=== PATIENT | male | born 1935 | race Caucasian/White ===

== ENCOUNTER 2019-07-20 07:11 | Inpatient (IN) ==
[2019-07-20] MEDS ORDERED: ALBUT/IPRATROP 3MG/0.5MG NEB 3 ML VIAL NEB STA (07:40)
[2019-07-20] MEDS ORDERED: SODIUM CHLORIDE 0.9% 1000ML 1,000 ML IV ONE ×2 (07:40→11:13)
[2019-07-20 07:57] LABS: Hematocrit (blood only) 34.1 % (42-52); Hemoglobin 11.4 g/dL (14.0-18.0); Mean Corpuscular Hemoglobin 36.3 pg (25-34); Mean Corpuscular Hgb Conc 33.4 g/dL (32-36); Mean Corpuscular Volume 108.6 fL (80-100); Mean Platelet Volume 11.5 fL (7.4-10.4); Platelet Count 194 K/uL (130-400); RDW Coefficient of Variation 15.6 % (11.5-14.5); RDW Standard Deviation 61.2 fL (36.4-46.3); Red Blood Count 3.14 M/uL (4.7-6.1); White Blood Count 22.88 K/uL (4.8-10.8)
[2019-07-20] MEDS ORDERED: ONDANSETRON INJ 2 MG/ML 2 ML VIAL IV STA (08:02)
[2019-07-20 08:04] LABS: Albumin Level 3.5 gm/dl (3.4-5.0); BUN Creatinine Ratio 23.9 (10-20); Calcium 9.2 mg/dl (8.5-10.1); Creatinine Clr Calc Pharmacy 47.7 ml/min; Est GFR (African American) 59.7; Est GFR (Non-African American) 51.5; Magnesium 1.8 mg/dl (1.8-2.4); Potassium 3.7 mmol/L (3.5-5.1)
[2019-07-20 08:07] LABS: Albumin Globulin Ratio 1.2 (0.9-2); Bilirubin,Total 1.4 mg/dl (0.2-1); Globulin 2.8 gm/dl (2.5-4.0); Total Protein 6.3 gm/dl (6.4-8.2)
[2019-07-20 08:08] LABS: INR 1.1 (0.9-1.1); Partial Thromboplastin Ratio 0.9; Partial Thromboplastin Time 24.1 Seconds (21.0-31.0)
--- NOTE | 2019-07-20 08:17 | XRay Report ---
SINGLE VIEW CHEST CLINICAL HISTORY: Sepsis. FINDINGS: An AP, portable, upright chest radiograph is compared to study dated 03/11/2011. The examina tion is degraded by portable technique and patient rotation. The patient is status post midline tipton otomy and cardiac valve surgery. A 3-lead cardiac AICD largely obscures the left lower chest. The hea rt is enlarged noting atherosclerotic calcification of the thoracic aorta. There is mild pulmonary va scular congestion. There is chronic elevation of right hemidiaphragm. There are small pleural effusio ns with bibasilar consolidation. No pneumothorax is seen. The skeletal structures are osteopenic. The bony thorax is grossly intact. Degenerative change is noted in the shoulders and thoracic spine. IMPRESSION: 1. Cardiomegaly and AICD. There is mild pulmonary vascular congestion. 2. Small pleural effusions with bibasilar consolidation. This could represent atelectasis and/or an i nfectious/inflammatory pneumonitis. Clinical correlation will be required and radiographic follow-up to resolution is recommended. ACT 112: Negative or not required by law. Electronically signed by: Ned Croft M.D. 07/20/2019 8:16 AM
[2019-07-20 08:28] LABS: Basophils # (auto) 0.04 K/uL (0-0.2); Basophils % (auto) 0.2 %; Eosinophils # (auto) 0.03 K/uL (0-0.5); Eosinophils % (auto) 0.1 %; Immature Granulocytes % (auto) 0.4 %; Lymphocytes # (auto) 1.01 K/uL (1.2-3.4); Lymphocytes % (auto) 4.4 %; Monocytes # (auto) 1.41 K/uL (0.11-0.59); Monocytes % (auto) 6.2 %; Neutrophils # (auto) 20.29 K/uL (1.4-6.5); Neutrophils % (auto) 88.7 %
--- NOTE | 2019-07-20 08:51 | Emergency Department Note ---
ED Visit Note I assisted Dr. Salazar with the care of this patient. . Resident Activity Tracking Resident Involvement: Resident Care Provided Care Provided: Adult ED
--- NOTE | 2019-07-20 09:03 | XRay Report ---
KUB CLINICAL HISTORY: Vomiting. FINDINGS: 2 AP supine abdominal radiographs are correlated with lumbar spine radiographs dated 08/03/19 17. There is a nonobstructed abdominal bowel gas pattern. Moderate fecal retention is noted in the ri ght colon. No evidence of intraperitoneal free air is seen on these supine images. A 6 mm calcificati on projects over the left kidney or the left proximal ureter. The heart is enlarged. Midline sternoto my wires are noted with evidence of previous cardiac valve surgery. A cardiac AICD is partially visua lized. The skeletal structures are osteopenic and appear intact. Lumbosacral spondylosis and scoliosi s are observed. IMPRESSION: 1. Nonobstructed abdominal bowel gas pattern. 2. An indeterminant 6 mm calcification projects over the left kidney/proximal ureter. If there is cli nical concern for ureteral stone a renal ultrasound could be considered to assess for hydronephrosis. Electronically signed by: Ned Croft M.D. 07/20/2019 9:01 AM
[2019-07-20] MEDS ORDERED: CEFEPIME 2,000 MG/20 ML VIAL IV STA (10:03)
--- NOTE | 2019-07-20 10:44 | CT Scan Report ---
CT SCAN OF THE CHEST WITHOUT IV CONTRAST CLINICAL HISTORY: Dyspnea. COMPARISON STUDY: Chest x-ray dated 07/20/2019. TECHNIQUE: CT scan of the thorax was performed from the thoracic inlet to the upper abdomen. Images are reviewed in the axial, sagittal, and coronal planes. IV contrast was not administered for this ex amination as per the referring clinician. A dose lowering technique was utilized adhering to the hattie jose of ASHISH. The examination is modestly degraded by motion artifact. CT DOSE: 334.74 mGy.cm FINDINGS: Thyroid: Imaged portions of the thyroid gland are normal in size and attenuation. Thoracic aorta: There is atherosclerotic calcification of the thoracic aorta. There is aneurysmal dil atation of the ascending thoracic aorta which measures up to 4.8 cm. The remainder of the thoracic ao rta is normal in caliber and demonstrates standard 3-vessel arch anatomy. Heart: The patient is status post midline sternotomy and aortic valve surgery. A 3-lead cardiac AICD is present in the left chest wall. The heart is enlarged and without pericardial effusion. The pulmon misty trunk is dilated, measuring 3.6 cm in transverse diameter. This suggests pulmonary artery hyperte nsion. Lungs and pleural spaces: Evaluation of the lung parenchyma is modestly degraded by motion artifact. There are small pleural effusions. Dense airspace consolidation is seen at the lung bases, with near complete consolidation of the right lower lobe. The trachea and central airways are clear. Calcified pleural plaque is noted at the left lung base. Mediastinum: There are numerous subcentimeter mediastinal lymph nodes. Ann: Not well assessed without IV contrast. Axillae: There is no axillary lymphadenopathy. Upper abdomen: There is diverticulosis of the partially visualized colon. A small to moderate hiatal hernia is observed. Skeletal structures: The skeletal structures are osteopenic. There is a mild to moderate compression deformity of T8. Degenerative change is noted in the shoulders and thoracic spine. No lytic or blasti c bony lesions are seen. IMPRESSION: 1. There is dense bibasilar airspace consolidation as above, typical in appearance for pneumonia. Cli nical correlation will be required and radiographic follow-up to resolution is recommended. 2. Small pleural effusions. 3. Cardiomegaly and AICD. 4. There is aneurysmal dilatation of the ascending thoracic aorta which measures up to 4.8 cm in diam eter. Nonemergent surgical follow-up is recommended. 5. Additional findings as above. ACT 112: Negative or not required by law. Electronically signed by: Ned Croft M.D. 07/20/2019 10:43 AM
--- NOTE | 2019-07-20 11:29 | History & Physical Report ---
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 -Initial pulse ox of 58% but is now saturating at 93% on oxygen mask 13L/min -In setting of aspiration into airway last evening after choking episode and vomiting x 2 -Requires 2L NC HS at baseline -Continue supplemental O2 (2) Sepsis: Initial BP 81/64, improved to 101/54 after 1 L NSS given in ED. Respiration rate initially 25. Leukocytosis of 22.8, normal lactate at 1.5. No AMS -Empirically cover with Zosyn, MRSA swab -Follow blood cultures, IV fluids (3) Aspiration pneumonia: Following choking episode this evening with subsequent vomiting and coughing. Procalcitonin of 5 -Endorsing multiple episodes of hemoptysis with bright red blood mixed with mucus. Will monitor closely with repeat H&H this afternoon -Chest CT without IV contrast with dense bibasilar airspace consolidation as above, typical in appearance for pneumonia, small pleural effusions, cardiomegaly and AICD -Started on empiric cefepime in ED. Will continue abx coverage with Zosyn and doxycycline -Duonebs QIDR -Denies history of aspiration. Dysphagia screen at bedside before advancing diet (4) Bronchiectasis: Follows with Dr. Tejada of [place]. Lung disease complicated further due to right hemidiaphragm paralysis as result of aortic valve surgery -Continue Breo inhaler, albuterol inhaler PRN, flutter valve QID, IV solumedrol (5) Vomiting: In the setting of aspiration -Denies any nausea or vomiting episodes since arrival to ED -No electrolyte abnormalities -Zofran PRN (6) Hypertension: Initially hypotensive at 81/64, now 92/55 -Continue lisinopril HS and Toprol in AM with hold parameters (7) CAD (coronary artery disease): Continue statin, beta viral (8) Chronic diastolic HF (heart failure): In setting of ischemic HD, valvular disease -Continue Lasix HS, Toprol (9) Ventricular tachyarrhythmia: Continue Toprol -ICD with new unit placed in 07/14 -Monitor on telemetry (10) Ascending aortic aneurysm: History of stable aneurysmal dilatation of the ascending thoracic aorta which measures up to 4.6-4.8 cm in diameter -Undergoes annual CT scan, most recently in May 2019 without change -Followed closely by Dr. Simon (11) BPH (benign prostatic hyperplasia): Continue finasteride, terazosin DVT Ppx: SCDs for now in setting of hemoptysis Code status: FULL per discussion with patient PCP: Jeff Simon Dispo: Admitted to PCU. Discharge planning, PT and OT ordered. Patient seen in collaboration with Dr. Akhtar. Please see addendum. 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 Patient states he was in normal state of health until last evening around 10 PM when he choked on hot cocoa. Proceeded to have dry heaves and then 2 episodes of vomiting overnight as well as cough with reported episodes of hemoptysis of bright red blood mixed with mucus. Usually only wears 2 L nasal cannula oxygen HS but required at this morning as well, so family brought patient to ED for further evaluation. Initially, patient had pulse ox of 58% but is now saturating at 93% on oxygen mask 13L/min. Initial BP 81/64, improved to 97/50 after 1 L NSS given in ED. Respiration rate initially 25. Leukocytosis of 22.8, procalcitonin of 5 and normal lactate at 1.5. Chest CT without IV contrast with dense bibasilar airspace consolidation as above, typical in appearance for pneumonia, small pleural effusions, cardiomegaly and AICD. Also with stable aneurysmal dilatation of the ascending thoracic aorta which measures up to 4.8 cm in diameter. Started on empiric cefepime in ED. Allergies Allergy/AdvReac Type Severity Reaction Status Date / Time No Known Allergies Allergy Verified 07/20/19 09:32 Home Medications Home Medications Medication Instructions Recorded Confirmed Type Alphagan P 0.1 % OPHTHALMIC (EYE) DAILY 07/04/18 07/20/19 History albuterol sulfate [ProAir HFA] 2 puff INHALATION QID PRN 07/04/18 07/20/19 History amoxicillin 2,000 mg PO UD PRN 07/04/18 07/20/19 History dorzolamide-timolol 1 drp OPHTHALMIC (EYE) HS 07/04/18 07/20/19 History furosemide [Lasix] 20 mg PO HS 07/04/18 07/20/19 History latanoprost [Xalatan] 1 drp OPR HS 07/04/18 07/20/19 History Breo Ellipta 1 inh INHALATION QAM 06/27/19 07/20/19 History azithromycin [Zithromax Z-Thom] 250 mg PO UD PRN 06/27/19 07/20/19 History cetirizine [Zyrtec] 10 mg PO DAILY PRN 06/27/19 07/20/19 History cholecalciferol (vitamin D3) 1,000 unit PO QAM 06/27/19 07/20/19 History [Vitamin D3] finasteride 5 mg PO HS 06/27/19 07/20/19 History fluticasone propionate [Flonase 2 spray INTRANASAL BID 06/27/19 07/20/19 History Allergy Relief] lisinopril 2.5 mg PO HS 06/27/19 07/20/19 History metoprolol succinate 25 mg PO QAM 06/27/19 07/20/19 History multivitamin with minerals 1 tab PO QAM 06/27/19 07/20/19 History prednisone 10 mg PO UD PRN 06/27/19 07/20/19 History simvastatin 40 mg PO PM 06/27/19 07/20/19 History terazosin 5 mg PO QPM 06/27/19 07/20/19 History prednisolone acetate 1 drp OPHTHALMIC (EYE) QID 07/20/19 07/20/19 History Past Med/Surg History Medical History (Updated 07/20/19 @ 14:51 by Jemma Salazar MD) Ascending aortic aneurysm (Chronic) BPH (benign prostatic hyperplasia) (Chronic) Bronchiectasis (Chronic) CAD (coronary artery disease) (Chronic) Chronic diastolic HF (heart failure) Chronic systolic CHF (congestive heart failure), NYHA class 3 Glaucoma bilt eyes Hyperlipidemia (Chronic) Hypertension (Chronic) ICD (implantable cardioverter-defibrillator) battery depletion pt for biv icd generator change; rediscussed the procedure and potential risks consent obtained Ischemic cardiomyopathy (Chronic) On home oxygen therapy 2L N/C hs and prn Spinal stenosis Ventricular tachyarrhythmia (Chronic) Surgical History Biventricular ICD (implantable cardioverter-defibrillator) in place 2006 @ [facility]/ recently replaced @ 07/04/18 [facility] History of bilateral cataract extraction History of cardiac cath [address] [facility] [place] no stents History of colonoscopy History of left inguinal hernia repair x2 History of prostate biopsy x2--benign History of tonsillectomy Hx of CABG [address] [facility] [place] S/P AVR [address] [facility] [place] Family History Father Family hx colonic polyps Other Hypertension No family history of adverse response to anesthesia Stroke Social History Preferred Language: Irish Communication Ability: Effective Salesperson Floor Coverings Required: No Beliefs That Will Affect Care: None Current Living Situation: Spouse Other Information That Helps Us Care for You: No Feels Safe at Home: Yes Safety Concerns: Feels Safe At This Time Smoking Status: Former smoker Do You Dip or Chew Tobacco: No ; Smoking End Date: ; Second Hand Exposure: No ; Tobacco Cessation Education Requested by Patient: No Hx Alcohol Use: No Hx Substance Use: No Review of Systems Review of Systems: At least ten systems reviewed and negative except as noted in the HPI. Physical Exam Physical Exam: General Appearance: WD/WN, vitals as above, NAD, lying in bed, pleasant, chronically ill appearing, conversing easily Head: normocephalic, atraumatic Eyes: normal inspection, PERRL, conjunctivae normal, anicteric sclerae ENT: external ear and nose normal, oropharynx normal Neck: trachea midline, no thyromegaly normal visual inspection Respiratory: diffuse rhonchi and wheezing with bibasilar rales. Normal insp/exp effort with oxymask, no accessory muscle use Cardiovascular: regular rate, rhythm, no murmur appreciated, normal peripheral pulses, no BLE edema. Vessels: no JVD Chest: normal inspection of chest Abdomen/GI: normal bowel sounds, soft, nontender, no hepatosplenomegaly Extremities/Musculoskelatal: no cyanosis or clubbing, extremities motor strength 5/5 Neurologic: PERRL, EOMI, accommodation nl, no face palsy, no dysarthria, CN's II-XI intact bilaterally and moves all extremities Psychiatric: A+Ox3, euthymic affect Skin: no rashes, normal color, warm/dry Results & Data Vital Signs (Past 12 Hours) Vital Signs Temp Pulse Pulse Resp BP Pulse Ox 07/20/19 10:46 76 94 07/20/19 10:45 92/55 L 95 07/20/19 10:30 76 91/56 L 95 07/20/19 10:15 77 101/59 L 95 07/20/19 09:45 80 97/56 L 93 07/20/19 09:30 81 20 99/54 L 92 07/20/19 09:15 79 14 102/51 L 94 07/20/19 09:01 79 18 94 07/20/19 09:00 79 18 112/56 L 93 07/20/19 08:45 78 17 113/61 95 07/20/19 08:31 81 19 95 07/20/19 08:30 80 18 106/53 L 94 07/20/19 08:21 84 22 101/54 L 92 07/20/19 08:15 86 21 93 07/20/19 08:02 88 16 92 07/20/19 08:01 90 16 96 07/20/19 08:00 86 82/52 L 93 07/20/19 07:52 87 20 87/45 L 95 07/20/19 07:46 94 07/20/19 07:31 90 25 H 81/64 L 96 07/20/19 07:25 37.4 C 92 H 24 107/60 58 L 07/20/19 07:19 97 H 23 107/60 93 Laboratory Results Short CBC 07/20/19 Range/Units 06:45 WBC 22.88 H (4.8-10.8) K/uL Hgb 11.4 L (14.0-18.0) g/dL Hct 34.1 L (42-52) % Plt Count 194 (130-400) K/uL BMP 07/20/19 06:45 Sodium 141 Potassium 3.7 Chloride 108 H Carbon Dioxide 29 BUN 30 H Creatinine 1.27 Glucose 118 H Calcium 9.2 Liver Function 07/20/19 Range/Units 06:45 Total Bilirubin 1.4 H (0.2-1) mg/dl AST 21 (15-37) U/L ALT 22 (12-78) U/L Alkaline Phosphatase 62 (45-117) U/L Albumin 3.5 (3.4-5.0) gm/dl Diagnostic Findings CXR: IMPRESSION: 1. Cardiomegaly and AICD. There is mild pulmonary vascular congestion. 2. Small pleural effusions with bibasilar consolidation. This could represent atelectasis and/or an infectious/inflammatory pneumonitis. Clinical correlation will be required and radiographic follow-up to resolution is recommended. KUB: IMPRESSION: 1. Non-obstructed abdominal bowel gas pattern. 2. An indeterminant 6 mm calcification projects over the left kidney/proximal ureter. If there is clinical concern for ureteral stone a renal ultrasound could be considered to assess for hydronephrosis. CT chest w/o contrast: IMPRESSION: 1. There is dense bibasilar airspace consolidation as above, typical in appearance for pneumonia. Clinical correlation will be required and radiographic follow-up to resolution is recommended. 2. Small pleural effusions. 3. Cardiomegaly and AICD. 4. There is aneurysmal dilatation of the ascending thoracic aorta which measures up to 4.8 cm in diameter. Nonemergent surgical follow-up is recommended. 5. Additional findings as above. Code Status & VTE Plan VTE Prophylaxis Plan VTE Prophylaxis will be ordered: Yes Supervising Physician Co-Signing Physician Notes Attending addendum The patient was seen and examined in telemetry unit in presence of the family members He was admitted with increasing shortness of breath, chills and hemoptysis Symptoms are getting better but is still requiring about 10 L to maintain sa turation No more hemoptysis since admission On examination No apparent distress at rest Has been communicating normally Systolic blood pressure remains low at around upper 90s Chest-decreased breath sounds bilaterally bases with coarse crackles Heart-S1-S2, regular Abdomen-benign Extremities-trace edema bilaterally more on the left MANAGER BOOK-alert awake and oriented x3, Admission labs and imaging studies reviewed Has bibasilar infiltrate complicated by bronchiectasis and sepsis Hemoptysis Chronic diastolic CHF with ventricular tachyarrhythmia status post ICD placement in 07/14 Agree with assessment and plan as outlined above by VALENTÍN Shah DR
[2019-07-20] MEDS ORDERED: CONSULT PHARMACY STA (12:03)
[2019-07-20] MEDS ORDERED: ACETAMINOPHEN 325 MG TAB PO PRN (12:03)
[2019-07-20] MEDS ORDERED: CETIRIZINE HCL 10 MG TABLET PO PRN (12:03)
[2019-07-20] MEDS ORDERED: POLYETHYLENE (MIRALAX) 17 GM PACK PO PRN (12:03)
--- NOTE | 2019-07-20 13:06 | Emergency Department Note ---
Entered by Nancy Barbosa acting as a scribe for Jemma Salazar MD History of Present Illness General Chief complaint: Shortness of Breath/Dyspnea Stated complaint: Shortness of Breath Time Seen by Provider: 07/20/19 07:17 Source: patient Mode of arrival: ambulatory Limitations: no limitations History of Present Illness Onset (ago): hour(s) 8 Location: chest Radiation: non-radiation Pain Consistency: + constant Relieved By: + other (Oxygen) Exacerbated By: + none Associated symptoms: + cough, + fever/chills, + nausea/vomiting and + other (- hematochezia, -diarrhea, -vision changes, +hematemesis); no chest pain and no headaches Treatments prior to arrival: other (2L O2) The patient is an 83 year old male who presents to the ED with complaints of shortness of breath that started last night. He was brought to the ED via EMS and is accompanied by multiple family members. He states he ravioli and a hoagie yesterday while at his granddaughters house. Late last night, he started vomiting and experienced shortness of breath, a cough and the chills. He has vomited over 10 times and believes he saw blood in the vomit. His states his vomit looked "dark in color". The patient denies choking or having any issues swallowing while eating yesterday evening. He denies any headache, vision changes, chest pain or diarrhea. His also ate at their granddaughter's house but denies experiencing any symptoms herself. His last BM was yesterday and he denies any blood in the stool. 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 Home Medications Home Medications Medication Instructions Recorded Confirmed Type Alphagan P 0.1 % OPHTHALMIC (EYE) DAILY 07/04/18 07/20/19 History albuterol sulfate [ProAir HFA] 2 puff INHALATION QID PRN 07/04/18 07/20/19 History amoxicillin 2,000 mg PO UD PRN 07/04/18 07/20/19 History dorzolamide-timolol 1 drp OPHTHALMIC (EYE) HS 07/04/18 07/20/19 History furosemide [Lasix] 20 mg PO HS 07/04/18 07/20/19 History latanoprost [Xalatan] 1 drp OPR HS 07/04/18 07/20/19 History Breo Ellipta 1 inh INHALATION QAM 06/27/19 07/20/19 History azithromycin [Zithromax Z-Thom] 250 mg PO UD PRN 06/27/19 07/20/19 History cetirizine [Zyrtec] 10 mg PO DAILY PRN 06/27/19 07/20/19 History cholecalciferol (vitamin D3) 1,000 unit PO QAM 06/27/19 07/20/19 History [Vitamin D3] finasteride 5 mg PO HS 06/27/19 07/20/19 History fluticasone propionate [Flonase 2 spray INTRANASAL BID 06/27/19 07/20/19 History Allergy Relief] lisinopril 2.5 mg PO HS 06/27/19 07/20/19 History metoprolol succinate 25 mg PO QAM 06/27/19 07/20/19 History multivitamin with minerals 1 tab PO QAM 06/27/19 07/20/19 History prednisone 10 mg PO UD PRN 06/27/19 07/20/19 History simvastatin 40 mg PO PM 06/27/19 07/20/19 History terazosin 5 mg PO QPM 06/27/19 07/20/19 History prednisolone acetate 1 drp OPHTHALMIC (EYE) QID 07/20/19 07/20/19 History Allergies Allergy/AdvReac Type Severity Reaction Status Date / Time No Known Allergies Allergy Verified 07/20/19 09:32 Past Med/Surg History Medical History (Updated 07/20/19 @ 14:51 by Jemma Salazar MD) Ascending aortic aneurysm (Chronic) BPH (benign prostatic hyperplasia) (Chronic) Bronchiectasis (Chronic) CAD (coronary artery disease) (Chronic) Chronic diastolic HF (heart failure) Chronic systolic CHF (congestive heart failure), NYHA class 3 Glaucoma bilt eyes Hyperlipidemia (Chronic) Hypertension (Chronic) ICD (implantable cardioverter-defibrillator) battery depletion pt for biv icd generator change; rediscussed the procedure and potential risks consent obtained Ischemic cardiomyopathy (Chronic) On home oxygen therapy 2L N/C hs and prn Spinal stenosis Ventricular tachyarrhythmia (Chronic) Surgical History Biventricular ICD (implantable cardioverter-defibrillator) in place 2006 @ [facility]/ recently replaced @ 07/04/18 [facility] History of bilateral cataract extraction History of cardiac cath 2001 @ [facility] [place] no stents History of colonoscopy History of left inguinal hernia repair x2 History of prostate biopsy x2--benign History of tonsillectomy Hx of CABG 2001 @ [facility] [place] S/P AVR 2001 @ [facility] [place] Family History Father Family hx colonic polyps Other Hypertension No family history of adverse response to anesthesia Stroke Social History Preferred Language: Welsh Communication Ability: Effective Swaging Machine Adjuster Required: No Beliefs That Will Affect Care: None Current Living Situation: Spouse Other Information That Helps Us Care for You: No Feels Safe at Home: Yes Safety Concerns: Feels Safe At This Time Smoking Status: Former smoker Do You Dip or Chew Tobacco: No ; Smoking End Date: ; Second Hand Exposure: No ; Tobacco Cessation Education Requested by Patient: No Hx Alcohol Use: No Hx Substance Use: No Review of Systems See HPI for pertinent positives & negatives. and A total of 10 systems reviewed and were otherwise negative Physical Exam Vital Signs Vital Signs - 24 hr 07/20/19 07:19 07/20/19 07:25 07/20/19 07:31 Temperature 37.4 C Temperature Source Oral Pulse Rate 97 H 92 H 90 Pulse Rate [Apical] Pulse Rate from SpO2 Sensor 94 H 91 H Respiratory Rate 23 24 25 H Respiratory Effort / Characteristics Spontaneous Accessory Muscle Use Labored Blood Pressure 107/60 107/60 81/64 L Blood Pressure Mean 83 75 72 Blood Pressure Position Sitting Pulse Oximetry 93 58 L 96 Oxygen Delivery Method Non-rebreather Room Air Non-rebreather Oxygen Flow Rate 15 15 Sepsis Recent Fever Within 48 Hours No Sepsis Action Taken by Nursing No Action Required 07/20/19 07:46 07/20/19 07:52 07/20/19 08:00 Temperature Temperature Source Pulse Rate 87 86 Pulse Rate [Apical] Pulse Rate from SpO2 Sensor 87 87 Respiratory Rate 20 Respiratory Effort / Characteristics Blood Pressure 87/45 L 82/52 L Blood Pressure Mean 55 62 Blood Pressure Position Pulse Oximetry 94 95 93 Oxygen Delivery Method Non-rebreather Oxygen Flow Rate 15 15 15 Sepsis Recent Fever Within 48 Hours Sepsis Action Taken by Nursing 07/20/19 08:01 07/20/19 08:02 07/20/19 08:15 Temperature Temperature Source Pulse Rate 88 86 Pulse Rate [Apical] 90 Pulse Rate from SpO2 Sensor 88 86 Respiratory Rate 16 16 21 Respiratory Effort / Characteristics Spontaneous Blood Pressure Blood Pressure Mean Blood Pressure Position Pulse Oximetry 96 92 93 Oxygen Delivery Method Non-rebreather Oxygen Flow Rate 15 Sepsis Recent Fever Within 48 Hours Sepsis Action Taken by Nursing 07/20/19 08:21 07/20/19 08:30 07/20/19 08:31 Temperature Temperature Source Pulse Rate 84 80 81 Pulse Rate [Apical] Pulse Rate from SpO2 Sensor 84 83 81 Respiratory Rate 22 18 19 Respiratory Effort / Characteristics Blood Pressure 101/54 L 106/53 L Blood Pressure Mean 72 63 Blood Pressure Position Pulse Oximetry 92 94 95 Oxygen Delivery Method Oxymask Oxymask Oxygen Flow Rate 10 10 Sepsis Recent Fever Within 48 Hours Sepsis Action Taken by Nursing 07/20/19 08:45 07/20/19 09:00 07/20/19 09:01 Temperature Temperature Source Pulse Rate 78 79 79 Pulse Rate [Apical] Pulse Rate from SpO2 Sensor 78 79 79 Respiratory Rate 17 18 18 Respiratory Effort / Characteristics Blood Pressure 113/61 112/56 L Blood Pressure Mean 83 78 Blood Pressure Position Pulse Oximetry 95 93 94 Oxygen Delivery Method Oxymask Oxygen Flow Rate 15 15 Sepsis Recent Fever Within 48 Hours Sepsis Action Taken by Nursing 07/20/19 09:15 07/20/19 09:30 07/20/19 09:45 Temperature Temperature Source Pulse Rate 79 81 80 Pulse Rate [Apical] Pulse Rate from SpO2 Sensor 79 81 80 Respiratory Rate 14 20 Respiratory Effort / Characteristics Blood Pressure 102/51 L 99/54 L 97/56 L Blood Pressure Mean 74 73 67 Blood Pressure Position Pulse Oximetry 94 92 93 Oxygen Delivery Method Oxymask Oxymask Oxymask Oxygen Flow Rate 15 15 15 Sepsis Recent Fever Within 48 Hours Sepsis Action Taken by Nursing 07/20/19 10:15 07/20/19 10:30 Temperature Temperature Source Pulse Rate 77 76 Pulse Rate [Apical] Pulse Rate from SpO2 Sensor 77 76 Respiratory Rate Respiratory Effort / Characteristics Blood Pressure 101/59 L 91/56 L Blood Pressure Mean 80 62 Blood Pressure Position Pulse Oximetry 95 95 Oxygen Delivery Method Oxymask Oxymask Oxygen Flow Rate 13 13 Sepsis Recent Fever Within 48 Hours Sepsis Action Taken by Nursing Vital signs reviewed. General: Chronically ill appearing 83 year old male, in no significant distress. HEENT: No scleral icterus, PERRLA, neck supple. Atraumatic. Cardiovascular: Regular rate and rhythm, no extra sounds. Pulmonary: Rhonchi at the bilateral bases, course breathings throughout, normal work of breathing on NRB. Abdomen: Soft, nontender, nondistended, positive bowel sounds. Rectal: Normal rectal mucosa with guaiac negative brown stool. Musculoskeletal: Atraumatic, no peripheral edema. Neurologic: Patient awake alert and oriented x 3, full strength in all 4 extremities. Skin: Warm, dry, no rash Course Course 0725: The patient was evaluated in room B7 and a complete history and physical were performed. 0950: I reevaluated the patient. He is resting comfortably. I discussed his results and my recommendation he remain in the hospital for further evaluation and management and she is agreeable with the plan. 1000: I discussed the patients case with Viviana Storey [facility]. The patient will be further evaluated. Consultations Consultation #1: I discussed the patients case [facility] The patient will be further evaluated. Time: 10:00 Administered Medications Doxycycline Hyclate 100 mg/ (Dextrose) 110 mls @ 50 mls/hr IV Q12H CHRISTIAN Stop: 07/27/19 13:59 Last Admin: 07/20/19 14:17 Dose: 50 mls/hr Documented by: [id number] Methylprednisolone 40 mg/ (Syringe) 0.64 mls @ 1.5 mls/min IV Q8H CHRISTIAN Stop: 08/19/19 13:59 Last Admin: 07/20/19 14:17 Dose: 1.5 mls/min Documented by: [id number] Discontinued Medications Albuterol (Duoneb) 3 ml NEB NOW STA Stop: 07/20/19 07:41 Last Admin: 07/20/19 08:12 Dose: 3 ml Documented by: [id number] Sodium Chloride (Nss 1000ml) 1,000 mls @ 999 mls/hr IV .Q1H1M ONE Stop: 07/20/19 08:40 Last Infusion: 07/20/19 09:58 Dose: 0 mls/hr Documented by: [id number] Admin: 07/20/19 08:30 Dose: 999 mls/hr Documented by: [id number] Cefepime HCl (Maxipime) 2,000 mg in 20 mls @ 5 mls/min IV NOW STA; Protocol Stop: 07/20/19 10:06 Last Admin: 07/20/19 10:40 Dose: 5 mls/min Documented by: [id number] Sodium Chloride (Nss 1000ml) 1,000 mls @ 999 mls/hr IV .Q1H1M ONE Stop: 07/20/19 12:13 Last Infusion: 07/20/19 14:18 Dose: 0 mls/hr Documented by: [id number] Admin: 07/20/19 13:13 Dose: 999 mls/hr Documented by: [id number] Piperacillin Sod/Tazobactam (Sod 4.5 gm/ Dextrose) 120 mls @ 200 mls/hr IV 1315 ONE; Protocol Stop: 07/20/19 13:50 Last Infusion: 07/20/19 13:56 Dose: 0 mls/hr Documented by: [id number] Admin: 07/20/19 13:13 Dose: 200 mls/hr Documented by: [id number] Ondansetron HCl (Zofran) 4 mg IV NOW STA Stop: 07/20/19 08:03 Last Admin: 07/20/19 08:50 Dose: 4 mg Documented by: [id number] Medical Decision Making Differential Diagnosis Differential diagnoses includes but is not limited to pneumonia, bronchitis, COPD/Asthma exacerbation, pneumothorax, pulmonary embolism, congestive heart failure, acute coronary syndrome, SBO, GI bleed, viral illness. Medical Records Attestation: I reviewed the patient's medical records. Home Medications Current Medication List: was personally reviewed by me Laboratory Data Attestation: I reviewed the patient's lab results. Result diagrams: 07/20/19 06:45 07/20/19 06:45 Lab Results 07/20/19 07/20/19 07/20/19 Range/Units 06:45 06:45 06:45 WBC 22.88 H (4.8-10.8) K/uL RBC 3.14 L (4.7-6.1) M/uL Hgb 11.4 L (14.0-18.0) g/dL Hct 34.1 L (42-52) % MCV 108.6 H (80-100) fL MCH 36.3 H (25-34) pg MCHC 33.4 (32-36) g/dL RDW Std Deviation 61.2 H (36.4-46.3) fL RDW Coeff of Kole 15.6 H (11.5-14.5) % Plt Count 194 (130-400) K/uL MPV 11.5 H (7.4-10.4) fL Immature Gran % (Auto) 0.4 % Neut % (Auto) 88.7 % Lymph % (Auto) 4.4 % Carter % (Auto) 6.2 % Eos % (Auto) 0.1 % Baso % (Auto) 0.2 % Immature Gran # (Auto) 0.10 H (0.00-0.02) K/uL Neut # (Auto) 20.29 H (1.4-6.5) K/uL Lymph # (Auto) 1.01 L (1.2-3.4) K/uL Carter # (Auto) 1.41 H (0.11-0.59) K/uL Eos # (Auto) 0.03 (0-0.5) K/uL Baso # (Auto) 0.04 (0-0.2) K/uL PT 11.0 (9.0-12.0) Seconds INR 1.1 (0.9-1.1) APTT 24.1 (21.0-31.0) Seconds PTT Ratio 0.9 Sodium 141 (136-145) mmol/L Potassium 3.7 (3.5-5.1) mmol/L Chloride 108 H (98-107) mmol/L Carbon Dioxide 29 (21-32) mmol/L Anion Gap 5.0 (3-11) BUN 30 H (7-18) mg/dl Creatinine 1.27 (0.6-1.4) mg/dl Est Cr Clr Drug Dosing 47.7 ml/min Est GFR ( Amer) 59.7 Est GFR (Non-Af Amer) 51.5 BUN/Creatinine Ratio 23.9 H (10-20) Glucose 118 H (70-99) mg/dl Lactate (0.4-2.0) mmol/L Calcium 9.2 (8.5-10.1) mg/dl Magnesium 1.8 (1.8-2.4) mg/dl Total Bilirubin 1.4 H (0.2-1) mg/dl AST 21 (15-37) U/L ALT 22 (12-78) U/L Alkaline Phosphatase 62 (45-117) U/L Total Protein 6.3 L (6.4-8.2) gm/dl Albumin 3.5 (3.4-5.0) gm/dl Globulin 2.8 (2.5-4.0) gm/dl Albumin/Globulin Ratio 1.2 (0.9-2) Procalcitonin (0-0.5) ng/ml 07/20/19 07/20/19 Range/Units 08:18 08:26 WBC (4.8-10.8) K/uL RBC (4.7-6.1) M/uL Hgb (14.0-18.0) g/dL Hct (42-52) % MCV (80-100) fL MCH (25-34) pg MCHC (32-36) g/dL RDW Std Deviation (36.4-46.3) fL RDW Coeff of Kole (11.5-14.5) % Plt Count (130-400) K/uL MPV (7.4-10.4) fL Immature Gran % (Auto) % Neut % (Auto) % Lymph % (Auto) % Carter % (Auto) % Eos % (Auto) % Baso % (Auto) % Immature Gran # (Auto) (0.00-0.02) K/uL Neut # (Auto) (1.4-6.5) K/uL Lymph # (Auto) (1.2-3.4) K/uL Carter # (Auto) (0.11-0.59) K/uL Eos # (Auto) (0-0.5) K/uL Baso # (Auto) (0-0.2) K/uL PT (9.0-12.0) Seconds INR (0.9-1.1) APTT (21.0-31.0) Seconds PTT Ratio Sodium (136-145) mmol/L Potassium (3.5-5.1) mmol/L Chloride (98-107) mmol/L Carbon Dioxide (21-32) mmol/L Anion Gap (3-11) BUN (7-18) mg/dl Creatinine (0.6-1.4) mg/dl Est Cr Clr Drug Dosing ml/min Est GFR ( Amer) Est GFR (Non-Af Amer) BUN/Creatinine Ratio (10-20) Glucose (70-99) mg/dl Lactate 1.5 (0.4-2.0) mmol/L Calcium (8.5-10.1) mg/dl Magnesium (1.8-2.4) mg/dl Total Bilirubin (0.2-1) mg/dl AST (15-37) U/L ALT (12-78) U/L Alkaline Phosphatase (45-117) U/L Total Protein (6.4-8.2) gm/dl Albumin (3.4-5.0) gm/dl Globulin (2.5-4.0) gm/dl Albumin/Globulin Ratio (0.9-2) Procalcitonin 5.02 H (0-0.5) ng/ml Imaging Data Radiologist's Impression: Radiology results as stated below per my review and the radiologist's interpretation: SINGLE VIEW CHEST CLINICAL HISTORY: Sepsis. FINDINGS: An AP, portable, upright chest radiograph is compared to study dated 03/11/2011. The examination is degraded by portable technique and patient rotation. The patient is status post midline sternotomy and cardiac valve surgery. A 3-lead cardiac AICD largely obscures the left lower chest. The heart is enlarged noting atherosclerotic calcification of the thoracic aorta. There is mild pulmonary vascular congestion. There is chronic elevation of right hemidiaphragm. There are small pleural effusions with bibasilar consolidation. No pneumothorax is seen. The skeletal structures are osteopenic. The bony thorax is grossly intact. Degenerative change is noted in the shoulders and thoracic spine. IMPRESSION: 1. Cardiomegaly and AICD. There is mild pulmonary vascular congestion. 2. Small pleural effusions with bibasilar consolidation. This could represent atelectasis and/or an infectious/inflammatory pneumonitis. Clinical correlation will be required and radiographic follow-up to resolution is recommended. ACT 112: Negative or not required by law. Electronically signed by: Ned Croft M.D. 07/20/2019 8:16 AM KUB CLINICAL HISTORY: Vomiting. FINDINGS: 2 AP supine abdominal radiographs are correlated with lumbar spine radiographs dated 08/03/2016. There is a nonobstructed abdominal bowel gas pattern. Moderate fecal retention is noted in the right colon. No evidence of intraperitoneal free air is seen on these supine images. A 6 mm calcification projects over the left kidney or the left proximal ureter. The heart is enl arged. Midline sternotomy wires are noted with evidence of previous cardiac valve surgery. A cardiac AICD is partially visualized. The skeletal structures are osteopenic and appear intact. Lumbosacral spondylosis and scoliosis are observed. IMPRESSION: 1. Nonobstructed abdominal bowel gas pattern. 2. An indeterminant 6 mm calcification projects over the left kidney/proximal ureter. If there is clinical concern for ureteral stone a renal ultrasound could be considered to assess for hydronephrosis. Electronically signed by: Ned Croft M.D. 07/20/2019 9:[address] SCAN OF THE CHEST WITHOUT IV CONTRAST CLINICAL HISTORY: Dyspnea. COMPARISON STUDY: Chest x-ray dated 07/20/2019. TECHNIQUE: CT scan of the thorax was performed from the thoracic inlet to the upper abdomen. Images are reviewed in the axial, sagittal, and coronal planes. IV contrast was not administered for this examination as per the referring clinician. A dose lowering technique was utilized adhering to the principles of ALARA. The examination is modestly degraded by motion artifact. CT DOSE: 334.74 mGy.cm FINDINGS: Thyroid: Imaged portions of the thyroid gland are normal in size and attenuation. Thoracic aorta: There is atherosclerotic calcification of the thoracic aorta. There is aneurysmal dilatation of the ascending thoracic aorta which measures up to 4.8 cm. The remainder of the thoracic aorta is normal in caliber and demonstrates standard 3-vessel arch anatomy. Heart: The patient is status post midline sternotomy and aortic valve surgery. A 3-lead cardiac AICD is present in the left chest wall. The heart is enlarged and without pericardial effusion. The pulmonary trunk is dilated, measuring 3.6 cm in transverse diameter. This suggests pulmonary artery hypertension. Lungs and pleural spaces: Evaluation of the lung parenchyma is modestly degraded by motion artifact. There are small pleural effusions. Dense airspace consolidation is seen at the lung bases, with near complete consolidation of the right lower lobe. The trachea and central airways are clear. Calcified pleural plaque is noted at the left lung base. Mediastinum: There are numerous subcentimeter mediastinal lymph nodes. Ann: Not well assessed without IV contrast. Axillae: There is no axillary lymphadenopathy. Upper abdomen: There is diverticulosis of the partially visualized colon. A small to moderate hiatal hernia is observed. Skeletal structures: The skeletal structures are osteopenic. There is a mild to moderate compression deformity of T8. Degenerative change is noted in the shoulders and thoracic spine. No lytic or blastic bony lesions are seen. IMPRESSION: 1. There is dense bibasilar airspace consolidation as above, typical in appearance for pneumonia. Clinical correlation will be required and radiographic follow-up to resolution is recommended. 2. Small pleural effusions. 3. Cardiomegaly and AICD. 4. There is aneurysmal dilatation of the ascending thoracic aorta which measures up to 4.8 cm in diameter. Nonemergent surgical follow-up is recommended. 5. Additional findings as above. ACT 112: Negative or not required by law. Electronically signed by: Ned Croft M.D. 07/20/2019 10:43 AM ECG Data Attestation: I personally reviewed and interpreted this ECG as follows: Indication: + nausea Rate (beats per minute): 92 Rhythm: + other (biventricular paced rhythm) ECG [place]: + Normal ECG ST segments: + Nonspecific ST abnormalities Blood Pressure Blood Pressure Findings: Low blood pressure Blood Pressure Disposition: further management by hospitalist MDM Narrative This patient was evaluated and appeared to be in no distress. IV access was obtained and laboratory work was drawn. Chest x-ray was performed and reveals mild pulmonary vascular congestion with small bilateral effusions. Patient did receive IV hydration for relative hypotension although the patient states his systolic pressure normally runs between 90 and 110. KUB reveals a nonobstructive bowel gas pattern with a questionable left renal calculus. Follow-up CT scan of the chest was performed and is consistent with a bibasilar pneumonia. There is concern over aspiration given the patient's respiratory status and vomiting this morning. He was maintaining oxygenation on nonrebreather and was switched to an oxygen mask. Blood cultures were obtained and the patient was medicated with IV Zosyn. Patient is guaiac negative from the rectum and has a stable H&H with a white count of 22.8. He will be evaluated by the hospitalist service for further management. Patient and family are aware of the plan and agree. Resident Physician Supervision Note: I did perform an independent evaluation and examination of this patient as described. I also saw this patient in conjunction with the resident, Dr. Makenzie Rdz MD , and guided management for the patient. Impression & Plan Pneumonia, Vomiting, Hypoxia Discharge Plan Visit Data *Final* Discharge Date/Time: 07/20/19 10:59 Chief Complaint: Shortness of Breath/Dyspnea Stated Complaint: Shortness of Breath ED Provider: Jemma Salazar Discharge Problem: Pneumonia, Vomiting, Hypoxia Patient Disposition: Admitted As Inpatient Discharge Instructions Interventions: ED Discharge Assessment Last Done: 07/20/19 10:59 Discharge Problem: Pneumonia Qualifiers: Pneumonia type: due to unspecified organism Laterality: bilateral Lung location: lower lobe of lung Qualified Code(s): J18.9 - Pneumonia, unspecified organism Vomiting Qualifiers: Vomiting type: unspecified Vomiting Intractability: non-intractable Nausea presence: with nausea Qualified Code(s): R11.2 - Nausea with vomiting, unspecified The scribe's documentation has been prepared under my direction and personally reviewed by me in its entirety. I confirm that the note above accurately reflects all work, treatment, procedures, and medical decision making performed by me.
[2019-07-20] MEDS ORDERED: PIPERACILL/TAZOBAC CONSULT ACTIVE PRN (13:09)
[2019-07-20] MEDS ORDERED: PIPERACILLIN/TAZOBACTAM 4.5 GM in DEXTROSE 5% 100 ML IV ONE (13:15)
[2019-07-20] MEDS ORDERED: ALBUTEROL HFA 8 GM INHALER INH PRN (13:30)
[2019-07-20] MEDS ORDERED: HEPARIN SOD 5,000 UNIT/0.5 ML VIAL SQ SCH (14:00)
[2019-07-20] MEDS: DOXYCYCLINE HYCLATE 100 MG in DEXTROSE 5% 100 ML IV SCH (14:17)
[2019-07-20] MEDS: methylPREDNISolone 40 MG in SYRINGE 0 ML IV SCH ×2 (14:17→21:50)
[2019-07-20] MEDS: ALBUT/IPRATROP 3MG/0.5MG NEB 3 ML VIAL NEB SCH ×2 (15:36→20:34)
[2019-07-20] MEDS: prednisoLONE acetate 1% OP SUSP 5 ML BTL OP SCH ×2 (17:29→20:43)
[2019-07-20] MEDS: PIPERACILLIN/TAZOBACTAM 3.375 GM in DEXTROSE 5% 100 ML IV SCH (19:44)
--- NOTE | 2019-07-20 20:16 | Electrocardiogram Report ---
Test Reason : Blood Pressure : / mmHG Vent. Rate : 092 BPM Atrial Rate : 092 BPM P-R Int : 176 ms QRS Dur : 138 ms QT Int : 386 ms P-R-T Axes : 026 068 054 degrees QTc Int : 477 ms Atrial-sensed ventricular-paced rhythm Biventricular pacemaker detected Abnormal ECG No previous ECGs available Confirmed by Thee Lewis ([id number]) on 07/20/2019 8:16:37 PM Referred By: REFERRED SELF Confirmed By:Escobar Lewis
[2019-07-20] MEDS: FLUTICASONE PROPIONATE NA SPR 16 GM BTL NAE SCH (20:39)
[2019-07-20] MEDS: DORZOLAMIDE/TIMOLOL 22.3/6.8MG/ML 10 ML BTL OP SCH (20:39)
[2019-07-20] MEDS: FUROSEMIDE 20 MG TAB PO SCH (20:39)
[2019-07-20] MEDS: TERAZOSIN HCL 5 MG CAP PO SCH (20:40)
[2019-07-20] MEDS: FINASTERIDE 5 MG TAB PO SCH (20:41)
[2019-07-20] MEDS: SIMVASTATIN 40 MG TAB PO SCH (20:42)
[2019-07-20] MEDS: LATANOPROST 0.005% OP SOLN 2.5 ML BTL OPR SCH (20:43)
[2019-07-21] MEDS: DOXYCYCLINE HYCLATE 100 MG in DEXTROSE 5% 100 ML IV SCH ×2 (01:29→13:51)
[2019-07-21] MEDS: PIPERACILLIN/TAZOBACTAM 3.375 GM in DEXTROSE 5% 100 ML IV SCH ×3 (04:03→20:46)
[2019-07-21] MEDS: methylPREDNISolone 40 MG in SYRINGE 0 ML IV SCH ×3 (05:34→21:42)
[2019-07-21 06:16] LABS: Hematocrit (blood only) 28.7 % (42-52); Hemoglobin 9.4 g/dL (14.0-18.0); Mean Corpuscular Hgb Conc 32.8 g/dL (32-36); Mean Platelet Volume 11.1 fL (7.4-10.4); Platelet Count 148 K/uL (130-400); RDW Coefficient of Variation 16.1 % (11.5-14.5); RDW Standard Deviation 64.9 fL (36.4-46.3); Red Blood Count 2.61 M/uL (4.7-6.1); White Blood Count 18.63 K/uL (4.8-10.8)
[2019-07-21 07:07] LABS: BUN Creatinine Ratio 23.9 (10-20); Calcium 7.9 mg/dl (8.5-10.1); Creatinine Clr Calc Pharmacy 31.7 ml/min; Est GFR (African American) 42.6; Est GFR (Non-African American) 36.7; Potassium 4.8 mmol/L (3.5-5.1)
[2019-07-21] MEDS: ALBUT/IPRATROP 3MG/0.5MG NEB 3 ML VIAL NEB SCH ×4 (07:15→19:30)
[2019-07-21] MEDS: CHOLECALCIFEROL 1,000 UNITS 25 MCG TAB PO SCH (07:32)
[2019-07-21] MEDS: FLUTICASONE PROPIONATE NA SPR 16 GM BTL NAE SCH ×2 (07:32→21:44)
[2019-07-21] MEDS: CEROVITE ADV FORMULA TAB PO SCH (07:32)
[2019-07-21] MEDS: prednisoLONE acetate 1% OP SUSP 5 ML BTL OP SCH ×4 (07:34→21:48)
[2019-07-21] MEDS: FLUTICASONE/VILANTEROL 100/25MCG 14 PUFFS/INHALER INH SCH (07:34)
[2019-07-21] MEDS: METOPROLOL SUCC 25MG EXT REL TAB PO SCH (08:34)
--- NOTE | 2019-07-21 12:32 | Hospitalist Progress Note ---
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 -Initial pulse ox of 58% but is now saturating at 93% on oxygen mask 13L/min -In setting of aspiration into airway last evening after choking episode and vomiting x 2 -Requires 2L NC HS at baseline -Required BiPAP and 10 L of flow to maintain saturation on 07/20/2019 -Has been better since this morning -Saturating well on room air -Complains of cough but denies any hemoptysis (2) Sepsis: Initial BP 81/64, improved to 101/54 after 1 L NSS given in ED. Respiration rate initially 25. Leukocytosis of 22.8, normal lactate at 1.5. No AMS -Empirically cover with Zosyn, MRSA swab -Follow blood cultures, IV fluids -Blood cultures have been negative (3) Aspiration pneumonia: Following choking episode this evening with subsequent vomiting and coughing. Procalcitonin of 5 -Endorsing multiple episodes of hemoptysis with bright red blood mixed with mucu s. Will monitor closely with repeat H&H this afternoon -Chest CT without IV contrast with dense bibasilar airspace consolidation as above, typical in appearance for pneumonia, small pleural effusions, cardiomegaly and AICD -Started on empiric cefepime in ED. Will continue abx coverage with Zosyn and doxycycline -Duonebs QIDR -Denies history of aspiration. Dysphagia screen at bedside before advancing diet -Clinically a lot better -We will get repeat x-ray,PA and lateral view tomorrow (4) Bronchiectasis: Follows with Dr. Tejada of [place]. Lung disease complicated further due to right hemidiaphragm paralysis as result of aortic valve surgery -Continue Breo inhaler, albuterol inhaler PRN, flutter valve QID, IV solumedrol -We will ask for chest PT (5) Vomiting: In the setting of aspiration -Denies any nausea or vomiting episodes since arrival to ED -No electrolyte abnormalities -Zofran PRN (6) Hypertension: Initially hypotensive at 81/64, now 92/55 -Continue lisinopril HS and Toprol in AM with hold parameters -Noted to have hypotension and required holding blood pressure medicine as of 07/20/2019 (7) CAD (coronary artery disease): Continue statin, beta viral (8) Chronic diastolic HF (heart failure): In setting of ischemic HD, valvular disease -Continue Lasix HS, Toprol (9) Ventricular tachyarrhythmia: Continue Toprol -ICD with new unit placed in 07/14 -Monitor on telemetry (10) Ascending aortic aneurysm: History of stable aneurysmal dilatation of the ascending thoracic aorta which measures up to 4.6-4.8 cm in diameter -Undergoes annual CT scan, most recently in May 2019 without change -Followed closely by Dr. Simon (11) BPH (benign prostatic hyperplasia): Continue finasteride, terazosin DVT Ppx: SCDs for now in setting of hemoptysis Code status: FULL per discussion with patient PCP: Jeff Simon Dispo: Admitted to PCU. Discharge planning, PT and OT ordered. Has been improving Will need to have pulmonary evaluation in the hospital if hemoptysis continues Subjective 07/21/2019 Patient was seen and examined in telemetry unit He was admitted yesterday with bibasilar pneumonia complicated by history of bronchiectasis and hemoptysis No more hemoptysis since admission Clinically a lot better Saturating well on room air Review of Systems Review of Systems: All systems reviewed and are unremarkable except as noted below Respiratory: + cough, + chest congestion, + dyspnea on exertion and + wheezing Cardiovascular: Additional Comments: Noted to have low blood pressure this morning of systolic upper 70s Physical Exam 2 Physical Exam: Lying in bed comfortably Constitutional: well developed, well nourished and + obese; no acute distress and not ill appearing Eyes: PERRL, conjunctivae normal, anicteric sclerae ENMT: external ear and nose normal, oropharynx normal Neck: trachea midline, no thyromegaly Respiratory: normal respiratory effort; no respiratory distress Auscultation: + diminished lung sounds and + crackles (Bibasilar coarse crackles) Cardiovascular: Rate/Rhythm: regular rate and regular rhythm Heart Sounds: no murmur Gastrointestinal (Abdomen): Inspection/Auscultation: abdomen normal to inspection and normal bowel sounds Percussion/Palpation: abdomen soft; abdomen nontender Musculoskeletal: No acute arthritis in any joints Lymphatic: no cervical or axillary lymphadenopathy Results & Data Vital Signs (Past 12 Hours) Vital Signs Temp Pulse Resp BP Pulse Ox 07/21/19 11:32 36.3 C L 91 H 19 85/47 L 90 07/21/19 11:20 74 16 92 07/21/19 07:31 74/44 L 07/21/19 07:22 36.6 C 75 19 77/43 L 92 07/21/19 07:15 73 18 91 07/21/19 03:46 36.8 C 76 24 125/51 L 90 Laboratory Results Short CBC 07/20/19 07/21/19 Range/Units 16:59 05:48 WBC 18.63 H (4.8-10.8) K/uL Hgb 10.0 L 9.4 L (14.0-18.0) g/dL Hct 30.0 L 28.7 L (42-52) % Plt Count 148 (130-400) K/uL BMP 07/21/19 05:48 Sodium 139 Potassium 4.8 D Chloride 108 H Carbon Dioxide 29 BUN 40 H Creatinine 1.68 H D Glucose 160 H Calcium 7.9 L Medications Administered Current Inpatient Medications Acetaminophen (Tylenol) 650 mg PO Q4H PRN PRN Reason: Pain or Fever Stop: 08/19/19 12:02 Albuterol (Duoneb) 3 ml NEB QIDR [facility]IAN Stop: 08/19/19 14:59 Last Admin: 07/21/19 11:20 Dose: 3 ml Documented by: Albuterol (Ventolin Hfa) 2 puffs INH QID PRN PRN Reason: SHORTNESS OF BREATH Stop: 08/19/19 13:29 Cetirizine HCl (Zyrtec) 10 mg PO DAILY PRN PRN Reason: Allergy Symptoms Stop: 08/19/19 12:02 Dorzolamide/Timolol (Cosopt) 1 drops OP HS [facility]RISTIAN Stop: 08/19/19 20:59 Last Admin: 07/20/19 20:39 Dose: 1 drops Documented by: Finasteride (Proscar) 5 mg PO HS [facility]IAN Stop: 08/19/19 20:59 Last Admin: 01/25/20 20:41 Dose: 5 mg Documented by: Fluticasone Propionate (Flonase) 2 sprays RODRÍGUEZ BID [facility] Stop: 08/19/19 20:59 Last Admin: 07/21/19 07:32 Dose: 2 sprays Documented by: Fluticasone/Vilanterol (Breo Ellipta 100/25 Mcg Inh) [facility] Stop: 08/20/19 08:59 Last Admin: 07/21/19 07:34 Dose: 1 puffs Documented by: Furosemide (Lasix) 20 mg PO [facility] Stop: 08/19/19 20:59 Last Admin: 07/20/19 20:39 Dose: 20 mg Documented by: Doxycycline Hyclate 100 mg/ (Dextrose) 110 mls @ 50 mls/hr IV Q12H [facility] Stop: 07/27/19 13:59 Last Infusion: 07/21/19 03:41 Dose: Infused Documented by: Methylprednisolone 40 mg/ (Syringe) 0.64 mls @ 1.5 mls/min IV Q8H [facility] Stop: 08/19/19 13:59 Last Admin: 07/21/19 05:34 Dose: 1.5 mls/min Documented by: Piperacillin Sod/Tazobactam (Sod 3.375 gm/ Dextrose) 115 mls @ 28.75 mls/hr IV Q8H [facility]; Protocol Stop: 07/27/19 18:59 Last Admin: 07/21/19 12:00 Dose: 30 mls/hr Documented by: Latanoprost (Xalatan Oph) 1 drops OPR [facility] Stop: 08/19/19 20:59 Last Admin: 07/20/19 20:43 Dose: 1 drops Documented by: Lisinopril (Zestril) 2.5 mg PO [facility] Stop: 08/19/19 20:59 Last Admin: 07/20/19 20:43 Dose: 2.5 mg Documented by: Metoprolol Succinate (Toprol Xl) 25 [facility] Stop: 08/20/19 08:59 Last Admin: 07/21/19 08:34 Dose: Not Given Documented by: Miscellaneous (Order Awaiting Action) 1 ea N/A QS [facility] Stop: 08/19/19 15:59 Last Admin: 07/21/19 07:31 Dose: Not Given Documented by: Miscellaneous Information (Consult) 1 ea N/A UD PRN PRN Reason: Consult Stop: 08/19/19 13:08 Multivitamins/Minerals (Multivitamin W/ Minerals Tab) 1 tab PO QAM [facility] Stop: 08/20/19 08:59 Last Admin: 07/21/19 07:32 Dose: 1 tab Documented by: Ondansetron HCl (Zofran) 4 mg IV Q6H PRN PRN Reason: Nausea Stop: 08/19/19 12:02 Polyethylene Glycol (Miralax Powder Packet) 17 gm PO DAILY PRN PRN Reason: Constipation Stop: 08/19/19 12:02 Prednisolone Acetate (Pred Forte 1%) 1 drops OP QID [facility] Stop: 08/19/19 16:59 Last Admin: 07/21/19 07:34 Dose: 1 drops Documented by: Simvastatin (Zocor) 40 mg PO PM [facility] Stop: 08/19/19 20:59 Last Admin: 07/20/19 20:42 Dose: 40 mg Documented by: Terazosin HCl (Hytrin) 5 mg PO QPM [facility] Stop: 08/19/19 20:59 Last Admin: 07/20/19 20:40 Dose: 5 mg Documented by: Vitamin D (Vitamin D3) 1,000 units PO QAM [facility] Stop: 08/20/19 08:59 Last Admin: 07/21/19 07:32 Dose: 1,000 units Documented by: (1) Vomiting Nausea presence: with nausea Vomiting Intractability: non-intractable Vomiting type: unspecified Qualified Code(s): R11.2 - Nausea with vomiting, unspecified
[2019-07-21 14:28] LABS: Appearance Urine Clear (Clear); Bilirubin Urine Negative (Negative); Blood Urine Negative (Negative); Color Urine Dark Yellow; Glucose Urine UA Negative (Negative); Ketones Urine Trace (Negative); Leukocyte Esterase Urine Negative (Negative); Nitrite Urine Negative (Negative); Protein Urine Negative (Negative); Specific Gravity Urine 1.026 (1.000-1.030); Urobilinogen Urine Negative (Negative)
[2019-07-21] MEDS ORDERED: SODIUM CHLORIDE 0.9% 500 ML IV ONE (16:30)
[2019-07-21] MEDS: LATANOPROST 0.005% OP SOLN 2.5 ML BTL OPR SCH ×2 (20:46→21:48)
[2019-07-21] MEDS: SIMVASTATIN 40 MG TAB PO SCH (21:43)
[2019-07-21] MEDS: FUROSEMIDE 20 MG TAB PO SCH (21:45)
[2019-07-21] MEDS: TERAZOSIN HCL 5 MG CAP PO SCH (21:45)
[2019-07-21] MEDS: FINASTERIDE 5 MG TAB PO SCH (21:46)
[2019-07-21] MEDS: DORZOLAMIDE/TIMOLOL 22.3/6.8MG/ML 10 ML BTL OP SCH (21:47)
[2019-07-21] MEDS: BRIMONIDINE TARTRATE (ALPHAGAN P) 5 ML DROPS OPB SCH (21:49)
[2019-07-22] MEDS: SODIUM CHLORIDE 0.9% 1000ML 1,000 ML IV SCH ×4 (02:22→14:29)
[2019-07-22] MEDS: DOXYCYCLINE HYCLATE 100 MG in DEXTROSE 5% 100 ML IV SCH ×2 (02:22→14:04)
[2019-07-22] MEDS: PIPERACILLIN/TAZOBACTAM 3.375 GM in DEXTROSE 5% 100 ML IV SCH ×3 (05:00→20:16)
[2019-07-22] MEDS: methylPREDNISolone 40 MG in SYRINGE 0 ML IV SCH ×2 (05:47→14:04)
[2019-07-22 06:27] LABS: Hematocrit (blood only) 28.1 % (42-52); Hemoglobin 9.3 g/dL (14.0-18.0); Mean Corpuscular Hemoglobin 36.3 pg (25-34); Mean Corpuscular Hgb Conc 33.1 g/dL (32-36); Mean Corpuscular Volume 109.8 fL (80-100); Mean Platelet Volume 10.5 fL (7.4-10.4); Platelet Count 152 K/uL (130-400); RDW Coefficient of Variation 15.9 % (11.5-14.5); RDW Standard Deviation 63.9 fL (36.4-46.3); Red Blood Count 2.56 M/uL (4.7-6.1); White Blood Count 14.58 K/uL (4.8-10.8)
[2019-07-22 07:04] LABS: BUN Creatinine Ratio 22.7 (10-20); Calcium 7.9 mg/dl (8.5-10.1); Est GFR (African American) 33.5; Est GFR (Non-African American) 28.9; Potassium 4.7 mmol/L (3.5-5.1)
[2019-07-22] MEDS: ALBUT/IPRATROP 3MG/0.5MG NEB 3 ML VIAL NEB SCH ×4 (07:13→20:41)
[2019-07-22] MEDS: CHOLECALCIFEROL 1,000 UNITS 25 MCG TAB PO SCH (08:19)
[2019-07-22] MEDS: METOPROLOL SUCC 25MG EXT REL TAB PO SCH (08:19)
[2019-07-22] MEDS: FLUTICASONE/VILANTEROL 100/25MCG 14 PUFFS/INHALER INH SCH (08:20)
[2019-07-22] MEDS: CEROVITE ADV FORMULA TAB PO SCH (08:20)
[2019-07-22] MEDS: FLUTICASONE PROPIONATE NA SPR 16 GM BTL NAE SCH ×2 (08:20→20:34)
[2019-07-22] MEDS: BRIMONIDINE TARTRATE (ALPHAGAN P) 5 ML DROPS OPB SCH ×2 (08:21→20:34)
[2019-07-22] MEDS: prednisoLONE acetate 1% OP SUSP 5 ML BTL OP SCH ×4 (08:22→20:39)
--- NOTE | 2019-07-22 09:48 | XRay Report ---
XR chest 2V PA/lateral HISTORY: Follow-up PNEUMONIA COMPARISON: Chest 07/20/2019. FINDINGS: Bibasilar densities are again noted. These have slightly improved. The heart remains mildly enlarged. There is a cardiac valve prosthesis and a left-sided pacemaker/defibrillator. No pneumotho rax. Stable blunting of the costophrenic sulci. Elevation of the right hemidiaphragm, unchanged. No e vidence for pulmonary edema. IMPRESSION: Redemonstration of the bibasilar densities. This has slightly improved in the interval. ACT 112: Negative or not required by law. Electronically signed by: Vitaly Osorio M.D. 07/22/2019 9:47 AM
--- NOTE | 2019-07-22 12:10 | Pulmonary Consultation ---
Date of Consultation July 22, 2019 Assessment & Plan (1) Hemoptysis: This is been the patient's first episode of hemoptysis with this current illness Patient states that at this time the frequency is much much less and blood is dark with no bright red bleeding. Patient currently being treated for pneumonia -continue Zosyn and doxy Patient is also on methylprednisolone 40 mg every 8 hours We will continue to monitor. No indication for bronchoscopy or other intervention at this time Looking at the CAT scan of the chest which was done in the hospital I doubt patient has bronchiectasis he most likely has bronchitis (2) Pneumonia: Multilobar with dense right lower lobe consolidation Started on Zosyn and doxycycline -day #2 Blood cultures are negative after 48 hours White count is improving and is currently down to 14.58 from 22.88 Afebrile Continue titrate oxygen as tolerated Ambulate as tolerated Out of bed to chair as tolerated Laterality: bilateral Lung location: lower lobe of lung Pneu monia type: due to unspecified organism Qualified Code(s): J18.9 - Pneumonia, unspecified organism (3) Aortic valve replaced: Bovine valve in 2000 No anticoagulation as an outpatient Continue treatment per cardiology outpatient Thank you for including us in the care of this patient. Please refer to Dr. Payne's addendum for corrections and further treatment recommendations. Supervising Physician Co-Signing Physician Notes I saw and evaluated the patient with eNd liu, and agree with findings and plan as documented in the note. Patient seen and examined at bedside. No acute distress, no adverse events overnight. Patient states that hemoptysis is decreasing amount. Denies any chest pain, no headache, no nausea, no vomiting. Patient did cough while I was at examining him. This time patient stated that he was having a cocoa drink and to which he likely aspirated and started coughing. CT chest personally reviewed patient has dense bilateral lower lobe consolidation especially of the right lower lobe. I do not see any signs of bronchiectasis in the upper lobes lower lobes again cannot comment given that there is consolidation. Patient most likely has bronchitis and not bronchiectasis. Chest x-ray from today personally reviewed there is improvement in left lower lobe consolidation. By right lower lobe consolidation still persists. I personally think the hemoptysis is because of the pneumonia that she he has along with bilateral atrial enlargement. On asking patient if the cough is worse when he is eating or if he has difficulty swallowing he denies such complaints. was at bedside who said he does cough when he eats but unsure if he has difficulty swallowing. Recommend video swallow eval for the patient. Recommend continue with antibiotics, add Mucomyst Mucomyst, monitor H&H(patient's hemoglobin is stable so far). DC steroids. Patient is a non-smoker with history of asthma and is on Breo for it. Currently there is no indication for bronchoscopy. If the right lower consolidation does not improve then might consider bronchoscopy to see if there is any obstructive lesion. I have spent more than 50% of this 45 minute encounter in counseling and/or coordination of care with patient. Please note the above document was generated using voice recognition software. It may contain grammatical, syntax or spelling errors. History of Present Illness Attending Physician: Hortencia Akhtar MD History of Present Illness Attending: Dr. Payne Patient seen and examined at bedside. He has a hx of bronchiectasis and follows with [facility] at [facility] and at [place]. We are asked to see him regarding hemoptysis. Patient states that he has significant bronchiectasis and uses nebulizer treatments at home to help with pulmonary toilet. He has chronic SOB secondary to this as well as an elevated right hemidiaphragm which was injured during an AVR in 2000. Patient states he is compliant with all treatments as prescribed by the outpatient pulmonary clinic. Patient states that a couple of months ago he had significant cough secondary to large mucous plugs. At that time he had some difficulty clearing the plugs but had no blood streaking in the mucus at that time. On admission this time, the patient states that he has been having some dime size bright red clots at home they were mixed with mucus. Since his admission to the hospital, the blood is dark and it seems streaky with his mucus now. He denies any other clots or anything larger than the time. He does not have blood with every episode of expectorated sputum. The patient denies chest pain or tightness. He has no pleuritic pain. He has no lower extremity edema or pain. He has no prior history of hemoptysis or of thromboembolic disease. The patient is well aware of his medical history and states that he is on home oxygen at night but has not required it during the day. He also reports that he does not have any dyspnea with exertion. Patient does have aortic valve replacement in 2000 with a bovine valve. He is not on any anticoagulants or antiplatelet agents. The patient briefly smoked in his early adulthood. He quit smoking when he had children. He worked as a teacher and guidance counselor at [employer] and has no other vocational exposure. Allergies Allergy/AdvReac Type Severity Reaction Status Date / Time No Known Allergies Allergy Verified 07/20/19 09:32 Home Medications Home Medications Medication Instructions Recorded Confirmed Type Alphagan P 0.1 % OPHTHALMIC (EYE) DAILY 07/04/18 07/20/19 History albuterol sulfate [ProAir HFA] 2 puff INHALATION QID PRN 07/04/18 07/20/19 History amoxicillin 2,000 mg PO UD PRN 07/04/18 07/20/19 History dorzolamide-timolol 1 drp OPHTHALMIC (EYE) HS 07/04/18 07/20/19 History furosemide [Lasix] 20 mg PO HS 07/04/18 07/20/19 History latanoprost [Xalatan] 1 drp OPR HS 07/04/18 07/20/19 History Breo Ellipta 1 inh INHALATION QAM 06/27/19 07/20/19 History azithromycin [Zithromax Z-Thom] 250 mg PO UD PRN 06/27/19 07/20/19 History cetirizine [Zyrtec] 10 mg PO DAILY PRN 06/27/19 07/20/19 History cholecalciferol (vitamin D3) 1,000 unit PO QAM 06/27/19 07/20/19 History [Vitamin D3] finasteride 5 mg PO HS 06/27/19 07/20/19 History fluticasone propionate [Flonase 2 spray INTRANASAL BID 06/27/19 07/20/19 History Allergy Relief] lisinopril 2.5 mg PO HS 06/27/19 07/20/19 History metoprolol succinate 25 mg PO QAM 06/27/19 07/20/19 History multivitamin with minerals 1 tab PO QAM 06/27/19 07/20/19 History prednisone 10 mg PO UD PRN 06/27/19 07/20/19 History simvastatin 40 mg PO PM 06/27/19 07/20/19 History terazosin 5 mg PO QPM 06/27/19 07/20/19 History prednisolone acetate 1 drp OPHTHALMIC (EYE) QID 07/20/19 07/20/19 History Patient History Medical History Ascending aortic aneurysm (Chronic) BPH (benign prostatic hyperplasia) (Chronic) Bronchiectasis (Chronic) CAD (coronary artery disease) (Chronic) Chronic diastolic HF (heart failure) Chronic systolic CHF (congestive heart failure), NYHA class 3 Glaucoma bilt eyes Hyperlipidemia (Chronic) Hypertension (Chronic) ICD (implantable cardioverter-defibrillator) battery depletion pt for biv icd generator change; rediscussed the procedure and potential risks consent obtained Ischemic cardiomyopathy (Chronic) On home oxygen therapy 2L N/C hs and prn Spinal stenosis Ventricular tachyarrhythmia (Chronic) Surgical History Biventricular ICD (implantable cardioverter-defibrillator) in place 2006 @ [facility]/ kee replaced @ 07/04/18 [facility] History of bilateral cataract extraction History of cardiac cath 2001 @ [facility] [place] no stents History of colonoscopy History of left inguinal hernia repair x2 History of prostate biopsy x2--benign History of tonsillectomy Hx of CABG 2001 @ [facility] [place] S/P AVR 2001 @ [facility] [place] Family History Father Family hx colonic polyps Other Hypertension No family history of adverse response to anesthesia Stroke Social History Preferred Language: Mongolian Communication Ability: Effective Radar Technician Required: No Beliefs That Will Affect Care: None marital status: Current Living Situation: Spouse Other Information That Helps Us Care for You: No Feels Safe at Home: Yes Safety Concerns: Feels Safe At This Time Smoking Status: Former smoker Do You Dip or Chew Tobacco: No ; Smoking End Date: ; Second Hand Exposure: No ; Tobacco Cessation Education Requested by Patient: No Hx Alcohol Use: No Hx Substance Use: No Review of Systems Review of Systems: All systems reviewed & are unremarkable except as noted in HPI & below Physical Exam Physical Exam: GENERAL : No acute distress. Sitting in bedside chair. Pleasant. Talkative. No shortness of breath with full sentences. EYES: No icterus, gaze conjugate. NOSE: No evidence of epistaxis. Nasal cannula is in place and secure MOUTH: No lesions or candidiasis. Mucosa is moist NECK: Supple. No appreciation of transmitted wheezes or stridor. LUNGS: No wheeze, patient has coarse crackles in the lower two thirds of each lung. There is no cough or sputum production during my examination visit. HEART: Regular, rate controlled ABDOMEN: Soft, NT, ND, BS Present EXTREMITIES: No LE edema, pedal pulses intact NEURO: A&OX3 Skin: no rashes, warm and dry Lymphatic: no cervical or axillary lymphadenopathy Results & Data Vital Signs (Past 12 Hours) Vital Signs Temp Pulse Resp BP Pulse Ox 07/22/19 11:42 37.0 C 89 18 120/69 97 07/22/19 11:27 75 18 83 L 07/22/19 07:37 36.8 C 90 16 115/63 96 07/22/19 07:17 96 H 20 76 L 07/22/19 04:01 36.8 C 77 22 91/51 L 94 07/22/19 00:17 36.5 C 77 20 90/51 L 95 Laboratory Results 07/22/19 06:06 07/22/19 06:[address] SCAN OF THE CHEST WITHOUT IV CONTRAST CLINICAL HISTORY: Dyspnea. COMPARISON STUDY: Chest x-ray dated 07/20/2019. TECHNIQUE: CT scan of the thorax was performed from the thoracic inlet to the upper abdomen. Images are reviewed in the axial, sagittal, and coronal planes. IV contrast was not administered for this examination as per the referring clinician. A dose lowering technique was utilized adhering to the principles of ALARA. The examination is modestly degraded by motion artifact. CT DOSE: 334.74 mGy.cm FINDINGS: Thyroid: Imaged portions of the thyroid gland are normal in size and attenuation. Thoracic aorta: There is atherosclerotic calcification of the thoracic aorta. There is aneurysmal dilatation of the ascending thoracic aorta which measures up to 4.8 cm. The remainder of the thoracic aorta is normal in caliber and demonstrates standard 3-vessel arch anatomy. Heart: The patient is status post midline sternotomy and aortic valve surgery. A 3-lead cardiac AICD is present in the left chest wall. The heart is enlarged and without pericardial effusion. The pulmonary trunk is dilated, measuring 3.6 cm in transverse diameter. This suggests pulmonary artery hypertension. Lungs and pleural spaces: Evaluation of the lung parenchyma is modestly degraded by motion artifact. There are small pleural effusions. Dense airspace consolidation is seen at the lung bases, with near complete consolidation of the right lower lobe. The trachea and central airways are clear. Calcified pleural plaque is noted at the left lung base. Mediastinum: There are numerous subcentimeter mediastinal lymph nodes. Ann: Not well assessed without IV contrast. Axillae: There is no axillary lymphadenopathy. Upper abdomen: There is diverticulosis of the partially visualized colon. A small to moderate hiatal hernia is observed. Skeletal structures: The skeletal structures are osteopenic. There is a mild to moderate compression deformity of T8. Degenerative change is noted in the shoulders and thoracic spine. No lytic or blastic bony lesions are seen. IMPRESSION: 1. There is dense bibasilar airspace consolidation as above, typical in appearance for pneumonia. Clinical correlation will be required and radiographic follow-up to resolution is recommended. 2. Small pleural effusions. 3. Cardiomegaly and AICD. 4. There is aneurysmal dilatation of the ascending thoracic aorta which measures up to 4.8 cm in diameter. Nonemergent surgical follow-up is recommended. 5. Additional findings as above. ACT 112: Negative or not required by law. Electronically signed by: Ned Croft M.D. 07/20/2019 10:43 AM PG Care Time/CCT Total # of Minutes Spent Total Time Spent with Patient: Total time spent is greater than 50% in coordination of care (as documented) at patient's floor/unit and/or counseling patient: 45 minutes in discussion with the patient and his as well as communication with the primary team. [place] [address] Initial Inpt Care Lvl 3 Patient Type New Medical Decision Making Low Complexity Diagnoses Hemoptysis R04.2 Pneumonia J18.9 Laterality: bilateral Lung location: lower lobe of lung Pneumonia type: due to unspecified organism Aortic valve replaced Z95.2 Time Spent (min) 45 Comment >50% time was spent [id number] with the patient discussing diagnosis and plan of care.
[2019-07-22 14:56] LABS: Hemoglobin 9.6 g/dL (14.0-18.0)
--- NOTE | 2019-07-22 16:15 | Hospitalist Progress Note ---
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 -Initial pulse ox of 58% but is now saturating at 93% on oxygen mask 13L/min -In setting of aspiration into airway last evening after choking episode and vomiting x 2 -Requires 2L NC HS at baseline -Required BiPAP and 10 L of flow to maintain saturation on 07/20/2019 -Has been better since this morning -Saturating well on room air -Complains of cough but denies any hemoptysis -Clinically a lot better -Appreciate pulmonary input and recommendation -We will continue current treatment (2) Sepsis: Initial BP 81/64, improved to 101/54 after 1 L NSS given in ED. Respiration rate initially 25. Leukocytosis of 22.8, normal lactate at 1.5. No AMS -Empirically cover with Zosyn, MRSA swab -Follow blood cultures, IV fluids -Blood cultures have been negative (3) Aspiration pneumonia: Following choking episode this evening with subsequent vomiting and co ughing. Procalcitonin of 5 -Endorsing multiple episodes of hemoptysis with bright red blood mixed with mucus. Will monitor closely with repeat H&H this afternoon -Chest CT without IV contrast with dense bibasilar airspace consolidation as above, typical in appearance for pneumonia, small pleural effusions, cardiomegaly and AICD -Started on empiric cefepime in ED. Will continue abx coverage with Zosyn and doxycycline -Duonebs QIDR -Denies history of aspiration. Dysphagia screen at bedside before advancing diet -Clinically a lot better -We will get repeat x-ray,PA and lateral view tomorrow -Chest x-ray showing improvement of infiltration -We will continue Zosyn and doxycycline for now MANISH Likely secondary to dehydration We will give cautious amount of intravenous fluid Advised to drink more fluid Monitor PRP (4) Bronchiectasis: Follows with Dr. Tejada of [place]. Lung disease complicated further due to right hemidiaphragm paralysis as result of aortic valve surgery -Continue Breo inhaler, albuterol inhaler PRN, flutter valve QID, IV solumedrol -We will ask for chest PT -Has been getting chest PT with minimal improvement (5) Vomiting: In the setting of aspiration -Denies any nausea or vomiting episodes since arrival to ED -No electrolyte abnormalities -Zofran PRN (6) Hypertension: Initially hypotensive at 81/64, now 92/55 -Continue lisinopril HS and Toprol in AM with hold parameters -Noted to have hypotension and required holding blood pressure medicine as of 07/20/2019 (7) CAD (coronary artery disease): Continue statin, beta viral (8) Chronic diastolic HF (heart failure): In setting of ischemic HD, valvular disease -Continue Lasix HS, Toprol -No signs of fluid overload -We will give cautious amount of intravenous fluid to improve kidney function (9) Ventricular tachyarrhythmia: Continue Toprol -ICD with new unit placed in 07/14 -Monitor on telemetry (10) Ascending aortic aneurysm: History of stable aneurysmal dilatation of the ascending thoracic aorta which measures up to 4.6-4.8 cm in diameter -Undergoes annual CT scan, most recently in May 2019 without change -Followed closely by Dr. Simon (11) BPH (benign prostatic hyperplasia): Continue finasteride, terazosin DVT Ppx: SCDs for now in setting of hemoptysis Code status: FULL per discussion with patient PCP: Jeff Simon Dispo: Admitted to PCU. Discharge planning, PT and OT ordered. Has been improving Will need to have pulmonary evaluation in the hospital if hemoptysis continues Subjective 07/21/2019 Patient was seen and examined in telemetry unit He was admitted yesterday with bibasilar pneumonia complicated by history of bronchiectasis and hemoptysis No more hemoptysis since admission Clinically a lot better Saturating well on room air 07/22/2019 Patient was seen and examined in telemetry unit He has been feeling a lot better Has had only one episode of hemoptysis since admission Denies any fever and/or chills Review of Systems Review of Systems: All systems reviewed and are unremarkable except as noted below Constitutional: + weakness Respiratory: + cough and + dyspnea on exertion Physical Exam Physical Exam: Sitting on a chair without any acute distress Constitutional: well developed, well nourished and + obese; no acute distress and not ill appearing Eyes: PERRL, conjunctivae normal, anicteric sclerae ENMT: external ear and nose normal, oropharynx normal Neck: trachea midline, no thyromegaly Respiratory: normal respiratory effort; no respiratory distress Auscultation: + diminished lung sounds and + crackles (Bibasilar coarse crackles) Cardiovascular: Rate/Rhythm: regular rate and regular rhythm Heart Sounds: no murmur Gastrointestinal (Abdomen): Inspection/Auscultation: abdomen normal to inspection and normal bowel sounds Percussion/Palpation: abdomen soft; abdomen nontender Musculoskeletal: Denies any acute joint pain Lymphatic: no cervical or axillary lymphadenopathy Results & Data Vital Signs (Past 12 Hours) Vital Signs Temp Pulse Resp BP Pulse Ox 07/22/19 11:42 37.0 C 89 18 120/69 97 07/22/19 11:27 75 18 83 L 07/22/19 07:37 36.8 C 90 16 115/63 96 07/22/19 07:17 96 H 20 76 L 07/22/19 04:01 36.8 C 77 22 91/51 L 94 Laboratory Results Short CBC 07/22/19 07/22/19 Range/Units 06:06 14:47 WBC 14.58 H (4.8-10.8) K/uL Hgb 9.3 L 9.6 L (14.0-18.0) g/dL Hct 28.1 L 29.0 L (42-52) % Plt Count 152 (130-400) K/uL BMP 07/22/19 06:06 Sodium 137 Potassium 4.7 Chloride 106 Carbon Dioxide 27 BUN 46 H Creatinine 2.05 H D Glucose 147 H Calcium 7.9 L Medications Administered Current Inpatient Medications Acetaminophen (Tylenol) 650 mg PO Q4H PRN PRN Reason: Pain or Fever Stop: 08/19/19 12:02 Albuterol (Duoneb) 3 ml NEB QIDR [facility] Stop: 08/19/19 14:59 Last Admin: 07/22/19 15:55 Dose: 3 ml Documented by: Albuterol (Ventolin Hfa) 2 puffs INH QID PRN PRN Reason: SHORTNESS OF BREATH Stop: 08/19/19 13:29 Brimonidine Tartrate (Alphagan P Oph) 1 drops OPB BID [facility] Stop: 08/20/19 20:59 Last Admin: 07/22/19 08:21 Dose: 1 drops Documented by: Cetirizine HCl (Zyrtec) 10 mg PO DAILY PRN PRN Reason: Allergy Symptoms Stop: 08/19/19 12:02 Dorzolamide/Timolol (Cosopt) 1 drops OP HS [facility] Stop: 08/19/19 20:59 Last Admin: 07/21/19 21:47 Dose: 1 drops Documented by: Finasteride (Proscar) 5 mg PO [facility] Stop: 08/19/19 20:59 Last Admin: 07/21/19 21:46 Dose: 5 mg Documented by: Fluticasone Propionate (Flonase) 2 sprays RODRÍGUEZ BID [facility] Stop: 08/19/19 20:59 Last Admin: 07/22/19 08:20 Dose: 2 sprays Documented by: Fluticasone/Vilanterol (Breo Ellipta 100/25 Mcg Inh) 1 puffs INH QAM [facility] Stop: 08/20/19 08:59 Last Admin: 07/22/19 08:20 Dose: 1 puffs Documented by: Furosemide (Lasix) 20 mg PO [facility] Stop: 08/19/19 20:59 Last Admin: 07/21/19 21:45 Dose: 20 mg Documented by: Doxycycline Hyclate 100 mg/ (Dextrose) 110 mls @ 50 mls/hr IV Q12H [facility] Stop: 07/27/19 13:59 Last Admin: 07/22/19 14:04 Dose: 50 mls/hr Documented by: Methylprednisolone 40 mg/ (Syringe) 0.64 mls @ 1.5 mls/min IV Q8H [facility] Stop: 08/19/19 13:59 Last Admin: 07/22/19 14:04 Dose: 1.5 mls/min Documented by: Piperacillin Sod/Tazobactam (Sod 3.375 gm/ Dextrose) 115 mls @ 28.75 mls/hr IV Q8H [facility]; Protocol Stop: 07/27/19 18:59 Last Infusion: 07/22/19 14:05 Dose: Infused Documented by: Sodium Chloride (Nss 1000ml) 1,000 mls @ 100 mls/hr IV .Q10H [facility] Stop: 08/21/19 14:14 Last Infusion: 07/22/19 14:29 Dose: 0 mls/hr Documented by: Latanoprost (Xalatan Oph) 1 drops OPR HS [facility] Stop: 08/19/19 20:59 Last Admin: 07/21/19 21:48 Dose: 1 drops Documented by: Lisinopril (Zestril) 2.5 mg PO HS [facility] Stop: 08/19/19 20:59 Last Admin: 07/21/19 21:43 Dose: 2.5 mg Documented by: Metoprolol Succinate (Toprol Xl) 25 mg PO [facility] Stop: 08/20/19 08:59 Last Admin: 07/22/19 08:19 Dose: 25 mg Documented by: Miscellaneous Information (Consult) 1 ea N/A UD PRN PRN Reason: Consult Stop: 08/19/19 13:08 Multivitamins/Minerals (Multivitamin W/ Minerals Tab) 1 tab PO [facility] Stop: 08/20/19 08:59 Last Admin: 07/22/19 08:20 Dose: 1 tab Documented by: Ondansetron HCl (Zofran) 4 mg IV Q6H PRN PRN Reason: Nausea Stop: 08/19/19 12:02 Polyethylene Glycol (Miralax Powder Packet) 17 gm PO DAILY PRN PRN Reason: Constipation Stop: 08/19/19 12:02 Prednisolone Acetate (Pred Forte 1%) 1 drops OP QID [facility] Stop: 08/19/19 16:59 Last Admin: 07/22/19 14:04 Dose: 1 drops Documented by: Simvastatin (Zocor) 40 mg PO PM [facility] Stop: 08/19/19 20:59 Last Admin: 07/21/19 21:43 Dose: 40 mg Documented by: Terazosin HCl (Hytrin) 5 mg PO QPM [facility] Stop: 08/19/19 20:59 Last Admin: 07/21/19 21:45 Dose: 5 mg Documented by: Vitamin D (Vitamin D3) 1,000 units PO [facility] Stop: 08/20/19 08:59 Last Admin: 07/22/19 08:19 Dose: 1,000 units Documented by: (1) Vomiting Nausea presence: with nausea Vomiting Intractability: non-intractable Vomiting type: unspecified Qualified Code(s): R11.2 - Nausea with vomiting, unspecified
[2019-07-22] MEDS: DORZOLAMIDE/TIMOLOL 22.3/6.8MG/ML 10 ML BTL OP SCH (20:34)
[2019-07-22] MEDS: TERAZOSIN HCL 5 MG CAP PO SCH (20:36)
[2019-07-22] MEDS: FUROSEMIDE 20 MG TAB PO SCH (20:36)
[2019-07-22] MEDS: SIMVASTATIN 40 MG TAB PO SCH (20:37)
[2019-07-22] MEDS: FINASTERIDE 5 MG TAB PO SCH (20:38)
[2019-07-22] MEDS: ACETYLCYSTEINE 20% INHAL SOLN 4ML ***DISPENSED BY RESP. INH SCH (20:41)
[2019-07-23] MEDS: SODIUM CHLORIDE 0.9% 1000ML 1,000 ML IV SCH ×3 (02:51→21:07)
[2019-07-23] MEDS: DOXYCYCLINE HYCLATE 100 MG in DEXTROSE 5% 100 ML IV SCH ×2 (02:53→15:56)
[2019-07-23] MEDS: PIPERACILLIN/TAZOBACTAM 3.375 GM in DEXTROSE 5% 100 ML IV SCH ×3 (02:53→20:50)
[2019-07-23 06:51] LABS: Basophils # (auto) 0.01 K/uL (0-0.2); Basophils % (auto) 0.1 %; Hematocrit (blood only) 28.8 % (42-52); Hemoglobin 9.5 g/dL (14.0-18.0); Immature Granulocytes # (auto) 0.05 K/uL (0.00-0.02); Immature Granulocytes % (auto) 0.5 %; Lymphocytes # (auto) 0.94 K/uL (1.2-3.4); Lymphocytes % (auto) 9.7 %; Mean Corpuscular Hemoglobin 36.3 pg (25-34); Mean Corpuscular Volume 109.9 fL (80-100); Monocytes % (auto) 10.3 %; Neutrophils # (auto) 7.72 K/uL (1.4-6.5); Neutrophils % (auto) 79.4 %; Platelet Count 172 K/uL (130-400); RDW Coefficient of Variation 15.9 % (11.5-14.5); Red Blood Count 2.62 M/uL (4.7-6.1); White Blood Count 9.72 K/uL (4.8-10.8)
[2019-07-23 07:17] LABS: BUN Creatinine Ratio 27.7 (10-20); Calcium 8.3 mg/dl (8.5-10.1); Creatinine Clr Calc Pharmacy 34.3 ml/min; Est GFR (African American) 41.4; Est GFR (Non-African American) 35.7; Potassium 4.6 mmol/L (3.5-5.1)
[2019-07-23 07:18] LABS: Phosphorus 3.9 mg/dl (2.5-4.9)
[2019-07-23] MEDS: ALBUT/IPRATROP 3MG/0.5MG NEB 3 ML VIAL NEB SCH ×4 (07:26→20:06)
[2019-07-23] MEDS: ACETYLCYSTEINE 20% INHAL SOLN 4ML ***DISPENSED BY RESP. INH SCH ×2 (07:29→20:06)
[2019-07-23] MEDS: BRIMONIDINE TARTRATE (ALPHAGAN P) 5 ML DROPS OPB SCH ×2 (09:10→20:53)
[2019-07-23] MEDS: FLUTICASONE/VILANTEROL 100/25MCG 14 PUFFS/INHALER INH SCH (09:11)
[2019-07-23] MEDS: FLUTICASONE PROPIONATE NA SPR 16 GM BTL NAE SCH ×2 (09:12→20:54)
[2019-07-23] MEDS: CEROVITE ADV FORMULA TAB PO SCH (09:12)
[2019-07-23] MEDS: METOPROLOL SUCC 25MG EXT REL TAB PO SCH (09:13)
[2019-07-23] MEDS: prednisoLONE acetate 1% OP SUSP 5 ML BTL OP SCH ×5 (09:13→20:52)
[2019-07-23] MEDS: CHOLECALCIFEROL 1,000 UNITS 25 MCG TAB PO SCH (09:14)
--- NOTE | 2019-07-23 11:41 | Hospitalist Progress Note ---
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 -Initial pulse ox of 58% but is now saturating at 93% on oxygen mask 13L/min -In setting of aspiration into airway last evening after choking episode and vomiting x 2 -Requires 2L NC HS at baseline -Required BiPAP and 10 L of flow to maintain saturation on 07/20/2019 -Has been better since this morning -Saturating well on room air -Complains of cough but denies any hemoptysis -Clinically a lot better -Appreciate pulmonary input and recommendation -Remains stable -We will get PT and OT evaluation -Possible discharge tomorrow and will need to have a 2-step O2 saturation before discharge Hemoptysis Likely secondary to bronchitis Appreciate pulmonary input and recommendation No indication of bronchoscopy Hemoptysis seems to be improved (2) Sepsis: Initial BP 81/64, improved to 101/54 after 1 L NSS given in ED. Respiration rate initially 25. Leukocytosis of 22.8, normal lactate at 1.5. No A MS -Empirically cover with Zosyn, MRSA swab -Follow blood cultures, IV fluids -Blood cultures have been negative -We will discharge on Ceftin and doxycycline to finish a total of 10 days course (3) Aspiration pneumonia: Following choking episode this evening with subsequent vomiting and coughing. Procalcitonin of 5 -Endorsing multiple episodes of hemoptysis with bright red blood mixed with mucus. Will monitor closely with repeat H&H this afternoon -Chest CT without IV contrast with dense bibasilar airspace consolidation as above, typical in appearance for pneumonia, small pleural effusions, cardiomegaly and AICD -Started on empiric cefepime in ED. Will continue abx coverage with Zosyn and doxycycline -Duonebs QIDR -Denies history of aspiration. Dysphagia screen at bedside before advancing diet -Clinically a lot better -We will get repeat x-ray,PA and lateral view tomorrow -Chest x-ray showing improvement of infiltration -We will continue Zosyn and doxycycline for now -Oral Ceftin and doxy on discharge MANISH Likely secondary to dehydration We will give cautious amount of intravenous fluid Advised to drink more fluid Monitor PRP-creatinine is better today (4) Bronchiectasis: Follows with Dr. Tejada of [place]. Lung disease complicated further due to right hemidiaphragm paralysis as result of aortic valve surgery -Continue Breo inhaler, albuterol inhaler PRN, flutter valve QID, IV solumedrol -We will ask for chest PT -Has been getting chest PT with minimal improvement (5) Vomiting: In the setting of aspiration -Denies any nausea or vomiting episodes since arrival to ED -No electrolyte abnormalities -Zofran PRN (6) Hypertension: Initially hypotensive at 81/64, now 92/55 -Continue lisinopril HS and Toprol in AM with hold parameters -Noted to have hypotension and required holding blood pressure medicine as of 07/20/2019 (7) CAD (coronary artery disease): Continue statin, beta viral (8) Chronic diastolic HF (heart failure): In setting of ischemic HD, valvular disease -Continue Lasix HS, Toprol -No signs of fluid overload -We will give cautious amount of intravenous fluid to improve kidney function (9) Ventricular tachyarrhythmia: Continue Toprol -ICD with new unit placed in 07/14 -Monitor on telemetry (10) Ascending aortic aneurysm: History of stable aneurysmal dilatation of the ascending thoracic aorta which measures up to 4.6-4.8 cm in diameter -Undergoes annual CT scan, most recently in May 2019 without change -Followed closely by Dr. Simon (11) BPH (benign prostatic hyperplasia): Continue finasteride, terazosin DVT Ppx: SCDs for now in setting of hemoptysis Code status: FULL per discussion with patient PCP: Jeff Simon Dispo: Admitted to PCU. Discharge planning, PT and OT ordered. Has been improving Will need to have pulmonary evaluation in the hospital if hemoptysis continues Subjective 07/21/2019 Patient was seen and examined in telemetry unit He was admitted yesterday with bibasilar pneumonia complicated by history of bronchiectasis and hemoptysis No more hemoptysis since admission Clinically a lot better Saturating well on room air 07/22/2019 Patient was seen and examined in telemetry unit He has been feeling a lot better Has had only one episode of hemoptysis since admission Denies any fever and/or chills 07/23/2019 The patient was seen and examined in telemetry unit He has been feeling a lot better but remains short of breath at rest Requiring more oxygen than before PT and OT has been ordered He will needed a 2 steps O2 saturation test before discharge Review of Systems Review of Systems: All systems reviewed and are unremarkable except as noted below Constitutional: + weakness Respiratory: + cough and + dyspnea on exertion Cardiovascular: Additional Comments: Noted to have low blood pressure this morning of systolic upper 70s Physical Exam Physical Exam: Sitting on a chair with minimal shortness of breath Constitutional: well developed, well nourished and + obese; no acute distress and not ill appearing Eyes: PERRL, conjunctivae normal, anicteric sclerae ENMT: external ear and nose normal, oropharynx normal Neck: trachea midline, no thyromegaly Respiratory: normal respiratory effort and + respiratory distress (Minimal shortness of breath at rest) Auscultation: + diminished lung sounds and + crackles (Bibasilar coarse crackles) Cardiovascular: Rate/Rhythm: regular rate and regular rhythm Heart Sounds: no murmur Gastrointestinal (Abdomen): Inspection/Auscultation: abdomen normal to inspection and normal bowel sounds Percussion/Palpation: abdomen soft; abdomen nontender Musculoskeletal: Denies any acute arthritis in any joints Lymphatic: no cervical or axillary lymphadenopathy Results & Data Vital Signs (Past 12 Hours) Vital Signs Temp Pulse Pulse Resp BP BP Pulse Ox 07/23/19 11:30 104 H 18 92 07/23/19 11:14 36.4 C L 75 18 112/67 95 07/23/19 10:39 95 07/23/19 08:00 75 07/23/19 07:32 36.4 C L 78 20 109/57 L 95 07/23/19 04:00 36.5 C 71 20 102/59 L 94 07/23/19 02:54 36.7 C 83 20 101/62 90 07/23/19 00:00 75 Laboratory Results Short CBC 07/22/19 07/23/19 Range/Units 14:47 05:55 WBC 9.72 (4.8-10.8) K/uL Hgb 9.6 L 9.5 L (14.0-18.0) g/dL Hct 29.0 L 28.8 L (42-52) % Plt Count 172 (130-400) K/uL BMP 07/23/19 05:55 Sodium 140 Potassium 4.6 Chloride 110 H Carbon Dioxide 27 BUN 48 H Creatinine 1.72 H D Glucose 116 H Calcium 8.3 L Medications Administered Current Inpatient Medications Acetaminophen (Tylenol) 650 mg PO Q4H PRN PRN Reason: Pain or Fever Stop: 08/19/19 12:02 Acetylcysteine (Mucomyst 20%) 5 ml INH Q12R [facility] Stop: 08/21/19 19:29 Last Admin: 07/23/19 07:29 Dose: 5 ml Documented by: Albuterol (Duoneb) 3 ml NEB QIDR [facility] Stop: 08/19/19 14:59 Last Admin: 07/23/19 11:26 Dose: 3 ml Documented by: Albuterol (Ventolin Hfa) 2 puffs INH QID PRN PRN Reason: SHORTNESS OF BREATH Stop: 08/19/19 13:29 Brimonidine Tartrate (Alphagan P Oph) 1 drops OPB BID [facility] Stop: 08/20/19 20:59 Last Admin: 07/23/19 09:10 Dose: 1 drops Documented by: Cetirizine HCl (Zyrtec) 10 mg PO DAILY PRN PRN Reason: Allergy Symptoms Stop: 08/19/19 12:02 Dorzolamide/Timolol (Cosopt) 1 drops OP HS [facility] Stop: 08/19/19 20:59 Last Admin: 07/22/19 20:34 Dose: 1 drops Documented by: Finasteride (Proscar) 5 mg PO HS [facility] Stop: 08/19/19 20:59 Last Admin: 07/22/19 20:38 Dose: 5 mg Documented by: Fluticasone Propionate (Flonase) 2 sprays RODRÍGUEZ BID [facility] Stop: 08/19/19 20:59 Last Admin: 07/23/19 09:12 Dose: 2 sprays Documented by: Fluticasone/Vilanterol (Breo Ellipta 100/25 Mcg Inh) 1 puffs INH QAM [facility] Stop: 08/20/19 08:59 Last Admin: 07/23/19 09:11 Dose: 1 puffs Documented by: Furosemide (Lasix) 20 mg PO HS [facility] Stop: 08/19/19 20:59 Last Admin: 07/22/19 20:36 Dose: 20 mg Documented by: Doxycycline Hyclate 100 mg/ (Dextrose) 110 mls @ 50 mls/hr IV Q12H [facility] Stop: 07/27/19 13:59 Last Infusion: 07/23/19 05:05 Dose: Infused Documented by: Piperacillin Sod/Tazobactam (Sod 3.375 gm/ Dextrose) 115 mls @ 28.75 mls/hr IV Q8H [facility]; Protocol Stop: 07/27/19 18:59 Last Admin: 07/23/19 11:03 Dose: 28.8 mls/hr Documented by: Sodium Chloride (Nss 1000ml) 1,000 mls @ 100 mls/hr IV .Q10H [facility] Stop: 08/21/19 14:14 Last Admin: 07/23/19 02:51 Dose: 100 mls/hr Documented by: Latanoprost (Xalatan Oph) 1 drops OPR [facility] Stop: 08/19/19 20:59 Last Admin: 07/21/19 21:48 Dose: 1 drops Documented by: Lisinopril (Zestril) 2.5 mg PO [facility] Stop: 08/19/19 20:59 Last Admin: 07/22/19 20:37 Dose: 2.5 mg Documented by: Metoprolol Succinate (Toprol Xl) 25 mg PO [facility] Stop: 08/20/19 08:59 Last Admin: 07/23/19 09:13 Dose: 25 mg Documented by: Miscellaneous Information (Consult) 1 ea N/A UD PRN PRN Reason: Consult Stop: 08/19/19 13:08 Multivitamins/Minerals (Multivitamin W/ Minerals Tab) 1 tab PO [facility] Stop: 08/20/19 08:59 Last Admin: 07/23/19 09:12 Dose: 1 tab Documented by: Ondansetron HCl (Zofran) 4 mg IV Q6H PRN PRN Reason: Nausea Stop: 08/19/19 12:02 Polyethylene Glycol (Miralax Powder Packet) 17 gm PO DAILY PRN PRN Reason: Constipation Stop: 08/19/19 12:02 Prednisolone Acetate (Pred Forte 1%) 1 drops OP QID [facility] Stop: 08/19/19 16:59 Last Admin: 07/23/19 09:13 Dose: 1 drops Documented by: Simvastatin (Zocor) 40 mg PO PM [facility] Stop: 08/19/19 20:59 Last Admin: 07/22/19 20:37 Dose: 40 mg Documented by: Terazosin HCl (Hytrin) 5 mg PO QPM [facility] Stop: 08/19/19 20:59 Last Admin: 07/22/19 20:36 Dose: 5 mg Documented by: Vitamin D (Vitamin D3) 1,000 units PO QAM [facility] Stop: 08/20/19 08:59 Last Admin: 07/23/19 09:14 Dose: 1,000 units Documented by: (1) Vomiting Nausea presence: with nausea Vomiting Intractability: non-intractable Vomiting type: unspecified Qualified Code(s): R11.2 - Nausea with vomiting, unspecified
--- NOTE | 2019-07-23 13:37 | Pulmonology Progress Note ---
Date of Service July 23, 2019 Assessment & Plan (1) Hemoptysis: Most likely due to pneumonia/bronchitis H&H is stable Patient reports more dark colored hemoptysis this morning Have asked him to save all mucous with blood so that we can better quantify Patient currently being treated for pneumonia - Day # 4 Zosyn and doxy Patient is also on methylprednisolone 40 mg every 8 hours. Can reduce as patient has no bronchospasm We will continue to monitor. No indication for bronchoscopy or other intervention at this time (2) Bronchiectasis: CT chest reviewed from 03/21/2016 * Bilateral middle lobe traction bronchiechtasis appreciated Continue with nebulizer treatments and pneumatic vest for pulmonary toilet Continue mucomyst as tolerated Continue Brio Ellipta Continue to titrate O2 off as tolerated No indication for bronchoscopy at this time (3) Pneumonia: Video swallow study is ordered and pending Right lower lobe consolidation Started on Zosyn and doxycycline -day #4 Blood cultures are negative after 48 hours White count is now normalized at 9.72 Afebrile Continue to titrate oxygen off as tolerated Ambulate as tolerated Out of bed to chair as tolerated Laterality: bilateral Lung location: lower lobe of lung Pneumonia type: due to unspecified organism Qualified Code(s): J18.9 - Pneumonia, unspecified organism (4) Aortic valve replaced: Bovine valve in 2000 No anticoagulation as an outpatient Continue treatment per cardiology outpatient Thank you for including us in the care of this patient. We will continue to follow this patient with you. Please refer to Dr. Payne's addendum for corrections and further treatment recommendations. Supervising Physician Co-Signing Physician Notes I saw and evaluated the patient with Ned lee, and agree with findings and plan as documented in the note. Patient seen and examined at bedside. No acute distress, no adverse events overnight. Patient has been breathing well. Bringing up clear phlegm. No fresh blood. Hemoglobin has been stable since admission. Denies any chest pain, no shortness of breath, has been using chest vest therapy and tolerating Mucomyst pretty well. CT chest from February 2016 was personally reviewed where he he did have bilateral middle lobe bronchiectasis appreciated along with right lower lobe atelectasis. I personally think the hemoptysis was because of the pneumonia that she he has along with bilateral atrial enlargement. Swallow eval was done today which did not show any signs of aspiration. Recommend continue with antibiotics, add Mucomyst Mucomyst, monitor H&H(ace ent's hemoglobin is stable so far). Currently there is no indication for bronchoscopy. If the right lower consolidation does not improve then might consider bronchoscopy to see if there is any obstructive lesion. Please note the above document was generated using voice recognition software. It may contain grammatical, syntax or spelling errors. Subjective Patient states that he is doing much better. He reports some further hemoptysis this morning but states that he discarded it. Supplemental O2 has been weaned to 4 L/min via NC. No chest pain or tightness. No new acute complaints. Review of Systems Review of Systems: All systems reviewed & are unremarkable except as noted in HPI & below Physical Exam Physical Exam: GENERAL : No acute distress. Seen with patient in bed. No shortness of breath with full sentences. EYES: No icterus, gaze conjugate. NOSE: No evidence of epistaxis. Nasal cannula is in place and secure MOUTH: No lesions or candidiasis. Mucosa is moist NECK: Supple. LUNGS: No wheeze, patient has rales bilaterally in the bases. There is no cough or sputum production during my examination visit. HEART: Regular, rate controlled ABDOMEN: Soft, NT, ND, BS Present EXTREMITIES: No LE edema, pedal pulses intact NEURO: A&OX3 Skin: no rashes, warm and dry Lymphatic: no cervical or axillary lymphadenopathy Results & Data Vital Signs (Past 12 Hours) Vital Signs Temp Pulse Pulse Resp BP BP Pulse Ox 07/23/19 11:30 104 H 18 92 07/23/19 11:14 36.4 C L 75 18 112/67 95 07/23/19 10:39 95 07/23/19 08:00 75 07/23/19 07:32 36.4 C L 78 20 109/57 L 95 07/23/19 04:00 36.5 C 71 20 102/59 L 94 07/23/19 02:54 36.7 C 83 20 101/62 90 Laboratory Results 07/23/19 05:55 07/23/19 05:55 Diagnostic Findings Video swallow study is pending PG Care Time/CCT Total # of Minutes Spent Total Time Spent with Patient: Total time spent is greater than 50% in coordinat ion of care (as documented) at patient's floor/unit and/or counseling patient: 40 minutes including review of outside films and coordination with other providers Coding Level of Care Code 12748 Subseq Hosp Care Lvl 2 Diagnoses Hemoptysis R04.2 Bronchiectasis J47.9 Pneumonia J18.9 Laterality: bilateral Lung location: lower lobe of lung Pneumonia type: due to unspecified organism Aortic valve replaced Z95.2
--- NOTE | 2019-07-23 14:26 | Fluoroscopy Report ---
FL video swallow HISTORY: Dysphagia rule out aspiration TECHNIQUE: Video fluoroscopic evaluation of swallowing was performed in the AP and lateral projection s by the speech pathology staff. The patient is fed nectar-thick and thin liquid barium, a barium coa ramiro wafer, and barium pudding. FLUOROSCOPY TIME: 1.4 minutes NUMBER OF FLUOROSCOPIC IMAGES: 587 COMPARISON STUDY: None. FINDINGS: There is normal hyoid excursion and epiglottic deflection. No significant penetration or as piration identified. Swallowing function is within normal limits. IMPRESSION: 1. No aspiration identified. 2. Please see the speech pathologist report for detailed findings and recommendations. ACT 112: Negative or not required by law. The above report was generated using voice recognition software. It may contain grammatical, syntax or spelling errors. Electronically signed by: Amish Gomez M.D. 07/23/2019 2:25 PM
[2019-07-23] MEDS: TERAZOSIN HCL 5 MG CAP PO SCH (20:51)
[2019-07-23] MEDS: DORZOLAMIDE/TIMOLOL 22.3/6.8MG/ML 10 ML BTL OP SCH (20:52)
[2019-07-23] MEDS: SIMVASTATIN 40 MG TAB PO SCH (20:54)
[2019-07-23] MEDS: LATANOPROST 0.005% OP SOLN 2.5 ML BTL OPR SCH (20:54)
[2019-07-23] MEDS: FUROSEMIDE 20 MG TAB PO SCH (20:55)
[2019-07-23] MEDS: FINASTERIDE 5 MG TAB PO SCH (20:55)
[2019-07-24] MEDS: DOXYCYCLINE HYCLATE 100 MG in DEXTROSE 5% 100 ML IV SCH (02:49)
[2019-07-24] MEDS: ONDANSETRON INJ 2 MG/ML 2 ML VIAL IV PRN (02:51)
[2019-07-24] MEDS: PIPERACILLIN/TAZOBACTAM 3.375 GM in DEXTROSE 5% 100 ML IV SCH ×3 (04:53→19:19)
[2019-07-24] MEDS: ALBUT/IPRATROP 3MG/0.5MG NEB 3 ML VIAL NEB SCH ×4 (07:22→19:28)
[2019-07-24] MEDS: ACETYLCYSTEINE 20% INHAL SOLN 4ML ***DISPENSED BY RESP. INH SCH ×2 (07:22→19:28)
[2019-07-24] MEDS: SODIUM CHLORIDE 0.9% 1000ML 1,000 ML IV SCH ×2 (07:58→17:27)
[2019-07-24] MEDS: FLUTICASONE/VILANTEROL 100/25MCG 14 PUFFS/INHALER INH SCH (07:58)
[2019-07-24] MEDS: FLUTICASONE PROPIONATE NA SPR 16 GM BTL NAE SCH ×2 (07:59→21:37)
[2019-07-24] MEDS: BRIMONIDINE TARTRATE (ALPHAGAN P) 5 ML DROPS OPB SCH ×2 (07:59→21:42)
[2019-07-24] MEDS: prednisoLONE acetate 1% OP SUSP 5 ML BTL OP SCH ×4 (07:59→21:37)
[2019-07-24] MEDS: METOPROLOL SUCC 25MG EXT REL TAB PO SCH (08:00)
[2019-07-24] MEDS: CHOLECALCIFEROL 1,000 UNITS 25 MCG TAB PO SCH (08:00)
[2019-07-24] MEDS: CEROVITE ADV FORMULA TAB PO SCH (08:00)
--- NOTE | 2019-07-24 11:04 | XRay Report ---
XR chest 1V portable CLINICAL HISTORY: f/u dyspnea COMPARISON STUDY: 07/22/2019 FINDINGS: Moderate stable cardiomegaly. Prior median sternotomy. Permanent cardiac pacemaker/defibril lator. Slight improvement in aeration left lung base. Unchanged right base. IMPRESSION: Improving infiltrative process left base. Study is otherwise unchanged. ACT 112: Negative or not required by law. The above report was generated using voice recognition software. It may contain grammatical, syntax or spelling errors. Electronically signed by: Amish Gomez M.D. 07/24/2019 11:03 AM
[2019-07-24 11:18] LABS: BUN Creatinine Ratio 24.7 (10-20); Calcium 8.4 mg/dl (8.5-10.1); Creatinine Clr Calc Pharmacy 41.6 ml/min; Est GFR (African American) 51.8; Est GFR (Non-African American) 44.7
--- NOTE | 2019-07-24 13:35 | Pulmonology Progress Note ---
Date of Service July 24, 2019 Assessment & Plan (1) Hemoptysis: --Hemoptysis Most likely due to pneumonia/bronchitis H&H is stable, patient is bringing up sputum which is dark this is likely from his pneumonia. Continue with antibiotics. I think you 1 can transition it to p.o. with a total course of 10 days given the severity of pneumonia. Recommend Augmentin versus doxycycline given the QTC is 477 Start titrating of oxygen with goal saturation of 90 to 92%. Patient will benefit from incentive spirometry as well Chest x-ray from today personally reviewed. Impression of the left lower lobe are improving. Elevation of the right hemidiaphragm is still apparent. With may be minimal consolidation on the right lower lobe as well. Patient will need repeat chest x-ray to be done in 2 to 4 weeks. --Bronchiectasis CT chest reviewed from 03/21/2016 * Bilateral middle lobe traction bronchiechtasis appreciated Continue with nebulizer treatments and pneumatic vest for pulmonary toilet Continue mucomyst as tolerated Continue Brio Ellipta Continue to titrate O2 off as tolerated No indication for bronchoscopy at this time (2) Bronchiectasis: (3) Pneumonia: Laterality: bilateral Lung location: lower lobe of lung Pneumonia type: due to unspecified organism Qualified Code(s): J18.9 - Pneumonia, unspecified organism (4) Aortic valve replaced: Bovine valve in 2000 No anticoagulation as an outpatient Continue treatment per cardiology outpatient Subjective Patient seen and examined at bedside. No acute distress, no adverse events overnight. Had one episode of diarrhea. No nausea or vomiting. Good appetite. Shortness of breath is improved. He is bringing up a lot of phlegm especially after nebulized therapy and chest PT. Denies any blood in the sputum. Review of Systems Review of Systems: All systems reviewed & are unremarkable except as noted in HPI & below Physical Exam Physical Exam: Constitutional: No acute distress HEENT: EOMI, PERRLA, arcus tinnitus bilaterally Respiratory system: Decreased air entry bilaterally, positive crackles bilateral lower lobes, no wheeze, no rhonchi CVS: S1-S2 positive, no murmurs or gallops, left-sided AICD Abdomen: Soft, nontender, nondistended, positive bowel sounds x4 Extremities: +2 pulses bilaterally radialis/ dorsalis pedis, no cyanosis, +1 edema Neuro: Awake alert oriented x3 Psych: Normal mood and affect G/U: No Arreola Skin: no rashes, warm and dry Lymphatic: no cervical or axillary lymphadenopathy Results & Data Vital Signs (Past 12 Hours) Vital Signs Temp Pulse Resp BP BP Pulse Ox 07/24/19 11:25 36.8 C 75 20 104/63 96 07/24/19 11:20 76 18 91 07/24/19 07:54 36.6 C 76 18 99/62 L 90 07/24/19 07:27 77 20 85 L 07/24/19 03:02 36.5 C 76 16 109/62 90 07/23/19 05:55 07/24/19 10:30 PG Care Time/CCT Total # of Minutes Spent Total Time Spent with Patient: Total time spent is greater than 50% in coordination of care (as documented) at patient's floor/unit and/or counseling patient: Coding Level of Care Code 10343 Subseq Hosp Care Lvl 3 Diagnoses Hemoptysis R04.2 Bronchiectasis J47.9 Pneumonia J18.9 Laterality: bilateral Lung location: lower lobe of lung Pneumonia type: due to unspecified organism Aortic valve replaced Z95.2
[2019-07-24] MEDS: DOXYCYCLINE HYCLATE 100 MG CAP PO SCH (17:34)
--- NOTE | 2019-07-24 17:59 | Hospitalist Progress Note ---
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 -Initial pulse ox of 58% but is now saturating at 93% on oxygen mask 13L/min -In setting of aspiration into airway last evening after choking episode and vomiting x 2 -Requires 2L NC HS at baseline -Required BiPAP and 10 L of flow to maintain saturation on 07/20/2019 -Has been better since this morning -Saturating well on room air -Complains of cough but denies any hemoptysis -Clinically a lot better -Appreciate pulmonary input and recommendation -Remains stable -Sputum cx grew normal ronna -Will transition to oral abx tomorrow -Will get a 2 step exercise on discharge Hemoptysis Pulmonary on board Sputum cx negative No indication of bronchoscopy Hemoglobin stable (2) Sepsis: Initial BP 81/64, improved to 101/54 after 1 L NSS given in ED. Respiration rate initially 25. Leukocytosis of 22.8, normal lactate at 1.5. No AMS -Empirically cover with Zosyn, MRSA swab -Follow blood cultures, IV fluids -Blood cultures have been negative -We will transition to oral abx to complete a total of 10 days course (3) Aspiration pneumonia: Following choking episode this evening with subsequent vomiting and coughing. Procalcitonin of 5 -Chest CT without IV contrast with dense bibasilar airspace consolidation as above, typical in appearance for pneumonia, small pleural effusions, cardiomegaly and AICD -Started on empiric cefepime in ED. Will continue abx coverage with Zosyn and doxycycline -Danielonebs QIDR - Video Swallow showed no aspiration identified. -repeat Chest x-ray showed improving infiltrative process left base - On Zosyn and doxycycline for now, will transition to oral Augmentin on discharge MANISH Likely secondary to dehydration Creatinine peaked to 2.05 Received IVF Creatinine improved to 1.4 Will monitor BMP (4) Bronchiectasis: Follows with Dr. Tejada of [place]. Lung disease complicated further due to right hemidiaphragm paralysis as result of aortic valve surgery -Continue Breo inhaler, albuterol inhaler PRN, flutter valve QID -Clinically improved (5) Vomiting: In the setting of aspiration -Denies any nausea or vomiting episodes since arrival to ED -No electrolyte abnormalities -Zofran PRN (6) Hypertension: -BP stable -Continue lisinopril HS and Toprol in AM with hold parameters (7) CAD (coronary artery disease): Continue statin, beta viral Stable (8) Chronic diastolic HF (heart failure): In setting of ischemic HD, valvular disease -Continue Lasix HS, Toprol -No signs of fluid overload (9) Ventricular tachyarrhythmia: Continue Toprol -ICD with new unit placed in 07/14 -Stable (10) Ascending aortic aneurysm: History of stable aneurysmal dilatation of the ascending thoracic aorta which measures up to 4.6-4.8 cm in diameter -Undergoes annual CT scan, most recently in May 2019 without change -Followed closely by Dr. Simon (11) BPH (benign prostatic hyperplasia): Continue finasteride, terazosin DVT Ppx: SCDs for now in setting of hemoptysis Code status: FULL CODE Dispo: Possible discharge tomorrow Subjective Pt was seen and examined Lying in bed with no distress Pt said that last night he coughed alot He said that he is breathing his much better He is on his regular 2L NC and doing good Denies any chest pain, palpitation, fever and SOB Physical Exam Physical Exam: General- No acute distress Head- atraumatic Eyes- PERRL, EOMI, ENT- oropharynx clear Neck- supple, no JVD Lungs- clear to auscultation Heart- regular rhythm; no murmur Abdomen- normal bowel sounds, soft, nontender Extremities- no calf tenderness Neuro- alert, oriented x 3; PERRL, EOMI; no facial palsy; no dysarthria Skin- warm & dry Results & Data Vital Signs (Past 12 Hours) Vital Signs Temp Pulse Resp BP Pulse Ox 07/24/19 15:24 18 90 07/24/19 15:17 36.7 C 76 16 106/63 90 07/24/19 11:25 36.8 C 75 20 104/63 96 07/24/19 11:20 76 18 91 07/24/19 07:54 36.6 C 76 18 99/62 L 90 07/24/19 07:27 77 20 85 L (1) Vomiting Nausea presence: with nausea Vomiting Intractability: non-intractable Vomiting type: unspecified Qualified Code(s): R11.2 - Nausea with vomiting, unspecified
[2019-07-24] MEDS: DORZOLAMIDE/TIMOLOL 22.3/6.8MG/ML 10 ML BTL OP SCH (21:37)
[2019-07-24] MEDS: FUROSEMIDE 20 MG TAB PO SCH (21:38)
[2019-07-24] MEDS: SIMVASTATIN 40 MG TAB PO SCH (21:38)
[2019-07-24] MEDS: FINASTERIDE 5 MG TAB PO SCH (21:39)
[2019-07-24] MEDS: TERAZOSIN HCL 5 MG CAP PO SCH (21:40)
[2019-07-24] MEDS: LATANOPROST 0.005% OP SOLN 2.5 ML BTL OPR SCH (21:41)
[2019-07-25] MEDS ORDERED: CALCIUM CARBONATE 500 MG CHEWABLE TAB PO STA (01:20)
[2019-07-25] MEDS: PIPERACILLIN/TAZOBACTAM 3.375 GM in DEXTROSE 5% 100 ML IV SCH ×3 (03:04→19:37)
[2019-07-25] MEDS: SODIUM CHLORIDE 0.9% 1000ML 1,000 ML IV SCH ×2 (04:09→14:09)
[2019-07-25] MEDS: DOXYCYCLINE HYCLATE 100 MG CAP PO SCH ×2 (06:05→19:38)
[2019-07-25] MEDS: ACETYLCYSTEINE 20% INHAL SOLN 4ML ***DISPENSED BY RESP. INH SCH ×2 (06:57→20:01)
[2019-07-25] MEDS: ALBUT/IPRATROP 3MG/0.5MG NEB 3 ML VIAL NEB SCH ×4 (06:57→19:56)
[2019-07-25] MEDS: METOPROLOL SUCC 25MG EXT REL TAB PO SCH (08:22)
[2019-07-25] MEDS: CEROVITE ADV FORMULA TAB PO SCH (08:22)
[2019-07-25] MEDS: FLUTICASONE/VILANTEROL 100/25MCG 14 PUFFS/INHALER INH SCH (08:23)
[2019-07-25] MEDS: prednisoLONE acetate 1% OP SUSP 5 ML BTL OP SCH ×5 (08:23→20:42)
[2019-07-25] MEDS: FLUTICASONE PROPIONATE NA SPR 16 GM BTL NAE SCH ×2 (08:23→20:42)
[2019-07-25] MEDS: BRIMONIDINE TARTRATE (ALPHAGAN P) 5 ML DROPS OPB SCH ×2 (08:27→20:42)
[2019-07-25] MEDS: CHOLECALCIFEROL 1,000 UNITS 25 MCG TAB PO SCH (08:27)
--- NOTE | 2019-07-25 17:15 | Pulmonology Progress Note ---
Date of Service July 25, 2019 Assessment & Plan (1) Hemoptysis: --Hemoptysis Most likely due to pneumonia/bronchitis. Resolved. H&H is stable, patient is bringing up sputum which is dark this is likely from his pneumonia. Continue with antibiotics. I think you 1 can transition it to p.o. with a total course of 10 days given the severity of pneumonia. Recommend Augmentin versus doxycycline given the QTC is 477 Start titrating of oxygen with goal saturation of 90 to 92%. Patient will benefit from incentive spirometry as well Patient will need repeat chest x-ray to be done in 2 to 4 weeks. --Bronchiectasis CT chest reviewed from 03/21/2016 * Bilateral middle lobe traction bronchiechtasis appreciated Continue with nebulizer treatments and pneumatic vest for pulmonary toilet Continue mucomyst as tolerated Continue Brio Ellipta Continue to titrate O2 off as tolerated No indication for bronchoscopy at this time No more further intervention with pulmonary perspective. Will sign off. Recall if needed. Please note the above document was generated using voice recognition software. It may contain grammatical, syntax or spelling errors. (2) Bronchiectasis: (3) Pneumonia: Laterality: bilateral Lung location: lower lobe of lung Pneumonia type: due to unspecified organism Qualified Code(s): J18.9 - Pneumonia, unspecified organism (4) Aortic valve replaced: Bovine valve in 2000 No anticoagulation as an outpatient Continue treatment per cardiology outpatient Subjective Patient seen and examined at bedside. No acute distress, no adverse events overnight. Patient denies any chest pain, shortness of breath is improved. No headache, no nausea, no vomiting. Cough is decreased in intensity. No more hemoptysis. Patient denies any more bouts of diarrhea. Review of Systems Review of Systems: All systems reviewed & are unremarkable except as noted in HPI & below Physical Exam Physical Exam: Constitutional: No acute distress HEENT: EOMI, PERRLA, arcus tinnitus bilaterally Respiratory system: Decreased air entry bilaterally, positive crackles bilateral lower lobes, no wheeze, no rhonchi CVS: S1-S2 positive, no murmurs or gallops, left-sided AICD Abdomen: Soft, nontender, nondistended, positive bowel sounds x4 Extremities: +2 pulses bilaterally radialis/ dorsalis pedis, no cyanosis, +1 edema Neuro: Awake alert oriented x3 Psych: Normal mood and affect G/U: No Arreola Skin: no rashes, warm and dry Lymphatic: no cervical or axillary lymphadenopathy Results & Data ([facility]) Vital Signs (Past 12 Hours) Vital Signs Temp Pulse Pulse Resp BP Pulse Ox 07/25/19 15:52 36.7 C 73 18 107/62 95 07/25/19 15:51 75 20 94 07/25/19 15:42 84 07/25/19 10:50 36.5 C 75 20 98/58 L 94 07/25/19 10:43 78 17 96 07/25/19 07:23 36.8 C 68 20 108/62 91 07/25/19 06:57 74 18 95 07/23/19 05:55 07/24/19 10:30 PG Care Time/CCT Total # of Minutes Spent Total Time Spent with Patient: Total time spent is greater than 50% in coordination of care (as documented) at patient's floor/unit and/or counseling patient: Coding Level of Care Code 65794 Subseq Hosp Care Lvl 3 Diagnoses Hemoptysis R04.2 Bronchiectasis J47.9 Pneumonia J18.9 Laterality: bilateral Lung location: lower lobe of lung Pneumonia type: due to unspecified organism Aortic valve replaced Z95.2
--- NOTE | 2019-07-25 18:58 | Hospitalist Progress Note ---
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 -Initial pulse ox of 58% but is now saturating at 93% on oxygen mask 13L/min -In setting of aspiration into airway last evening after choking episode and vomiting x 2 -Requires 2L NC HS at baseline -Required BiPAP and 10 L of flow to maintain saturation on 07/20/2019 -Has been better since this morning -Saturating well on room air -Complains of cough but denies any hemoptysis -Clinically a lot better -Appreciate pulmonary input and recommendation -Remains stable -Sputum cx grew normal ronna -Will transition to oral abx on discharge today -Will get a 2 step exercise on discharge Hemoptysis Pulmonary on board Sputum cx negative No indication of bronchoscopy Hemoglobin stable (2) Sepsis: Initial BP 81/64, improved to 101/54 after 1 L NSS given in ED. Respiration rate initially 25. Leukocytosis of 22.8, normal lactate at 1.5. No AMS -Empirically cover with Zosyn, MRSA swab -Follow blood cultures, IV fluids -Blood cultures have been negative -We will transition to oral abx to complete a total of 10 days course (3) Aspiration pneumonia: Following choking episode this evening with subsequent vomiting and coughing. Procalcitonin of 5 -Chest CT without IV contrast with dense bibasilar airspace consolidation as above, typical in appearance for pneumonia, small pleural effusions, cardiomegaly and AICD -Started on empiric cefepime in ED. Will continue abx coverage with Zosyn and doxycycline -Danielonebs QIDR - Video Swallow showed no aspiration identified. -repeat Chest x-ray showed improving infiltrative process left base - On Zosyn and doxycycline for now, will transition to oral Augmentin on discharge MANISH Likely secondary to dehydration Creatinine peaked to 2.05 Received IVF Creatinine improved to 1.4 Will monitor BMP (4) Bronchiectasis: Follows with Dr. Tejada of [place]. 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 - Follow up with Pulmonology outpatient (5) Vomiting: In the setting of aspiration -Denies any nausea or vomiting episodes since arrival to ED -No electrolyte abnormalities -Zofran PRN (6) Hypertension: -BP stable -Continue lisinopril HS and Toprol in AM with hold parameters (7) CAD (coronary artery disease): Continue statin, beta viral Stable (8) Chronic diastolic HF (heart failure): In setting of ischemic HD, valvular disease -Continue Lasix HS, Toprol -No signs of fluid overload (9) Ventricular tachyarrhythmia: Continue Toprol -ICD with new unit placed in 07/14 -Stable (10) Ascending aortic aneurysm: History of stable aneurysmal dilatation of the ascending thoracic aorta which measures up to 4.6-4.8 cm in diameter -Undergoes annual CT scan, most recently in May 2019 without change -Followed closely by Dr. Simon (11) BPH (benign prostatic hyperplasia): Continue finasteride, terazosin DVT Ppx: SCDs for now in setting of hemoptysis Code status: FULL CODE Dispo: Possible discharge tomorrow Subjective Pt was seen and examined Lying in bed with no distress Pt said that he feels much better He said that he was able to walk with therapy in the hallway today Denies any chest pain, palpitation, dizziness and SOB Physical Exam Physical Exam: General- No acute distress Head- atraumatic Eyes- PERRL, EOMI, ENT- oropharynx clear Neck- supple, no JVD Lungs- diminished BS Heart- regular rhythm; no murmur Abdomen- normal bowel sounds, soft, nontender Extremities- no calf tenderness Neuro- alert, oriented x 3; PERRL, EOMI; no facial palsy; no dysarthria Skin- warm & dry Results & Data ([facility]) Vital Signs (Past 12 Hours) Vital Signs Temp Pulse Pulse Resp BP Pulse Ox 07/25/19 15:52 36.7 C 73 18 107/62 95 07/25/19 15:51 75 20 94 07/25/19 15:42 84 07/25/19 10:50 36.5 C 75 20 98/58 L 94 07/25/19 10:43 78 17 96 07/25/19 07:23 36.8 C 68 20 108/62 91 (1) Vomiting Nausea presence: with nausea Vomiting Intractability: non-intractable Vomiting type: unspecified Qualified Code(s): R11.2 - Nausea with vomiting, unspecified
[2019-07-25] MEDS: TERAZOSIN HCL 5 MG CAP PO SCH (20:38)
[2019-07-25] MEDS: FUROSEMIDE 20 MG TAB PO SCH (20:39)
[2019-07-25] MEDS: FINASTERIDE 5 MG TAB PO SCH (20:39)
[2019-07-25] MEDS: SIMVASTATIN 40 MG TAB PO SCH (20:40)
[2019-07-25] MEDS: LATANOPROST 0.005% OP SOLN 2.5 ML BTL OPR SCH (20:41)
[2019-07-25] MEDS: DORZOLAMIDE/TIMOLOL 22.3/6.8MG/ML 10 ML BTL OP SCH (20:43)
[2019-07-25] MEDS: ONDANSETRON INJ 2 MG/ML 2 ML VIAL IV PRN (20:53)
[2019-07-26] MEDS: PIPERACILLIN/TAZOBACTAM 3.375 GM in DEXTROSE 5% 100 ML IV SCH ×2 (03:02→11:58)
[2019-07-26] MEDS: DOXYCYCLINE HYCLATE 100 MG CAP PO SCH (05:56)
[2019-07-26] MEDS: ALBUT/IPRATROP 3MG/0.5MG NEB 3 ML VIAL NEB SCH ×4 (06:55→16:05)
[2019-07-26] MEDS: ACETYLCYSTEINE 20% INHAL SOLN 4ML ***DISPENSED BY RESP. INH SCH (06:55)
[2019-07-26] MEDS: BRIMONIDINE TARTRATE (ALPHAGAN P) 5 ML DROPS OPB SCH (08:18)
[2019-07-26] MEDS: FLUTICASONE/VILANTEROL 100/25MCG 14 PUFFS/INHALER INH SCH (08:18)
[2019-07-26] MEDS: prednisoLONE acetate 1% OP SUSP 5 ML BTL OP SCH ×2 (08:19→12:01)
[2019-07-26] MEDS: CHOLECALCIFEROL 1,000 UNITS 25 MCG TAB PO SCH (08:19)
[2019-07-26] MEDS: METOPROLOL SUCC 25MG EXT REL TAB PO SCH (08:19)
[2019-07-26] MEDS: CEROVITE ADV FORMULA TAB PO SCH (08:19)
[2019-07-26] MEDS: FLUTICASONE PROPIONATE NA SPR 16 GM BTL NAE SCH (08:19)
[2019-07-26] MEDS ORDERED: CALCIUM CARBONATE 500 MG CHEWABLE TAB PO PRN (08:55)
--- NOTE | 2019-07-26 14:44 | Hospitalist Progress Note ---
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 -Initial pulse ox of 58% but is now saturating at 93% on oxygen mask 13L/min -In setting of aspiration into airway last evening after choking episode and vomiting x 2 -Requires 2L NC HS at baseline -Required BiPAP and 10 L of flow to maintain saturation on 07/20/2019 -Has been better since this morning -Saturating well on room air -Complains of cough but denies any hemoptysis -Clinically a lot better -Appreciate pulmonary input and recommendation -Remains stable -Sputum cx grew normal ronna -2 step exercise done today and pt requires 2 LNC at rest and 4LNC with activity -Will transition to oral abx on with Cefdinir and doxy to complete a total of 10 days course -Follow up with Viviana Chavez with Alfreda Estrada @ 9:45 AM Hemoptysis Pulmonary on board Sputum cx negative No indication of bronchoscopy Hemoglobin stable (2) Sepsis: Initial BP 81/64, improved to 101/54 after 1 L NSS given in ED. Respiration rate initially 25. Leukocytosis of 22.8, normal lactate at 1.5. No AMS -Empirically cover with Zosyn, MRSA swab -Follow blood cultures, IV fluids -Blood cultures have been negative -We will transition to oral abx to complete a total of 10 days course (3) Aspiration pneumonia: Following choking episode this evening with subsequent vomiting and coughing. Procalcitonin of 5 -Chest CT without IV contrast with dense bibasilar airspace consolidation as above, typical in appearance for pneumonia, small pleural effusions, cardiomegaly and AICD -Started on empiric cefepime in ED. Will continue abx coverage with Zosyn and doxycycline -Duonebs QIDR - Video Swallow showed no aspiration identified. -repeat Chest x-ray showed improving infiltrative process left base - On Zosyn and doxycycline for now, will transition to oral abx on discharge MANISH Likely secondary to dehydration Creatinine peaked to 2.05 Received IVF Creatinine improved to 1.4 Will monitor BMP (4) Bronchiectasis: Follows with Dr. Teajda of [place]. 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 -Follow up with Viviana Chavez with Alfreda Rhed @ 9:45 AM (5) Vomiting: In the setting of aspiration -Denies any nausea or vomiting episodes since arrival to ED -No electrolyte abnormalities -Zofran PRN -Resolved (6) Hypertension: -BP stable -Continue lisinopril HS and Toprol in AM with hold parameters (7) CAD (coronary artery disease): Continue statin, beta viral Stable (8) Chronic diastolic HF (heart failure): In setting of ischemic HD, valvular disease -Continue Lasix HS, Toprol -No signs of fluid overload (9) Ventricular tachyarrhythmia: Continue Toprol -ICD with new unit placed in 07/14 -Stable (10) Ascending aortic aneurysm: History of stable aneurysmal dilatation of the ascending thoracic aorta which measures up to 4.6-4.8 cm in diameter -Undergoes annual CT scan, most recently in May 2019 without change -Followed closely by Dr. Simon (11) BPH (benign prostatic hyperplasia): Continue finasteride, terazosin DVT Ppx: SCDs for now in setting of hemoptysis Code status: FULL CODE Dispo: Possible discharge today Follow up with Viviana Chavez with Alfreda Rhed @ 9:45 AM Subjective Pt was seen and examined Sitting in chair with no distress Pt said that he feels much better today He said that the cough improves He said that his breathing stable on the 2L NC Denies any chest pain, palpitation, dizziness and SOB Physical Exam Physical Exam: General- No acute distress Head- atraumatic Eyes- PERRL, EOMI, ENT- oropharynx clear Neck- supple, no JVD Lungs- diminished BS Heart- regular rhythm; no murmur Abdomen- normal bowel sounds, soft, nontender Extremities- no calf tenderness Neuro- alert, oriented x 3; PERRL, EOMI; no facial palsy; no dysarthria Skin- warm & dry Results & Data ([facility]) Vital Signs (Past 12 Hours) Vital Signs Temp Pulse Pulse Pulse Pulse Pulse Pulse 07/26/19 14:39 90 96 H 91 H 96 H 88 92 H 07/26/19 11:15 36.7 C 07/26/19 08:00 36.5 C 07/26/19 04:10 36.5 C Pulse Resp Resp Resp Resp Resp Resp 07/26/19 14:39 18 20 20 20 18 07/26/19 11:15 73 18 07/26/19 08:00 75 18 07/26/19 04:10 75 19 Resp BP BP Pulse Ox Pulse Ox Pulse Ox Pulse Ox 07/26/19 14:39 18 91 86 L 91 07/26/19 11:15 107/62 95 07/26/19 08:00 98/58 L 94 07/26/19 04:10 98/58 L 94 Pulse Ox Pulse Ox Pulse Ox 07/26/19 14:39 82 L 93 84 L 07/26/19 11:15 07/26/19 08:00 07/26/19 04:10 (1) Vomiting Nausea presence: with nausea Vomiting Intractability: non-intractable Vomiting type: unspecified Qualified Code(s): R11.2 - Nausea with vomiting, unspecified
[2019-07-26] MEDS ORDERED: CEFDINIR 300 MG CAP PO SCH (18:00)
--- NOTE | 2019-07-28 08:29 | Discharge Summary ---
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 Patient states he was in normal state of health until last evening around 10 PM when he choked on hot cocoa. Proceeded to have dry heaves and then 2 episodes of vomiting overnight as well as cough with reported episodes of hemoptysis of bright red blood mixed with mucus. Usually only wears 2 L nasal cannula oxygen HS but required at this morning as well, so family brought patient to ED for further evaluation. Initially, patient had pulse ox of 58% but is now saturating at 93% on oxygen ma sk 13L/min. Initial BP 81/64, improved to 97/50 after 1 L NSS given in ED. Respiration rate initially 25. Leukocytosis of 22.8, procalcitonin of 5 and normal lactate at 1.5. Chest CT without IV contrast with dense bibasilar airspace consolidation as above, typical in appearance for pneumonia, small pleural effusions, cardiomegaly and AICD. Also with stable aneurysmal dilatation of the ascending thoracic aorta which measures up to 4.8 cm in diameter. Started on empiric cefepime in ED. Admission Exam Per Admitting Provider General Appearance: WD/WN, vitals as above, NAD, lying in bed, pleasant, chronically ill appearing, conversing easily Head: normocephalic, atraumatic Eyes: normal inspection, PERRL, conjunctivae normal, anicteric sclerae ENT: external ear and nose normal, oropharynx normal Neck: trachea midline, no thyromegaly normal visual inspection Respiratory: diffuse rhonchi and wheezing with bibasilar rales. Normal insp/exp effort with oxymask, no accessory muscle use Cardiovascular: regular rate, rhythm, no murmur appreciated, normal peripheral pulses, no BLE edema. Vessels: no JVD Chest: normal inspection of chest Abdomen/GI: normal bowel sounds, soft, nontender, no hepatosplenomegaly Extremities/Musculoskelatal: no cyanosis or clubbing, extremities motor strength 5/5 Neurologic: PERRL, EOMI, accommodation nl, no face palsy, no dysarthria, CN's II-XI intact bilaterally and moves all extremities Psychiatric: A+Ox3, euthymic affect Skin: no rashes, normal color, warm/dry Principal Diagnosis Acute and chronic respiratory failure with hypoxia: Hemoptysis Sepsis Aspiration pneumonia Acute Kidney Injury Bronchiectasis Vomiting Hypertension CAD (coronary artery disease) Chronic diastolic HF (heart failure) Ventricular tachyarrhythmia Ascending aortic aneurysm BPH (benign prostatic hyperplasia) Discharge Exam General- No acute distress Head- atraumatic Eyes- PERRL, EOMI, ENT- oropharynx clear Neck- supple, no JVD Lungs- diminished BS Heart- regular rhythm; no murmur Abdomen- normal bowel sounds, soft, nontender Extremities- no calf tenderness Neuro- alert, oriented x 3; PERRL, EOMI; no facial palsy; no dysarthria Skin- warm & dry Discharge Data Allergies Allergy/AdvReac Type Severity Reaction Status Date / Time No Known Allergies Allergy Verified 07/20/19 09:32 Consultations 07/20/19 10:04 ED Decision to Admit Stat 07/20/19 12:03 Consult Case Management - Discharge Planning Routine 07/22/19 09:30 Consult Pulmonology Routine Ordered Studies 07/20/19 09:39 CT chest wo con Stat 07/23/19 13:30 FL video swallow Routine SINGLE VIEW CHEST CLINICAL HISTORY: Sepsis. FINDINGS: An AP, portable, upright chest radiograph is compared to study dated 03/11/2011. The examination is degraded by portable technique and patient rotation. The patient is status post midline sternotomy and cardiac valve surgery. A 3-lead cardiac AICD largely obscures the left lower chest. The heart is enlarged noting atherosclerotic calcification of the thoracic aorta. There is mild pulmonary vascular congestion. There is chronic elevation of right hemidiaphragm. There are small pleural effusions with bibasilar consolidation. No pneumothorax is seen. The skeletal structures are osteopenic. The bony thorax is grossly intact. Degenerative change is noted in the shoulders and thoracic spine. IMPRESSION: 1. Cardiomegaly and AICD. There is mild pulmonary vascular congestion. 2. Small pleural effusions with bibasilar consolidation. This could represent atelectasis and/or an infectious/inflammatory pneumonitis. Clinical correlation will be required and radiographic follow-up to resolution is recommended. ACT 112: Negative or not required by law. Electronically signed by: Ned Croft M.D. 07/20/2019 8:16 AM Dictated: 07/20/1914 Transcribed: 07/20/19813 KUB CLINICAL HISTORY: Vomiting. FINDINGS: 2 AP supine abdominal radiographs are correlated with lumbar spine radiographs dated 08/03/2016. There is a nonobstructed abdominal bowel gas pattern. Moderate fecal retention is noted in the right colon. No evidence of intraperitoneal free air is seen on these supine images. A 6 mm calcification projects over the left kidney or the left proximal ureter. The heart is enlarged. Midline sternotomy wires are noted with evidence of previous cardiac valve surgery. A cardiac AICD is partially visualized. The skeletal structures are osteopenic and appear intact. Lumbosacral spondylosis and scoliosis are observed. IMPRESSION: 1. Nonobstructed abdominal bowel gas pattern. 2. An indeterminant 6 mm calcification projects over the left kidney/proximal ureter. If there is clinical concern for ureteral stone a renal ultrasound could be considered to assess for hydronephrosis. Electronically signed by: Ned Croft M.D. 07/20/2019 9:01 AM Dictated: 07/20/1958 Transcribed: 07/20/19857 CT SCAN OF THE CHEST WITHOUT IV CONTRAST CLINICAL HISTORY: Dyspnea. COMPARISON STUDY: Chest x-ray dated 07/20/2019. TECHNIQUE: CT scan of the thorax was performed from the thoracic inlet to the upper abdomen. Images are reviewed in the axial, sagittal, and coronal planes. IV contrast was not administered for this examination as per the referring clinician. A dose lowering technique was utilized adhering to the principles of ALARA. The examination is modestly degraded by motion artifact. CT DOSE: 334.74 mGy.cm FINDINGS: Thyroid: Imaged portions of the thyroid gland are normal in size and attenuation. Thoracic aorta: There is atherosclerotic calcification of the thoracic aorta. There is aneurysmal dilatation of the ascending thoracic aorta which measures up to 4.8 cm. The remainder of the thoracic aorta is normal in caliber and demonstrates standard 3-vessel arch anatomy. Heart: The patient is status post midline sternotomy and aortic valve surgery. A 3-lead cardiac AICD is present in the left chest wall. The heart is enlarged and without pericardial effusion. The pulmonary trunk is dilated, measuring 3.6 cm in transverse diameter. This suggests pulmonary artery hypertension. Lungs and pleural spaces: Evaluation of the lung parenchyma is modestly degraded by motion artifact. There are small pleural effusions. Dense airspace consolidation is seen at the lung bases, with near complete consolidation of the right lower lobe. The trachea and central airways are clear. Calcified pleural plaque is noted at the left lung base. Mediastinum: There are numerous subcentimeter mediastinal lymph nodes. Ann: Not well assessed without IV contrast. Axillae: There is no axillary lymphadenopathy. Upper abdomen: There is diverticulosis of the partially visualized colon. A small to moderate hiatal hernia is observed. Skeletal structures: The skeletal structures are osteopenic. There is a mild to moderate compression deformity of T8. Degenerative change is noted in the shoulders and thoracic spine. No lytic or blastic bony lesions are seen. IMPRESSION: 1. There is dense bibasilar airspace consolidation as above, typical in appearance for pneumonia. Clinical correlation will be required and radiographic follow-up to resolution is recommended. 2. Small pleural effusions. 3. Cardiomegaly and AICD. 4. There is aneurysmal dilatation of the ascending thoracic aorta which measures up to 4.8 cm in diameter. Nonemergent surgical follow-up is recommended. 5. Additional findings as above. ACT 112: Negative or not required by law. Electronically signed by: Ned Croft M.D. 07/20/2019 10:43 AM Dictated: 07/20/19 1036 Transcribed: 07/20/19 1036 XR chest 2V PA/lateral HISTORY: Follow-up PNEUMONIA COMPARISON: Chest 07/20/2019. FINDINGS: Bibasilar densities are again noted. These have slightly improved. The heart remains mildly enlarged. There is a cardiac valve prosthesis and a left- sided pacemaker/defibrillator. No pneumothorax. Stable blunting of the costophrenic sulci. Elevation of the right hemidiaphragm, unchanged. No evidence for pulmonary edema. IMPRESSION: Redemonstration of the bibasilar densities. This has slightly improved in the interval. ACT 112: Negative or not required by law. Electronically signed by: Vitaly Osorio M.D. 07/22/2019 9:47 AM Dictated: 07/22/19 0942 Transcribed: 07/22/19 0942 FL video swallow HISTORY: Dysphagia rule out aspiration TECHNIQUE: Video fluoroscopic evaluation of swallowing was performed in the AP and lateral projections by the speech pathology staff. The patient is fed nectar-thick and thin liquid barium, a barium coated wafer, and barium pudding. FLUOROSCOPY TIME: 1.4 minutes NUMBER OF FLUOROSCOPIC IMAGES: 587 COMPARISON STUDY: None. FINDINGS: There is normal hyoid excursion and epiglottic deflection. No significant penetration or aspiration identified. Swallowing function is within normal limits. IMPRESSION: 1. No aspiration identified. 2. Please see the speech pathologist report for detailed findings and recommendations. ACT 112: Negative or not required by law. The above report was generated using voice recognition software. It may contain grammatical, syntax or spelling errors. Electronically signed by: Amish Gomez M.D. 07/23/2019 2:25 PM Dictated: 07/23/19 1425 Transcribed: 07/23/19 142 XR chest 1V portable CLINICAL HISTORY: f/u dyspnea COMPARISON STUDY: 07/22/2019 FINDINGS: Moderate stable cardiomegaly. Prior median sternotomy. Permanent cardiac pacemaker/defibrillator. Slight improvement in aeration left lung base. Unchanged right base. IMPRESSION: Improving infiltrative process left base. Study is otherwise unchanged. ACT 112: Negative or not required by law. The above report was generated using voice recognition software. It may contain grammatical, syntax or spelling errors. Electronically signed by: Amish Gomez M.D. 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 -Initial pulse ox of 58% but is now saturating at 93% on oxygen mask 13L/min -In setting of aspiration into airway last evening after choking episode and vomiting x 2 -Requires 2L NC HS at baseline -Required BiPAP and 10 L of flow to maintain saturation on 07/20/2019 -Has been better since this morning -Saturating well on room air -Complains of cough but denies any hemoptysis -Clinically a lot better -Appreciate pulmonary input and recommendation -Remains stable -Sputum cx grew normal ronna -2 step exercise done today and pt requires 2 LNC at rest and 4LNC with activity -Will transition to oral abx on with Cefdinir and doxy to complete a total of 10 days course -Follow up with Viviana Chavez with Alfreda Rhed @ 9:45 AM Hemoptysis Pulmonary on board Sputum cx negative No indication of bronchoscopy Hemoglobin stable (2) Sepsis: Initial BP 81/64, improved to 101/54 after 1 L NSS given in ED. Respiration rate initially 25. Leukocytosis of 22.8, normal lactate at 1.5. No AMS -Empirically cover with Zosyn, MRSA swab -Follow blood cultures, IV fluids -Blood cultures have been negative -We will transition to oral abx to complete a total of 10 days course (3) Aspiration pneumonia: Following choking episode this evening with subsequent vomiting and coughing. Procalcitonin of 5 -Chest CT without IV contrast with dense bibasilar airspace consolidation as above, typical in appearance for pneumonia, small pleural effusions, cardiomegaly and AICD -Started on empiric cefepime in ED. Will continue abx coverage with Zosyn and doxycycline -Duonebs QIDR - Video Swallow showed no aspiration identified. -repeat Chest x-ray showed improving infiltrative process left base - On Zosyn and doxycycline for now, will transition to oral abx on discharge MANISH Likely secondary to dehydration Creatinine peaked to 2.05 Received IVF Creatinine improved to 1.4 Will monitor BMP (4) Bronchiectasis: Follows with Dr. Tejada of [place]. 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 -Follow up with Viviana Chavez with Alfreda Rhed @ 9:45 AM (5) Vomiting: In the setting of aspiration -Denies any nausea or vomiting episodes since arrival to ED -No electrolyte abnormalities -Zofran PRN -Resolved (6) Hypertension: -BP stable -Continue lisinopril HS and Toprol in AM with hold parameters (7) CAD (coronary artery disease): Continue statin, beta viral Stable (8) Chronic diastolic HF (heart failure): In setting of ischemic HD, valvular disease -Continue Lasix HS, Toprol -No signs of fluid overload (9) Ventricular tachyarrhythmia: Continue Toprol -ICD with new unit placed in 07/14 -Stable (10) Ascending aortic aneurysm: History of stable aneurysmal dilatation of the ascending thoracic aorta which measures up to 4.6-4.8 cm in diameter -Undergoes annual CT scan, most recently in May 2019 without change -Followed closely by Dr. Simon (11) BPH (benign prostatic hyperplasia): Continue finasteride, terazosin DVT Ppx: SCDs for now in setting of hemoptysis Code status: FULL CODE Dispo: Possible discharge today Follow up with Viviana Chavez with Alfreda Estrada @ 9:45 AM Total Time Total Time Spent Total Time Spent (In Minutes): 35 minutes Total Time Includes: Examination of the Patient, Discharge Planning, Medication Reconciliation, Communication With Other Providers and Other Discharge Plan Discharge Items Patient Disposition: Home - Home Health Services Reason For Visit: ACUTE HYPOXIC RESP FAILURE,ASPIRATION ,SEPSIS Discharge Diagnosis: Acute and chronic respiratory failure with hypoxia: Hemoptysis Sepsis Aspiration pneumonia Acute Kidney Injury Bronchiectasis Vomiting Hypertension CAD (coronary artery disease) Chronic diastolic HF (heart failure) Ventricular tachyarrhythmia Ascending aortic aneurysm BPH (benign prostatic hyperplasia) Activity: Resume your previous activity Non-emergency contact: Primary Care Provider and Horse Doctor Call non-emergency contact if: you have any medication questions and your temperature is above 101 Follow-up/Referrals: An Simon DO [Primary Care Provider] - 07/31/19 10:55 am Alfreda Estrada CRNP [Outside Practitioners] - 08/08/19 9:45 am Diet: Heart Healthy Addtl Attending Provider Instructions: Follow up with your primary care provider Dr. Simon on 07/31/19 @ 10:55 AM Follow up with Viviana Pulmonology Sean OLIVA on 08/08/19 @ 9:45 AM Continue physical and occupational therapy Complete the course of the antibiotic with Doxycycline and Cefdinir Continue oxygen supplement with 2 LNC at rest and 4LNC with activity Repeat Chest Xray in 2 to 4 weeks (Your provider will order it) Seek medical attention if your breathing worsening Fall precaution Pending Studies at Discharge: No Stand-Alone Forms: My [facility], Smoking Cessation Medications and DC Order Prescriptions: New doxycycline hyclate 100 mg Capsule 100 mg PO Q12H 3 Days Qty: 6 RF: 0 ipratropium-albuterol 0.5 mg-3 mg(2.5 mg base)/3 mL Solution For Nebulization 3 ml NEB QIDR PRN (Reason: Wheezing/SOB) Qty: 90 RF: 0 cefdinir 300 mg Capsule 300 mg PO Q12H 3 Days Qty: 6 RF: 0 Continued terazosin 5 mg Capsule 5 mg PO QPM RF: 0 cetirizine [Zyrtec] 10 mg Tablet 10 mg PO DAILY PRN (Reason: Allergy Symptoms) RF: 0 azithromycin [Zithromax Z-Thom] 250 mg Tablet 250 mg PO UD PRN (Reason: copd rescue kit) RF: 0 simvastatin 40 mg Tablet 40 mg PO PM RF: 0 prednisone 10 mg Tablets,Dose Pack 10 mg PO UD PRN (Reason: copd rescue kit) RF: 0 metoprolol succinate 25 mg Tablet Extended Release 24 Hr 25 mg PO QAM RF: 0 multivitamin with minerals Tablet 1 tab PO QAM RF: 0 fluticasone propionate [Flonase Allergy Relief] 50 mcg/actuation Bedias,Suspension 2 spray INTRANASAL BID RF: 0 lisinopril 2.5 mg Tablet 2.5 mg PO HS RF: 0 finasteride 5 mg Tablet 5 mg PO HS RF: 0 cholecalciferol (vitamin D3) [Vitamin D3] 25 mcg (1,000 unit) Tablet 1,000 unit PO QAM RF: 0 Breo Ellipta 100-25 mcg/dose Blister With Device 1 inh INHALATION QAM RF: 0 amoxicillin 500 mg Capsule 2,000 mg PO UD PRN (Reason: prior to dental procedures) RF: 0 latanoprost [Xalatan] 0.005 % Drops 1 drp OPR HS RF: 0 dorzolamide-timolol 22.3-6.8 mg/mL Drops 1 drp ophthalmic (eye) HS RF: 0 furosemide [Lasix] 20 mg Tablet 20 mg PO HS RF: 0 albuterol sulfate [ProAir HFA] 90 mcg/actuation Hfa Aerosol Inhaler 2 puff Inhalation QID PRN (Reason: Shortness Of Breath) RF: 0 Alphagan P 0.1 % Drops 0.1 % ophthalmic (eye) DAILY RF: 0 prednisolone acetate 1 % Drops,Suspension 1 drp OPHTHALMIC (EYE) QID RF: 0 Discharge Orders: Discharge Order (Routine); Ordered 07/26/19 Ordered By: Adalberto Perez Admission Data Admit Date/Time: 07/20/19 10:44 Attending Provider: Adalberto Perez Admit Provider: Hortencia Akhtar Primary Care Provider: An Simon Other Providers: Hortencia Akhtar ; Renato Neves ; Emil Dhillon ; Ro Godfrey ; Ned Liu ; Anusha Hopson ; Cayden Forman ; Carlos Gomez ; Digna Carrion ; Andrea Barboza ; Paco Payne ; [place] Other Interventions: Discharge Summary Assessment (RN) Last Done: 07/26/19 15:42 DC Date/Time DO NOT enter until pt leaves facility: 07/26/19 18:25
== END 2019-07-26 18:25 | disposition home health service (06) | DRG 871 ==
LOC: ED 07:11 → 2S 10:44 → SUATTDRO 10:44 → 2S 10:59

== ENCOUNTER 2019-08-23 04:58 | Inpatient (IN) ==
[2019-08-23] MEDS ORDERED: SODIUM CHLORIDE 0.9% 1000ML 1,000 ML IV ONE (05:18)
[2019-08-23 05:35] LABS: Hematocrit (blood only) 30.3 % (42-52); Hemoglobin 10.2 g/dL (14.0-18.0); Mean Corpuscular Hemoglobin 35.7 pg (25-34); Mean Corpuscular Hgb Conc 33.7 g/dL (32-36); Mean Corpuscular Volume 105.9 fL (80-100); Mean Platelet Volume 10.9 fL (7.4-10.4); Nucleated RBC # (auto) 0.03 K/uL (0-0); Nucleated RBC % (auto) 0.2 %; Platelet Count 171 K/uL (130-400); RDW Coefficient of Variation 14.8 % (11.5-14.5); RDW Standard Deviation 57.2 fL (36.4-46.3); Red Blood Count 2.86 M/uL (4.7-6.1)
[2019-08-23] MEDS ORDERED: LEVOFLOXACIN/D5W 750 MG/150 ML BAG IV STA (05:49)
[2019-08-23] MEDS ORDERED: PIPERACILLIN/TAZOBACTAM 4.5 GM/120 ML BAG IV ONE (05:49)
[2019-08-23 05:52] LABS: Albumin Level 3.3 gm/dl (3.4-5.0); BUN Creatinine Ratio 20.6 (10-20); Calcium 8.7 mg/dl (8.5-10.1); Creatinine Clr Calc Pharmacy 45.1 ml/min; Est GFR (African American) 56.5; Est GFR (Non-African American) 48.7; Magnesium 1.7 mg/dl (1.8-2.4); Potassium 3.4 mmol/L (3.5-5.1)
[2019-08-23 05:54] LABS: INR 1.1 (0.9-1.1); Partial Thromboplastin Ratio 0.9; Prothrombin Time 11.3 Seconds (9.0-12.0)
[2019-08-23 05:56] LABS: Appearance Urine Clear (Clear); Bacteria Urine Automated Negative (Negative); Basophils # (auto) 0.02 K/uL (0-0.2); Basophils % (auto) 0.1 %; Bilirubin Urine Negative (Negative); Blood Urine Negative (Negative); Color Urine Yellow; Eosinophils # (auto) 0.01 K/uL (0-0.5); Eosinophils % (auto) 0.1 %; Glucose Urine UA Negative (Negative); Immature Granulocytes # (auto) 0.09 K/uL (0.00-0.02); Immature Granulocytes % (auto) 0.6 %; Ketones Urine Negative (Negative); Leukocyte Esterase Urine Negative (Negative); Lymphocytes # (auto) 0.59 K/uL (1.2-3.4); Lymphocytes % (auto) 3.6 %; Monocytes # (auto) 0.33 K/uL (0.11-0.59); Neutrophils # (auto) 15.26 K/uL (1.4-6.5); Neutrophils % (auto) 93.6 %; Nitrite Urine Negative (Negative); RBC Urine Automated 0-4 /hpf (0-4); Specific Gravity Urine 1.018 (1.000-1.030); Stomatocytes 1+; Urobilinogen Urine Negative (Negative); WBC Urine Automated 0 /hpf (0-5); pH Urine 7.5 (4.5-7.5)
[2019-08-23 06:00] LABS: Bilirubin,Total 1.2 mg/dl (0.2-1); Globulin 3.3 gm/dl (2.5-4.0); Total Protein 6.6 gm/dl (6.4-8.2); Troponin I 0.056 ng/ml (0-0.045)
[2019-08-23] MEDS: PIPERACILL/TAZOBAC CONSULT ACTIVE PRN ×2 (06:03→06:57)
[2019-08-23 06:04] LABS: Protein Urine Trace (Negative)
[2019-08-23 06:05] LABS: Sulfosalicylic Acid Urine Positive (Negative)
[2019-08-23] MEDS ORDERED: STAT IV Infusion **Titration per Protocol STA (06:14)
--- NOTE | 2019-08-23 06:15 | XRay Report ---
XR chest 1V portable CLINICAL HISTORY: SEPSIS dyspnea COMPARISON STUDY: 07/24/2019 FINDINGS: Diffuse parenchymal infiltrate left base. Slight chronic blunting right lateral calcificati on. Prominent pulmonary vasculature. Prior median sternotomy. Bipolar cardiac pacemaker/defibrillator. IMPRESSION: Congestive failure with a superimposed left basilar infiltrate. ACT 112: Negative or not required by law. The above report was generated using voice recognition software. It may contain grammatical, syntax or spelling errors. Electronically signed by: Amish Gomez M.D. 08/23/2019 6:14 AM
[2019-08-23] MEDS ORDERED: ACETAMINOPHEN 1,000 MG/100 ML VIAL IV STA (06:18)
[2019-08-23] MEDS ORDERED: POTASSIUM CHLORIDE 20 MEQ TABCR PO STA (06:20)
[2019-08-23] MEDS ORDERED: MAGNESIUM SULFATE 1GM / D5W BAG IV ONE (06:32)
[2019-08-23] MEDS: MAGNESIUM SULFATE / D5W 1 GM/100 ML BAG IV SCH ×2 (06:37→08:55)
[2019-08-23] MEDS: NOREPINEPHRINE BIT INJ 8 MG in DEXTROSE 5% 500 ML IV SCH ×3 (06:51→23:34)
[2019-08-23] MEDS ORDERED: VANCOMYCIN CONSULT ACTIVE PRN (07:00)
--- NOTE | 2019-08-23 07:01 | History & Physical Report ---
Date of Service August 23, 2019 Assessment & Plan (1) Hypotension: Possible septic shock HCAP Possible recurrent aspiration ? Adrenal insufficiency Hypoxemic respiratory failure secondary to COPD exacerbation secondary to HCAP hx chronic bronchiectasis, right hemidiaphragm paralysis as per records chronic diastolic heart failure (EF 60%, TTE 2019), patient euvolemic to dry CAD sp CABG TAA, 4.8 cm in diameter as of last months CT chest study aortic regurgitation status post bioprosthetic AV hx syncope status post ICD chronic anemia, hemoglobin at baseline despite significant postop bleeding from skin cancer surgery yesterday as per Hypokalemia, hypomagnesemia past tobacco abuse ICU given ongoing pressor support Appropriate to hold home antihypertensives for now given hypotension Cultures Zosyn, Vancomycin supplemental O2 Baseline ABG Steroid, nebs for COPD exacerbation Pulmonary consult if without improvement Repeat swallow evaluation Replace electrolytes DVT prophylaxis. SCDs (RE. Skin cancer surgery bleeding); initiate Lovenox 30 mg subcutaneous daily once hemoglobin stable Full code Patient's requesting updates providers. Ms. Janet De, [place], contact numbers [phone] 12/[birth year] [phone]. Text document was generated using [email or web address] voice recognition software. It may contain grammatical or spelling errors. Kindly contact undersigned for clarification of any documentation item in question. History of Present Illness Chief Complaint: Fever, shortness of breath Primary Care Provider: An Simon DO History obtained from patient, family, and records. Limited history from patient secondary to disorientation. Medical history significant for chronic diastolic heart failure (EF 60%, TTE 2019), CAD sp CABG, TAA, aortic regurgitation status post bioprosthetic AVR, syncope status post ICD, hypertension, hyperlipidemia, COPD as per records, chronic bronchiectasis, chronic right hemidiaphragm paralysis, chronic anemia (baseline hemoglobin 9-10), past tobacco abuse. Recent confinement last month for respiratory failure secondary to aspiration pneumonitis secondary to choking episode. Patient had a busy day yesterday as per . Outpatient follow-up with [facility] [place]. Barium swallow recommended to rule out possible silent aspiration as per records. Patient also underwent moves surgery for left mid cheek basal cell carcinoma outpatient yesterday. A lot of bleeding encountered during surgery as per . Earlier this morning, patient noted by to have labored breathing and confusion. Junky cough symptoms. No witnessed aspiration episode. Fever chills at home. On route to the ER, patient received Solu-Medrol, DuoNeb and a gram of Tylenol. At the ER, patient received IVF, Zosyn, Levaquin for sepsis. Levophed initiated for SBP of 60 to 70s despite above intervention. Patient denies chest pain, shortness of breath symptoms. Medical History as above Surgical History : ICD, CABG, tonsillectomy/adenoidectomy, hernia repair, bioprosthetic AVR Family History : Skin cancer, heart disease, stroke, hypertension Personal/Social history: Past tobacco abuse, no EtOH intake, retired high school guidance counselor Allergies Allergy/AdvReac Type Severity Reaction Status Date / Time No Known Allergies Allergy Verified 08/23/19 05:56 Home Medications Home Medications Medication Instructions Recorded Confirmed Type Alphagan P 0.1 % OPHTHALMIC (EYE) DAILY 07/04/18 08/23/19 History albuterol sulfate [ProAir HFA] 2 puff INHALATION QID PRN 07/04/18 08/23/19 History amoxicillin 2,000 mg PO UD PRN 07/04/18 08/23/19 History furosemide [Lasix] 20 mg PO HS 07/04/18 08/23/19 History latanoprost [Xalatan] 1 drp OPR HS 07/04/18 08/23/19 History Breo Ellipta 1 inh INHALATION QAM 06/27/19 08/23/19 History azithromycin [Zithromax Z-Thom] 250 mg PO UD PRN 06/27/19 08/23/19 History cetirizine [Zyrtec] 10 mg PO DAILY PRN 06/27/19 08/23/19 History cholecalciferol (vitamin D3) 1,000 unit PO QAM 06/27/19 08/23/19 History [Vitamin D3] finasteride 5 mg PO HS 06/27/19 08/23/19 History fluticasone propionate [Flonase 2 spray INTRANASAL BID 06/27/19 08/23/19 History Allergy Relief] metoprolol succinate 25 mg PO QAM 06/27/19 08/23/19 History multivitamin with minerals 1 tab PO QAM 06/27/19 08/23/19 History prednisone 10 mg PO UD PRN 06/27/19 08/23/19 History simvastatin 40 mg PO PM 06/27/19 08/23/19 History terazosin 5 mg PO QPM 06/27/19 08/23/19 History ipratropium-albuterol 3 ml NEB QIDR PRN #90 ml 07/26/19 08/23/19 Rx aspirin [Aspirin Childrens] 81 mg PO DAILY 08/23/19 08/23/19 History dorzolamide-timolol 1 drp OPB HS 08/23/19 08/23/19 History guaifenesin [Mucinex] 1,200 mg PO BID 08/23/19 08/23/19 History umeclidinium [Incruse Ellipta] 1 inh INHALATION DAILY 08/23/19 08/23/19 History Past Med/Surg History Medical History Ascending aortic aneurysm (Chronic) BPH (benign prostatic hyperplasia) (Chronic) Bronchiectasis (Chronic) CAD (coronary artery disease) (Chronic) Chronic diastolic HF (heart failure) Chronic systolic CHF (congestive heart failure), NYHA class 3 Glaucoma bilt eyes Hyperlipidemia (Chronic) Hypertension (Chronic) ICD (implantable cardioverter-defibrillator) battery depletion pt for biv icd generator change; rediscussed the procedure and potential risks consent obtained Ischemic cardiomyopathy (Chronic) On home oxygen therapy 2L N/C hs and prn Spinal stenosis Ventricular tachyarrhythmia (Chronic) Surgical History Biventricular ICD (implantable cardioverter-defibrillator) in place 2006 @ [place]/ recently replaced @ 07/04/18 [facility] History of bilateral cataract extraction History of cardiac cath 2001 @ [facility] no stents History of colonoscopy History of left inguinal hernia repair x2 History of prostate biopsy x2--benign History of tonsillectomy Hx of CABG 2001 @ [facility] S[place]P AVR 2001 @ [facility] Family History Father Family hx colonic polyps Other Hypertension No family history of adverse response to anesthesia Stroke Social History Preferred Language: [place]i Communication Ability: Effective [place] Required: No Beliefs That Will Affect Care: None marital status: Current Living Situation: Spouse Other Information That Helps Us Care for You: No Feels Safe at Home: Yes Safety Concerns: Feels Safe At This Time Smoking Status: Former smoker Second Hand Exposure: No ; Hx Alcohol Use: No Hx Substance Use: No Review of Systems Review of Systems: Could not be reliably obtained Physical Exam Physical Exam: GENERAL: Comfortable, disoriented, minimal respiratory distress SKIN: Pallor , warm HEENT: Pale palpebral conjunctivae, no ptosis, dressing over left cheek, O2 mask in place NECK : Supple, no tenderness CHEST : Bilateral rhonchi, no tenderness HEART : RRR, no obvious murmurs ABDOMEN: Some distention, nontender EXTREMITIES : Minimal LE swelling, no LE tenderness, no other conspicuous deformities noted NEUROLOGIC : Disoriented , slightly hard of hearing, no facial asymmetry, no other gross focality Results & Data Vital Signs (Past 12 Hours) Vital Signs Temp Pulse Resp BP Pulse Ox 08/23/19 06:45 93 H 23 69/41 L 93 08/23/19 06:30 95 H 23 74/46 L 94 08/23/19 06:15 91 H 27 H 84/46 L 93 08/23/19 06:11 0 L 23 76/43 L 93 08/23/19 06:00 93 H 22 80/44 L 93 08/23/19 05:45 97 H 24 78/40 L 93 08/23/19 05:36 98 H 24 80/42 L 94 08/23/19 05:26 97 H 23 87/48 L 95 08/23/19 05:18 101 H 26 H 80/46 L 93 08/23/19 05:10 94 08/23/19 05:05 40.3 C H 110 H 31 H 95/52 L 87 L Laboratory Results Laboratory Results WBC 16.30 K/uL (4.8-10.8) H 08/23/19 05:20 RBC 2.86 M/uL (4.7-6.1) L 08/23/19 05:20 Hgb 10.2 g/dL (14.0-18.0) L 08/23/19 05:20 Hct 30.3 % (42-52) L 08/23/19 05:20 MCV 105.9 fL (80-100) H 08/23/19 05:20 MCH 35.7 pg (25-34) H 08/23/19 05:20 MCHC 33.7 g/dL (32-36) 08/23/19 05:20 RDW Std Deviation 57.2 fL (36.4-46.3) H 08/23/19 05:20 RDW Coeff of Kole 14.8 % (11.5-14.5) H 08/23/19 05:20 Plt Count 171 K/uL (130-400) 08/23/19 05:20 MPV 10.9 fL (7.4-10.4) H 08/23/19 05:20 Immature Gran % (Auto) 0.6 % 08/23/19 05:20 Neut % (Auto) 93.6 % 08/23/19 05:20 Lymph % (Auto) 3.6 % 08/23/19 05:20 [place] % (Auto) 2.0 % 08/23/19 05:20 Eos % (Auto) 0.1 % 08/23/19 05:20 Baso % (Auto) 0.1 % 08/23/19 05:20 Immature Gran # (Auto) 0.09 K/uL (0.00-0.02) H 08/23/19 05:20 Neut # (Auto) 15.26 K/uL (1.4-6.5) H 08/23/19 05:20 Lymph # (Auto) 0.59 K/uL (1.2-3.4) L 08/23/19 05:20 [place] # (Auto) 0.33 K/uL (0.11-0.59) 08/23/19 05:20 Eos # (Auto) 0.01 K/uL (0-0.5) 08/23/19 05:20 Baso # (Auto) 0.02 K/uL (0-0.2) 08/23/19 05:20 Absolute Nucleated RBC 0.03 K/uL (0-0) H 08/23/19 05:20 Nucleated RBC % (auto) 0.2 % 08/23/19 05:20 Stomatocytes 1+ 08/23/19 05:20 PT 11.3 Seconds (9.0-12.0) 08/23/19 05:20 INR 1.1 (0.9-1.1) 08/23/19 05:20 APTT 24.0 Seconds (21.0-31.0) 08/23/19 05:20 PTT Ratio 0.9 08/23/19 05:20 Sodium 138 mmol/L (136-145) 08/23/19 05:20 Potassium 3.4 mmol/L (3.5-5.1) L 08/23/19 05:20 Chloride 105 mmol/L (98-107) 08/23/19 05:20 Carbon Dioxide 27 mmol/L (21-32) 08/23/19 05:20 Anion Gap 6.0 (3-11) 08/23/19 05:20 BUN 27 mg/dl (7-18) H 08/23/19 05:20 Creatinine 1.33 mg/dl (0.6-1.4) 08/23/19 05:20 Est Cr Clr Drug Dosing 45.1 ml/min 08/23/19 05:20 Est GFR ( Amer) 56.5 08/23/19 05:20 Est GFR (Non-Af Amer) 48.7 08/23/19 05:20 BUN/Creatinine Ratio 20.6 (10-20) H 08/23/19 05:20 Glucose 114 mg/dl (70-99) H 08/23/19 05:20 Lactate 1.5 mmol/L (0.4-2.0) 08/23/19 05:20 Calcium 8.7 mg/dl (8.5-10.1) 08/23/19 05:20 Magnesium 1.7 mg/dl (1.8-2.4) L 08/23/19 05:20 Total Bilirubin 1.2 mg/dl (0.2-1) H 08/23/19 05:20 AST 24 U/L (15-37) 08/23/19 05:20 ALT 21 U/L (12-78) 08/23/19 05:20 Alkaline Phosphatase 82 U/L (45-117) 08/23/19 05:20 Troponin I 0.056 ng/ml (0-0.045) H* 08/23/19 05:20 Total Protein 6.6 gm/dl (6.4-8.2) 08/23/19 05:20 Albumin 3.3 gm/dl (3.4-5.0) L 08/23/19 05:20 Globulin 3.3 gm/dl (2.5-4.0) 08/23/19 05:20 Albumin/Globulin Ratio 1.0 (0.9-2) 08/23/19 05:20 Urine Color Yellow 08/23/19 05:20 Urine Appearance Clear (Clear) 08/23/19 05:20 Urine pH 7.5 (4.5-7.5) 08/23/19 05:20 Ur Specific [place] 1.018 (1.000-1.030) 08/23/19 05:20 Urine Protein Trace (Negative) H 08/23/19 05:20 Urine Glucose (UA) Negative (Negative) 08/23/19 05:20 Urine Ketones Negative (Negative) 08/23/19 05:20 Urine Blood Negative (Negative) 08/23/19 05:20 Urine Nitrite Negative (Negative) 08/23/19 05:20 Urine Bilirubin Negative (Negative) 08/23/19 05:20 Urine Urobilinogen Negative (Negative) 08/23/19 05:20 Ur Leukocyte Esterase Negative (Negative) 08/23/19 05:20 Urine WBC (Auto) 0 /hpf (0-5) 08/23/19 05:20 Urine RBC (Auto) 0-4 /hpf (0-4) 08/23/19 05:20 U Hyaline Cast (Auto) 1-5 /lpf (0-5) 08/23/19 05:20 U Epithel Cells (Auto) 5-10 /lpf (0-5) H 08/23/19 05:20 Urine Bacteria (Auto) Negative (Negative) 08/23/19 05:20 Influenza Type A Ag Neg for Influ A (Neg) 08/23/19 05:05 Influenza Type B Ag Neg for Influ B (Neg) 08/23/19 05:05 Diagnostic Findings Chest x-ray : Congestive failure with a superimposed left basilar infiltrate. EKG as per my interpretation : Rate 110, paced rhythm
[2019-08-23 07:12] LABS: Influenza A virus by PCR Neg for Influ A (Neg); Influenza B virus by PCR Neg for Influ B (Neg)
[2019-08-23 07:36] LABS: Thyroid Stimulating Hormone 2.18 uIu/ml (0.300-4.500)
[2019-08-23] MEDS ORDERED: PROMETHAZINE HCL 12.5 MG in SODIUM CHLORIDE 0.9% 50 ML IV PRN (07:36)
--- NOTE | 2019-08-23 08:25 | Emergency Department Note ---
Entered by Darby Woody acting as a scribe for Stephanie Escoto DO History of Present Illness General Chief complaint: Respiratory Problems Stated complaint: RESPIRATORY PROBLEMS/LETHARGIC/FEVER Time Seen by Provider: 08/23/19 05:02 Source: patient, family () and EMS Mode of arrival: EMS Limitations: altered mental status History of Present Illness Onset (ago): hour(s) (3:00AM today) Location: head Pain Consistency: + constant Associated symptoms: + denies other symptoms (any pain (including abdominal pain)), + confusion, + fever/chills (104.5 degrees in ED today), + shortness of breath (tachypnic per EMS), + weakness and + other (lethargy, non-conversive and "staring straight forward" upon EMS arrival) Treatments prior to arrival: other (700 mL IV fluids, 125mg Solu-Medrol, 1g Tylenol IV, duo-neb, albuterol) The patient is an 83 year old male with a history of pneumonia who presents to the Emergency Room with complaints of respiratory problems. EMS reports that the patient had skin cancer removed from his left cheek 1 day ago and lost a lot of blood. states that he was last known well last night, however she found him awake and altered today around 3:00AM. EMS reports that the patient was tachypneic, weak, and lethargic upon arrival with sats in the low 80s. He normally wears 3L of O2 at all times and was given a duo-neb treatment and albuterol. Additionally they report that he was not able to communicate and "staring straight forward". The patient received 700 mL of IV fluids enroute for hypotension as well as 125 mg Solu-Medrol and 1 g of IV Tylenol for fever. Since arrival in the ED, the patient's sats have risen to 96% , systolic BP in the 10s, and a heart rate around 100 bpm with paced rhythm. Of note his blood glucose was 87 and he currently has a fever of 104.5 degrees rectally. Additionally, he is now able to say his name but he is still unsure where he is. He denies any pain including abdominal pain and admits that he feels like he is breathing alright. states that she thinks that the patient got a flu shot this year but she is not sure. The patient and his offer no further concerns at this time. Home Medications Home Medications Medication Instructions Recorded Confirmed Type Alphagan P 0.1 % OPHTHALMIC (EYE) DAILY 07/04/18 08/23/19 History albuterol sulfate [ProAir HFA] 2 puff INHALATION QID PRN 07/04/18 08/23/19 History amoxicillin 2,000 mg PO UD PRN 07/04/18 08/23/19 History furosemide [Lasix] 20 mg PO HS 07/04/18 08/23/19 History latanoprost [Xalatan] 1 drp OPR HS 07/04/18 08/23/19 History Breo Ellipta 1 inh INHALATION QAM 06/27/19 08/23/19 History azithromycin [Zithromax Z-Thom] 250 mg PO UD PRN 06/27/19 08/23/19 History cetirizine [Zyrtec] 10 mg PO DAILY PRN 06/27/19 08/23/19 History cholecalciferol (vitamin D3) 1,000 unit PO QAM 06/27/19 08/23/19 History [Vitamin D3] finasteride 5 mg PO HS 06/27/19 08/23/19 History fluticasone propionate [Flonase 2 spray INTRANASAL BID 06/27/19 08/23/19 History Allergy Relief] metoprolol succinate 25 mg PO QAM 06/27/19 08/23/19 History multivitamin with minerals 1 tab PO QAM 06/27/19 08/23/19 History prednisone 10 mg PO UD PRN 06/27/19 08/23/19 History simvastatin 40 mg PO PM 06/27/19 08/23/19 History terazosin 5 mg PO QPM 06/27/19 08/23/19 History ipratropium-albuterol 3 ml NEB QIDR PRN #90 ml 07/26/19 08/23/19 Rx aspirin [Aspirin Childrens] 81 mg PO DAILY 08/23/19 08/23/19 History dorzolamide-timolol 1 drp OPB HS 08/23/19 08/23/19 History guaifenesin [Mucinex] 1,200 mg PO BID 08/23/19 08/23/19 History umeclidinium [Incruse Ellipta] 1 inh INHALATION DAILY 08/23/19 08/23/19 History Allergies Allergy/AdvReac Type Severity Reaction Status Date / Time No Known Allergies Allergy Verified 08/23/19 05:56 Past Med/Surg History Medical History Ascending aortic aneurysm (Chronic) BPH (benign prostatic hyperplasia) (Chronic) Bronchiectasis (Chronic) CAD (coronary artery disease) (Chronic) Chronic diastolic HF (heart failure) Chronic systolic CHF (congestive heart failure), NYHA class 3 Glaucoma bilt eyes Hyperlipidemia (Chronic) Hypertension (Chronic) ICD (implantable cardioverter-defibrillator) battery depletion pt for biv icd generator change; rediscussed the procedure and potential risks consent obtained Ischemic cardiomyopathy (Chronic) On home oxygen therapy 2L N/C hs and prn Spinal stenosis Ventricular tachyarrhythmia (Chronic) Surgical History Biventricular ICD (implantable cardioverter-defibrillator) in place 2006 @ [facility]/ recently replaced @ 07/04/18 [facility] History of bilateral cataract extraction History of cardiac cath 2001 @ [facility] no stents History of colonoscopy History of left inguinal hernia repair x2 History of prostate biopsy x2--benign History of tonsillectomy Hx of CABG 2001 @ [facility] S/P AVR 2001 @ [facility] Family History Father Family hx colonic polyps Other Hypertension No family history of adverse response to anesthesia Stroke Social History Preferred Language: Nigerian Communication Ability: Effective Mental Health Social Worker Required: No Beliefs That Will Affect Care: None marital status: Current Living Situation: Spouse Other Information That Helps Us Care for You: No Feels Safe at Home: Yes Safety Concerns: Feels Safe At This Time Smoking Status: Former smoker Second Hand Exposure: No ; Hx Alcohol Use: No Hx Substance Use: No Review of Systems See HPI for pertinent positives & negatives. and A total of 10 systems reviewed and were otherwise negative Physical Exam Vital Signs Vital Signs - 24 hr 08/23/19 05:05 08/23/19 05:10 08/23/19 05:18 Temperature 40.3 C H Temperature Source Rectal Pulse Rate 110 H 101 H Pulse Rate from SpO2 Sensor 109 H 101 H Respiratory Rate 31 H 26 H Respiratory Effort / Characteristics Spontaneous Respiratory Depth Normal Blood Pressure 95/52 L 80/46 L Blood Pressure Mean 63 65 Blood Pressure Position Lying Pulse Oximetry 87 L 94 93 Oxygen Delivery Method Nasal Cannula Oxymask Oxymask Oxygen Flow Rate 3 5 5 Sepsis Recent Fever Within 48 Hours Yes Sepsis Action Taken by Nursing Physician Notified 08/23/19 05:26 08/23/19 05:36 08/23/19 05:45 Temperature Temperature Source Pulse Rate 97 H 98 H 97 H Pulse Rate from SpO2 Sensor 98 H 98 H 98 H Respiratory Rate 23 24 24 Respiratory Effort / Characteristics Respiratory Depth Blood Pressure 87/48 L 80/42 L 78/40 L Blood Pressure Mean 59 58 52 Blood Pressure Position Pulse Oximetry 95 94 93 Oxygen Delivery Method Oxymask Oxymask Oxymask Oxygen Flow Rate 5 5 5 Sepsis Recent Fever Within 48 Hours Sepsis Action Taken by Nursing 08/23/19 06:00 08/23/19 06:11 08/23/19 06:15 Temperature Temperature Source Pulse Rate 93 H 0 L 91 H Pulse Rate from SpO2 Sensor 94 H 82 91 H Respiratory Rate 22 23 27 H Respiratory Effort / Characteristics Respiratory Depth Blood Pressure 80/44 L 76/43 L 84/46 L Blood Pressure Mean 55 52 62 Blood Pressure Position Pulse Oximetry 93 93 93 Oxygen Delivery Method Oxymask Oxymask Oxymask Oxygen Flow Rate 5 5 5 Sepsis Recent Fever Within 48 Hours Sepsis Action Taken by Nursing 08/23/19 06:30 08/23/19 06:45 08/23/19 06:49 Temperature Temperature Source Pulse Rate 95 H 93 H 89 Pulse Rate from SpO2 Sensor 95 H 93 H 95 H Respiratory Rate 23 23 25 H Respiratory Effort / Characteristics Respiratory Depth Blood Pressure 74/46 L 69/41 L 70/42 L Blood Pressure Mean 61 54 57 Blood Pressure Position Pulse Oximetry 94 93 95 Oxygen Delivery Method Oxymask Oxymask Oxygen Flow Rate 5 5 Sepsis Recent Fever Within 48 Hours Sepsis Action Taken by Nursing 08/23/19 06:51 08/23/19 06:56 08/23/19 07:00 Temperature Temperature Source Pulse Rate 94 H 68 92 H Pulse Rate from SpO2 Sensor 96 H 92 H 92 H Respiratory Rate 25 H 22 24 Respiratory Effort / Characteristics Respiratory Depth Blood Pressure 72/42 L 77/45 L Blood Pressure Mean 53 60 Blood Pressure Position Pulse Oximetry 94 93 96 Oxygen Delivery Method Oxygen Flow Rate Sepsis Recent Fever Within 48 Hours Sepsis Action Taken by Nursing General: Lethargic, slow to answer questions. Dressing to left side of face. HEENT: Head - normocephalic and atraumatic Pupils are equal, round, and reactive to light. Extraocular eye muscles are intact, and sclera are anicteric. Nose - moist nasal mucosa without discharge. Mouth - moist buccal mucosa. Oropharynx is nonerythematous and there is no tonsillar exudate or edema noted. Neck: Supple; no JVD, nuchal rigidity, cervical lymphadenopathy. Heart: Regular rate and rhythm. There is a normal S1 and S2 with no murmurs, clicks, or gallops appreciated. Lungs: Diminished breath sounds in all lung oneill. Rhonchi in both lung bases. Abdomen: Soft, completely nontender, nondistended, with good bowel sounds. There are no palpable pulsatile masses or hepatosplenomegaly. There is no guarding, rigidity, or rebound noted. Extremities: No evidence of cyanosis, clubbing, or edema. There are easily pal pable peripheral pulses. Skin: warm and dry with good turgor and no rashes. Skin is pale. Course Course 0507: Past medical records reviewed. The patient was evaluated in room A12B. A complete history and physical exam was performed. A twelve-lead EKG was obtained. A septic protocol was performed. A portable chest x-ray was performed. 0509: The patient was placed on a laboratory monitor. Continuous Cardiac Monitoring: An order was placed for continuous cardiac monitoring. The monitor shows a rate of 110 with atrial paced rhythm. 0525: The patient's is now at the bedside. She explains that they were at the pulmonary medicine office earlier today where the patient was doing great. He underwent a chest x-ray at that time and was told that he would not have to wear his supplemental oxygen if he were seated. They left that office and went to dermatology to have the procedure done to the left side of his face. She admitted that the patient's mental status seems to be significantly improved compared to what it was when EMS arrived at the house. His vital signs are improved from what they were at the house but he remains hypotensive at this time. He is receiving IV crystalloid therapy but I did discuss with her the need for pressors. 0550: I checked on the patient and updated him. He will be started on antibiotics. 0603: Levaquin 750 mg in 150 mls @ 100 mls/hr IV was administered. 0609: I spoke with Dr. Bhat, [facility] Hospitalist who will further evaluate the patient. 0614: I re-checked the patient and his systolic BP is in the 70s. I updated the patient and family members who were at the bedside. 0620: The patient is being started on Levophed at this time. 0622: Sodium Chloride 1,000 mls @ 999 mls/hr IV was administered. 0631: Zosyn 4.5 gm in 120 mls @ 240 mls/hr IV was administered. Once again, the patient denies any complaints of pain and appears in no respiratory distress at this time. 0700: I checked in on the patient and Dr. Bhat is at bedside. The patient verbally expressed understanding and agreement of the treatment plan. The patient will be evaluated for further treatment. Administered Medications Aspirin (Aspirin Chew) 81 mg PO DAILY [facility] Stop: 09/22/19 08:59 Last Admin: 08/23/19 11:59 Dose: 81 mg Documented by: [id number] Fluticasone Propionate (Flonase) 2 sprays NA BID [facility] Stop: 09/22/19 08:59 Last Admin: 08/23/19 11:59 Dose: 2 sprays Documented by: [id number] Fluticasone/Vilanterol (Breo Ellipta 100/25 Mcg Inh) 1 puffs INH QAM [facility] Stop: 09/22/19 08:59 Last Admin: 08/23/19 11:59 Dose: 1 puffs Documented by: [id number] Heparin Sodium (Porcine) (Heparin Sodium (Porcine)) 5,000 units SQ Q8H [facility] Stop: 09/22/19 16:59 Last Admin: 08/23/19 17:10 Dose: 5,000 units Documented by: [id number] Cosigned by: [id number] Norepinephrine Bitartrate 8 mg (/ Dextrose) 508 mls @ 66.218 mls/hr IV .[id number] [facility]; Protocol Stop: 09/22/19 06:14 Last Admin: 08/23/19 15:17 Dose: 0.2 mcg/kg/min, 66.2 mls/hr Documented by: [id number] Cosigned by: [id number] Titration: 08/23/19 15:17 Dose: 0.2 mcg/kg/min, 66.2 mls/hr Documented by: [id number] Cosigned by: [id number] Titration: 08/23/19 09:41 Dose: 0.2 mcg/kg/min, 66.2 mls/hr Documented by: [id number] Titration: 08/23/19 09:27 Dose: 0.17 mcg/kg/min, 56.3 mls/hr Documented by: [id number] Titration: 08/23/19 09:18 Dose: 0.15 mcg/kg/min, 49.7 mls/hr Documented by: [id number] Titration: 08/23/19 08:47 Dose: 0.125 mcg/kg/min, 41.4 mls/hr Documented by: [id number] Titration: 08/23/19 07:55 Dose: 0.09 mcg/kg/min, 29.8 mls/hr Documented by: [id number] Titration: 08/23/19 07:31 Dose: 0.07 mcg/kg/min, 23.2 mls/hr Documented by: [id number] Admin: 08/23/19 06:51 Dose: 0.05 mcg/kg/min, 16.6 mls/hr Documented by: [id number] Cosigned by: [id number] Parenteral Electrolytes (Normosol-R) 1,000 mls @ 80 mls/hr IV .[id number] [facility] Stop: 09/22/19 07:44 Last Infusion: 08/23/19 16:16 Dose: 80 mls/hr Documented by: [id number] Infusion: 08/23/19 12:26 Dose: 0 mls/hr Documented by: [id number] Admin: 08/23/19 08:54 Dose: 80 mls/hr Documented by: [id number] Piperacillin Sod/Tazobactam (Sod 4.5 gm/ Dextrose) 120 mls @ 30 mls/hr IV Q8H [facility]; Protocol Stop: 08/30/19 11:59 Last Infusion: 08/23/19 16:16 Dose: 0 mls/hr Documented by: [id number] Admin: 08/23/19 12:02 Dose: 30 mls/hr Documented by: [id number] Linezolid (Zyvox) 600 mg in 300 mls @ 300 mls/hr IV Q12H [facility] Stop: 09/06/19 05:14 Last Admin: 08/23/19 17:10 Dose: 300 mls/hr Documented by: [id number] Ipratropium [place] (Atrovent 0.02% 0.5mg/2.5ml) 0.5 mg INH Q6R [facility] Stop: 09/22/19 08:45 Last Admin: 08/23/19 13:24 Dose: 0.5 mg Documented by: [id number] Admin: 08/23/19 10:24 Dose: Not Given Documented by: [id number] Levalbuterol HCl (Xopenex 1.25mg/0.5ml Neb) 1.25 mg INH Q6R [facility] Stop: 09/22/19 08:45 Last Admin: 08/23/19 13:24 Dose: 1.25 mg Documented by: [id number] Admin: 08/23/19 10:24 Dose: Not Given Documented by: [id number] Miscellaneous (Order Awaiting Action) 1 ea N/A QS [facility] Stop: 09/22/19 15:59 Last Admin: 08/23/19 17:04 Dose: Not Given Documented by: [id number] Miscellaneous Information (Consult) 1 ea N/A UD PRN PRN Reason: Consult Stop: 09/22/19 05:48 Last Admin: 08/23/19 06:57 Dose: 1 ea Documented by: [id number] Admin: 08/23/19 06:03 Dose: 1 ea Documented by: [id number] Multivitamins/Minerals (Multivitamin W/ Minerals Tab) 1 tab PO QAM [facility] Stop: 09/22/19 08:59 Last Admin: 08/23/19 11:59 Dose: 1 tab Documented by: [id number] Discontinued Medications Sodium Chloride (Nss 1000ml) 1,000 mls @ 999 mls/hr IV .Q1H1M [facility] Stop: 08/23/19 06:18 Last Infusion: 08/23/19 06:22 Dose: 0 mls/hr Documented by: [id number] Admin: 08/23/19 05:29 Dose: 999 mls/hr Documented by: [id number] Piperacillin Sod/Tazobactam Sod (Zosyn) 4.5 gm in 120 mls @ 240 mls/hr IV NOW ONE Stop: 08/23/19 06:18 Last Infusion: 08/23/19 06:31 Dose: 0 mls/hr Documented by: [id number] Admin: 08/23/19 06:03 Dose: 240 mls/hr Documented by: [id number] Levofloxacin/Dextrose (Levaquin/D5w) 750 mg in 150 mls @ 100 mls/hr IV NOW STA Stop: 08/23/19 07:18 Last Infusion: 08/23/19 08:47 Dose: 0 mls/hr Documented by: [id number] Admin: 08/23/19 06:03 Dose: 100 mls/hr Documented by: [id number] Acetaminophen (Ofirmev) 1,000 mg in 100 mls @ 400 mls/hr IV NOW STA Stop: 08/23/19 06:32 Last Admin: 08/23/19 06:27 Dose: Not Given Documented by: [id number] Magnesium Sulfate/Dextrose (Magnesium Sulfate / D5w) 1 gm in 100 mls @ 100 mls/hr IV Q1H [facility] Stop: 08/23/19 08:19 Last Infusion: 08/23/19 12:26 Dose: 0 mls/hr Documented by: [id number] Admin: 08/23/19 08:55 Dose: 100 mls/hr Documented by: [id number] Infusion: 08/23/19 08:47 Dose: 0 mls/hr Documented by: [id number] Admin: 08/23/19 06:37 Dose: 100 mls/hr Documented by: [id number] Vancomycin HCl 2,000 mg/ (Sodium Chloride) 540 mls @ 200 mls/hr IV NOW ONE Stop: 08/23/19 11:26 Last Infusion: 08/23/19 12:26 Dose: 0 mls/hr Documented by: [id number] Admin: 08/23/19 08:55 Dose: 200 mls/hr Documented by: [id number] Dexamethasone Sodium Phosphate (4 mg/ Syringe) 1 mls @ 1 mls/min IV NOW STA Stop: 08/23/19 08:47 Last Admin: 08/23/19 09:45 Dose: 1 mls/min Documented by: [id number] Potassium Chloride (K Delio / Wtr) 10 meq in 100 mls @ 100 mls/hr IV Q1H [facility] Stop: 08/23/19 13:29 Last Infusion: 08/23/19 16:16 Dose: 0 mls/hr Documented by: [id number] Admin: 08/23/19 15:16 Dose: 100 mls/hr Documented by: [id number] Infusion: 08/23/19 15:11 Dose: 100 mls/hr Documented by: [id number] Admin: 08/23/19 14:11 Dose: 100 mls/hr Documented by: [id number] Infusion: 08/23/19 14:11 Dose: 100 mls/hr Documented by: [id number] Admin: 08/23/19 13:13 Dose: 100 mls/hr Documented by: [id number] Infusion: 08/23/19 13:02 Dose: 100 mls/hr Documented by: [id number] Admin: 08/23/19 12:02 Dose: 100 mls/hr Documented by: [id number] Magnesium Sulfate/Dextrose (Magnesium Sulfate / D5w) Confirm Administered Dose 1 gm IV .STK-MED ONE Stop: 08/23/19 06:33 Last Admin: 08/23/19 06:37 Dose: Not Given Documented by: [id number] Miscellaneous () 1 ea N/A NOW STA Stop: 08/23/19 06:15 Last Admin: 08/23/19 06:51 Dose: 1 ea Documented by: [id number] Potassium Chloride (Klor-Con M20) 40 meq PO NOW STA Stop: 08/23/19 06:21 Last Admin: 08/23/19 06:57 Dose: Not Given Documented by: [id number] Critical Care Time Critical Care Time: Yes Total Critical Care Time: 100 I have personally spent 100 minutes of critical care time in the direct management of this patient. This includes bedside care, interpretation of diagnostic studies, and testing, discussion with consultants, patient, and family members, and other required patient management activities. This 100 minutes is in excess of all separately billable procedures. Medical Decision Making Differential Diagnosis Differential diagnosis includes but is not limited to sepsis, pneumonia, septic shock, UTI, and anemia. Medical Records Attestation: I reviewed the patient's medical records. Home Medications Current Medication List: was personally reviewed by me Laboratory Data Attestation: I reviewed the patient's lab results. Result diagrams: 08/23/19 05:20 08/23/19 05:20 Lab Results 08/23/19 08/23/19 08/23/19 Range/Units 05:05 05:05 05:20 WBC 16.30 H (4.8-10.8) K/uL RBC 2.86 L (4.7-6.1) M/uL Hgb 10.2 L (14.0-18.0) g/dL Hct 30.3 L (42-52) % MCV 105.9 H (80-100) fL MCH 35.7 H (25-34) pg MCHC 33.7 (32-36) g/dL RDW Std Deviation 57.2 H (36.4-46.3) fL RDW Coeff of Kole 14.8 H (11.5-14.5) % Plt Count 171 (130-400) K/uL MPV 10.9 H (7.4-10.4) fL Immature Gran % (Auto) 0.6 % Neut % (Auto) 93.6 % Lymph % (Auto) 3.6 % Boyle % (Auto) 2.0 % Eos % (Auto) 0.1 % Baso % (Auto) 0.1 % Immature Gran # (Auto) 0.09 H (0.00-0.02) K/uL Neut # (Auto) 15.26 H (1.4-6.5) K/uL Lymph # (Auto) 0.59 L (1.2-3.4) K/uL Boyle # (Auto) 0.33 (0.11-0.59) K/uL Eos # (Auto) 0.01 (0-0.5) K/uL Baso # (Auto) 0.02 (0-0.2) K/uL Absolute Nucleated RBC 0.03 H (0-0) K/uL Nucleated RBC % (auto) 0.2 % Stomatocytes 1+ PT (9.0-12.0) Seconds INR (0.9-1.1) APTT (21.0-31.0) Seconds PTT Ratio Sodium (136-145) mmol/L Potassium (3.5-5.1) mmol/L Chloride (98-107) mmol/L Carbon Dioxide (21-32) mmol/L Anion Gap (3-11) BUN (7-18) mg/dl Creatinine (0.6-1.4) mg/dl Est Cr Clr Drug Dosing ml/min Est GFR ( Amer) Est GFR (Non-Af Amer) BUN/Creatinine Ratio (10-20) Glucose (70-99) mg/dl Lactate (0.4-2.0) mmol/L Calcium (8.5-10.1) mg/dl Magnesium (1.8-2.4) mg/dl Total Bilirubin (0.2-1) mg/dl AST (15-37) U/L ALT (12-78) U/L Alkaline Phosphatase (45-117) U/L Troponin I (0-0.045) ng/ml NT-Pro-B Natriuret Pep (0-1800) pg/ml Total Protein (6.4-8.2) gm/dl Albumin (3.4-5.0) gm/dl Globulin (2.5-4.0) gm/dl Albumin/Globulin Ratio (0.9-2) TSH (0.300-4.500) uIu/ml Urine Color Urine Appearance (Clear) Urine pH (4.5-7.5) Ur Specific [place] (1.000-1.030) Urine Protein (Negative) Urine Glucose (UA) (Negative) Urine Ketones (Negative) Urine Blood (Negative) Urine Nitrite (Negative) Urine Bilirubin (Negative) Urine Urobilinogen (Negative) Ur Leukocyte Esterase (Negative) Urine WBC (Auto) (0-5) /hpf Urine RBC (Auto) (0-4) /hpf U Hyaline Cast (Auto) (0-5) /lpf U Epithel Cells (Auto) (0-5) /lpf Urine Bacteria (Auto) (Negative) Influenza Type A Ag Neg for Influ A (Neg) Influenza Type A (PCR) Neg for Influ A (Neg) Influenza Type B Ag Neg for Influ B (Neg) Influenza Type B (PCR) Neg for Influ B (Neg) Bld Cult Staph aureus PCR (Negative) Blood Culture MRSA PCR (Negative) 08/23/19 08/23/19 08/23/19 Range/Units 05:20 05:20 05:20 WBC (4.8-10.8) K/uL RBC (4.7-6.1) M/uL Hgb (14.0-18.0) g/dL Hct (42-52) % MCV (80-100) fL MCH (25-34) pg MCHC (32-36) g/dL RDW Std Deviation (36.4-46.3) fL RDW Coeff of Kole (11.5-14.5) % Plt Count (130-400) K/uL MPV (7.4-10.4) fL Immature Gran % (Auto) % Neut % (Auto) % Lymph % (Auto) % Boyle % (Auto) % Eos % (Auto) % Baso % (Auto) % Immature Gran # (Auto) (0.00-0.02) K/uL Neut # (Auto) (1.4-6.5) K/uL Lymph # (Auto) (1.2-3.4) K/uL Boyle # (Auto) (0.11-0.59) K/uL Eos # (Auto) (0-0.5) K/uL Baso # (Auto) (0-0.2) K/uL Absolute Nucleated RBC (0-0) K/uL Nucleated RBC % (auto) % Stomatocytes PT 11.3 (9.0-12.0) Seconds INR 1.1 (0.9-1.1) APTT 24.0 (21.0-31.0) Seconds PTT Ratio 0.9 Sodium 138 (136-145) mmol/L Potassium 3.4 L (3.5-5.1) mmol/L Chloride 105 (98-107) mmol/L Carbon Dioxide 27 (21-32) mmol/L Anion Gap 6.0 (3-11) BUN 27 H (7-18) mg/dl Creatinine 1.33 (0.6-1.4) mg/dl Est Cr Clr Drug Dosing 45.1 ml/min Est GFR ( Amer) 56.5 Est GFR (Non-Af Amer) 48.7 BUN/Creatinine Ratio 20.6 H (10-20) Glucose 114 H (70-99) mg/dl Lactate 1.5 (0.4-2.0) mmol/L Calcium 8.7 (8.5-10.1) mg/dl Magnesium 1.7 L (1.8-2.4) mg/dl Total Bilirubin 1.2 H (0.2-1) mg/dl AST 24 (15-37) U/L ALT 21 (12-78) U/L Alkaline Phosphatase 82 (45-117) U/L Troponin I 0.056 H* (0-0.045) ng/ml NT-Pro-B Natriuret Pep 1297 (0-1800) pg/ml Total Protein 6.6 (6.4-8.2) gm/dl Albumin 3.3 L (3.4-5.0) gm/dl Globulin 3.3 (2.5-4.0) gm/dl Albumin/Globulin Ratio 1.0 (0.9-2) TSH 2.180 (0.300-4.500) uIu/ml Urine Color Urine Appearance (Clear) Urine pH (4.5-7.5) Ur Specific [place] (1.000-1.030) Urine Protein (Negative) Urine Glucose (UA) (Negative) Urine Ketones (Negative) Urine Blood (Negative) Urine Nitrite (Negative) Urine Bilirubin (Negative) Urine Urobilinogen (Negative) Ur Leukocyte Esterase (Negative) Urine WBC (Auto) (0-5) /hpf Urine RBC (Auto) (0-4) /hpf U Hyaline Cast (Auto) (0-5) /lpf U Epithel Cells (Auto) (0-5) /lpf Urine Bacteria (Auto) (Negative) Influenza Type A Ag (Neg) Influenza Type A (PCR) (Neg) Influenza Type B Ag (Neg) Influenza Type B (PCR) (Neg) Bld Cult Staph aureus PCR (Negative) Blood Culture MRSA PCR (Negative) 08/23/19 08/23/19 Range/Units 05:20 05:48 WBC (4.8-10.8) K/uL RBC (4.7-6.1) M/uL Hgb (14.0-18.0) g/dL Hct (42-52) % MCV (80-100) fL MCH (25-34) pg MCHC (32-36) g/dL RDW Std Deviation (36.4-46.3) fL RDW Coeff of Kole (11.5-14.5) % Plt Count (130-400) K/uL MPV (7.4-10.4) fL Immature Gran % (Auto) % Neut % (Auto) % Lymph % (Auto) % Boyle % (Auto) % Eos % (Auto) % Baso % (Auto) % Immature Gran # (Auto) (0.00-0.02) K/uL Neut # (Auto) (1.4-6.5) K/uL Lymph # (Auto) (1.2-3.4) K/uL Boyle # (Auto) (0.11-0.59) K/uL Eos # (Auto) (0-0.5) K/uL Baso # (Auto) (0-0.2) K/uL Absolute Nucleated RBC (0-0) K/uL Nucleated RBC % (auto) % Stomatocytes PT (9.0-12.0) Seconds INR (0.9-1.1) APTT (21.0-31.0) Seconds PTT Ratio Sodium (136-145) mmol/L Potassium (3.5-5.1) mmol/L Chloride (98-107) mmol/L Carbon Dioxide (21-32) mmol/L Anion Gap (3-11) BUN (7-18) mg/dl Creatinine (0.6-1.4) mg/dl Est Cr Clr Drug Dosing ml/min Est GFR ( Amer) Est GFR (Non-Af Amer) BUN/Creatinine Ratio (10-20) Glucose (70-99) mg/dl Lactate (0.4-2.0) mmol/L Calcium (8.5-10.1) mg/dl Magnesium (1.8-2.4) mg/dl Total Bilirubin (0.2-1) mg/dl AST (15-37) U/L ALT (12-78) U/L Alkaline Phosphatase (45-117) U/L Troponin I (0-0.045) ng/ml NT-Pro-B Natriuret Pep (0-1800) pg/ml Total Protein (6.4-8.2) gm/dl Albumin (3.4-5.0) gm/dl Globulin (2.5-4.0) gm/dl Albumin/Globulin Ratio (0.9-2) TSH (0.300-4.500) uIu/ml Urine Color Yellow Urine Appearance Clear (Clear) Urine pH 7.5 (4.5-7.5) Ur Specific [place] 1.018 (1.000-1.030) Urine Protein Trace H (Negative) Urine Glucose (UA) Negative (Negative) Urine Ketones Negative (Negative) Urine Blood Negative (Negative) Urine Nitrite Negative (Negative) Urine Bilirubin Negative (Negative) Urine Urobilinogen Negative (Negative) Ur Leukocyte Esterase Negative (Negative) Urine WBC (Auto) 0 (0-5) /hpf Urine RBC (Auto) 0-4 (0-4) /hpf U Hyaline Cast (Auto) 1-5 (0-5) /lpf U Epithel Cells (Auto) 5-10 H (0-5) /lpf Urine Bacteria (Auto) Negative (Negative) Influenza Type A Ag (Neg) Influenza Type A (PCR) (Neg) Influenza Type B Ag (Neg) Influenza Type B (PCR) (Neg) Bld Cult Staph aureus PCR Positive A (Negative) Blood Culture MRSA PCR Positive A (Negative) Imaging Data Attestation: I personally reviewed and interpreted this imaging study as follows: My Impression: XR Chest 1V portable Urgent: * Left sided opacity concerning for pneumonia ECG Data Attestation: I personally reviewed and interpreted this ECG as follows: Indication: + other (sepsis) Rate (beats per minute): 110 Rhythm: + other (atrial paced rhythm) ECG Findings: + Other (no ischemia); no PACs and no PVCs Comparison ECG Date: from (07/20/19) Change: the following changes noted (today's EKG shows a faster pace) Blood Pressure Blood Pressure Findings: Low blood pressure Blood Pressure Disposition: further management by hospitalist SUNITHA Galarza The patient is an 83 year old male with a history of pneumonia who presents to the Emergency Room with complaints of respiratory problems. The patient has a complicated health history and most recently was hospitalized with pneumonia. However, as recently as today this seemed to have resolved and he had chest x- rays performed at [facility] pulmonary medicine which showed resolution of this left-sided opacity. However, around 3 AM this morning, the patient's found him to be in respiratory distress. EMS found the patient with O2 saturations in the low 80s. He was febrile and hypotensive. The patient appears to be in septic shock. He was treated with IV crystalloid therapy, IV Levophed and IV antibiotics. A full septic protocol was performed. Urinalysis and flu testing was negative. The patient had no complaints of pain. His mental status seemed to improve with appropriate oxygenation and improvement in his blood pressure. I discussed the case with the [facility] hospitalist and they will evaluate for further management. Impression & Plan Septic shock, Pneumonia Discharge Plan Visit Data *Final* Discharge Date/Time: 08/23/19 08:00 Chief Complaint: Respiratory Problems Stated Complaint: RESPIRATORY PROBLEMS/LETHARGIC/FEVER ED Provider: Stephanie Escoto Discharge Problem: Septic shock, Pneumonia Patient Disposition: Admitted As Inpatient Discharge Instructions Interventions: ED Discharge Assessment Last Done: 08/23/19 08:00 Discharge Problem: Pneumonia Qualifiers: Pneumonia type: due to unspecified organism The scribe's documentation has been prepared under my direction and personally reviewed by me in its entirety. I confirm that the note above accurately reflects all work, treatment, procedures, and medical decision making performed by me.
[2019-08-23] MEDS ORDERED: VANCOMYCIN HCL 2,000 MG in SODIUM CHLORIDE 0.9% 500 ML IV ONE (08:45)
[2019-08-23] MEDS ORDERED: ACETAMINOPHEN 325 MG TAB PO PRN (08:46)
[2019-08-23] MEDS ORDERED: CETIRIZINE HCL 10 MG TABLET PO PRN (08:46)
[2019-08-23] MEDS ORDERED: DEXAMETHASONE SOD PHOSPHATE 4 MG in SYRINGE 0 ML IV STA (08:46)
[2019-08-23] MEDS ORDERED: ICU PROTOCOL FOR HYPERGLYCEMIA PRN (08:46)
[2019-08-23] MEDS: NORMOSOL-R 1,000 ML IV SCH ×2 (08:54→21:24)
--- NOTE | 2019-08-23 09:46 | Billing Data ---
Date of Service August 23, 2019 Coding Level of Care Code Critical Care 1st - mins
[2019-08-23] MEDS: LEVALBUTEROL 1.25MG/0.5ML NEB INH SCH ×3 (10:24→21:04)
[2019-08-23] MEDS: IPRATROPIUM BROMIDE NEB SOLN 0.02% 2.5 ML VIAL INH SCH ×3 (10:24→21:04)
--- NOTE | 2019-08-23 11:15 | Critical Care Consultation ---
Date of Consultation August 23, 2019 Assessment & Plan (1) Hypotension: Reason Critically Ill: Medically complicated 83 yo gentleman who presented with altered mental status, found to be hypotensive, possibly secondary to septic shock. Patient was transferred to the ICU for hypoxemic respiratory failure and hypotension requiring vasoactive medication management. Upon arrival to the ICU a central line and arterial line were placed. Neuro: [facility] ICU: * Altered Mental Status - resolved. Patient became alert and oriented x3 upon arrival to the ICU. Possibly secondary to metabolic encephalopathy given septic state vs. poor cerebral perfusion given hypotension. Cardiac: * Hypotension - currently on Levophed drip at 0.2. BP 85/48, MAP of 60. Holding all home anti-hypertensives. - A-line placed for continuous BP monitoring * Hx CHF - CXR on admission showing evidence of pulmonary congestion, but no pleural effusions. will order complete ECHO. - patient with ICD * Hx CAD sp CABG - troponin elevated on admission to 0.143. will trend. likely secondary to septic state, demand ischemia. - continue daily baby aspirin and simvastatin * Aortic regurgitation status post bioprosthetic AVR - stable * Hx BPH - continue proscar Respiratory: * Left lobar consolidation - visualized on admission CXR. CAP vs. aspiration PNA. Patient given 1 dose of IV Levaquin in the ED. Currently on vanco/zosyn. Oxygen support as needed. 1 dose of Solu-medrol given in ED - transition to PO prednisone, 40mg daily. * Diaphragmatic hemiparesis - chronic, secondary to CABG complication. * Hx COPD - patient has baseline requirement of 2L via NC when resting, 4L when ambulating. Currently satting at 94 on 4L via NC. continue home inhalers. GI: * Speech eval placed for swallowing study. * Heart healthy diet RENAL/LYTES: * Cr 1.33 on admission. baseline ~1.2-1.3. - continue normosol 80mls/hr - repeat BMP * hypokalemia - K at 3.4; IV replacement ordered * hypomagnesemia - mag at 1.7; IV replacement ordered : * UA normal on admission. Urine culture pending ENDO: * ICU protocol for hyperglycemia * no history of underlying diabetes HEME: * amenia - this is a chronic issue, hgb typically runs 9-10. Hgb at 10.2 on admission. transfuse if <7. ID: * Sepsis - patient met SIRS criteria on admission; suspect pulmonary source. CXR showing left lower lobar consolidation on admission. WBC count elevated to 16. Lactate at 1.5. Patient febrile on arrival to 40 degrees celsius, tachycardic and tachypneic. - 1/2 blood cultures growing gram + cocci, continue to follow; sputum culture pending - flu A and B negative on admission - continue IV vanc/zosyn for presumed pulmonary source - acetaminophen for fevers; oxygen support as needed, volume replacement as above * Nasal MRSA positive LINES/IV ACCESS: * R arterial line * R IJ CVC CODE STATUS: Full DVT PROPHYLAXIS: bilateral SCDs Thank you for allowing us to participate in the care of this patient. Please refer to my attending physician's documentation for any further recommendations. Supervising Physician Co-Signing Physician Notes Dr. Eric was resident physician during care of patient. I separately evaluated patient for aragon portions of the history and the exam. I was present during the critical portion of medical decision making, and I discussed the case with the resident. I generally agree with the findings and plan. Patient with MRSA bacteremia secondary to presumptive MRSA pneumonia. Requiring vasoactive medication, alert and oriented with appropriate respiratory rate. Diet ordered per primary team, no abdominal pain, nausea, vomiting doubts at high risk for nonocclusive mesenteric ischemia, vasoactive's are slowly being decreased. Patient critically ill. I have personally spent 50 minutes of critical care time in the direct management of this patient. This is a life/limb threatening event. This includes time spent evaluating patient, direct bedside care, chart review, placing orders, interpretation of diagnostic studies, discussion with consultants, patient, and/or family members regarding treatment decisions, as well as other required patient management activities. This time is exclusive of all separately billable procedures, and teaching time and separate from and in addition to any other critical care service time. History of Present Illness Reason for Consultation: Patient is an 83 yo gentleman who was brought into the ED this morning for altered mental status. Associated symptoms include cough and shortness of breath. He has a PMHx of chronic diastolic heart failure (EF 60%, TTE 2019), CAD sp CABG, TAA, aortic regurgitation status post bioprosthetic AVR, syncope status post ICD placement, hypertension, hyperlipidemia, COPD with baseline home O2 requirement of 2L via NC, chronic right hemidiaphragm paralysis, and chronic anemia (baseline hemoglobin 9-10). In the emergency department he was found to febrile, tachycardic, tachypneic and hypotensive. His WBC was elevated to to 16. Lactate 1.5. Troponin elevated to 0.143. CXR showed evidence of pulmonary vascular congestion and a left lower lobar infiltrate, suspicious of PNA. There is concern for possible aspiration given a recent choking episode. In the ED he was started on IVF, given one dose of IV Levaquin in the ED and started on IV vancomycin and IV zosyn. Solu-Medrol, DuoNeb and a gram of Tylenol were also given. History was obtained via the EMR, the patient, and his family members. He was transferred to the ICU for hypoxemic respiratory failure and hypotension requiring vasoactive medication management. Attending Physician: Adalberto Perez MD Allergies Allergy/AdvReac Type Severity Reaction Status Date / Time No Known Allergies Allergy Verified 08/23/19 05:56 Home Medications Home Medications Medication Instructions Recorded Confirmed Type Alphagan P 0.1 % OPHTHALMIC (EYE) DAILY 07/04/18 08/23/19 History albuterol sulfate [ProAir HFA] 2 puff INHALATION QID PRN 07/04/18 08/23/19 History amoxicillin 2,000 mg PO UD PRN 07/04/18 08/23/19 History furosemide [Lasix] 20 mg PO HS 07/04/18 08/23/19 History latanoprost [Xalatan] 1 drp OPR HS 07/04/18 08/23/19 History Breo Ellipta 1 inh INHALATION QAM 06/27/19 08/23/19 History azithromycin [Zithromax Z-Thom] 250 mg PO UD PRN 06/27/19 08/23/19 History cetirizine [Zyrtec] 10 mg PO DAILY PRN 06/27/19 08/23/19 History cholecalciferol (vitamin D3) 1,000 unit PO QAM 06/27/19 08/23/19 History [Vitamin D3] finasteride 5 mg PO HS 06/27/19 08/23/19 History fluticasone propionate [Flonase 2 spray INTRANASAL BID 06/27/19 08/23/19 History Allergy Relief] metoprolol succinate 25 mg PO QAM 06/27/19 08/23/19 History multivitamin with minerals 1 tab PO QAM 06/27/19 08/23/19 History prednisone 10 mg PO UD PRN 06/27/19 08/23/19 History simvastatin 40 mg PO PM 06/27/19 08/23/19 History terazosin 5 mg PO QPM 06/27/19 08/23/19 History ipratropium-albuterol 3 ml NEB QIDR PRN #90 ml 07/26/19 08/23/19 Rx aspirin [Aspirin Childrens] 81 mg PO DAILY 08/23/19 08/23/19 History dorzolamide-timolol 1 drp OPB HS 08/23/19 08/23/19 History guaifenesin [Mucinex] 1,200 mg PO BID 08/23/19 08/23/19 History umeclidinium [Incruse Ellipta] 1 inh INHALATION DAILY 08/23/19 08/23/19 History Patient History Medical History Ascending aortic aneurysm (Chronic) BPH (benign prostatic hyperplasia) (Chronic) Bronchiectasis (Chronic) CAD (coronary artery disease) (Chronic) Chronic diastolic HF (heart failure) Chronic systolic CHF (congestive heart failure), NYHA class 3 Glaucoma bilt eyes Hyperlipidemia (Chronic) Hypertension (Chronic) ICD (implantable cardioverter-defibrillator) battery depletion pt for biv icd generator change; rediscussed the procedure and potential risks consent obtained Ischemic cardiomyopathy (Chronic) On home oxygen therapy 2L N/C hs and prn Spinal stenosis Ventricular tachyarrhythmia (Chronic) Surgical History Biventricular ICD (implantable cardioverter-defibrillator) in place 2006 @ [facility]/ recently replaced @ 07/04/18 [facility] History of bilateral cataract extraction History of cardiac [place] [facility] [place] History of colonoscopy History of left inguinal hernia repair x2 History of prostate biopsy x2--benign History of tonsillectomy Hx of CABG 2001 @ [facility] [place]R 2001 @ [facility] [place] Family History Father Family hx colonic polyps Other Hypertension No family history of adverse response to anesthesia Stroke Social History Preferred Language: Vietnamese Communication Ability: Effective Business Information Manager Required: No Beliefs That Will Affect Care: None marital status: Current Living Situation: Spouse Other Information That Helps Us Care for You: No Feels Safe at Home: Yes Safety Concerns: Feels Safe At This Time Smoking Status: Former smoker Second Hand Exposure: No ; Hx Alcohol Use: No Hx Substance Use: No Review of Systems Constitutional: + fever and + malaise +confusion Respiratory: + cough Physical Exam Constitutional: WD/WN, vitals as above On arrival to the ICU patient was awake, alert and oriented x 3. Eyes: + anicteric sclerae ENMT: external ear and nose normal, oropharynx normal Neck: normal visual inspection and trachea midline Respiratory: normal respiratory effort, lungs clear to auscultation + cough Auscultation: + diminished lung sounds (left lower lung base) and + rhonchi (bilateral lung bases); no crackles and no pleural rub Cardiovascular: Rate/Rhythm: regular rate and regular rhythm Heart Sounds: normal S1, normal S2 and + murmur (systolic ejection murmur) Gastrointestinal (Abdomen): normal bowel sounds, soft, nontender, no hepatosplenomegaly Skin: no rashes, warm and dry Results & Data Vital Signs (Past 12 Hours) Vital Signs Temp Pulse Resp BP Pulse Ox 08/23/19 09:15 78 20 94 08/23/19 09:11 75 19 85/48 L 95 08/23/19 09:06 75 21 79/45 L 95 08/23/19 09:00 78 24 93 08/23/19 08:51 80 29 H 74/41 L 94 08/23/19 08:46 75 21 87/44 L 95 08/23/19 08:45 78 26 H 93 08/23/19 08:36 80 17 75/45 L 94 08/23/19 08:30 79 21 95 08/23/19 08:00 36.9 C 58 L 19 74/44 L 94 08/23/19 07:52 58 L 19 94 08/23/19 07:50 62 15 74/44 L 94 08/23/19 07:49 55 L 22 73/45 L 94 08/23/19 07:40 50 L 20 69/44 L 94 08/23/19 07:30 58 L 20 69/35 L 93 08/23/19 07:20 83 22 71/42 L 93 08/23/19 07:13 36.9 C 08/23/19 07:12 90 23 94 08/23/19 07:10 88 22 72/42 L 94 08/23/19 07:09 90 20 70/41 L 94 08/23/19 07:00 92 H 24 77/45 L 96 08/23/19 06:56 68 22 72/42 L 93 08/23/19 06:51 94 H 25 H 94 08/23/19 06:49 89 25 H 70/42 L 95 08/23/19 06:45 93 H 23 69/41 L 93 08/23/19 06:30 95 H 23 74/46 L 94 08/23/19 06:15 91 H 27 H 84/46 L 93 08/23/19 06:11 0 L 23 76/43 L 93 08/23/19 06:00 93 H 22 80/44 L 93 08/23/19 05:45 97 H 24 78/40 L 93 08/23/19 05:36 98 H 24 80/42 L 94 08/23/19 05:26 97 H 23 87/48 L 95 08/23/19 05:18 101 H 26 H 80/46 L 93 08/23/19 05:10 94 08/23/19 05:05 40.3 C H 110 H 31 H 95/52 L 87 L Resident Activity Tracking Resident Involvement: Resident Care Provided Care Provided: Adult Hospital Medicine
--- NOTE | 2019-08-23 11:17 | Procedure Note ---
Procedure Note Date of Service August 23, 2019 Note ARTERIAL LINE PROCEDURE NOTE: Procedure: Arterial Line Placement Attending: Dr. Babcock Provider: Thais Eric MD PGY-1 Indication: Monitoring on Pressors Anesthesia: Lidocaine 1% Line placed upon arrival to ICU. Patient provided verbal consent, but due to his weakness, his (HANG) also provided verbal and written consent. A time-out was performed. Patient's name, procedure, indication, site, and equipment were verified. Patient's left wrist was prepped and draped in the usual sterile fashion. Providers were sterile throughout procedure. Ultrasound guidance was used to aid needle placement. A 20g Arrow arterial line was introduced into the right radial artery. After a flash was observed, the catheter was threaded and the needle was removed with appropriate blood return. Good waveform was observed on monitor. The patient tolerated the procedure well. Blood Loss: Minimal Complications: None Procedural Ultrasound Guidance Procedure Date: 08/23/2019 Indication: Arterial line insertion Attending: Dr. Babcock Provider: Thais Eric MD PGY-1 Artery Identified: Yes Line confirmed in Artery with ultrasound: Yes Complications: none Patient tolerated procedure: well Supervising Physician Co-Signing Physician Notes I was then present and assisted with the entire procedure Coding Resident Activity Tracking Resident Involvement: Resident Care Provided Care Provided: [facility]
--- NOTE | 2019-08-23 11:29 | XRay Report ---
XR chest 1V portable CLINICAL HISTORY: central line placed tube position COMPARISON STUDY: 08/23/2019 FINDINGS: Central catheter placed in superior vena cava. No evidence of pneumothorax. All remaining components of the study are unchanged from the study performed at 5:08 AM of the same d ate. IMPRESSION: Central catheter placed in the superior vena cava. No evidence for pneumothorax. ACT 112: Negative or not required by law. The above report was generated using voice recognition software. It may contain grammatical, syntax or spelling errors. Electronically signed by: Amish Gomez M.D. 08/23/2019 11:28 AM
[2019-08-23] MEDS: FLUTICASONE PROPIONATE NA SPR 16 GM BTL SCH ×2 (11:59→20:12)
[2019-08-23] MEDS: CEROVITE ADV FORMULA TAB PO SCH (11:59)
[2019-08-23] MEDS: ASPIRIN 81 MG CHEW PO SCH (11:59)
[2019-08-23] MEDS: FLUTICASONE/VILANTEROL 100/25MCG 14 PUFFS/INHALER INH SCH (11:59)
[2019-08-23] MEDS: POTASSIUM CHLORIDE / WTR 10 MEQ/100 ML PLCT IV SCH ×4 (12:02→15:16)
[2019-08-23] MEDS: PIPERACILLIN/TAZOBACTAM 4.5 GM in DEXTROSE 5% 100 ML IV SCH ×2 (12:02→20:12)
[2019-08-23] MEDS ORDERED: XOPENEX/ATROVENT 1.25mg/0.5MG NEB COMBO NEB SCH (13:00)
--- NOTE | 2019-08-23 16:23 | Pharmacy Report ---
Pharmacy Abx Initial Consult - Date of Service August 23, 2019 - Pharmacy Dosing Scope Date of Consult: 08/23/2019 Consultation requested by: Dr. mas Pharmacy is consulted to initiate vancomycin/zosyn IV/PO dosing therapy, order appropriate labs and adjust drug dose/frequency. - Subjective The patient is a 83 year old M admitted on 08/23/19 07:05. - Objective Height: 5 ft 9 in Weight: 86.9 kg Vital Signs (Past 12hrs): Vital Signs Temp Pulse Pulse Resp BP Pulse Ox 08/23/19 14:07 36.5 C 75 21 100/54 L 94 08/23/19 14:00 75 21 93 08/23/19 13:52 75 22 89/46 L 95 08/23/19 13:37 75 19 90/51 L 100 08/23/19 13:31 75 16 94 08/23/19 13:30 75 19 98 08/23/19 13:22 78 22 92/50 L 92 08/23/19 13:06 75 17 100/51 L 95 08/23/19 13:00 28 H 94 08/23/19 12:52 75 18 90/53 L 95 08/23/19 12:37 69 21 87/55 L 92 08/23/19 12:30 80 19 94 08/23/19 12:22 75 23 93/49 L 94 08/23/19 12:06 75 24 89/48 L 91 08/23/19 12:00 79 19 93 08/23/19 11:52 75 22 90/49 L 92 08/23/19 11:37 76 26 H 86/49 L 91 08/23/19 11:30 75 19 91 08/23/19 11:22 77 24 81/43 L 93 08/23/19 11:06 75 20 82/50 L 100 08/23/19 11:00 75 19 100 08/23/19 10:51 75 19 79/48 L 100 08/23/19 10:36 75 20 81/47 L 100 08/23/19 10:30 77 26 H 99 08/23/19 10:21 75 20 78/46 L 08/23/19 10:06 74 21 82/47 L 96 08/23/19 10:01 75 18 94 08/23/19 09:59 75 20 75/48 L 94 08/23/19 09:51 76 22 80/50 L 95 08/23/19 09:36 75 19 82/48 L 95 08/23/19 09:30 75 20 94 08/23/19 09:21 75 18 77/48 L 94 08/23/19 09:15 78 20 94 08/23/19 09:11 75 19 85/48 L 95 08/23/19 09:06 75 21 79/45 L 95 08/23/19 09:00 78 24 93 08/23/19 08:51 80 29 H 74/41 L 94 08/23/19 08:46 75 21 87/44 L 95 08/23/19 08:45 78 26 H 93 08/23/19 08:36 80 17 75/45 L 94 08/23/19 08:30 79 21 95 08/23/19 08:00 36.9 C 58 L 19 74/44 L 94 08/23/19 07:52 58 L 19 94 08/23/19 07:50 62 15 74/44 L 94 08/23/19 07:49 55 L 22 73/45 L 94 08/23/19 07:40 50 L 20 69/44 L 94 08/23/19 07:30 58 L 20 69/35 L 93 08/23/19 07:20 83 22 71/42 L 93 08/23/19 07:13 36.9 C 08/23/19 07:12 90 23 94 08/23/19 07:10 88 22 72/42 L 94 08/23/19 07:09 90 20 70/41 L 94 08/23/19 07:00 92 H 24 77/45 L 96 08/23/19 06:56 68 22 72/42 L 93 08/23/19 06:51 94 H 25 H 94 08/23/19 06:49 89 25 H 70/42 L 95 08/23/19 06:45 93 H 23 69/41 L 93 08/23/19 06:30 95 H 23 74/46 L 94 08/23/19 06:15 91 H 27 H 84/46 L 93 08/23/19 06:11 0 L 23 76/43 L 93 08/23/19 06:00 93 H 22 80/44 L 93 08/23/19 05:45 97 H 24 78/40 L 93 08/23/19 05:36 98 H 24 80/42 L 94 08/23/19 05:26 97 H 23 87/48 L 95 08/23/19 05:18 101 H 26 H 80/46 L 93 08/23/19 05:10 94 08/23/19 05:05 40.3 C H 110 H 31 H 95/52 L 87 L Lab Results (24hrs): Laboratory Tests (24 Hours) 08/23/19 08/23/19 05:20 05:20 WBC 16.30 H Neut # (Auto) 15.26 H Creatinine 1.33 Est Cr Clr Drug Dosing 45.1 - Assessment & Plan Assessment 83 year old M [] Plan [] for treatment of [Indication] Vancomycin IV * Estimated PK Parameters: Vd [] L/kg, Bulmaro [] hr-1, t1/2 [] hr * Loading dose: [] mg ([] mg/kg) * Maintenance dose: [] mg IV ([] mg/kg) every [] hours * Goal trough level for [indication] : [] to [] mcg/mL * Trough/Random level ordered for []/[]/[] * A less than traditional dose and/or extended dosing interval has/have been selected due to likelihood of drug accumulation in obese patient/patient with h/o CKD. Piperacillin/tazobactam * [] g bolus administered over 30 minutes, then [] g IV extended infusion every 8 hours for CrCl greater than 20 mL/min OR every 12 hours for CrCl 20 mL/min or less and dialysis. * Aggressive dosing selected due to critically ill status/BMI 35 or more/history of cystic fibrosis. Tobramycin/Gentamicin/Amikacin * Patient meets criteria for extended-interval aminoglycoside dosing per the [facility] nomogram * Dose: [] mg (7 mg/kg) or (15 mg/kg) IV every [] hours * Dosage based on adjusted body weight for patients weighing > 120% of ideal body weight. * Random level ordered for 6-14 hours after the start of the infusion to ensure dosing interval is appropriate. Tobramycin/Gentamicin/Amikacin * Patient is not a candidate for extended-interval dosing due to age/CrCl less than 20 mL/min/end stage renal disease/dialysis/fluctuating kidney function/treatment of Enterococcal endocarditis OR altered pharmacokinetics in the setting of /ascites/significant harrison/cystic fibrosis. * Dose: [] mg ([] mg/kg) IV every [] hours * Dosage based on adjusted body weight for patients weighing > 120% of ideal body weight. * Goal trough level for [indication] : [] to [] mcg/mL * Goal peak level for [indication] : [] to [] mcg/mL * Peak and trough level ordered for []/[]/[] around the [] dose. Pharmacy will continue to follow and will adjust dose/frequency as necessary. Thank you.
[2019-08-23] MEDS: LINEZOLID 600 MG/300 ML BAG IV SCH (17:10)
[2019-08-23] MEDS: HEPARIN SOD 5,000 UNIT/0.5 ML VIAL SQ SCH (17:10)
--- NOTE | 2019-08-23 18:26 | Communication Note ---
Date of Service: August 23, 2019 Pt was seen and examined Lying in bed with no distress Pt said that he feels a little better today He said that he feels a little stronger Denies any chest pain, dizziness and SOB Exam General- No acute distress Head- atraumatic Eyes- PERRL, EOMI, ENT- oropharynx clear Neck- supple, no JVD Lungs- clear to auscultation Heart- regular rhythm; no murmur Abdomen- normal bowel sounds, soft, nontender Extremities- no calf tenderness Neuro- alert, oriented x 3; PERRL, EOMI; no facial palsy; no dysarthria Skin- warm & dry Septic shock Hypotension Meet sepsis criteria on admission with fever, tachycardia and required pressor Blood cx positive for gram positive cocci in clusters Received Levaquin, Zosyn and Vanco in the ER Starting on Linezolid BID Continue pressor with norepinephrine Will repeat blood cx Will get an ECHO Consult ID Elevated Troponin Mostly related to demand ischemia from septic shock Trop on admission 0.056 then increased to 0.143 ECHO showed no wall motion abnormality with EF 55-60 % Denies any chest pain Continue aspirin 81mg Will trend trop CODE STATUS Full code
--- NOTE | 2019-08-23 18:29 | Electrocardiogram Report ---
Test Reason : Blood Pressure : / mmHG Vent. Rate : 110 BPM Atrial Rate : 110 BPM P-R Int : 184 ms QRS Dur : 124 ms QT Int : 354 ms P-R-T Axes : 019 000 091 degrees QTc Int : 479 ms Atrial-sensed ventricular-paced rhythm Biventricular pacemaker detected Abnormal ECG When compared with ECG of 20-JUL-2019 07:21, Vent. rate has increased BY 18 BPM Confirmed by Thee Lewis ([id number]) on 08/23/2019 6:29:40 PM Referred By: REFERRED SELF Confirmed By:Escobar Lewis
[2019-08-23] MEDS: FINASTERIDE 5 MG TAB PO SCH (20:13)
[2019-08-23] MEDS: SIMVASTATIN 40 MG TAB PO SCH (20:13)
[2019-08-23] MEDS: LATANOPROST 0.005% OP SOLN 2.5 ML BTL OPR SCH (20:13)
[2019-08-24] MEDS: NOREPINEPHRINE BIT INJ 8 MG in DEXTROSE 5% 500 ML IV SCH (00:09)
[2019-08-24] MEDS: HEPARIN SOD 5,000 UNIT/0.5 ML VIAL SQ SCH ×3 (00:10→16:26)
[2019-08-24] MEDS: NORMOSOL-R 1,000 ML IV SCH (00:10)
[2019-08-24] MEDS: LEVALBUTEROL 1.25MG/0.5ML NEB INH SCH ×4 (01:58→19:04)
[2019-08-24] MEDS: IPRATROPIUM BROMIDE NEB SOLN 0.02% 2.5 ML VIAL INH SCH ×4 (01:58→19:03)
[2019-08-24] MEDS ORDERED: VANCOMYCIN HCL 1,250 MG in SODIUM CHLORIDE 0.9% 250 ML IV SCH (02:00)
[2019-08-24] MEDS: PIPERACILLIN/TAZOBACTAM 4.5 GM in DEXTROSE 5% 100 ML IV SCH (03:55)
[2019-08-24] MEDS: LINEZOLID 600 MG/300 ML BAG IV SCH ×2 (03:55→16:26)
[2019-08-24 05:58] LABS: BUN Creatinine Ratio 18.7 (10-20); Creatinine Clr Calc Pharmacy 43.5 ml/min; Est GFR (Non-African American) 46.6; Magnesium 2.3 mg/dl (1.8-2.4); Phosphorus 2.4 mg/dl (2.5-4.9); Potassium 4.1 mmol/L (3.5-5.1)
[2019-08-24 06:00] LABS: Hematocrit (blood only) 25.8 % (42-52); Hemoglobin 8.8 g/dL (14.0-18.0); Mean Corpuscular Hemoglobin 35.9 pg (25-34); Mean Corpuscular Hgb Conc 34.1 g/dL (32-36); Mean Corpuscular Volume 105.3 fL (80-100); Mean Platelet Volume 11.6 fL (7.4-10.4); Platelet Count 126 K/uL (130-400); RDW Coefficient of Variation 15.2 % (11.5-14.5); Red Blood Count 2.45 M/uL (4.7-6.1); White Blood Count 41.42 K/uL (4.8-10.8)
[2019-08-24 07:02] LABS: Basophils # (auto) 0.01 K/uL (0-0.2); Dohle Bodies 1+; Eosinophils # (auto) 0.01 K/uL (0-0.5); Immature Granulocytes % (auto) 1.2 %; Lymphocytes # (auto) 0.91 K/uL (1.2-3.4); Lymphocytes % (auto) 2.2 %; Macrocytosis Present; Monocytes # (auto) 1.37 K/uL (0.11-0.59); Monocytes % (auto) 3.3 %; Neutrophils # (auto) 38.62 K/uL (1.4-6.5); Neutrophils % (auto) 93.3 %; Toxic Vacuolation 1+
[2019-08-24] MEDS: FLUTICASONE/VILANTEROL 100/25MCG 14 PUFFS/INHALER INH SCH (08:44)
[2019-08-24] MEDS: FLUTICASONE PROPIONATE NA SPR 16 GM BTL SCH ×2 (08:45→21:51)
[2019-08-24] MEDS: CEROVITE ADV FORMULA TAB PO SCH (08:45)
[2019-08-24] MEDS: ASPIRIN 81 MG CHEW PO SCH (08:45)
[2019-08-24] MEDS: predniSONE 20 MG TAB PO SCH (08:45)
[2019-08-24] MEDS: BRIMONIDINE TARTRATE (ALPHAGAN P) 5 ML DROPS OP SCH (08:46)
--- NOTE | 2019-08-24 14:42 | Hospitalist Progress Note ---
Date of Service August 24, 2019 Assessment & Plan (1) Septic shock: Hypotension Meet sepsis criteria on admission with fever, tachycardia and required pressor Blood cx positive for gram positive cocci in clusters- Staph Aureus Received Levaquin, Zosyn and Vanco in the ER Continue on Linezolid BID Continue pressor with norepinephrine Repeat blood cx collected today pending Procalcitonin worsening today and WBC increased to 41k ECHO Echo showed left ventricular wall motion is normal. No vegetation noted on echo report. ejection fraction 55 to 60%. Will follow sensitivity ID consulted Elevated Troponin Mostly related to demand ischemia from septic shock Trop on admission 0.056 then increased to 0.173, now trending down to 0.16 ECHO showed no wall motion abnormality with EF 55-60 % Denies any chest pain Continue aspirin 81mg Pneumonia CXR showed Left basilar infiltrate IV Zosyn was discontinue Currently on Linezolid Clinically stable Chronic Diastolic CHF CXR showed Congestive failure with a superimposed left basilar infiltrate. Lasix was on hold due to hypotension and was on pressor Will resume Lasix tomorrow if BP stable Electrolytes Imbalance Phosphorus replaced Monitor electrolytes Elevated WBC Mostly due to acute infection in the setting of steroid WBC increased to 41K Blood cx on 08/23 positive for staph Follow up repeat blood cx collected on Continue IV Linezolid BID Monitor CBC CAD Continue aspirin and statin Denies any chest pain CODE STATUS Full code Disposition Continue monitor in the ICU Admission and Anticipated Discharge Date Admission Date: August 23, 2019 Subjective Pt was seen and examined Lying in bed with no distress Pt said that he feels a little better today He said that strength a little improves Continue to require pressor Denies any chest pain, palpitation, dizziness and SOB Physical Exam Physical Exam: General- No acute distress Head- atraumatic, +dressing on left side of the face Eyes- PERRL, EOMI, ENT- oropharynx clear Neck- supple, no JVD Lungs- clear to auscultation Heart- regular rhythm; no murmur Abdomen- normal bowel sounds, soft, nontender Extremities- no calf tenderness Neuro- alert, oriented x 3; PERRL, EOMI; no facial palsy; no dysarthria Skin- warm & dry Results & Data ([facility]) Vital Signs (Past 12 Hours) Vital Signs Temp Pulse Pulse Resp BP Pulse Ox 08/24/19 13:30 36.5 C 76 24 94 08/24/19 13:15 75 18 95 08/24/19 13:00 75 21 96 08/24/19 12:53 75 14 100/52 L 96 08/24/19 12:30 75 25 H 94 08/24/19 12:00 75 26 H 95 08/24/19 11:53 84 22 114/61 95 08/24/19 11:47 75 105/59 L 08/24/19 11:30 75 25 H 95 08/24/19 11:11 75 25 H 101/57 L 96 08/24/19 11:00 75 29 H 95 08/24/19 10:53 75 23 101/57 L 95 08/24/19 10:30 75 18 96 08/24/19 10:00 75 17 97 08/24/19 09:53 36.5 C 27 H 95/61 L 96 08/24/19 09:30 75 24 95 08/24/19 09:00 75 20 97 08/24/19 08:54 75 22 105/54 L 93 08/24/19 08:30 75 18 94 08/24/19 08:00 75 22 99/45 L 95 08/24/19 07:53 75 20 98/54 L 93 08/24/19 07:30 75 9 L 93 08/24/19 07:00 78 20 94 08/24/19 06:58 75 18 97 08/24/19 06:53 75 29 H 98/59 L 96 08/24/19 06:45 75 8 L 98 08/24/19 06:00 75 19 118/60 97 08/24/19 05:40 75 15 98 08/24/19 05:00 75 20 121/64 94 08/24/19 04:40 75 22 98 08/24/19 04:20 75 12 97 08/24/19 04:00 75 22 120/78 96 08/24/19 03:40 75 24 96 08/24/19 03:20 75 13 96 08/24/19 03:00 75 18 103/57 L 94 08/24/19 02:40 75 15 96
--- NOTE | 2019-08-24 19:00 | Billing Data ---
Date of Service August 23, 2019 Coding Level of Care Code 83965 [place] Initial H&P Comment Arterial line placement, right sided procedure, GC modifier
--- NOTE | 2019-08-24 20:06 | Critical Care Progress Note ---
Date of Service August 24, 2019 Assessment & Plan (1) Septic shock: Reason Critically Ill: 83-year-old male with septic shock and hypotension requiring vasopressors, hypoxic respiratory failure. Neuro: [facility] ICU: Altered Mental Status - resolved. Patient became alert and oriented x3 upon arrival to the ICU. Possibly secondary to metabolic encephalopathy given septic state vs. poor cerebral perfusion given hypotension. Cardiac: Hypotension -currently weaned off of Levophed drip, remaining hemodynamically stable. - A-line placed for continuous BP monitoring -Holding antihypertensives Hx CHF -cardiac echo: LVEF 55 to 60%, grade 1 diastolic dysfunction, moderate valvular aortic stenosis - patient with ICD/pacer -Pleural effusions on chest x-ray today, evaluated with ultrasound and questionable loculated pneumonia on the right, obtaining CT image for further eval -Considering diuresis management versus drainage of effusion pending CT read Hx CAD sp CABG -troponin was elevated but now down trended and this likely contributed to septic shock with demand ischemia -Continue home aspirin and simvastatin regimen Aortic regurgitation status post bioprosthetic AVR - stable Respiratory: Pneumoniaappears to be loculated to left lower lobe on CT chest, will follow up read -Patient currently asymptomatic on home regimen of oxygen -MRSA swab positive, blood cultures positive for staph aureus on preliminary; continuing Zyvox -Continue pulmonary toileting and nebs -Continuous monitoring on pulse ox Right diaphragmatic hemiparesis - chronic, secondary to CABG complication. Hx COPD - patient has baseline requirement of 2L via NC when resting, 4L when ambulating. Currently satting at 94 on 4L via NC. continue home inhalers. GI: Speech eval placed for swallowing study. Heart healthy diet RENAL/LYTES: Creatinine stable, trend with routine BMPs Monitor electrolytes and replete as necessary : Strict I's and O's Continue Proscar for BPH ENDO: No history diabetes or thyroid disease, ICU hyperglycemic protocol HEME: Chronic anemiaHgb typically runs 9-10 -We will monitor with routine CBCs and transfuse for hemoglobin less than 7 ID: Sepsis - patient met SIRS criteria on admission; suspect pulmonary source. CXR showing left lower lobar consolidation on admission. Now appears to have right- sided loculated pneumonia. WBC count elevated to 40 this a.m. Lactate negative. Patient febrile on arrival to 40 degrees celsius, tachycardic and tachypneic. -Blood cultures positive for staph aureus x2 on preliminary, will follow-up final read and repeat blood cultures pending -Sputum culture negative - flu A and B negative on admission -Nasal MRSA swab positive - continue continue Zyvox for gram-positive bacteremia from likely pulmonary source -Trend procalcitonin and WBC LINES/IV ACCESS: R arterial line R IJ CVC CODE STATUS: Full DVT PROPHYLAXIS: SCDs, heparin I have personally spent 40 minutes of critical care time in the direct management of this patient. This is a life/limb threatening event. This includes time spent evaluating patient, direct bedside care, chart review, placing orders, interpretation of diagnostic studies, discussion with consultants, patient, and family members, as well as other required patient management activities. This time is exclusive of all separately billable procedures, and teaching time and separate from and in addition to any other critical care service time. Thank you for allowing us to participate in the care of this patient. Please refer to my attending physician's documentation for any further recommendations. (2) Pneumonia: (3) Pneumonia: (4) Hypoxia: (5) CAD (coronary artery disease): Supervising Physician Co-Signing Physician Notes I have personally evaluated and examined this patient. I agree with assessment and plan of Aurelia OLIVA. I personally performed bedside ultrasound of the right chest, unclear if there is a dense pleural effusion versus liver from elevated hemidiaphragm. Will obtain CT scan, the concern is could this be an empyema with source for the MRSA bacteremia versus pneumonia with hematogenous spread. Patient is improving he is off vasoactive medications. Given his improvement if there is not significant fluid for thoracentesis I would defer sampling that site at this time. Subjective 83-year-old male with PMH of diastolic heart failure, CAD status post CABG with AVR, ICD/pacer, COPD with home O2 2 L nasal cannula, chronic right hemidiaphragm paralysis following CABG, and chronic anemia. He was initially admitted to the ICU for septic shock and hypotension requiring vasopressors and a likely pulmonary source. He is being treated for gram-positive bacteremia. Vasopressors symptoms been weaned off and he is stable on 3 L nasal cannula. He was evaluated this afternoon for suspicious effusion of right lung, appears to be loculated pneumonia. Will obtain CT image and follow-up read. Patient to remain in ICU overnight, may likely transfer tomorrow from ICU if remains off of vasopressors. Review of Systems Review of Systems: All systems reviewed & are unremarkable except as noted in Subjective Physical Exam Constitutional: cooperative and comfortable Eyes: PERRL, conjunctivae normal, anicteric sclerae Neck: trachea midline, no thyromegaly Respiratory: Lungs clear and diminished bilaterally in all oneill, symmetrical chest wall movement, nonlabored breathing Cardiovascular: RRR, no murmur, no edema Heart Sounds: normal S1 and normal S2 Vessels: no JVD Gastrointestinal (Abdomen): normal bowel sounds, soft, nontender, no hepatosplenomegaly Skin: no rashes, warm and dry Neurologic: PERRL, EOMI, accommodation nl, no face palsy, no dysarthria Psychiatric: A+Ox3, euthymic affect Results & Data ([facility]) Vital Signs (Past 12 Hours) Vital Signs Temp Pulse Pulse Resp BP Pulse Ox 08/24/19 18:30 75 20 96 08/24/19 18:27 75 21 96/54 L 95 08/24/19 18:15 75 20 95 08/24/19 18:12 76 19 94/54 L 95 08/24/19 18:00 75 20 94 08/24/19 17:57 75 16 91/57 L 95 08/24/19 17:50 75 19 94 08/24/19 17:42 75 20 93/57 L 96 08/24/19 17:40 75 25 H 94 08/24/19 17:30 75 20 95 08/24/19 17:27 75 26 H 84/57 L 95 08/24/19 17:20 75 22 95 08/24/19 17:12 83 26 H 99/53 L 95 08/24/19 17:10 110 H 20 94 08/24/19 17:00 75 20 94 08/24/19 16:57 75 22 89/54 L 94 08/24/19 16:50 75 20 96 08/24/19 16:42 75 18 115/56 L 95 08/24/19 16:41 75 25 H 105/59 L 08/24/19 16:40 75 21 91 08/24/19 16:30 75 20 95 08/24/19 16:20 75 23 95 08/24/19 16:10 75 27 H 96 08/24/19 16:00 36.8 C 75 20 114/78 95 08/24/19 15:53 77 20 101/56 L 94 02/29/20 15:30 75 22 93 08/24/19 15:28 75 25 H 105/58 L 94 08/24/19 15:00 75 23 95 08/24/19 14:54 75 22 106/53 L 95 08/24/19 14:30 74 21 95 08/24/19 14:00 75 22 96 08/24/19 13:53 75 22 107/57 L 94 08/24/19 13:30 36.5 C 76 24 94 08/24/19 13:15 75 18 95 08/24/19 13:00 75 21 96 08/24/19 12:53 75 14 100/52 L 96 08/24/19 12:30 75 25 H 94 08/24/19 12:00 75 26 H 95 08/24/19 11:53 84 22 114/61 95 08/24/19 11:47 75 105/59 L 08/24/19 11:30 75 25 H 95 08/24/19 11:11 75 25 H 101/57 L 96 08/24/19 11:00 75 29 H 95 08/24/19 10:53 75 23 101/57 L 95 08/24/19 10:30 75 18 96 08/24/19 10:00 75 17 97 08/24/19 09:53 36.5 C 27 H 95/61 L 96 08/24/19 09:30 75 24 95 08/24/19 09:00 75 20 97 08/24/19 08:54 75 22 105/54 L 93 08/24/19 08:30 75 18 94 Coding Level of Care Code 45340 Subs Hosp Care Lvl 3 Diagnoses Septic shock A41.9; R65.21 Pneumonia J18.9 Pneumonia type: due to unspecified organism Pneumonia J18.9 Laterality: bilateral Lung location: lower lobe of lung Pneumonia type: due to unspecified organism Hypoxia R09.02 CAD (coronary artery disease) I25.10 (1) Pneumonia Laterality: bilateral Lung location: lower lobe of lung Pneumonia type: due to unspecified organism Qualified Code(s): J18.9 - Pneumonia, unspecified organism (2) Pneumonia Pneumonia type: due to unspecified organism
--- NOTE | 2019-08-24 20:54 | CT Scan Report ---
CT chest wo con CT DOSE: 380.21 mGy.cm CLINICAL HISTORY: 83 years-old Male with resp failure/ pleural effusion. Acute respiratory failure w ith pleural effusion TECHNIQUE: Multiaxial CT images of the chest were performed without contrast. A dose lowering techni que was utilized adhering to the principles of ALARA. COMPARISON: Chest CT 07/20/2019 FINDINGS: Unremarkable thyroid. Mildly enlarged subcarinal lymph nodes measure up to 11 mm, likely reactive. Mo derate to marked cardiomegaly. No pericardial effusion. Prior median sternotomy with prosthetic aorti c valve and prior CABG. Left subclavian pacer. Fusiform dilation of the ascending thoracic aorta rede monstrated measuring up to 4.8 cm, unchanged. Mild dilation of the pulmonary artery may reflect pulmo nary arterial hypertension. Trace left pleural effusion with unchanged pleural thickening with pleural calcifications. Trace righ t pleural effusion has decreased in size from comparison. No pneumothorax. Groundglass and linear con solidative opacities in the left midlung and left lung base are suggestive of atelectasis/scarring. G roundglass and consolidative opacities of the right lung base with air bronchograms appears similar h owever less extensive than comparison study with ill-defined patchy groundglass opacities of the righ t upper lobe. There is no overt pulmonary edema. The central airways appear patent. Small hiatal hernia. Moderate distention of the gallbladder. Colonic diverticulosis. Soft tissues are unremarkable. Degenerative changes of the shoulders and spine. 20% superior and anterior compression deformity of the T8 vertebral body without retropulsion is unchanged from comparison. IMPRESSION: 1. Cardiomegaly with unchanged fusiform dilation of the ascending thoracic aorta measuring up to 4.8 cm. 2. Trace pleural effusions with right lung opacities, most pronounced within the right lung base sugg estive of pneumonia. 3. Left midlung and left lung base opacities suggest atelectasis/scarring. 4. Chronic left-sided pleural thickening with pleural calcifications. 5. Prior median sternotomy with CABG and prosthetic aortic valve. 6. Additional findings as above. ACT 112: Negative or not required by law. Electronically signed by: Philip Guzman M.D. 08/24/2019 8:53 PM
[2019-08-24] MEDS: SIMVASTATIN 40 MG TAB PO SCH (21:51)
[2019-08-24] MEDS: FINASTERIDE 5 MG TAB PO SCH (21:51)
[2019-08-24] MEDS: LATANOPROST 0.005% OP SOLN 2.5 ML BTL OPR SCH (22:20)
[2019-08-25] MEDS: IPRATROPIUM BROMIDE NEB SOLN 0.02% 2.5 ML VIAL INH SCH ×4 (00:17→20:03)
[2019-08-25] MEDS: LEVALBUTEROL 1.25MG/0.5ML NEB INH SCH ×4 (00:17→20:03)
[2019-08-25] MEDS: HEPARIN SOD 5,000 UNIT/0.5 ML VIAL SQ SCH ×3 (01:36→16:14)
[2019-08-25 05:19] LABS: Hematocrit (blood only) 23.3 % (42-52); Mean Corpuscular Hemoglobin 35.7 pg (25-34); Mean Corpuscular Hgb Conc 34.3 g/dL (32-36); Platelet Count 102 K/uL (130-400); RDW Coefficient of Variation 15.4 % (11.5-14.5); RDW Standard Deviation 58.5 fL (36.4-46.3); Red Blood Count 2.24 M/uL (4.7-6.1); White Blood Count 27.51 K/uL (4.8-10.8)
[2019-08-25] MEDS: LINEZOLID 600 MG/300 ML BAG IV SCH ×2 (05:20→16:13)
[2019-08-25 05:35] LABS: BUN Creatinine Ratio 23.5 (10-20); Calcium 7.7 mg/dl (8.5-10.1); Est GFR (Non-African American) 55.2; Magnesium 2.4 mg/dl (1.8-2.4); Phosphorus 2.7 mg/dl (2.5-4.9); Potassium 4.1 mmol/L (3.5-5.1)
--- NOTE | 2019-08-25 07:38 | Infectious Disease Consult ---
Date of Consultation August 25, 2019 Assessment & Plan (1) Gram positive sepsis: ? related to recent surgery, repeat blood cultures +, will repeat today. would suggest changing to Dapto 6mg/kg. wbc improving but remains elevated, will follow. will need echo with AVR and likely 6 weeks IV abx due to repeat + blood culture. History of Present Illness Attending Physician: Adalberto Perez MD pt admitted with fevers, sudden onset, recent facial surgery, was feeling well [employer]. in ER temp 40.3. now afebrile. also hotn, remains in ICU. initial blood cultures growing S. aureus, pcr + mrsa. repeat cultures gpc, . has AVR 2001, no complications, echo pending, ct done last night, negative for pna. no cp, sob, cough, eating breakfast, poor appetitie, no f/c. no abd pain, no n/v/d. no pain in face. family present. Allergies Allergy/AdvReac Type Severity Reaction Status Date / Time No Known Allergies Allergy Verified 08/23/19 05:56 Home Medications Home Medications Medication Instructions Recorded Confirmed Type Alphagan P 0.1 % OPHTHALMIC (EYE) DAILY 07/04/18 08/23/19 History albuterol sulfate [ProAir HFA] 2 puff INHALATION QID PRN 07/04/18 08/23/19 History amoxicillin 2,000 mg PO UD PRN 07/04/18 08/23/19 History furosemide [Lasix] 20 mg PO HS 07/04/18 08/23/19 History latanoprost [Xalatan] 1 drp OPR HS 07/04/18 08/23/19 History Breo Ellipta 1 inh INHALATION QAM 06/27/19 08/23/19 History azithromycin [Zithromax Z-Thom] 250 mg PO UD PRN 06/27/19 08/23/19 History cetirizine [Zyrtec] 10 mg PO DAILY PRN 06/27/19 08/23/19 History cholecalciferol (vitamin D3) 1,000 unit PO QAM 06/27/19 08/23/19 History [Vitamin D3] finasteride 5 mg PO HS 06/27/19 08/23/19 History fluticasone propionate [Flonase 2 spray INTRANASAL BID 06/27/19 08/23/19 History Allergy Relief] metoprolol succinate 25 mg PO QAM 06/27/19 08/23/19 History multivitamin with minerals 1 tab PO QAM 06/27/19 08/23/19 History prednisone 10 mg PO UD PRN 06/27/19 08/23/19 History simvastatin 40 mg PO PM 06/27/19 08/23/19 History terazosin 5 mg PO QPM 06/27/19 08/23/19 History ipratropium-albuterol 3 ml NEB QIDR PRN #90 ml 07/26/19 08/23/19 Rx aspirin [Aspirin Childrens] 81 mg PO DAILY 08/23/19 08/23/19 History dorzolamide-timolol 1 drp OPB HS 08/23/19 08/23/19 History guaifenesin [Mucinex] 1,200 mg PO BID 08/23/19 08/23/19 History umeclidinium [Incruse Ellipta] 1 inh INHALATION DAILY 08/23/19 08/23/19 History Patient History Medical History Ascending aortic aneurysm (Chronic) BPH (benign prostatic hyperplasia) (Chronic) Bronchiectasis (Chronic) CAD (coronary artery disease) (Chronic) Chronic diastolic HF (heart failure) Chronic systolic CHF (congestive heart failure), NYHA class 3 Glaucoma bilt eyes Hyperlipidemia (Chronic) Hypertension (Chronic) ICD (implantable cardioverter-defibrillator) battery depletion pt for biv icd generator change; rediscussed the procedure and potential risks consent obtained Ischemic cardiomyopathy (Chronic) On home oxygen therapy 2L N/C hs and prn Spinal stenosis Ventricular tachyarrhythmia (Chronic) Surgical History Biventricular ICD (implantable cardioverter-defibrillator) in place 2006 @ [place]/ recently replaced @ 07/04/18 [facility] History of bilateral cataract extraction History of cardiac [place] [facility] [place] History of colonoscopy History of left inguinal hernia repair x2 History of prostate biopsy x2--benign History of tonsillectomy Hx of [place] [facility] [place] [facility] [place] Family History Father Family hx colonic polyps Other Hypertension No family history of adverse response to anesthesia Stroke Social History Preferred Language: [place] Communication Ability: Effective Hospitalist Medical Director Required: No Beliefs That Will Affect Care: None marital status: Current Living Situation: Spouse Other Information That Helps Us Care for You: No Feels Safe at Home: Yes Safety Concerns: Feels Safe At This Time Smoking Status: Former smoker Second Hand Exposure: No ; Hx Alcohol Use: No Hx Substance Use: No Review of Systems Review of Systems: All systems reviewed & are unremarkable except as noted in HPI & below Physical Exam Constitutional: WD/WN, vitals as above Eyes: PERRL, conjunctivae normal, anicteric sclerae ENMT: external ear and nose normal, oropharynx normal Neck: normal visual inspection Respiratory: normal respiratory effort, lungs clear to auscultation Cardiovascular: RRR, no murmur, no edema Gastrointestinal (Abdomen): normal bowel sounds, soft, nontender, no hepatosplenomegaly Musculoskeletal: no cyanosis or clubbing, extremities motor strength 5/5 Skin: no rashes, warm and dry + wound Psychiatric: A+Ox3, euthymic affect Results & Data ([facility]) Vital Signs (Past 12 Hours) Vital Signs Pulse Resp Pulse Ox 08/25/19 00:17 75 22 95 Laboratory Results Microbiology 08/23/19 05:22 Blood Aerobic Blood Culture - Preliminary Staph aureus MRSA 08/23/19 05:22 Blood Anaerobic Blood Culture - Preliminary Staphylococcus aureus 08/24/19 05:21 Blood Aerobic Blood Culture - Preliminary Gram positive cocci clusters 08/24/19 05:21 Blood Anaerobic Blood Culture - Preliminary No growth in Anaerobic bottle after 24 hours. 08/24/19 05:10 Blood Aerobic Blood Culture - Preliminary No growth in Aerobic bottle after 24 hours. 08/24/19 05:10 Blood Anaerobic Blood Culture - Preliminary No growth in Anaerobic bottle after 24 hours. 08/23/19 05:35 Blood Aerobic Blood Culture - Preliminary Staphylococcus aureus 08/23/19 05:35 Blood Anaerobic Blood Culture - Preliminary Staphylococcus aureus PG Care Time/CCT Total # of Minutes Spent Total Time Spent with Patient: Total time spent is greater than 50% in coordination of care (as documented) at patient's floor/unit and/or counseling patient: Coding Level of Care Code 63496 Inpt Consult Level 4 Diagnoses Gram positive sepsis A41.89
[2019-08-25] MEDS: FLUTICASONE PROPIONATE NA SPR 16 GM BTL SCH ×2 (07:47→20:02)
[2019-08-25] MEDS: predniSONE 20 MG TAB PO SCH (07:47)
[2019-08-25] MEDS: ASPIRIN 81 MG CHEW PO SCH (07:47)
[2019-08-25] MEDS: BRIMONIDINE TARTRATE (ALPHAGAN P) 5 ML DROPS OP SCH (07:47)
[2019-08-25] MEDS: CEROVITE ADV FORMULA TAB PO SCH (07:47)
[2019-08-25] MEDS: FLUTICASONE/VILANTEROL 100/25MCG 14 PUFFS/INHALER INH SCH (07:47)
--- NOTE | 2019-08-25 09:59 | Critical Care Progress Note ---
Date of Service August 25, 2019 Assessment & Plan (1) Septic shock: Reason Critically Ill: 83-year-old male with septic shock and hypotension requiring vasopressors, hypoxic respiratory failure. Neuro: [facility] ICU: Altered Mental Status - resolved. Cardiac: Hypotension -resolved -Discontinuing A-line -We will continue to hold antihypertensives for now as BP is remained soft but within normal limits, will resume with caution Hx CHF -cardiac echo: LVEF 55 to 60%, grade 1 diastolic dysfunction, moderate valvular aortic stenosis - patient with ICD/pacer -CT imaging with trace pleural effusions with right lung opacities, most pronounced within the right lung base suggestive of pneumonia Hx CAD sp CABG -troponin was elevated but now down trended and this likely contributed to septic shock with demand ischemia -Continue home aspirin and simvastatin regimen Aortic regurgitation status post bioprosthetic AVR - stable Respiratory: Pneumoniaappears to be most pronounced in the right lower lobe on CT chest -Patient currently asymptomatic on room air, wears 2 L nasal cannula at home at baseline -MRSA swab positive, first set blood cultures positive for MRSA, repeats positive for GPC's; switch to daptomycin per ID recommendations today for 6-week course -Continue pulmonary toileting and nebs -Continuous monitoring on pulse ox Right diaphragmatic hemiparesis - chronic, secondary to CABG complication. Hx COPD - patient has baseline requirement of 2L via NC when resting, 4L when ambulating. Currently maintaining sats on room air, will continue home inhalers GI: Speech eval placed for swallowing study. Heart healthy diet RENAL/LYTES: Creatinine stable, trend with routine BMPs Monitor electrolytes and replete as necessary : Strict I's and O's Continue Proscar for BPH ENDO: No history diabetes or thyroid disease, ICU hyperglycemic protocol HEME: Chronic anemiaHgb typically runs 9-10 -We will monitor with routine CBCs and transfuse for hemoglobin less than 7 ID: Sepsis - patient met SIRS criteria on admission; suspect pulmonary source. CXR showing left lower lobar consolidation on admission. Now appears to have right- sided loculated pneumonia. WBC count elevated trending down. Lactate negative. Patient febrile on arrival to 40 degrees celsius, tachycardic and tachypneic. -Blood cultures positive for MRSA x2 on initial cultures, second set positive for GPC's at this time -Sputum culture negative - flu A and B negative on admission -Nasal MRSA swab positive -ID following and switched to daptomycin for 6-week course per recommendations -Trend procalcitonin and WBC LINES/IV ACCESS: R arterial line R IJ CVC CODE STATUS: Full DVT PROPHYLAXIS: SCDs, heparin Thank you for allowing us to participate in the care of this patient. Please refer to my attending physician's documentation for any further recommendations. (2) Pneumonia: (3) Hypoxia: (4) CAD (coronary artery disease): Supervising Physician Co-Signing Physician Notes I have personally evaluated and examined this patient. I agree with assessment and plan of Aurelia OLIVA. Patient stable for downgrade out of the ICU Subjective Patient was seen sitting up in bed, comfortable and mentating clearly. He spent most of the day in the chair, and is currently asymptomatic at this point. He has remained hemodynamically stable off pressors for over 24 hours. He is on room air at this time. Second set of blood cultures were again positive for gram-positive cocci, and ID recommended switching antibiotics to Dapto for 6 weeks. I think from a hemodynamical standpoint he is stable for downgrade at this time. Review of Systems Review of Systems: All systems reviewed & are unremarkable except as noted in Subjective Physical Exam Constitutional: cooperative and comfortable Eyes: PERRL, conjunctivae normal, anicteric sclerae Neck: trachea midline, no thyromegaly Respiratory: normal respiratory effort, lungs clear to auscultation Cardiovascular: RRR, no murmur, no edema Heart Sounds: normal S1 and normal S2 Vessels: no JVD Gastrointestinal (Abdomen): normal bowel sounds, soft, nontender, no hepatosplenomegaly Skin: no rashes, warm and dry Neurologic: PERRL, EOMI, accommodation nl, no face palsy, no dysarthria Psychiatric: A+Ox3, euthymic affect Results & Data ([facility]) Vital Signs (Past 12 Hours) Vital Signs Pulse Pulse Resp BP Pulse Ox 08/25/19 08:00 75 105/42 L 08/25/19 00:17 75 22 95 Coding Level of Care Code 95765 Subseq Hosp Care Lvl 3 Diagnoses Septic shock A41.9; R65.21 Pneumonia J18.9 Pneumonia type: due to unspecified organism Hypoxia R09.02 CAD (coronary artery disease) I25.10 (1) Pneumonia Pneumonia type: due to unspecified organism
--- NOTE | 2019-08-25 18:29 | Hospitalist Progress Note ---
Date of Service August 25, 2019 Assessment & Plan (1) Septic shock: Hypotension Meet sepsis criteria on admission with fever, tachycardia and required pressor Blood cx positive for gram positive cocci in clusters- MRSA Received Levaquin, Zosyn and Vanco in the ER Continue on Linezolid BID Continue pressor with norepinephrine Repeat blood cx positive for gram positive cocci in clusters Procalcitonin and WBC trending down today ECHO Echo showed left ventricular wall motion is normal. No vegetation noted on echo report. ejection fraction 55 to 60%. Will talk to cardio to review ECHO for any vegetation ID on board recommended to change abx to Dapto to complete 6 weeks course Will repeat blood cx in AM Elevated Troponin Mostly related to demand ischemia from septic shock Trop on admission 0.056 then increased to 0.173, now trending down to 0.16 ECHO showed no wall motion abnormality with EF 55-60 % Denies any chest pain Continue aspirin 81mg Pneumonia CXR showed Left basilar infiltrate IV Zosyn was discontinued Currently on Linezolid Will change abx to levaquin since Dapto has no pulmonary coverage Clinically stable Chronic Diastolic CHF CXR showed Congestive failure with a superimposed left basilar infiltrate. Lasix was on hold due to hypotension and was on pressor Will resume Lasix tomorrow if BP stable Electrolytes Imbalance stable Monitor electrolytes Elevated WBC Mostly due to acute infection in the setting of steroid WBC improved to 27 today Blood cx on 08/23 positive for MRSA Repeat blood cx collected on positive for gram positive cocci Will change abx to dapto Will repeat blood cx Monitor CBC CAD Continue aspirin and statin Denies any chest pain CODE STATUS Full code Disposition Continue monitor in the ICU Admission and Anticipated Discharge Date Admission Date: August 23, 2019 Subjective Pt was seen and examined Sitting in chair with no distress Pt said that he is starting to feel better He said that his strength improves Denies any chest pain, palpitation, dizziness and SOB Physical Exam Physical Exam: General- No acute distress Head- atraumatic, +dressing on left side of the face Eyes- PERRL, EOMI, ENT- oropharynx clear Neck- supple, no JVD Lungs- clear to auscultation Heart- regular rhythm; no murmur Abdomen- normal bowel sounds, soft, nontender Extremities- no calf tenderness Neuro- alert, oriented x 3; PERRL, EOMI; no facial palsy; no dysarthria Skin- warm & dry Results & Data ([facility]) Vital Signs (Past 12 Hours) Vital Signs Temp Pulse Pulse Resp BP Pulse Ox 08/25/19 17:09 96 H 30 H 111/58 L 96 08/25/19 17:00 75 21 96 08/25/19 16:30 130 H 23 97 08/25/19 16:09 75 15 105/59 L 97 08/25/19 16:00 75 15 98 08/25/19 15:30 36.8 C 75 21 95 08/25/19 15:18 75 25 H 99/55 L 96 08/25/19 15:00 75 19 96 08/25/19 14:30 75 15 96 08/25/19 14:00 75 13 98 08/25/19 13:30 90 08/25/19 13:10 77 16 97 08/25/19 08:06 78 16 91 08/25/19 08:00 75 105/42 L
[2019-08-25] MEDS ORDERED: DAPTOmycin 500 MG VIAL IV SCH (18:45)
[2019-08-25] MEDS ORDERED: DAPTOmycin 425 MG in SYRINGE 0 ML IV SCH (20:00)
[2019-08-25] MEDS: levoFLOXacin 750 MG TAB PO SCH (20:01)
[2019-08-25] MEDS: FINASTERIDE 5 MG TAB PO SCH (20:02)
[2019-08-25] MEDS: LATANOPROST 0.005% OP SOLN 2.5 ML BTL OPR SCH (20:03)
[2019-08-25] MEDS: NOREPINEPHRINE BIT INJ 8 MG in DEXTROSE 5% 500 ML IV SCH ×2 (21:37→21:38)
[2019-08-26] MEDS: IPRATROPIUM BROMIDE NEB SOLN 0.02% 2.5 ML VIAL INH SCH ×4 (01:05→19:34)
[2019-08-26] MEDS: LEVALBUTEROL 1.25MG/0.5ML NEB INH SCH ×4 (01:06→19:34)
[2019-08-26] MEDS: HEPARIN SOD 5,000 UNIT/0.5 ML VIAL SQ SCH ×4 (01:23→23:36)
[2019-08-26 05:14] LABS: Hematocrit (blood only) 23.8 % (42-52); Hemoglobin 8.1 g/dL (14.0-18.0); Immature Granulocytes # (auto) 0.06 K/uL (0.00-0.02); Immature Granulocytes % (auto) 0.4 %; Lymphocytes # (auto) 0.95 K/uL (1.2-3.4); Mean Corpuscular Hemoglobin 35.8 pg (25-34); Mean Corpuscular Volume 105.3 fL (80-100); Mean Platelet Volume 11.7 fL (7.4-10.4); Monocytes # (auto) 0.91 K/uL (0.11-0.59); Monocytes % (auto) 5.8 %; Neutrophils # (auto) 13.88 K/uL (1.4-6.5); Neutrophils % (auto) 87.8 %; Platelet Count 122 K/uL (130-400); RDW Coefficient of Variation 15.2 % (11.5-14.5); RDW Standard Deviation 58.6 fL (36.4-46.3); Red Blood Count 2.26 M/uL (4.7-6.1)
[2019-08-26 05:39] LABS: Albumin Level 2.4 gm/dl (3.4-5.0); BUN Creatinine Ratio 22.9 (10-20); Calcium 7.8 mg/dl (8.5-10.1); Creatinine Clr Calc Pharmacy 46.2 ml/min; Est GFR (African American) 64.6; Est GFR (Non-African American) 55.8; Magnesium 2.3 mg/dl (1.8-2.4); Potassium 4.3 mmol/L (3.5-5.1)
[2019-08-26 05:42] LABS: Albumin Globulin Ratio 0.8 (0.9-2); Bilirubin,Total 0.3 mg/dl (0.2-1); Phosphorus 2.6 mg/dl (2.5-4.9); Total Protein 5.4 gm/dl (6.4-8.2)
--- NOTE | 2019-08-26 09:28 | Infectious Disease Progress Nt ---
Date of Service August 26, 2019 Assessment & Plan (1) Gram positive sepsis: ? related to recent surgery, repeat blood cultures +, follow repeat cultures, currently pending. echo negative but with AVR and likely 6 weeks IV abx due to repeat + blood culture. Admission and Anticipated Discharge Date Admission Date: August 23, 2019 Subjective echo without veg. repeat blood cultures 08/24 pending, previous cultures 08/23 and + MRSA, on dapto. tolerating well now on norepi. remains in ICU, afebrile overnight. wbc improved to 15 from 27 Results & Data ([facility]) Vital Signs (Past 12 Hours) Vital Signs Temp Pulse Pulse Resp Pulse Ox 08/26/19 08:00 75 08/26/19 07:03 79 18 97 08/26/19 01:09 76 16 96 08/26/19 01:00 75 19 94 08/26/19 00:00 36.5 C 76 22 93 08/25/19 23:00 77 20 95 08/25/19 22:00 82 17 92 Laboratory Results Microbiology 08/24/19 05:21 Blood Aerobic Blood Culture - Preliminary Staph aureus MRSA 08/24/19 05:21 Blood Anaerobic Blood Culture - Preliminary No growth in Anaerobic bottle after 48 hours. 08/24/19 05:10 Blood Aerobic Blood Culture - Preliminary Staph aureus MRSA 08/24/19 05:10 Blood Anaerobic Blood Culture - Preliminary No growth in Anaerobic bottle after 48 hours. 08/23/19 05:35 Blood Aerobic Blood Culture - Final Staph aureus MRSA 08/23/19 05:35 Blood Anaerobic Blood Culture - Final Staph aureus MRSA 08/23/19 05:22 Blood Aerobic Blood Culture - Final Staph aureus MRSA 08/23/19 05:22 Blood Anaerobic Blood Culture - Final Staph aureus MRSA PG Care Time/CCT Total # of Minutes Spent Total Time Spent with Patient: Total time spent is greater than 50% in coordination of care (as documented) at patient's floor/unit and/or counseling patient: Coding Level of Care Code 93069 Subseq Hosp Care Lvl 1 Diagnoses Gram positive sepsis A41.89
[2019-08-26] MEDS ORDERED: CEFTAROLINE FOSAMIL ACETATE 600 MG in SODIUM CHLORIDE 0.9% 250 ML IV SCH ×2 (09:30→10:30)
--- NOTE | 2019-08-26 09:45 | Critical Care Progress Note ---
Date of Service August 26, 2019 Assessment & Plan (1) Septic shock: Reason Critically Ill: 83-year-old male with septic shock and hypotension requiring vasopressors, hypoxic respiratory failure. Also found to be bacteremic with MRSA. Neuro: [facility] ICU: Negative Altered Mental Status - resolved. Cardiac: Hypotension -resolved -A-line discontinued -We will continue to hold antihypertensives for now as BP is remained soft but within normal limits, will resume with caution Hx CHF -cardiac echo: LVEF 55 to 60%, grade 1 diastolic dysfunction, moderate valvular aortic stenosis - Patient with ICD/pacer -CT imaging with trace pleural effusions with right lung opacities, most pronounced within the right lung base suggestive of pneumonia Hx CAD sp CABG -troponin was elevated but now down trended and this likely contributed to septic shock with demand ischemia -Continue home aspirin and simvastatin regimen Aortic regurgitation status post bioprosthetic AVR - stable Respiratory: Pneumoniaappears to be most pronounced in the right lower lobe on CT chest -Patient currently on 2L NC, uses 2L NC at home. -MRSA swab positive, first set blood cultures positive for MRSA, repeats positive MRSA as well; Continue daptomycin per ID recommendations for 6-week course -Will add on Ceftaroline 600mg IV BID x7-10 days as well for lung penetration. Can discontinue atypical coverage with levofloxacin -Continue pulmonary toileting and nebs -Continuous monitoring on pulse ox Elevated right hemidiaphragm secondary to right diaphragmatic hemiparesis - chronic, secondary to CABG complication. Hx COPD - patient has baseline requirement of 2L via NC when resting, 4L when ambulating. Currently maintaining sats on 2L NC, will continue home inhalers GI: Speech eval placed for swallowing study. Heart healthy diet RENAL/LYTES: Creatinine stable, trend with routine BMPs Monitor electrolytes and replete as necessary : Strict I's and O's Continue Proscar for BPH ENDO: No history diabetes or thyroid disease, ICU hyperglycemic protocol HEME: Chronic anemiaHgb typically runs 9-10 -We will monitor with routine CBCs and transfuse for hemoglobin less than 7 ID: Sepsis - patient met SIRS criteria on admission; suspect pulmonary source. CXR showing left lower lobar consolidation on admission. Now appears to have right- sided loculated pneumonia. WBC count elevated, downtrended to 15.80 this AM. Lactate negative. Patient febrile on arrival to 40 degrees celsius, tachycardic and tachypneic. -Blood cultures positive for MRSA x2 on initial cultures, second set positive MRSA as well. -Sputum culture negative - flu A and B negative on admission -Nasal MRSA swab positive -ID following, continue daptomycin for 6-week course per recommendations -Will also add Ceftaroline 600mg IV BID x7-10 days -Procalcitonin downtrending from 19.98 to 8.69 this AM -WBC down from 27 to 15 this AM LINES/IV ACCESS: R IJ CVC CODE STATUS: Full DVT PROPHYLAXIS: SCDs, heparin DISPO: Patient safe for downgrade from ICU Thank you for allowing us to participate in the care of this patient. Please refer to my attending physician's documentation for any further recommendations. (2) Hypotension: (3) Gram positive sepsis: (4) Pneumonia: Admission and Anticipated Discharge Date Admission Date: August 23, 2019 Supervising Physician Co-Signing Physician Notes Dr. Ortega was the resident-physician during care of patient. I separately evaluated patient for aragon portions of the history and the exam. I was present during the critical portion of medical decision making, and I discussed the case with the resident. I generally agree with the findings and plan except for any additions/exceptions noted. Patient seen and examined at bedside. No acute distress, no adverse events overnight. Patient said he is feeling much better after coming to the hospital. No more fever or chills. Shortness of breath is improved. Patient bringing up clear phlegm. Denies any chest pain. Patient has MRSA bacteremia the source is most likely right lower lobe pneumonia. Patient had right lower lobe pneumonia even in end of June 2019 which seems to be resolving on latest CAT scan but there is still consolidative process appreciated on top of the bronchiectasis which he had from the elevated right hemidiaphragm. Patient was started on daptomycin for bacteremia by ID. I will add ceftaroline for his pneumonia likely MRSA. Can DC levofloxacin. Patient had 2D echo transthoracic which was negative for any vegetations. There is a repeat blood culture ordered for today if there blood culture from today is again positive recommend TONIA to rule out vegetations. Patient is hemodynamically stable to be downgraded to medical floor. Patient recently had Mohs procedure done on the left cheek which came out to be basal cell carcinoma. Patient does have hematoma at the site but it is nontender and he has no cervical lymphadenopathy. This does not seem to be the source of infection. I have personally spent 30 minutes of critical care time in the direct management of this patient. This is a life/limb threatening event. This includes time spent evaluating patient, direct bedside care, chart review, placing orders, interpretation of diagnostic studies, discussion with consultants, patient, and/or family members regarding treatment decisions, as well as other required patient management activities. This time is exclusive of all separately billable procedures, and teaching time and separate from and in addition to any other critical care service time. Subjective States Patient seen at the bedside this morning. Noting that his breathing is easier and that he is feeling better. Review of Systems Constitutional: no fever and no chills Ear, Nose, Mouth, Throat: no hearing loss Respiratory: + cough; no dyspnea and no pain on inspiration Cardiovascular: no chest pain Gastrointestinal: no abdominal pain, no nausea and no vomiting Physical Exam Constitutional: cooperative and comfortable; no acute distress and not ill appearing Eyes: PERRL, conjunctivae normal, anicteric sclerae ENMT: Nose: no facial crepitus and no facial tenderness Dressing on L cheek clean and dry. Neck: trachea midline, no thyromegaly Respiratory: normal respiratory effort, lungs clear to auscultation Cardiovascular: RRR, no murmur, no edema Heart Sounds: normal S1 and normal S2 Vessels: no JVD Extremities: no edema Gastrointestinal (Abdomen): normal bowel sounds, soft, nontender, no hepatosplenomegaly Skin: no rashes, warm and dry Neurologic: PERRL, EOMI, accommodation nl, no face palsy, no dysarthria Psychiatric: A+Ox3, euthymic affect Results & Data ([facility]) Vital Signs (Past 12 Hours) Vital Signs Temp Pulse Pulse Resp Pulse Ox 08/26/19 08:00 75 08/26/19 07:03 79 18 97 08/26/19 01:09 76 16 96 08/26/19 01:00 75 19 94 08/26/19 00:00 36.5 C 76 22 93 08/25/19 23:00 77 20 95 08/25/19 22:00 82 17 92 08/26/19 04:58 08/26/19 04:58 Critical Care Time Critical Care Time: Yes Total Critical Care Time: 35 Resident Activity Tracking Resident Involvement: Resident Care Provided Care Provided: Adult Hospital Medicine (1) Pneumonia Laterality: bilateral Lung location: lower lobe of lung Pneumonia type: due to unspecified organism Qualified Code(s): J18.9 - Pneumonia, unspecified organism
[2019-08-26] MEDS: CEROVITE ADV FORMULA TAB PO SCH (11:02)
[2019-08-26] MEDS: predniSONE 20 MG TAB PO SCH (11:02)
[2019-08-26] MEDS: ASPIRIN 81 MG CHEW PO SCH (11:02)
[2019-08-26] MEDS: FLUTICASONE/VILANTEROL 100/25MCG 14 PUFFS/INHALER INH SCH (11:02)
[2019-08-26] MEDS: BRIMONIDINE TARTRATE (ALPHAGAN P) 5 ML DROPS OP SCH (11:03)
[2019-08-26] MEDS: FLUTICASONE PROPIONATE NA SPR 16 GM BTL SCH ×2 (11:03→21:43)
--- NOTE | 2019-08-26 12:48 | Billing Data ---
Date of Service August 26, 2019 Coding Level of Care Code Critical Care 1st 30-74 mins Time Spent (min) 35
--- NOTE | 2019-08-26 13:05 | Hospitalist Progress Note ---
Date of Service August 26, 2019 Assessment & Plan (1) Septic shock: Hypotension Meet sepsis criteria on admission with fever, tachycardia and required pressor Blood cx positive for gram positive cocci in clusters- MRSA Received Levaquin, Zosyn and Vanco in the ER Continue on Linezolid BID Continue pressor with norepinephrine Repeat blood cx on positive for gram positive cocci in clusters- MRSA Procalcitonin and WBC trending down today ECHO Echo showed left ventricular wall motion is normal. No vegetation noted on echo report. ejection fraction 55 to 60%. Will talk to cardio to review ECHO for any vegetation ID on board recommended to change abx to Dapto to complete 6 weeks course Repeat blood cx today Will need PICC line once blood cx negative Elevated Troponin Mostly related to demand ischemia from septic shock Trop on admission 0.056 then increased to 0.173, now trending down to 0.16 ECHO showed no wall motion abnormality with EF 55-60 % Denies any chest pain Continue aspirin 81mg Pneumonia Possible MRSA pneumonia CXR showed Left basilar infiltrate Nasal swab positive MRSA Blood cx positive for MRSA Levaquin discontinued Starting on Ceftaroline for Lung penetration since Dapto has no lung coverage Clinically stable Chronic Diastolic CHF CXR showed Congestive failure with a superimposed left basilar infiltrate. Lasix was on hold due to hypotension and was on pressor Will resume Lasix tomorrow if BP stable Electrolytes Imbalance stable Monitor electrolytes Elevated WBC Mostly due to acute infection in the setting of steroid WBC continue to improve to 15K today Blood cx on 08/23 positive for MRSA Repeat blood cx collected on positive for gram positive cocci -MRSA Continue Dapto and Ceftaroline Repeat blood cx today Monitor CBC Anemia Hgb dropped to 8.1 Monitor H/H and if drops below 8, will transfuse CAD Continue aspirin and statin Denies any chest pain CODE STATUS Full code Disposition Will downgrade to [facility] tele Admission and Anticipated Discharge Date Admission Date: August 23, 2019 Subjective Pt was seen and examined Lying in bed with no distress Pt said that he is feeling much better He said that his strength is much better He said that he is able to walk to the bathroom now Denies any chest pain, palpitation, dizziness and fever Physical Exam Physical Exam: General- No acute distress Head- atraumatic, +dressing on left side of the face Eyes- PERRL, EOMI, ENT- oropharynx clear Neck- supple, no JVD Lungs- clear to auscultation Heart- regular rhythm; no murmur Abdomen- normal bowel sounds, soft, nontender Extremities- no calf tenderness Neuro- alert, oriented x 3; PERRL, EOMI; no facial palsy; no dysarthria Skin- warm & dry Results & Data ([facility]) Vital Signs (Past 12 Hours) Vital Signs Pulse Pulse Resp Pulse Ox 08/26/19 08:00 75 08/26/19 07:03 79 18 97 08/26/19 01:09 76 16 96 08/26/19 01:00 75 19 94
[2019-08-26] MEDS: DAPTOmycin 575 MG in SYRINGE 0 ML IV SCH (17:06)
[2019-08-26] MEDS: LATANOPROST 0.005% OP SOLN 2.5 ML BTL OPR SCH (21:42)
[2019-08-26] MEDS: FINASTERIDE 5 MG TAB PO SCH (21:42)
[2019-08-26] MEDS: CEFTAROLINE FOSAMIL ACETATE 600 MG in SODIUM CHLORIDE 0.9% 250 ML IV SCH (21:50)
[2019-08-27] MEDS: LEVALBUTEROL 1.25MG/0.5ML NEB INH SCH ×4 (01:14→20:29)
[2019-08-27] MEDS: IPRATROPIUM BROMIDE NEB SOLN 0.02% 2.5 ML VIAL INH SCH ×4 (01:15→20:29)
[2019-08-27] MEDS: ASPIRIN 81 MG CHEW PO SCH (08:07)
[2019-08-27] MEDS: predniSONE 20 MG TAB PO SCH (08:07)
[2019-08-27] MEDS: CEROVITE ADV FORMULA TAB PO SCH (08:08)
[2019-08-27] MEDS: FLUTICASONE/VILANTEROL 100/25MCG 14 PUFFS/INHALER INH SCH (08:08)
[2019-08-27] MEDS: FLUTICASONE PROPIONATE NA SPR 16 GM BTL SCH ×2 (08:08→21:13)
[2019-08-27] MEDS: HEPARIN SOD 5,000 UNIT/0.5 ML VIAL SQ SCH ×2 (08:09→17:28)
[2019-08-27] MEDS: BRIMONIDINE TARTRATE (ALPHAGAN P) 5 ML DROPS OP SCH (08:09)
[2019-08-27 08:29] LABS: Hematocrit (blood only) 24.3 % (42-52); Hemoglobin 8.3 g/dL (14.0-18.0); Mean Corpuscular Hemoglobin 35.6 pg (25-34); Mean Corpuscular Hgb Conc 34.2 g/dL (32-36); Mean Corpuscular Volume 104.3 fL (80-100); Mean Platelet Volume 11.4 fL (7.4-10.4); Platelet Count 128 K/uL (130-400); RDW Coefficient of Variation 15.4 % (11.5-14.5); RDW Standard Deviation 58.6 fL (36.4-46.3); Red Blood Count 2.33 M/uL (4.7-6.1); White Blood Count 10.67 K/uL (4.8-10.8)
[2019-08-27 09:04] LABS: BUN Creatinine Ratio 26.3 (10-20); Calcium 8.5 mg/dl (8.5-10.1); Est GFR (Non-African American) 56.9
[2019-08-27] MEDS: CEFTAROLINE FOSAMIL ACETATE 600 MG in SODIUM CHLORIDE 0.9% 250 ML IV SCH (10:01)
[2019-08-27] MEDS: levoFLOXacin 750 MG TAB PO SCH (11:44)
--- NOTE | 2019-08-27 12:00 | Infectious Disease Progress Nt ---
Date of Service August 27, 2019 Assessment & Plan (1) Gram positive sepsis: ? related to recent surgery, repeat blood cultures +, follow repeat cultures, currently pending. echo negative but with AVR and likely 6 weeks IV abx due to repeat + blood culture. can stop dapto and continue with ceftaroline Admission and Anticipated Discharge Date Admission Date: August 23, 2019 Subjective transferred from ICU, remains on dapto, ceftaroline added due to concern for pna 08/23, cultures growing MRSA, 08/24 negative to date, echo negative. wbc improved to 10. Results & Data ([facility]) Vital Signs (Past 12 Hours) Vital Signs Temp Pulse Resp BP Pulse Ox 08/27/19 11:17 36.7 C 86 18 110/61 91 08/27/19 07:38 80 18 93 08/27/19 07:14 36.8 C 89 18 121/64 93 08/27/19 04:55 36.9 C 87 15 117/66 94 08/27/19 01:15 86 18 95 Laboratory Results Microbiology 08/26/19 04:58 Blood Aerobic Blood Culture - Preliminary No growth in Aerobic bottle after 24 hours. 08/26/19 04:58 Blood Anaerobic Blood Culture - Preliminary No growth in Anaerobic bottle after 24 hours. 08/26/19 05:02 Blood Aerobic Blood Culture - Preliminary No growth in Aerobic bottle after 24 hours. 08/26/19 05:02 Blood Anaerobic Blood Culture - Preliminary No growth in Anaerobic bottle after 24 hours. 08/24/19 05:21 Blood Aerobic Blood Culture - Preliminary Staph aureus MRSA 08/24/19 05:21 Blood Anaerobic Blood Culture - Preliminary No growth in Anaerobic bottle after 48 hours. 08/24/19 05:10 Blood Aerobic Blood Culture - Preliminary Staph aureus MRSA 08/24/19 05:10 Blood Anaerobic Blood Culture - Preliminary No growth in Anaerobic bottle after 48 hours. 08/23/19 05:35 Blood Aerobic Blood Culture - Final Staph aureus MRSA 08/23/19 05:35 Blood Anaerobic Blood Culture - Final Staph aureus MRSA 08/23/19 05:22 Blood Aerobic Blood Culture - Final Staph aureus MRSA 08/23/19 05:22 Blood Anaerobic Blood Culture - Final Staph aureus MRSA PG Care Time/CCT Total # of Minutes Spent Total Time Spent with Patient: Total time spent is greater than 50% in coordination of care (as documented) at patient's floor/unit and/or counseling patient: Coding Level of Care Code 08851 Subseq Hosp Care Lvl 1 Diagnoses Gram positive sepsis A41.89
[2019-08-27] MEDS: DAPTOmycin 575 MG in SYRINGE 0 ML IV SCH (17:28)
--- NOTE | 2019-08-27 20:21 | Hospitalist Progress Note ---
Date of Service August 27, 2019 Assessment & Plan (1) Septic shock: Hypotension Meet sepsis criteria on admission with fever, tachycardia and required pressor Blood cx positive for gram positive cocci in clusters- MRSA Received Levaquin, Zosyn and Vanco in the ER Continue on Linezolid BID Continue pressor with norepinephrine Repeat blood cx on positive for gram positive cocci in clusters- MRSA Procalcitonin and WBC trending down today ECHO Echo showed left ventricular wall motion is normal. No vegetation noted on echo report. ejection fraction 55 to 60%. Will talk to cardio to review ECHO for any vegetation ID on board recommended to change Dapto to Ceftaroline to complete 6 weeks course Repeat blood cx on 08/25 no growth so far WBC trending down to normal Will need PICC line once blood cx negative (Consent signed for PICC line) If Blood cx remains negative tomorrow, will place order for PICC Elevated Troponin Mostly related to demand ischemia from septic shock Trop on admission 0.056 then increased to 0.173, now trending down to 0.16 ECHO showed no wall motion abnormality with EF 55-60 % Denies any chest pain Continue aspirin 81mg Pneumonia Possible MRSA pneumonia CXR showed Left basilar infiltrate Nasal swab positive MRSA Blood cx positive for MRSA Levaquin discontinued Continue Ceftaroline for Lung penetration since Dapto has no lung coverage Clinically stable Chronic Diastolic CHF CXR showed Congestive failure with a superimposed left basilar infiltrate. Lasix was on hold due to hypotension and was on pressor Will resume Lasix tomorrow if BP stable Electrolytes Imbalance stable Monitor electrolytes Elevated WBC Mostly due to acute infection in the setting of steroid WBC continue to improve to 15K today Blood cx on 08/23 positive for MRSA Repeat blood cx collected on positive for gram positive cocci -MRSA Continue Dapto and Ceftaroline Repeat blood cx on 08/25 no growth so far Monitor CBC Anemia Hgb dropped to 8.3 today Monitor H/H and if drops below 8, will transfuse CAD Continue aspirin and statin Denies any chest pain CODE STATUS Full code Disposition Will need IV abx for 6 weeks Will need PICC line Admission and Anticipated Discharge Date Admission Date: August 23, 2019 Subjective Pt was seen and examined Lying in bed with no distress Pt said that he is feeling much better He said that he walked with therapy today Denies any chest pain, palpitation, dizziness and SOB Physical Exam Physical Exam: General- No acute distress Head- atraumatic, +dressing on left side of the face Eyes- PERRL, EOMI, ENT- oropharynx clear Neck- supple, no JVD Lungs- clear to auscultation Heart- regular rhythm; no murmur Abdomen- normal bowel sounds, soft, nontender Extremities- no calf tenderness Neuro- alert, oriented x 3; PERRL, EOMI; no facial palsy; no dysarthria Skin- warm & dry, Ecchymoses Results & Data ([facility]) Vital Signs (Past 12 Hours) Vital Signs Temp Pulse Pulse Resp BP Pulse Ox 08/27/19 20:12 139 H 08/27/19 20:11 87 08/27/19 15:57 36.9 C 80 20 121/68 97 08/27/19 13:57 88 16 93 08/27/19 11:17 36.7 C 86 18 110/61 91
[2019-08-27] MEDS: FINASTERIDE 5 MG TAB PO SCH (21:13)
[2019-08-27] MEDS: CEFTAROLINE FOSAMIL ACETATE 400 MG in SODIUM CHLORIDE 0.9% 250 ML IV SCH (21:14)
[2019-08-27] MEDS: LATANOPROST 0.005% OP SOLN 2.5 ML BTL OPR SCH (21:14)
[2019-08-28] MEDS: LEVALBUTEROL 1.25MG/0.5ML NEB INH SCH ×4 (01:37→19:09)
[2019-08-28] MEDS: IPRATROPIUM BROMIDE NEB SOLN 0.02% 2.5 ML VIAL INH SCH ×4 (01:37→19:08)
[2019-08-28] MEDS: HEPARIN SOD 5,000 UNIT/0.5 ML VIAL SQ SCH ×3 (02:03→18:54)
[2019-08-28 08:59] LABS: Hematocrit (blood only) 24.8 % (42-52); Hemoglobin 8.3 g/dL (14.0-18.0); Mean Corpuscular Hemoglobin 35.2 pg (25-34); Mean Corpuscular Hgb Conc 33.5 g/dL (32-36); Mean Corpuscular Volume 105.1 fL (80-100); Mean Platelet Volume 10.9 fL (7.4-10.4); Platelet Count 128 K/uL (130-400); RDW Coefficient of Variation 15.6 % (11.5-14.5); RDW Standard Deviation 59.1 fL (36.4-46.3); Red Blood Count 2.36 M/uL (4.7-6.1); White Blood Count 8.11 K/uL (4.8-10.8)
[2019-08-28] MEDS: CEFTAROLINE FOSAMIL ACETATE 400 MG in SODIUM CHLORIDE 0.9% 250 ML IV SCH ×2 (09:03→20:18)
[2019-08-28] MEDS: CEROVITE ADV FORMULA TAB PO SCH (09:04)
[2019-08-28] MEDS: FLUTICASONE/VILANTEROL 100/25MCG 14 PUFFS/INHALER INH SCH (09:05)
[2019-08-28] MEDS: BRIMONIDINE TARTRATE (ALPHAGAN P) 5 ML DROPS OP SCH (09:06)
[2019-08-28] MEDS: FLUTICASONE PROPIONATE NA SPR 16 GM BTL SCH ×2 (09:07→20:18)
[2019-08-28 09:28] LABS: Calcium 8.8 mg/dl (8.5-10.1); Creatinine Clr Calc Pharmacy 45.4 ml/min; Est GFR (African American) 63.3; Est GFR (Non-African American) 54.6; Potassium 3.6 mmol/L (3.5-5.1)
[2019-08-28] MEDS: ASPIRIN 81 MG CHEW PO SCH (10:17)
[2019-08-28] MEDS ORDERED: POLYETHYLENE (MIRALAX) 17 GM PACK PO PRN (19:21)
[2019-08-28] MEDS ORDERED: POLYETHYLENE (MIRALAX) 17 GM PACK PO STA (19:51)
[2019-08-28] MEDS: FINASTERIDE 5 MG TAB PO SCH (20:18)
[2019-08-28] MEDS: LATANOPROST 0.005% OP SOLN 2.5 ML BTL OPR SCH (20:18)
--- NOTE | 2019-08-28 20:27 | Hospitalist Progress Note ---
Date of Service August 28, 2019 Assessment & Plan (1) Septic shock: Presented to ED with cough, shortness of breath, confusion. Met criteria for sepsis per current CMS guidelines-fever, tachycardia, tachypnea, leukocytosis. Lactate was 1.5. Procalcitonin was 26.04. Persistent hypotension despite fluid resuscitation. Required pressor support with norepinephrine. Blood cultures obtained and started on broad-spectrum antibiotic coverage with piperacillin/tazobactam and levofloxacin. Chest x-ray demonstrated left basilar infiltrate. Nasopharyngeal swab negative for influenza A/B. Nasal MRSA screen was positive. Vancomycin added for MRSA coverage. Received intravenous steroids for possible adrenal insufficiency. Admitted to ICU and Critical Care Medicine was consulted. ID was consulted as well. Blood cultures subsequently grew MRSA. Transitioned to ceftaroline. Transthoracic echocardiogram performed and did not show any apparent valvular vegetations. Nevertheless, must consider possibility of endocarditis in light of bioprosthetic aortic valve replacement. 6-week course of IV antibiotics recommended. Repeat blood cultures on showed persistent MRSA bacteremia. Repeat blood cultures drawn on 08/26/2019- thus far. Check repeat blood cultures with morning labs. Request PICC placement once clearance of bacteremia confirmed. (2) Bacteremia due to methicillin resistant Staphylococcus aureus: As noted above. (3) Pneumonia: As noted above. (4) Altered mental status: Encephalopathy secondary to sepsis. Resolved. (5) Acute and chronic respiratory failure with hypoxia: History of chronic nocturnal hypoxia on home nocturnal O2. O2 saturations as low as 87% associated with tachypnea at time of admission with associated tachypnea. Acute on chronic hypoxic respiratory failure. Received supplemental oxygen as necessary; now weaned to nasal cannula. (6) Anemia: Recent baseline hemoglobin 9.5-11. Hemoglobin at time of admission was 10.2. Hemoglobin today = 8.3. Anemia probably secondary to acute illness / sepsis. Check Fe studies and stools for OB. Follow. (7) CAD (coronary artery disease): Slightly elevated troponin probably secondary to sepsis rather than acute coronary syndrome. Echocardiogram showed normal left ventricular wall motion and systolic function. Metoprolol was held because of septic shock. Hemodynamics improved, so metoprolol will be resumed. Continue aspirin, statin. (8) Aortic valve replaced: Echocardiogram demonstrated bioprosthetic aortic valve with moderate calcification and moderate aortic stenosis. (9) Chronic diastolic HF (heart failure): Admission chest x-ray showed some degree of pulmonary vascular congestion. Echocardiogram showed moderate LVH, normal left ventricular wall motion, LVEF of 55-60%, grade 1 diastolic dysfunction. Acute on chronic left ventricular diastolic heart failure. Check follow-up chest x-ray. (10) Hypertension: Metoprolol and terazosin were held at time of admission because of septic shock. Resume metoprolol. Follow and titrate therapy. (11) Ventricular tachyarrhythmia: History of ventricular tachycardia. Status post ICD. Resume metoprolol. (12) COPD (chronic obstructive pulmonary disease): Exacerbation of COPD at time of admission secondary to pneumonia with associated acute on chronic hypoxic respiratory failure. Respiratory status improved. Continue usual pulmonary medications. (13) DVT prophylaxis: Subcutaneous heparin. Ambulate. (14) Discharge planning issues: Anticipated discharge to home with PICC / IV antibiotics. Family Medicine follow-up with Dr. An Simon. Cardiology follow-up with Dr. Ludin Simon. Admission and Anticipated Discharge Date Admission Date: August 23, 2019 Subjective Recheck for multiple problems. Patient seen in their room around 1520. Feels much better. No fever. Malaise improved. Review of Systems: Constitutional- as noted above Cardiac- no chest pain. Pulmonary- no cough or SOB. GI- no nausea, vomiting, diarrhea, melena, hematochezia. - no urinary symptoms. Otherwise, as noted above. Physical Exam Constitutional: no acute distress Respiratory: no respiratory distress Auscultation: lungs clear to auscultation bilaterally Cardiovascular: Rate/Rhythm: regular rate and regular rhythm Heart Sounds: + murmur (II/ sys murmur at base); no gallop and no cardiac rub Extremities: + edema (trace pretibial); no calf tenderness Gastrointestinal (Abdomen): normal bowel sounds, soft, nontender, no hepa tosplenomegaly Musculoskeletal: Extremities: no cyanosis Skin: no rashes, warm and dry Psychiatric: Orientation: alert and oriented x 3 Results & Data ([facility]) Vital Signs (Past 12 Hours) Vital Signs Temp Pulse Pulse Resp BP Pulse Ox Pulse Ox 08/28/19 19:10 83 16 93 08/28/19 19:09 36.6 C 90 22 112/64 95 08/28/19 17:06 82 08/28/19 16:32 36.4 C L 84 20 110/61 94 08/28/19 14:32 85 18 95 08/28/19 14:23 91 08/28/19 11:04 97 H 18 119/61 90 Pulse Ox 08/28/19 19:10 08/28/19 19:09 08/28/19 17:06 08/28/19 16:32 08/28/19 14:32 08/28/19 14:23 91 08/28/19 11:04 Laboratory Results 08/28/19 08:39 08/28/19 08:39 Microbiology 08/26/19 04:58 Blood Aerobic Blood Culture - Preliminary No growth in Aerobic bottle after 48 hours. 08/26/19 04:58 Blood Anaerobic Blood Culture - Preliminary No growth in Anaerobic bottle after 48 hours. 08/26/19 05:02 Blood Aerobic Blood Culture - Preliminary No growth in Aerobic bottle after 48 hours. 08/26/19 05:02 Blood Anaerobic Blood Culture - Preliminary No growth in Anaerobic bottle after 48 hours. 08/24/19 05:21 Blood Aerobic Blood Culture - Preliminary Staph aureus MRSA 08/24/19 05:21 Blood Anaerobic Blood Culture - Preliminary No growth in Anaerobic bottle after 48 hours. 08/24/19 05:10 Blood Aerobic Blood Culture - Preliminary Staph aureus MRSA 08/24/19 05:10 Blood Anaerobic Blood Culture - Preliminary No growth in Anaerobic bottle after 48 hours. 08/23/19 05:35 Blood Aerobic Blood Culture - Final Staph aureus MRSA 08/23/19 05:35 Blood Anaerobic Blood Culture - Final Staph aureus MRSA 08/23/19 05:22 Blood Aerobic Blood Culture - Final Staph aureus MRSA 08/23/19 05:22 Blood Anaerobic Blood Culture - Final Staph aureus MRSA (1) Pneumonia Pneumonia type: due to unspecified organism
[2019-08-29] MEDS ORDERED: XOPENEX/ATROVENT 0.63mg/0.5MG NEB COMBO NEB PRN (00:10)
[2019-08-29] MEDS ORDERED: IPRATROPIUM BROMIDE NEB SOLN 0.02% 2.5 ML VIAL INH PRN (00:15)
[2019-08-29] MEDS ORDERED: LEVALBUTEROL HCL 0.63 MG/3 ML NEB NEB PRN (00:15)
[2019-08-29] MEDS: HEPARIN SOD 5,000 UNIT/0.5 ML VIAL SQ SCH ×3 (00:17→16:45)
--- NOTE | 2019-08-29 08:14 | XRay Report ---
SINGLE VIEW CHEST CLINICAL HISTORY: CHF. FINDINGS: An AP, portable, upright chest radiograph is compared to study dated 08/23/2019 and correlat ed with chest CT dated 08/24/2019. The examination is degraded by portable technique and patient rotat ion. A right internal jugular central venous catheter has been removed. The patient is status post mi dline sternotomy and cardiac valve surgery. A 3-lead cardiac AICD is unchanged in position and partia lly obscures the left mid chest. Heart is enlarged noting atherosclerotic calcification of the thorac ic aorta. The pulmonary vasculature is noncongested. There is dense right basilar consolidation. Mild consolidative changes at the left lung base. Bilateral pleural effusions are noted. No pneumothorax is seen. The skeletal structures are osteopenic. The bony thorax is grossly intact. IMPRESSION: 1. Cardiomegaly and AICD. There is no radiographic evidence of congestive failure. 2. There is dense right basilar consolidation typical in appearance for pneumonia. Mild consolidative change is seen at the left lung base. 3. Bilateral pleural effusions. ACT 112: Negative or not required by law. Electronically signed by: Ned Croft M.D. 08/29/2019 8:13 AM
[2019-08-29] MEDS: CEFTAROLINE FOSAMIL ACETATE 400 MG in SODIUM CHLORIDE 0.9% 250 ML IV SCH ×2 (09:08→20:29)
[2019-08-29 09:09] LABS: Folate (Folic Acid) 9.42 ng/ml (>5.38)
[2019-08-29] MEDS: FLUTICASONE/VILANTEROL 100/25MCG 14 PUFFS/INHALER INH SCH (09:12)
[2019-08-29] MEDS: METOPROLOL SUCC 25MG EXT REL TAB PO SCH (09:12)
[2019-08-29] MEDS: FLUTICASONE PROPIONATE NA SPR 16 GM BTL SCH ×2 (09:12→20:28)
[2019-08-29 09:13] LABS: BUN Creatinine Ratio 20.1 (10-20); Calcium 8.8 mg/dl (8.5-10.1); Creatinine Clr Calc Pharmacy 45.4 ml/min; Est GFR (African American) 64.2; Est GFR (Non-African American) 55.4; Potassium 4.1 mmol/L (3.5-5.1)
[2019-08-29] MEDS: CEROVITE ADV FORMULA TAB PO SCH (09:13)
[2019-08-29] MEDS: BRIMONIDINE TARTRATE (ALPHAGAN P) 5 ML DROPS OP SCH (09:13)
[2019-08-29 09:16] LABS: Ferritin 493.1 ng/ml (8-388); Magnesium 1.9 mg/dl (1.8-2.4)
[2019-08-29] MEDS: ASPIRIN 81 MG CHEW PO SCH (09:20)
--- NOTE | 2019-08-29 09:29 | Infectious Disease Progress Nt ---
Date of Service August 29, 2019 Assessment & Plan (1) Gram positive sepsis: ? related to recent surgery, repeat blood cultures +, follow repeat cultures, negative, for picc. echo negative but with AVR and likely 6 weeks IV abx due to repeat + blood culture. can stop dapto and continue with ceftaroline will need weekly cbc, cmp, esr. ok for d/c when otherwise stable. Admission and Anticipated Discharge Date Admission Date: August 23, 2019 Subjective repeat cultures remain negative, afebrile. on ceftaroline, tolerating well. Results & Data ([facility]) Vital Signs (Past 12 Hours) Vital Signs Temp Pulse Pulse Resp BP Pulse Ox 08/29/19 07:59 36.8 C 79 18 109/63 93 08/29/19 03:34 36.8 C 81 18 110/62 94 08/29/19 02:24 79 08/29/19 00:15 36.8 C 80 20 112/63 94 Laboratory Results Microbiology 08/24/19 05:21 Blood Aerobic Blood Culture - Preliminary Staph aureus MRSA 08/24/19 05:21 Blood Anaerobic Blood Culture - Final No growth in Anaerobic bottle after 5 days. 08/24/19 05:10 Blood Aerobic Blood Culture - Preliminary Staph aureus MRSA 08/24/19 05:10 Blood Anaerobic Blood Culture - Final No growth in Anaerobic bottle after 5 days. 08/26/19 04:58 Blood Aerobic Blood Culture - Preliminary No growth in Aerobic bottle after 48 hours. 08/26/19 04:58 Blood Anaerobic Blood Culture - Preliminary No growth in Anaerobic bottle after 48 hours. 08/26/19 05:02 Blood Aerobic Blood Culture - Preliminary No growth in Aerobic bottle after 48 hours. 08/26/19 05:02 Blood Anaerobic Blood Culture - Preliminary No growth in Anaerobic bottle after 48 hours. 08/23/19 05:35 Blood Aerobic Blood Culture - Final Staph aureus MRSA 08/23/19 05:35 Blood Anaerobic Blood Culture - Final Staph aureus MRSA 08/23/19 05:22 Blood Aerobic Blood Culture - Final Staph aureus MRSA 08/23/19 05:22 Blood Anaerobic Blood Culture - Final Staph aureus MRSA PG Care Time/CCT Total # of Minutes Spent Total Time Spent with Patient: Total time spent is greater than 50% in coordination of care (as documented) at patient's floor/unit and/or counseling patient: Coding Level of Care Code 60489 Subseq Hosp Care Lvl 1 Diagnoses Gram positive sepsis A41.89
--- NOTE | 2019-08-29 19:58 | Hospitalist Progress Note ---
Date of Service August 29, 2019 Assessment & Plan (1) Septic shock: Presented to ED with cough, shortness of breath, confusion. Met criteria for sepsis per current CMS guidelines-fever, tachycardia, tachypnea, leukocytosis. Lactate was 1.5. Procalcitonin was 26.04. Persistent hypotension despite fluid resuscitation. Required pressor support with norepinephrine. Blood cultures obtained and started on broad-spectrum antibiotic coverage with piperacillin/tazobactam and levofloxacin. Chest x-ray demonstrated left basilar infiltrate. Nasopharyngeal swab negative for influenza A/B. Nasal MRSA screen was positive. Vancomycin added for MRSA coverage. Received intravenous steroids for possible adrenal insufficiency. Admitted to ICU and Critical Care Medicine was consulted. ID was consulted as well. Blood cultures subsequently grew MRSA. Transitioned to ceftaroline. Transthoracic echocardiogram performed and did not show any apparent valvular vegetations. Nevertheless, must consider possibility of endocarditis in light of bioprosthetic aortic valve replacement. 6-week course of IV antibiotics recommended. Repeat blood cultures on showed persistent MRSA bacteremia. Repeat blood cultures drawn on 08/26/2019 negative thus far. Repeat blood culture drawn today. Request PICC placement once clearance of bacteremia confirmed. (2) Bacteremia due to methicillin resistant Staphylococcus aureus: As noted above. (3) Pneumonia: As noted above. (4) Altered mental status: Encephalopathy secondary to sepsis. Resolved. (5) Acute and chronic respiratory failure with hypoxia: History of chronic nocturnal hypoxia on home nocturnal O2. O2 saturations as low as 87% associated with tachypnea at time of admission with associated tachypnea. Acute on chronic hypoxic respiratory failure. Received supplemental oxygen as necessary; now weaned to nasal cannula. (6) Anemia: Recent baseline hemoglobin 9.5-11. Hemoglobin at time of admission was 10.2. Hemoglobin yesterday = 8.3. Anemia probably secondary to acute illness / sepsis. Stools negative for occult blood. Serum iron 59, transferrin 143, ferritin 493, transferrin saturation 29%. Follow. (7) CAD (coronary artery disease): Slightly elevated troponin probably secondary to sepsis rather than acute coronary syndrome. Echocardiogram showed normal left ventricular wall motion and systolic function. Metoprolol was held because of septic shock. Hemodynamics improved, so metoprolol will be resumed. Continue aspirin, statin. (8) Aortic valve replaced: Echocardiogram demonstrated bioprosthetic aortic valve with moderate calcification and moderate aortic stenosis. (9) Chronic diastolic HF (heart failure): Admission chest x-ray showed some degree of pulmonary vascular congestion. Echocardiogram showed moderate LVH, normal left ventricular wall motion, LVEF of 55-60%, grade 1 diastolic dysfunction. Acute on chronic left ventricular diastolic heart failure. Follow-up chest x-ray today shows cardiomegaly, no CHF. (10) Hypertension: Metoprolol and terazosin were held at time of admission because of septic shock. Resume metoprolol. Follow and titrate therapy. (11) Ventricular tachyarrhythmia: History of ventricular tachycardia. Status post ICD. Resumed metoprolol. (12) COPD (chronic obstructive pulmonary disease): Exacerbation of COPD at time of admission secondary to pneumonia with associated acute on chronic hypoxic respiratory failure. Respiratory status improved. Continue usual pulmonary medications. (13) DVT prophylaxis: Subcutaneous heparin. Ambulate. (14) Discharge planning issues: Anticipated discharge to home with PICC / IV antibiotics. Family Medicine follow-up with Dr. An Simon. Cardiology follow-up with Dr. Ludin Simon. Admission and Anticipated Discharge Date Admission Date: August 23, 2019 Subjective Recheck for multiple problems. Patient seen in their room around 1320. Celebrating 84th birthday today. Has sutures left face from Moh's surgery that need to be removed. Feels much better. No fever. Review of Systems: Constitutional- as noted above Cardiac- no chest pain. Pulmonary- no cough or SOB. GI- no nausea, vomiting, diarrhea, melena, hematochezia. - no urinary symptoms. Otherwise, as noted above. Physical Exam Constitutional: no acute distress Respiratory: no respiratory distress Auscultation: lungs clear to auscultation bilaterally Cardiovascular: Rate/Rhythm: regular rate and regular rhythm Heart Sounds: + murmur (II/ sys murmur at base); no gallop and no cardiac rub Extremities: + edema (trace pretibial); no calf tenderness Gastrointestinal (Abdomen): normal bowel sounds, soft, nontender, no hepatosplenomegaly Musculoskeletal: Extremities: no cyanosis Skin: no rashes, warm and dry incision left cheek with surrounding ecchymoses, no drainage Psychiatric: Orientation: alert and oriented x 3 Results & Data ([facility]) Vital Signs (Past 12 Hours) Vital Signs Temp Pulse Pulse Resp BP Pulse Ox 08/29/19 19:22 37 C 75 18 155/66 H 95 08/29/19 19:09 77 08/29/19 15:19 36.9 C 73 18 113/65 95 08/29/19 12:07 37.0 C 74 18 104/63 90 08/29/19 07:59 36.8 C 79 18 109/63 93 Laboratory Results 08/28/19 08:39 08/29/19 08:16 Microbiology 08/24/19 05:21 Blood Aerobic Blood Culture - Preliminary Staph aureus MRSA 08/24/19 05:21 Blood Anaerobic Blood Culture - Final No growth in Anaerobic bottle after 5 days. 08/24/19 05:10 Blood Aerobic Blood Culture - Preliminary Staph aureus MRSA 08/24/19 05:10 Blood Anaerobic Blood Culture - Final No growth in Anaerobic bottle after 5 days. 08/26/19 04:58 Blood Aerobic Blood Culture - Preliminary No growth in Aerobic bottle after 48 hours. 08/26/19 04:58 Blood Anaerobic Blood Culture - Preliminary No growth in Anaerobic bottle after 48 hours. 08/26/19 05:02 Blood Aerobic Blood Culture - Preliminary No growth in Aerobic bottle after 48 hours. 08/26/19 05:02 Blood Anaerobic Blood Culture - Preliminary No growth in Anaerobic bottle after 48 hours. 08/23/19 05:35 Blood Aerobic Blood Culture - Final Staph aureus MRSA 08/23/19 05:35 Blood Anaerobic Blood Culture - Final Staph aureus MRSA 08/23/19 05:22 Blood Aerobic Blood Culture - Final Staph aureus MRSA 08/23/19 05:22 Blood Anaerobic Blood Culture - Final Staph aureus MRSA (1) Pneumonia Pneumonia type: due to unspecified organism
[2019-08-29] MEDS: LATANOPROST 0.005% OP SOLN 2.5 ML BTL OPR SCH (20:28)
[2019-08-29] MEDS: FINASTERIDE 5 MG TAB PO SCH (20:28)
[2019-08-30] MEDS: HEPARIN SOD 5,000 UNIT/0.5 ML VIAL SQ SCH ×3 (00:51→16:24)
[2019-08-30 07:50] LABS: Basophils # (auto) 0.02 K/uL (0-0.2); Basophils % (auto) 0.2 %; Eosinophils # (auto) 0.32 K/uL (0-0.5); Eosinophils % (auto) 3.9 %; Hematocrit (blood only) 24.6 % (42-52); Hemoglobin 8.7 g/dL (14.0-18.0); Immature Granulocytes # (auto) 0.29 K/uL (0.00-0.02); Immature Granulocytes % (auto) 3.5 %; Lymphocytes # (auto) 1.31 K/uL (1.2-3.4); Mean Corpuscular Hemoglobin 36.9 pg (25-34); Mean Corpuscular Hgb Conc 35.4 g/dL (32-36); Mean Corpuscular Volume 104.2 fL (80-100); Mean Platelet Volume 10.9 fL (7.4-10.4); Monocytes # (auto) 1.49 K/uL (0.11-0.59); Monocytes % (auto) 18.2 %; Neutrophils # (auto) 4.77 K/uL (1.4-6.5); Neutrophils % (auto) 58.2 %; Nucleated RBC # (auto) 0.02 K/uL (0-0); Nucleated RBC % (auto) 0.3 %; Platelet Count 160 K/uL (130-400); RDW Coefficient of Variation 15.4 % (11.5-14.5); RDW Standard Deviation 57.8 fL (36.4-46.3); Red Blood Count 2.36 M/uL (4.7-6.1)
[2019-08-30 08:26] LABS: Alanine Aminotransferase 102 U/L (12-78); Albumin Level 2.6 gm/dl (3.4-5.0); Aspartate Aminotransferase 42 U/L (15-37); BUN Creatinine Ratio 17.3 (10-20); Bilirubin Direct < 0.1 mg/dl (0-0.2); Blood Urea Nitrogen 18 mg/dl (7-18); Calcium 8.4 mg/dl (8.5-10.1); Carbon Dioxide 29 mmol/L (21-32); Chloride 104 mmol/L (98-107); Creatinine Clr Calc Pharmacy 50.9 ml/min; Est GFR (African American) 73.8; Est GFR (Non-African American) 63.7; Glucose 83 mg/dl (70-99); Potassium 4.1 mmol/L (3.5-5.1); Sodium 138 mmol/L (136-145)
[2019-08-30 08:29] LABS: Albumin Globulin Ratio 0.9 (0.9-2); Alkaline Phosphatase 66 U/L (45-117); Bilirubin,Total 0.6 mg/dl (0.2-1); Globulin 2.8 gm/dl (2.5-4.0); Total Protein 5.4 gm/dl (6.4-8.2)
[2019-08-30] MEDS: CEROVITE ADV FORMULA TAB PO SCH (09:29)
[2019-08-30] MEDS: METOPROLOL SUCC 25MG EXT REL TAB PO SCH (09:29)
[2019-08-30] MEDS: FLUTICASONE PROPIONATE NA SPR 16 GM BTL SCH ×2 (09:30→20:37)
[2019-08-30] MEDS: FLUTICASONE/VILANTEROL 100/25MCG 14 PUFFS/INHALER INH SCH (09:30)
[2019-08-30] MEDS: CEFTAROLINE FOSAMIL ACETATE 400 MG in SODIUM CHLORIDE 0.9% 250 ML IV SCH ×2 (09:31→20:36)
[2019-08-30] MEDS: BRIMONIDINE TARTRATE (ALPHAGAN P) 5 ML DROPS OP SCH (09:33)
[2019-08-30] MEDS: ASPIRIN 81 MG CHEW PO SCH (09:59)
[2019-08-30] MEDS: FINASTERIDE 5 MG TAB PO SCH (20:37)
[2019-08-30] MEDS: LATANOPROST 0.005% OP SOLN 2.5 ML BTL OPR SCH (20:37)
--- NOTE | 2019-08-30 23:27 | Hospitalist Progress Note ---
Date of Service August 30, 2019 Assessment & Plan (1) Septic shock: Presented to ED with cough, shortness of breath, confusion. Met criteria for sepsis per current CMS guidelines-fever, tachycardia, tachypnea, leukocytosis. Lactate was 1.5. Procalcitonin was 26.04. Persistent hypotension despite fluid resuscitation. Required pressor support with norepinephrine. Blood cultures obtained and started on broad-spectrum antibiotic coverage with piperacillin/tazobactam and levofloxacin. Chest x-ray demonstrated left basilar infiltrate. Nasopharyngeal swab negative for influenza A/B. Nasal MRSA screen was positive. Vancomycin added for MRSA coverage. Received intravenous steroids for possible adrenal insufficiency. Admitted to ICU and Critical Care Medicine was consulted. ID was consulted as well. Blood cultures subsequently grew MRSA. Transitioned to ceftaroline. Transthoracic echocardiogram performed and did not show any apparent valvular vegetations. Nevertheless, must consider possibility of endocarditis in light of bioprosthetic aortic valve replacement. 6-week course of IV antibiotics recommended. Repeat blood cultures on showed persistent MRSA bacteremia. Repeat blood cultures drawn on 08/26/2019 negative thus far. Repeat blood culture drawn 08/28 negative at 24 hours. Request PICC placement once clearance of bacteremia confirmed. (2) Bacteremia due to methicillin resistant Staphylococcus aureus: As noted above. (3) Pneumonia: As noted above. (4) Altered mental status: Encephalopathy secondary to sepsis. Resolved. (5) Acute and chronic respiratory failure with hypoxia: History of chronic nocturnal hypoxia on home nocturnal O2. O2 saturations as low as 87% associated with tachypnea at time of admission with associated tachypnea. Acute on chronic hypoxic respiratory failure. Received supplemental oxygen as necessary; now weaned to nasal cannula. Check 2-step pulse oximetry prior to DC. (6) Anemia: Recent baseline hemoglobin 9.5-11. Hemoglobin at time of admission was 10.2. Hemoglobin today = 8.7. Anemia probably secondary to acute illness / sepsis. Stools negative for occult blood. Serum iron 59, transferrin 143, ferritin 493, transferrin saturation 29%. Follow. (7) CAD (coronary artery disease): Slightly elevated troponin probably secondary to sepsis rather than acute coronary syndrome. Echocardiogram showed normal left ventricular wall motion and systolic function. Metoprolol was held because of septic shock. Hemodynamics improved, so metoprolol will be resumed. Continue aspirin, statin. (8) Aortic valve replaced: Echocardiogram demonstrated bioprosthetic aortic valve with moderate calcification and moderate aortic stenosis. (9) Chronic diastolic HF (heart failure): Admission chest x-ray showed some degree of pulmonary vascular congestion. Echocardiogram showed moderate LVH, normal left ventricular wall motion, LVEF of 55-60%, grade 1 diastolic dysfunction. Acute on chronic left ventricular diastolic heart failure. Follow-up chest x-ray 08/28 showed cardiomegaly, no CHF. (10) Hypertension: Metoprolol and terazosin were held at time of admission because of septic shock. Resume metoprolol. Follow and titrate therapy. (11) Ventricular tachyarrhythmia: History of ventricular tachycardia. Status post ICD. Resumed metoprolol. (12) COPD (chronic obstructive pulmonary disease): Exacerbation of COPD at time of admission secondary to pneumonia with associated acute on chronic hypoxic respiratory failure. Respiratory status improved. Continue usual pulmonary medications. (13) DVT prophylaxis: Subcutaneous heparin. Ambulate. (14) Discharge planning issues: Anticipated discharge to home with PICC / IV antibiotics. Family Medicine follow-up with Dr. An Simon. Cardiology follow-up with Dr. Ludin Simon. Admission and Anticipated Discharge Date Admission Date: August 23, 2019 Subjective Recheck for multiple problems. Patient seen in their room around 1500. Feels much better. No fever. Rare cough. No SOB. Review of Systems: Constitutional- as noted above Cardiac- no chest pain. Pulmonary- as noted above. GI- no nausea, vomiting, diarrhea, melena, hematochezia. - no urinary symptoms. Otherwise, as noted above. Physical Exam Constitutional: no acute distress Respiratory: no respiratory distress Auscultation: lungs clear to auscultation bilaterally Cardiovascular: Rate/Rhythm: regular rate and regular rhythm Heart Sounds: + murmur (II/ sys murmur at base); no gallop and no cardiac rub Extremities: + edema (trace pretibial); no calf tenderness Gastrointestinal (Abdomen): normal bowel sounds, soft, nontender, no hepatosplenomegaly Musculoskeletal: Extremities: no cyanosis Skin: no rashes, warm and dry Psychiatric: Orientation: alert and oriented x 3 Results & Data ([facility]) Vital Signs (Past 12 Hours) Vital Signs Temp Pulse Pulse Resp BP Pulse Ox 08/30/19 19:32 36.8 C 76 20 98/52 L 96 08/30/19 15:55 75 08/30/19 15:30 36.6 C 76 19 99/63 L 96 08/30/19 11:27 36.9 C 76 20 98/54 L 96 Laboratory Results Laboratory Results - last 24 hr 08/30/19 08/30/19 08/30/19 07:19 07:19 07:19 WBC 8.20 RBC 2.36 L Hgb 8.7 L Hct 24.6 L MCV 104.2 H MCH 36.9 H MCHC 35.4 RDW Std Deviation 57.8 H RDW Coeff of [place] 15.4 H Plt Count 160 MPV 10.9 H Immature Gran % (Auto) 3.5 Neut % (Auto) 58.2 Lymph % (Auto) 16.0 [place] % (Auto) 18.2 Eos % (Auto) 3.9 Baso % (Auto) 0.2 Immature Gran # (Auto) 0.29 H Neut # (Auto) 4.77 Lymph # (Auto) 1.31 [place] # (Auto) 1.49 H Eos # (Auto) 0.32 Baso # (Auto) 0.02 Absolute Nucleated RBC 0.02 H Nucleated RBC % (auto) 0.3 ESR 7 Sodium 138 Potassium 4.1 Chloride 104 Carbon Dioxide 29 Anion Gap 5.0 BUN 18 Creatinine 1.06 Est Cr Clr Drug Dosing 50.9 Est GFR ( Amer) 73.8 Est GFR (Non-Af Amer) 63.7 BUN/Creatinine Ratio 17.3 Glucose 83 Calcium 8.4 L Total Bilirubin 0.6 Direct Bilirubin < 0.1 AST 42 H ALT 102 H Alkaline Phosphatase 66 Total Protein 5.4 L Albumin 2.6 L Globulin 2.8 Albumin/Globulin Ratio 0.9 Microbiology 08/24/19 05:21 Blood Aerobic Blood Culture - Final Staph aureus MRSA 08/24/19 05:21 Blood Anaerobic Blood Culture - Final No growth in Anaerobic bottle after 5 days. 08/24/19 05:10 Blood Aerobic Blood Culture - Final Staph aureus MRSA 08/24/19 05:10 Blood Anaerobic Blood Culture - Final No growth in Anaerobic bottle after 5 days. 08/29/19 16:56 Sputum, Expectorated Gram Stain - Final 08/29/19 16:56 Sputum, Expectorated Sputum Culture - Preliminary Light normal ronna present, final report to follow. 08/29/19 08:16 Blood Aerobic Blood Culture - Preliminary No growth in Aerobic bottle after 24 hours. 08/29/19 08:16 Blood Anaerobic Blood Culture - Preliminary No growth in Anaerobic bottle after 24 hours. 08/26/19 04:58 Blood Aerobic Blood Culture - Preliminary No growth in Aerobic bottle after 48 hours. 08/26/19 04:58 Blood Anaerobic Blood Culture - Preliminary No growth in Anaerobic bottle after 48 hours. 08/26/19 05:02 Blood Aerobic Blood Culture - Preliminary No growth in Aerobic bottle after 48 hours. 08/26/19 05:02 Blood Anaerobic Blood Culture - Preliminary No growth in Anaerobic bottle after 48 hours. 08/23/19 05:35 Blood Aerobic Blood Culture - Final Staph aureus MRSA 08/23/19 05:35 Blood Anaerobic Blood Culture - Final Staph aureus MRSA 08/23/19 05:22 Blood Aerobic Blood Culture - Final Staph aureus MRSA 08/23/19 05:22 Blood Anaerobic Blood Culture - Final Staph aureus MRSA (1) Pneumonia Pneumonia type: due to unspecified organism
[2019-08-31] MEDS: HEPARIN SOD 5,000 UNIT/0.5 ML VIAL SQ SCH ×4 (00:20→21:35)
[2019-08-31 06:23] LABS: BUN Creatinine Ratio 16.3 (10-20); Calcium 8.3 mg/dl (8.5-10.1); Creatinine Clr Calc Pharmacy 47.4 ml/min; Est GFR (African American) 67.6; Est GFR (Non-African American) 58.3; Magnesium 1.9 mg/dl (1.8-2.4); Potassium 4.2 mmol/L (3.5-5.1)
[2019-08-31] MEDS: CEROVITE ADV FORMULA TAB PO SCH (08:23)
[2019-08-31] MEDS: METOPROLOL SUCC 25MG EXT REL TAB PO SCH (08:23)
[2019-08-31] MEDS: FLUTICASONE/VILANTEROL 100/25MCG 14 PUFFS/INHALER INH SCH (08:24)
[2019-08-31] MEDS: FLUTICASONE PROPIONATE NA SPR 16 GM BTL SCH ×2 (08:24→21:34)
[2019-08-31] MEDS: BRIMONIDINE TARTRATE (ALPHAGAN P) 5 ML DROPS OP SCH (08:25)
[2019-08-31] MEDS: CEFTAROLINE FOSAMIL ACETATE 400 MG in SODIUM CHLORIDE 0.9% 250 ML IV SCH ×2 (08:33→21:35)
[2019-08-31] MEDS: ASPIRIN 81 MG CHEW PO SCH (09:26)
--- NOTE | 2019-08-31 19:48 | Hospitalist Progress Note ---
Date of Service August 31, 2019 Assessment & Plan (1) Septic shock: Presented to ED with cough, shortness of breath, confusion. Met criteria for sepsis per current CMS guidelines-fever, tachycardia, tachypnea, leukocytosis. Lactate was 1.5. Procalcitonin was 26.04. Persistent hypotension despite fluid resuscitation. Required pressor support with norepinephrine. Blood cultures obtained and started on broad-spectrum antibiotic coverage with piperacillin/tazobactam and levofloxacin. Chest x-ray demonstrated left basilar infiltrate. Nasopharyngeal swab negative for influenza A/B. Nasal MRSA screen was positive. Vancomycin added for MRSA coverage. Received intravenous steroids for possible adrenal insufficiency. Admitted to ICU and Critical Care Medicine was consulted. ID was consulted as well. Blood cultures subsequently grew MRSA. Transitioned to ceftaroline. Transthoracic echocardiogram performed and did not show any apparent valvular vegetations. Nevertheless, must consider possibility of endocarditis in light of bioprosthetic aortic valve replacement. 6-week course of IV antibiotics recommended. Repeat blood cultures on showed persistent MRSA bacteremia. Repeat blood cultures drawn on 08/26/2019 negative thus far. Repeat blood culture drawn 08/28 negative at 48 hours. Request PICC placement once clearance of bacteremia confirmed. (2) Bacteremia due to methicillin resistant Staphylococcus aureus: As noted above. (3) Pneumonia: Suspected MRSA pneumonia as noted above. Sputum growing some yeast- probable colonization. (4) Altered mental status: Encephalopathy secondary to sepsis. Resolved. (5) Acute and chronic respiratory failure with hypoxia: History of chronic nocturnal hypoxia on home nocturnal O2. O2 saturations as low as 87% associated with tachypnea at time of admission with associated tachypnea. Acute on chronic hypoxic respiratory failure. Received supplemental oxygen as necessary; now weaned to nasal cannula. Check 2-step pulse oximetry prior to DC. (6) Anemia: Recent baseline hemoglobin 9.5-11. Hemoglobin at time of admission was 10.2. Hemoglobin yesterday = 8.7. Anemia probably secondary to acute illness / sepsis. Stools negative for occult blood. Serum iron 59, transferrin 143, ferritin 493, transferrin saturation 29%. Follow. (7) CAD (coronary artery disease): Slightly elevated troponin probably secondary to sepsis rather than acute coronary syndrome. Echocardiogram showed normal left ventricular wall motion and systolic function. Metoprolol was held because of septic shock. Hemodynamics improved, so metoprolol will be resumed. Continue aspirin, statin. (8) Aortic valve replaced: Echocardiogram demonstrated bioprosthetic aortic valve with moderate calcification and moderate aortic stenosis. (9) Chronic diastolic HF (heart failure): Admission chest x-ray showed some degree of pulmonary vascular congestion. Echocardiogram showed moderate LVH, normal left ventricular wall motion, LVEF of 55-60%, grade 1 diastolic dysfunction. Acute on chronic left ventricular diastolic heart failure. Follow-up chest x-ray 08/28 showed cardiomegaly, no CHF. (10) Hypertension: Metoprolol and terazosin were held at time of admission because of septic shock. Resume metoprolol. Follow and titrate therapy. (11) Ventricular tachyarrhythmia: History of ventricular tachycardia. Status post ICD. Resumed metoprolol. (12) COPD (chronic obstructive pulmonary disease): Exacerbation of COPD at time of admission secondary to pneumonia with associated acute on chronic hypoxic respiratory failure. Respiratory status improved. Continue usual pulmonary medications. 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 (14) DVT prophylaxis: Subcutaneous heparin. Ambulate. (15) Discharge planning issues: Anticipated discharge to home with PICC / IV antibiotics. Family Medicine follow-up with Dr. An Simon. Cardiology follow-up with Dr. Ludin Simon. Admission and Anticipated Discharge Date Admission Date: August 23, 2019 Subjective Recheck for multiple problems. Patient seen in their room around 1550. Doing well. No fever. Rare cough. No SOB. Review of Systems: Constitutional- as noted above Cardiac- no chest pain. Pulmonary- as noted above. GI- no nausea, vomiting, diarrhea, melena, hematochezia. - no urinary symptoms. Otherwise, as noted above. Physical Exam Constitutional: no acute distress ENMT: Mouth: + lip abnormality (labial vesicles + ulcers) Respiratory: no respiratory distress Auscultation: lungs clear to ausculta tion bilaterally Cardiovascular: Rate/Rhythm: regular rate and regular rhythm Heart Sounds: + murmur (II/ sys murmur at base); no gallop and no cardiac rub Extremities: + edema (trace pretibial); no calf tenderness Gastrointestinal (Abdomen): normal bowel sounds, soft, nontender, no hepatosplenomegaly Musculoskeletal: Extremities: no cyanosis Skin: no rashes, warm and dry Psychiatric: Orientation: alert and oriented x 3 Results & Data ([facility]) Vital Signs (Past 12 Hours) Vital Signs Temp Pulse Pulse Resp BP Pulse Ox 08/31/19 19:21 37.1 C 79 20 122/64 91 08/31/19 16:17 36.7 C 75 20 111/68 94 08/31/19 14:53 75 08/31/19 11:50 36.6 C 72 18 111/62 93 08/31/19 11:19 70 08/31/19 08:01 36.8 C 77 18 105/56 L 92 Laboratory Results 08/30/19 07:19 08/31/19 05:15 Microbiology 08/29/19 16:56 Sputum, Expectorated Gram Stain - Final 08/29/19 16:56 Sputum, Expectorated Sputum Culture - Final Esther albicans 08/29/19 08:16 Blood Aerobic Blood Culture - Preliminary No growth in Aerobic bottle after 48 hours. 08/29/19 08:16 Blood Anaerobic Blood Culture - Preliminary No growth in Anaerobic bottle after 48 hours. 08/26/19 05:02 Blood Aerobic Blood Culture - Final No growth in Aerobic bottle after 5 days. 08/26/19 05:02 Blood Anaerobic Blood Culture - Final No growth in Anaerobic bottle after 5 days. 08/26/19 04:58 Blood Aerobic Blood Culture - Final No growth in Aerobic bottle after 5 days. 08/26/19 04:58 Blood Anaerobic Blood Culture - Final No growth in Anaerobic bottle after 5 days. 08/24/19 05:21 Blood Aerobic Blood Culture - Final Staph aureus MRSA 08/24/19 05:21 Blood Anaerobic Blood Culture - Final No growth in Anaerobic bottle after 5 days. 08/24/19 05:10 Blood Aerobic Blood Culture - Final Staph aureus MRSA 08/24/19 05:10 Blood Anaerobic Blood Culture - Final No growth in Anaerobic bottle after 5 days. 08/23/19 05:35 Blood Aerobic Blood Culture - Final Staph aureus MRSA 08/23/19 05:35 Blood Anaerobic Blood Culture - Final Staph aureus MRSA 08/23/19 05:22 Blood Aerobic Blood Culture - Final Staph aureus MRSA 08/23/19 05:22 Blood Anaerobic Blood Culture - Final Staph aureus MRSA (1) Pneumonia Pneumonia type: due to unspecified organism
[2019-08-31] MEDS: FINASTERIDE 5 MG TAB PO SCH (21:35)
[2019-08-31] MEDS: LATANOPROST 0.005% OP SOLN 2.5 ML BTL OPR SCH (21:35)
[2019-09-01] MEDS: METOPROLOL SUCC 25MG EXT REL TAB PO SCH (09:00)
[2019-09-01] MEDS: FLUTICASONE PROPIONATE NA SPR 16 GM BTL SCH ×2 (09:00→20:33)
[2019-09-01] MEDS: CEROVITE ADV FORMULA TAB PO SCH (09:00)
[2019-09-01] MEDS: BRIMONIDINE TARTRATE (ALPHAGAN P) 5 ML DROPS OP SCH (09:01)
[2019-09-01] MEDS: FLUTICASONE/VILANTEROL 100/25MCG 14 PUFFS/INHALER INH SCH (09:01)
[2019-09-01] MEDS: ASPIRIN 81 MG CHEW PO SCH (09:02)
[2019-09-01] MEDS: HEPARIN SOD 5,000 UNIT/0.5 ML VIAL SQ SCH ×3 (09:04→20:33)
[2019-09-01] MEDS: CEFTAROLINE FOSAMIL ACETATE 400 MG in SODIUM CHLORIDE 0.9% 250 ML IV SCH ×2 (09:04→20:33)
--- NOTE | 2019-09-01 15:17 | Ultrasound Report ---
ULTRASOUND LEFT UPPER EXTREMITY VENOUS CLINICAL HISTORY: Left arm swelling. COMPARISON STUDY: No priors.. TECHNIQUE: Real-time, grayscale, and color Doppler sonography of the deep veins of the left upper ext remity is performed. Compression and augmentation were utilized. FINDINGS: There is no sonographic evidence of deep venous thrombosis identified in the left upper ext remity. The left internal jugular, axillary, and brachial veins are patent and normally compressible. Normal venous waveforms and augmentation are seen within the left subclavian vein. The cephalic and basilic veins are clear. The visualized radial and ulnar veins are patent. Soft tissue edema is noted in the left upper extremity. IMPRESSION: There is no sonographic evidence of deep venous thrombosis identified in the left upper e xtremity. ACT 112: Negative or not required by law. Electronically signed by: Ned Croft M.D. 09/01/2019 3:16 PM
--- NOTE | 2019-09-01 17:46 | XRay Report ---
SINGLE VIEW CHEST CLINICAL HISTORY: PICC placement. FINDINGS: An AP, portable, upright chest radiograph is compared to study dated 08/29/2019 and correlate d with chest CT dated 08/24/2019. The examination is degraded by portable technique and patient rotati on. A right PICC line is been placed. The tip of the catheter projects over the right atrium at the l evel of the right hemidiaphragm. The patient is status post midline sternotomy and cardiac valve surg [place]. A 3-lead cardiac AICD is unchanged in position and partially obscures the left mid chest. The he art is enlarged noting atherosclerotic calcification of the thoracic aorta. There is mild pulmonary v ascular congestion. There are small pleural effusions and bibasilar consolidation. No pneumothorax is seen. The skeletal structures are osteopenic. The bony thorax is grossly intact. IMPRESSION: 1. A right PICC line is been placed as above. The tip projects over the right atrium. 2. Cardiomegaly and AICD with mild pulmonary vascular congestion. 3. Small pleural effusions and bibasilar consolidation. ACT 112: Negative or not required by law. Electronically signed by: Ned Croft M.D. 09/01/2019 5:45 PM
--- NOTE | 2019-09-01 18:48 | XRay Report ---
SINGLE VIEW CHEST CLINICAL HISTORY: PICC repositioning. FINDINGS: An AP, portable, upright chest radiograph is compared to study performed earlier the same d ay 09/01/[address] correlated with chest CT dated 08/24/2019. The examination is degraded by portable pernell hnique and patient rotation. A right PICC line is has been repositioned. The tip projects over the ri ght atrium. The patient is status post midline sternotomy and cardiac valve surgery. A 3-lead cardiac AICD is unchanged in position and partially obscures the left mid chest. The heart is enlarged notin g atherosclerotic calcification of the thoracic aorta. There is mild pulmonary vascular congestion. T here are small pleural effusions and bibasilar consolidation. No pneumothorax is seen. The skeletal s tructures are osteopenic. The bony thorax is grossly intact. IMPRESSION: 1. A right PICC line has been repositioned. The tip projects over the right atrium. 2. Cardiomegaly and AICD with mild pulmonary vascular congestion. 3. Small pleural effusions and bibasilar consolidation. ACT 112: Negative or not required by law. Electronically signed by: Ned Croft M.D. 09/01/2019 6:47 PM
--- NOTE | 2019-09-01 19:56 | Hospitalist Progress Note ---
Date of Service September 01, 2019 Assessment & Plan (1) Septic shock: Presented to ED with cough, shortness of breath, confusion. Met criteria for sepsis per current CMS guidelines-fever, tachycardia, tachypnea, leukocytosis. Lactate was 1.5. Procalcitonin was 26.04. Persistent hypotension despite fluid resuscitation. Required pressor support with norepinephrine. Blood cultures obtained and started on broad-spectrum antibiotic coverage with piperacillin/tazobactam and levofloxacin. Chest x-ray demonstrated left basilar infiltrate. Nasopharyngeal swab negative for influenza A/B. Nasal MRSA screen was positive. Vancomycin added for MRSA coverage. Received intravenous steroids for possible adrenal insufficiency. Admitted to ICU and Critical Care Medicine was consulted. ID was consulted as well. Blood cultures subsequently grew MRSA. Transitioned to ceftaroline. Transthoracic echocardiogram performed and did not show any apparent valvular vegetations. Nevertheless, must consider possibility of endocarditis in light of bioprosthetic aortic valve replacement. 6-week course of IV antibiotics recommended. Repeat blood cultures on showed persistent MRSA bacteremia. Repeat blood cultures drawn on 08/26/2019 negative thus far. Repeat blood culture drawn 08/28 negative at 72 hours. Request PICC placement. (2) Bacteremia due to methicillin resistant Staphylococcus aureus: As noted above. (3) Pneumonia: Suspected MRSA pneumonia as noted above. Sputum growing some yeast- probable colonization. (4) Altered mental status: Encephalopathy secondary to sepsis. Resolved. (5) Acute and chronic respiratory failure with hypoxia: History of chronic nocturnal hypoxia on home nocturnal O2. O2 saturations as low as 87% associated with tachypnea at time of admission with associated tachypnea. Acute on chronic hypoxic respiratory failure. Received supplemental oxygen as necessary; now weaned to nasal cannula. Check 2-step pulse oximetry prior to DC. (6) Anemia: Recent baseline hemoglobin 9.5-11. Hemoglobin at time of admission was 10.2. Hemoglobin yesterday = 8.7. Anemia probably secondary to acute illness / sepsis. Stools negative for occult blood. Serum iron 59, transferrin 143, ferritin 493, transferrin saturation 29%. Follow. (7) CAD (coronary artery disease): Slightly elevated troponin probably secondary to sepsis rather than acute coronary syndrome. Echocardiogram showed normal left ventricular wall motion and systolic function. Metoprolol was held because of septic shock. Hemodynamics improved, so metoprolol was resumed. Continue aspirin, statin. (8) Aortic valve replaced: Echocardiogram demonstrated bioprosthetic aortic valve with moderate calcification and moderate aortic stenosis. (9) Chronic diastolic HF (heart failure): Admission chest x-ray showed some degree of pulmonary vascular congestion. Echocardiogram showed moderate LVH, normal left ventricular wall motion, LVEF of 55-60%, grade 1 diastolic dysfunction. Acute on chronic left ventricular diastolic heart failure. Follow-up chest x-ray 08/28 showed cardiomegaly, no CHF. (10) Hypertension: Metoprolol and terazosin were held at time of admission because of septic shock. Resume metoprolol. Follow and titrate therapy. (11) Ventricular tachyarrhythmia: History of ventricular tachycardia. Status post ICD. Resumed metoprolol. (12) COPD (chronic obstructive pulmonary disease): Exacerbation of COPD at time of admission secondary to pneumonia with associated acute on chronic hypoxic respiratory failure. Respiratory status improved. Continue usual pulmonary medications. 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 (14) Arm edema: Moderate swelling LUE. Suspect IV infiltration. Check venous duplex. (15) DVT prophylaxis: Subcutaneous heparin. Ambulate. (16) Discharge planning issues: Anticipated discharge to home with PICC / IV antibiotics. Family Medicine follow-up with Dr. An Simon. Cardiology follow-up with Dr. Ludin Simon. Admission and Anticipated Discharge Date Admission Date: August 23, 2019 Subjective Recheck for multiple problems. Patient seen in their room around 1040. No fever. Rare cough. No SOB. No new problems or concerns. Review of Systems: Constitutional- as noted above Cardiac- no chest pain. Pulmonary- as noted above. GI- no nausea, vomiting, diarrhea, melena, hematochezia. - no urinary symptoms. Otherwise, as noted above. Physical Exam Constitutional: no acute distress ENMT: Mouth: + lip abnormality (labial vesicles + ulcers) Respiratory: no respiratory distress Auscultation: lungs clear to a uscultation bilaterally Cardiovascular: Rate/Rhythm: regular rate and regular rhythm Heart Sounds: + murmur (II/ sys murmur at base); no gallop and no cardiac rub Extremities: + edema (trace pretibial); no calf tenderness Gastrointestinal (Abdomen): normal bowel sounds, soft, nontender, no hepatosplenomegaly Musculoskeletal: Extremities: no cyanosis moderate edema LLE / hand Skin: no rashes, warm and dry Psychiatric: Orientation: alert and oriented x 3 Results & Data ([facility]) Vital Signs (Past 12 Hours) Vital Signs Temp Pulse Pulse Resp BP Pulse Ox 09/01/19 19:16 36.6 C 76 18 111/66 93 09/01/19 15:11 36.8 C 78 20 107/58 L 90 09/01/19 15:02 76 09/01/19 11:47 36.9 C 76 18 121/67 95 09/01/19 09:00 75 (1) Pneumonia Pneumonia type: due to unspecified organism
[2019-09-01] MEDS: FINASTERIDE 5 MG TAB PO SCH (20:33)
[2019-09-01] MEDS: LATANOPROST 0.005% OP SOLN 2.5 ML BTL OPR SCH (20:34)
--- NOTE | 2019-09-01 21:43 | XRay Report ---
SINGLE VIEW CHEST CLINICAL HISTORY: PICC repositioning. FINDINGS: An AP, portable, upright chest radiograph is compared to studies performed earlier the same day 09/01/2019 and correlated with chest CT dated 08/24/2019. The examination is degraded by portable t echnique and patient rotation. A right PICC line is has been repositioned. The tip projects over the right atrium. The patient is status post midline sternotomy and cardiac valve surgery. A 3-lead cardi ac AICD is unchanged in position and partially obscures the left mid chest. The heart is enlarged not ing atherosclerotic calcification of the thoracic aorta. There is mild pulmonary vascular congestion. There are small pleural effusions and bibasilar consolidation. No pneumothorax is seen. The skeletal structures are osteopenic. The bony thorax is grossly intact. IMPRESSION: 1. A right PICC line has been repositioned. The tip projects over the right atrium. 2. Cardiomegaly and AICD with mild pulmonary vascular congestion. 3. Small pleural effusions and bibasilar consolidation. ACT 112: Negative or not required by law. Electronically signed by: Ned Croft M.D. 09/01/2019 9:42 PM
--- NOTE | 2019-09-01 22:24 | XRay Report ---
SINGLE VIEW CHEST CLINICAL HISTORY: PICC repositioning. FINDINGS: An AP, portable, upright chest radiograph is compared to studies performed earlier the same day 09/01/2019 and correlated with chest CT dated 08/24/2019. The examination is degraded by portable t echnique and patient rotation. A right PICC line has been repositioned. The tip projects just above t he cavoatrial junction. The patient is status post midline sternotomy and cardiac valve surgery. A 3- lead cardiac AICD is unchanged in position and partially obscures the left mid chest. The heart is en larged noting atherosclerotic calcification of the thoracic aorta. There is mild pulmonary vascular c ongestion. There are small pleural effusions and bibasilar consolidation. No pneumothorax is seen. Th e skeletal structures are osteopenic. The bony thorax is grossly intact. IMPRESSION: 1. A right PICC line has been repositioned. The tip projects just above the cavoatrial junction. 2. Cardiomegaly and AICD with mild pulmonary vascular congestion. 3. Small pleural effusions and bibasilar consolidation. ACT 112: Negative or not required by law. Electronically signed by: Ned Croft M.D. 09/01/2019 10:23 PM
[2019-09-02 06:06] LABS: Hematocrit (blood only) 23.5 % (42-52); Mean Corpuscular Hemoglobin 35.6 pg (25-34); Mean Corpuscular Volume 104.4 fL (80-100); Mean Platelet Volume 10.5 fL (7.4-10.4); Nucleated RBC # (auto) 0.05 K/uL (0-0); Nucleated RBC % (auto) 0.6 %; Platelet Count 188 K/uL (130-400); RDW Coefficient of Variation 15.8 % (11.5-14.5); RDW Standard Deviation 58.8 fL (36.4-46.3); Red Blood Count 2.25 M/uL (4.7-6.1); White Blood Count 7.82 K/uL (4.8-10.8)
[2019-09-02 06:32] LABS: ANC (manual) 5.89 K/uL (1.4-6.5); Basophils # (manual) 0.21 K/uL (0-0.2); Basophils % (manual) 2.7 %; Eosinophils # (manual) 0.34 K/uL (0-0.5); Eosinophils % (manual) 4.4 %; Lymphocytes # (manual) 0.83 K/uL (1.2-3.4); Lymphocytes % (manual) 10.6 %; Monocytes # (manual) 0.27 K/uL (0.11-0.59); Monocytes % (manual) 3.5 %; Myelocytes # (manual) 0.27 K/uL (0-0); Myelocytes % (manual) 3.5 %; Neutrophils # (manual) 5.89 K/uL (1.4-6.5); Neutrophils % (manual) 75.3 %; Polychromasia 1+
[2019-09-02 06:44] LABS: Alanine Aminotransferase 68 U/L (12-78); Albumin Level 2.5 gm/dl (3.4-5.0); Aspartate Aminotransferase 37 U/L (15-37); BUN Creatinine Ratio 11.8 (10-20); Bilirubin Direct < 0.1 mg/dl (0-0.2); Blood Urea Nitrogen 14 mg/dl (7-18); Calcium 8.1 mg/dl (8.5-10.1); Carbon Dioxide 30 mmol/L (21-32); Chloride 104 mmol/L (98-107); Creatinine Clr Calc Pharmacy 45.4 ml/min; Est GFR (African American) 64.2; Est GFR (Non-African American) 55.4; Glucose 92 mg/dl (70-99); Potassium 4.1 mmol/L (3.5-5.1); Sodium 138 mmol/L (136-145)
[2019-09-02 06:47] LABS: Albumin Globulin Ratio 0.9 (0.9-2); Alkaline Phosphatase 85 U/L (45-117); Bilirubin,Total 0.7 mg/dl (0.2-1); Globulin 2.9 gm/dl (2.5-4.0); Total Protein 5.4 gm/dl (6.4-8.2)
[2019-09-02] MEDS: CEFTAROLINE FOSAMIL ACETATE 400 MG in SODIUM CHLORIDE 0.9% 250 ML IV SCH (08:29)
[2019-09-02] MEDS: FLUTICASONE PROPIONATE NA SPR 16 GM BTL SCH (08:30)
[2019-09-02] MEDS: BRIMONIDINE TARTRATE (ALPHAGAN P) 5 ML DROPS OP SCH (08:30)
[2019-09-02] MEDS: HEPARIN SOD 5,000 UNIT/0.5 ML VIAL SQ SCH (08:31)
[2019-09-02] MEDS: METOPROLOL SUCC 25MG EXT REL TAB PO SCH (08:32)
[2019-09-02] MEDS: ASPIRIN 81 MG CHEW PO SCH (08:32)
[2019-09-02] MEDS: FLUTICASONE/VILANTEROL 100/25MCG 14 PUFFS/INHALER INH SCH (08:32)
[2019-09-02] MEDS: CEROVITE ADV FORMULA TAB PO SCH (08:32)
--- NOTE | 2019-09-02 14:47 | Hospitalist Progress Note ---
Date of Service September 02, 2019 Assessment & Plan (1) Septic shock: Presented to ED with cough, shortness of breath, confusion. Met criteria for sepsis per current CMS guidelines-fever, tachycardia, tachypnea, leukocytosis. Lactate was 1.5. Procalcitonin was 26.04. Persistent hypotension despite fluid resuscitation. Required pressor support with norepinephrine. Blood cultures obtained and started on broad-spectrum antibiotic coverage with piperacillin/tazobactam and levofloxacin. Chest x-ray demonstrated left basilar infiltrate. Nasopharyngeal swab negative for influenza A/B. Nasal MRSA screen was positive. Vancomycin added for MRSA coverage. Received intravenous steroids for possible adrenal insufficiency. Admitted to ICU and Critical Care Medicine was consulted. ID was consulted as well. Blood cultures subsequently grew MRSA. Transitioned to ceftaroline. Transthoracic echocardiogram performed and did not show any apparent valvular vegetations. Nevertheless, must consider possibility of endocarditis in light of bioprosthetic aortic valve replacement. 6-week course of IV antibiotics recommended. Repeat blood cultures on showed persistent MRSA bacteremia. Repeat blood cultures drawn on 08/26/2019 negative thus far. Repeat blood culture drawn 08/28 negative at 72 hours. PICC placed. Discharge to home with home IV ceftaroline to complete 6 week course of therapy. (2) Bacteremia due to methicillin resistant Staphylococcus aureus: As noted above. (3) Pneumonia: Suspected MRSA pneumonia as noted above. Sputum growing some yeast- probable colonization. (4) Altered mental status: Encephalopathy secondary to sepsis. Resolved. (5) Acute and chronic respiratory failure with hypoxia: History of chronic nocturnal hypoxia on home nocturnal O2. O2 saturations as low as 87% associated with tachypnea at time of admission with associated tachypnea. Acute on chronic hypoxic respiratory failure. Received supplemental oxygen as necessary; now weaned to nasal cannula. 2-step pulse oximetry: 91% RA at rest, 86% RA with exercise. O2 2 LPM at night and with exercise recommended. (6) Anemia: Recent baseline hemoglobin 9.5-11. Hemoglobin at time of admission was 10.2. Hemoglobin day of admission 8.0. Stools negative for occult blood. Serum iron 59, transferrin 143, ferritin 493, transferrin saturation 29%. Anemia probably secondary to acute illness / sepsis. Follow. Consider further evaluation / consultation if anemia persists. (7) CAD (coronary artery disease): Slightly elevated troponin probably secondary to sepsis rather than acute coronary syndrome. Echocardiogram showed normal left ventricular wall motion and systolic function. Metoprolol was held because of septic shock. Hemodynamics improved, so metoprolol was resumed. Continue aspirin, statin. (8) Aortic valve replaced: Echocardiogram demonstrated bioprosthetic aortic valve with moderate calcification and moderate aortic stenosis. (9) Chronic diastolic HF (heart failure): Admission chest x-ray showed some degree of pulmonary vascular congestion. Echocardiogram showed moderate LVH, normal left ventricular wall motion, LVEF of 55-60%, grade 1 diastolic dysfunction. Acute on chronic left ventricular diastolic heart failure. Follow-up chest x-ray 08/28 showed cardiomegaly, no CHF. (10) Hypertension: Metoprolol and terazosin were held at time of admission because of septic shock. Resume metoprolol. Follow and titrate therapy. (11) Ventricular tachyarrhythmia: History of ventricular tachycardia. Status post ICD. Resumed metoprolol. (12) COPD (chronic obstructive pulmonary disease): Exacerbation of COPD at time of admission secondary to pneumonia with associated acute on chronic hypoxic respiratory failure. Respiratory status improved. Continue usual pulmonary medications. 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 (14) Arm edema: Moderate swelling LUE. Suspect IV infiltration. Check venous duplex. (15) DVT prophylaxis: Subcutaneous heparin. Ambulate. (16) Discharge planning issues: Discharge to home with PICC / IV antibiotics. Family Medicine follow-up with Dr. An Simon. Cardiology follow-up with Dr. Ludin Simon. Admission and Anticipated Discharge Date Admission Date: August 23, 2019 Subjective Recheck for multiple problems. Patient seen in their room around 1020. No fever. Rare cough. No SOB. No new problems or concerns. PICC inserted yesterday. Ready to go home. Review of Systems: Constitutional- as noted above Cardiac- no chest pain. Pulmonary- as noted above. GI- no nausea, vomiting, diarrhea, melena, hematochezia. - no urinary symptoms. Otherwise, as noted above. Physical Exam Constitutional: no acute distress ENMT: Mouth: + lip abnormality (healing labial ulcers) Respiratory: no respiratory distress Auscultation: lungs clear to auscultation bilaterally Cardiovascular: Rate/Rhythm: regular rate and regular rhythm Heart Sounds: + murmur (II/ sys murmur at base); no gallop and no cardiac rub Extremities: + edema (trace pretibial); no calf tenderness Gastrointestinal (Abdomen): normal bowel sounds, soft, nontender, no hepatosplenomegaly Musculoskeletal: Extremities: no cyanosis Skin: no rashes, warm and dry Psychiatric: Orientation: alert and oriented x 3 Results & Data ([facility]) Vital Signs (Past 12 Hours) Vital Signs Temp Pulse Pulse Pulse Pulse Pulse Resp 09/02/19 11:48 36.3 C L 79 18 09/02/19 07:42 83 68 78 74 09/02/19 07:19 36.8 C 74 18 09/02/19 03:11 36.6 C 75 16 Resp Resp Resp Resp BP Pulse Ox Pulse Ox 09/02/19 11:48 126/61 92 09/02/19 07:42 18 18 18 18 90 09/02/19 07:19 102/46 L 96 09/02/19 03:11 131/64 95 Pulse Ox Pulse Ox Pulse Ox 09/02/19 11:48 09/02/19 07:42 86 L 91 90 09/02/19 07:19 09/02/19 03:11 Laboratory Results Laboratory Results - last 24 hr 09/02/19 09/02/19 09/02/19 05:33 05:33 05:33 WBC 7.82 RBC 2.25 L Hgb 8.0 L Hct 23.5 L MCV 104.4 H MCH 35.6 H MCHC 34.0 RDW Std Deviation 58.8 H RDW Coeff of Kole 15.8 H Plt Count 188 MPV 10.5 H Absolute Nucleated RBC 0.05 H Nucleated RBC % (auto) 0.6 Neutrophils % (Manual) 75.3 Lymphocytes % (Manual) 10.6 Monocytes % (Manual) 3.5 Eosinophils % (Manual) 4.4 Basophils % (Manual) 2.7 Myelocytes % (Man) 3.5 Neutrophils # (Manual) 5.89 Total Absolute Neuts 5.89 Lymphocytes # (Manual) 0.83 L Monocytes # (Manual) 0.27 Eosinophils # (Manual) 0.34 Basophils # (Manual) 0.21 H Myelocytes # (Manual) 0.27 H Polychromasia 1+ ESR 16 H Sodium 138 Potassium 4.1 Chloride 104 Carbon Dioxide 30 Anion Gap 4.0 BUN 14 Creatinine 1.19 Est Cr Clr Drug Dosing 45.4 Est GFR ( Amer) 64.2 Est GFR (Non-Af Amer) 55.4 BUN/Creatinine Ratio 11.8 Glucose 92 Calcium 8.1 L Total Bilirubin 0.7 Direct Bilirubin < 0.1 AST 37 ALT 68 Alkaline Phosphatase 85 Total Protein 5.4 L Albumin 2.5 L Globulin 2.9 Albumin/Globulin Ratio 0.9 (1) Pneumonia Pneumonia type: due to unspecified organism
--- NOTE | 2019-09-03 04:40 | Discharge Summary ---
Date of Service Date of Admission: 08/23/19 Date of Discharge: 09/02/19 Admission HPI Per Admitting Provider History obtained from patient, family, and records. Limited history from patient secondary to disorientation. Medical history significant for chronic diastolic heart failure (EF 60%, TTE 2019), CAD sp CABG, TAA, aortic regurgitation status post bioprosthetic AVR, syncope status post ICD, hypertension, hyperlipidemia, COPD as per records, chronic bronchiectasis, chronic right hemidiaphragm paralysis, chronic anemia (baseline hemoglobin 9-10), past tobacco abuse. Recent confinement last month for respiratory failure secondary to aspiration pneumonitis secondary to choking episode. Patient had a busy day yesterday as per . Outpatient follow-up with [facility] radioisotope production operator. Barium swallow recommended to rule out possible silent aspiration as per records. Patient also underwent moves surgery for left mid cheek basal cell carcinoma outpatient yesterday. A lot of bleeding encountered during surgery as per . Earlier this morning, patient noted by to have labored breathing and confusion. Junky cough symptoms. No witnessed aspiration episode. Fever chills at home. On route to the ER, patient received Solu-Medrol, DuoNeb and a gram of Tylenol. At the ER, patient received IVF, Zosyn, Levaquin for sepsis. Levophed initiated for SBP of 60 to 70s despite above intervention. Patient denies chest pain, shortness of breath symptoms. Principal Diagnosis septic shock secondary to MRSA sepsis / bacteremia OTHER ACUTE / NEW DIAGNOSES: pneumonia acute on chronic respiratory failure with hypoxia acute on chronic left ventricular diastolic heart failure encephalopathy anemia Discharge Data Allergies Allergy/AdvReac Type Severity Reaction Status Date / Time No Known Allergies Allergy Verified 08/23/19 05:56 Consultations 08/23/19 06:09 ED Decision to Admit Stat 08/23/19 08:46 Consult Case Management - Discharge Planning Routine Consult Real Estate Valuer Routine 08/24/19 07:00 Consult Infectious Diseases Routine Ordered Studies 08/23/19 09:55 US point of care ultrasound Routine 08/23/19 13:34 US point of care ultrasound Routine 08/24/19 19:03 US point of care ultrasound Routine 08/24/19 19:58 CT chest wo con Routine 09/01/19 11:41 US venous doppler UE LT Urgent Hospital Course (1) Septic shock: Presented to ED with cough, shortness of breath, confusion. Met criteria for sepsis per current CMS guidelines-fever, tachycardia, tachypnea, leukocytosis. Lactate was 1.5. Procalcitonin was 26.04. Persistent hypotension despite fluid resuscitation. Required pressor support with norepinephrine. Blood cultures obtained and started on broad-spectrum antibiotic coverage with piperacillin/tazobactam and levofloxacin. Chest x-ray demonstrated left basilar infiltrate. Nasopharyngeal swab negative for influenza A/B. Nasal MRSA screen was positive. Vancomycin added for MRSA coverage. Received intravenous steroids for possible adrenal insufficiency. Admitted to ICU and Critical Care Medicine was consulted. ID was consulted as well. Blood cultures subsequently grew MRSA. Transitioned to ceftaroline. Transthoracic echocardiogram performed and did not show any apparent valvular vegetations. Nevertheless, must consider possibility of endocarditis in light of bioprosthetic aortic valve replacement. 6-week course of IV antibiotics recommended. Repeat blood cultures on showed persistent MRSA bacteremia. Repeat blood cultures drawn on 08/26/2019 negative thus far. Repeat blood culture drawn 08/28 negative at 72 hours. PICC placed. Discharged to home with home IV ceftaroline to complete 6 week course of therapy. (2) Bacteremia due to methicillin resistant Staphylococcus aureus: As noted above. (3) Pneumonia: Suspected MRSA pneumonia as noted above. Sputum growing some yeast- probable colonization. (4) Altered mental status: Encephalopathy secondary to sepsis. Resolved. (5) Acute and chronic respiratory failure with hypoxia: History of chronic nocturnal hypoxia on home nocturnal O2. O2 saturations as low as 87% associated with tachypnea at time of admission with associated tachypnea. Acute on chronic hypoxic respiratory failure. Received supplemental oxygen as necessary; now weaned to nasal cannula. 2-step pulse oximetry: 91% RA at rest, 86% RA with exercise. O2 2 LPM at night and with exercise recommended. (6) Anemia: Recent baseline hemoglobin 9.5-11. Hemoglobin at time of admission was 10.2. Hemoglobin day of admission 8.0. Stools negative for occult blood. Serum iron 59, transferrin 143, ferritin 493, transferrin saturation 29%. Anemia probably secondary to acute illness / sepsis. Follow. Further evaluation / consultation as necessary if anemia persists. (7) CAD (coronary artery disease): Slightly elevated troponin probably secondary to sepsis rather than acute coronary syndrome. Echocardiogram showed normal left ventricular wall motion and systolic function. Metoprolol was held because of septic shock. Hemodynamics improved, so metoprolol was resumed. Continue aspirin, statin. (8) Aortic valve replaced: Echocardiogram demonstrated bioprosthetic aortic valve with moderate calcification and moderate aortic stenosis. (9) Chronic diastolic HF (heart failure): Admission chest x-ray showed some degree of pulmonary vascular congestion. Echocardiogram showed moderate LVH, normal left ventricular wall motion, LVEF of 55-60%, grade 1 diastolic dysfunction. Acute on chronic left ventricular diastolic heart failure. Follow-up chest x-ray 08/28 showed cardiomegaly, no CHF. (10) Hypertension: Metoprolol and terazosin were held at time of admission because of septic shock. Resume metoprolol. Follow and titrate therapy. (11) Ventricular tachyarrhythmia: History of ventricular tachycardia. Status post ICD. Resumed metoprolol. (12) COPD (chronic obstructive pulmonary disease): Exacerbation of COPD at time of admission secondary to pneumonia with associated acute on chronic hypoxic respiratory failure. Respiratory status improved. Continue usual pulmonary medications. 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 (14) Arm edema: Moderate swelling LUE. Suspect IV infiltration. Venous duplex negative for DVT. (15) DVT prophylaxis: Subcutaneous heparin. Ambulate. (16) Discharge planning issues: Discharge to home with PICC / IV antibiotics. Family Medicine follow-up with Dr. An Simon. Cardiology follow-up with Dr. Ludin Simon. Total Time Total Time Spent Total Time Spent (In Minutes): 45 Discharge Plan Discharge Items Patient Disposition: Home - Home Health Services Reason For Visit: weakness Discharge Diagnosis: sepsis due to MRSA (Staph infection) Condition on Discharge: Good Activity: Resume your previous activity Non-emergency contact: Primary Care Provider and Hospitalist Call non-emergency contact if: you have any medication questions Follow-up/Referrals: Ruth Blackwood DO [Physician] - 09/25/19 2:00 pm An Simon DO [Primary Care Provider] - 09/09/19 10:55 am Diet: Heart Healthy Addtl Attending Provider Instructions: MEDICATION CHANGES: ceftaroline (Teflaro) 400 mg intravenously twice a day until finished SUMMARY OF TEST RESULTS: Initial blood cultures grew MRSA. Repeat blood cultures were negative. Oxygen level: 91% on room air at rest. 86% on room air with exercise Suggest: wear oxygen 2 liters / minute at rest and with exercise PENDING TEST RESULTS: Weekly blood tests to be drawn early in the week by Home Health Nursing x 5 weeks: CBC with diff comprehensive chemistry profile ESR Please send results to Dr. Ruth Blackwood and Dr. An Simon. OTHER INSTRUCTIONS: Seek medical attention if you have: * temperature above 101 * chest pain or trouble breathing * abdominal pain, nausea, vomiting * diarrhea, dark stools or bloody stools * any unanswered questions or concerns Call 911 if symptoms are severe. Please take good care of yourself. Call if you have any questions or problems. You can reach a [facility] hospitalist on duty at [facility] 24 hours a day by calling [phone]. My cell # is [phone]. Pending Studies at Discharge: No Stand-Alone Forms: My [facility], Smoking Cessation Medications and DC Order Prescriptions: New ceftaroline fosamil 400 mg recon soln 400 mg IV Q12H Qty: 73 RF: 0 Continued terazosin 5 mg Capsule 5 mg PO QPM RF: 0 cetirizine [Zyrtec] 10 mg Tablet 10 mg PO DAILY PRN (Reason: Allergy Symptoms) RF: 0 azithromycin [Zithromax Z-Thom] 250 mg Tablet 250 mg PO UD PRN (Reason: copd rescue kit) RF: 0 simvastatin 40 mg Tablet 40 mg PO PM RF: 0 prednisone 10 mg Tablets,Dose Pack 10 mg PO UD PRN (Reason: copd rescue kit) RF: 0 metoprolol succinate 25 mg Tablet Extended Release 24 Hr 25 mg PO QAM RF: 0 multivitamin with minerals Tablet 1 tab PO QAM RF: 0 fluticasone propionate [Flonase Allergy Relief] 50 mcg/actuation [place],Suspension 2 spray INTRANASAL BID RF: 0 finasteride 5 mg Tablet 5 mg PO HS RF: 0 cholecalciferol (vitamin D3) [Vitamin D3] 25 mcg (1,000 unit) Tablet 1,000 unit PO QAM RF: 0 Breo Ellipta 100-25 mcg/dose Blister With Device 1 inh INHALATION QAM RF: 0 Incruse Ellipta 62.5 mcg/actuation blister with device 1 inh INHALATION DAILY RF: 0 dorzolamide-timolol 22.3-6.8 mg/mL drops 1 drp OPB HS RF: 0 aspirin [Aspirin Childrens] 81 mg Tablet,Chewable 81 mg PO DAILY RF: 0 Mucinex 1,200 mg Tablet Extended Release 12hr 1,200 mg PO BID RF: 0 amoxicillin 500 mg Capsule 2,000 mg PO UD PRN (Reason: prior to dental procedures) RF: 0 latanoprost [Xalatan] 0.005 % Drops 1 drp OPR HS RF: 0 furosemide [Lasix] 20 mg Tablet 20 mg PO HS RF: 0 albuterol sulfate [ProAir HFA] 90 mcg/actuation Hfa Aerosol Inhaler 2 puff Inhalation QID PRN (Reason: Shortness Of Breath) RF: 0 Alphagan P 0.1 % Drops 0.1 % ophthalmic (eye) DAILY RF: 0 ipratropium-albuterol 0.5 mg-3 mg(2.5 mg base)/3 mL Solution For Nebulization 3 ml NEB QIDR PRN (Reason: Wheezing/SOB) Qty: 90 RF: 0 Discharge Orders: Discharge Order (Routine); Ordered 09/02/19 Ordered By: Jerman King Admission Data Admit Date/Time: 08/23/19 07:05 Attending Provider: Jerman King Admit Provider: Cayden Bhat Primary Care Provider: An Simon Other Providers: Cayden Bhat ; Ravinder Babcock ; Ruth Blackwood ; [facility] ; Adalberto Perez Other Interventions: Discharge Summary Assessment (RN) Last Done: 09/02/19 15:02 DC Date/Time DO NOT enter until pt leaves facility: 09/02/19 15:57
--- NOTE | 2019-09-04 07:39 | Coding Query ---
CODING QUERY To promote full compliance with coding requirements relating to patient care, provider participation is requested in all cases of hcc coders uncertainty. Please assist us with the question(s) below: Coding Question(s): 1. There is documentation in the record and on the Discharge summary of, " Transthoracic echocardiogram performed and did not show any apparent valvular vegetations. Nevertheless, must consider possibility of endocarditis in light of bioprosthetic aortic valve replacement. 6-week course of IV antibiotics recommended.". Please specify below, in your clinical opinion. (X ) Possible Endocarditis was likely a complication resulting from the bioprosthetic aortic valve replacement ( X ) this was likely present on admission ( ) this was not likely present on admission ( ) poa undetermined if likely poa or not poa ( ) Possible Endocarditis was Not likely a complication of resulting from the Bioprosthetic aortic valve replacement ( ) this was likely present on admission ( ) this was not likely present on admission ( ) poa undetermined if likely poa or not poa ( ) Possible Endocarditis was Other: Please Specify ( ) this was likely present on admission ( ) this was not likely present on admission ( ) poa undetermined if likely poa or not poa 2. Please clarify below, in your clinical opinion, the source of the Sepsis/Septic Shock. ( ) MRSA Pneumonia ( ) Endocarditis ( ) MRSA Pneumonia and Endocarditis (X ) Other: Please Specify___MRSA bacteremia, possibly secondary to MRSA pneumonia and/or endocarditis ( ) Unknown source Physician's Response(s): Thank you Cee Brasher Principal Diagnosis: "that condition established after study, to be chiefly responsible for occasioning the admission of the patient to the hospital for care." Co-Existing Principal Diagnosis: "when two or more diagnoses equally meet the criteria for principal diagnosis as determined by the circumstances of admission, diagnostic work up, and/or therapy provided, and the Alphabetic Index, Tabular List, or another coding guideline does not provide sequencing direction, any one of the diagnoses may be sequenced first." "When the physician has documented what appears to be a current diagnosis in the body of the record, but has not included the diagnosis in the final diagnostic statement, the physician should be asked whether the diagnosis should be added." (Source Coding [facility] 2 QTR90. p3-4) MAREK
== END 2019-09-02 15:57 | disposition home health service (06) | DRG 314 ==
LOC: ED 04:58 → 1E 07:05 → SUATTDRO 07:05 → 1E 08:00 → 2W 08-26 14:56

== ENCOUNTER 2020-01-16 18:19 | Inpatient (IN) ==
[2020-01-16] MEDS ORDERED: RAPID SEQUENCE INDUCTION BAG ONE (18:22)
[2020-01-16] MEDS ORDERED: ETOMIDATE 2 MG/ML 20 ML VIAL IV ONE ×2 (18:30→21:24)
[2020-01-16] MEDS ORDERED: SODIUM CHLORIDE 0.9% 1000ML 500 ML IV ONE ×2 (18:43→19:49)
[2020-01-16] MEDS ORDERED: PROPOFOL IV EMULSION 10 MG/ML 100 ML VIAL IV ONE (18:50)
--- NOTE | 2020-01-16 18:51 | XRay Report ---
XR chest 1V portable HISTORY: 84 years-old Male SEPSIS acute sepsis COMPARISON: Chest radiograph 09/01/2019 TECHNIQUE: Supine portable AP view of the chest FINDINGS: Status post post placement of an endotracheal tube, distal tip terminating approximately 11 mm superi or to the boogie. Left subclavian pacer/AICD. Cardiac megaly with cardiac valvular prosthesis. Right greater than left pleural effusions. Pulmonary vascular congestion with interstitial coarsening. Biba silar opacities. No pneumothorax. 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 Degenerative change s of the shoulders and spine. IMPRESSION: 1. Status post placement of an endotracheal tube, distal tip terminating 11 mm superior to the boogie . 2. Cardiomegaly with pulmonary edema. 3. Right greater than left pleural effusions with bibasilar consolidative opacities. ACT 112: Negative or not required by law. The above report was generated using voice recognition software. It may contain grammatical, syntax o r spelling errors. Electronically signed by: Philip Guzman M.D. 01/16/2020 6:50 PM
[2020-01-16 18:54] LABS: INR 1.1 (0.9-1.1); Partial Thromboplastin Time 27.4 Seconds (21.0-31.0); Prothrombin Time 11.8 Seconds (9.0-12.0)
[2020-01-16 18:57] LABS: Base Excess VBG 12.1 mEq/L; Oxygen Saturation VBG 72.8 %
[2020-01-16] MEDS: propofoL 1,000 MG/100 ML VIAL IV SCH (19:00)
[2020-01-16 19:04] LABS: Hematocrit (blood only) 32.9 % (42-52); Hemoglobin 9.8 g/dL (14.0-18.0); Mean Corpuscular Hemoglobin 33.8 pg (25-34); Mean Corpuscular Hgb Conc 29.8 g/dL (32-36); Mean Corpuscular Volume 113.4 fL (80-100); Mean Platelet Volume 11.8 fL (7.4-10.4); Nucleated RBC # (auto) 0.09 K/uL (0-0); Nucleated RBC % (auto) 0.6 %; Platelet Count 228 K/uL (130-400); RDW Standard Deviation 70.2 fL (36.4-46.3); White Blood Count 15.62 K/uL (4.8-10.8)
[2020-01-16 19:05] LABS: Basophilic Stippling 1+; Basophils # (auto) 0.05 K/uL (0-0.2); Basophils % (auto) 0.3 %; Eosinophils # (auto) 0.05 K/uL (0-0.5); Eosinophils % (auto) 0.3 %; Immature Granulocytes # (auto) 0.74 K/uL (0.00-0.02); Immature Granulocytes % (auto) 4.7 %; Lymphocytes # (auto) 2.08 K/uL (1.2-3.4); Lymphocytes % (auto) 13.3 %; Microcytosis Present; Monocytes # (auto) 2.21 K/uL (0.11-0.59); Monocytes % (auto) 14.1 %; Neutrophils # (auto) 10.49 K/uL (1.4-6.5); Neutrophils % (auto) 67.3 %; Stomatocytes 1+
[2020-01-16] MEDS ORDERED: VANCOMYCIN CONSULT ACTIVE PRN (19:11)
[2020-01-16] MEDS ORDERED: CEFEPIME 2,000 MG/20 ML VIAL IV STA (19:11)
[2020-01-16] MEDS ORDERED: VANCOMYCIN HCL 1,750 MG in SODIUM CHLORIDE 0.9% 500 ML IV ONE (19:11)
[2020-01-16] MEDS ORDERED: CEFEPIME 2,000 MG/20 ML VIAL ONE (19:13)
[2020-01-16 19:16] LABS: Albumin Globulin Ratio 0.9 (0.9-2); Albumin Level 3.4 gm/dl (3.4-5.0); BUN Creatinine Ratio 28.1 (10-20); Bilirubin,Total 0.7 mg/dl (0.2-1); Calcium 8.6 mg/dl (8.5-10.1); Creatinine Clr Calc Pharmacy 40.9 ml/min; Est GFR (African American) 50.5; Est GFR (Non-African American) 43.6; Globulin 3.6 gm/dl (2.5-4.0); Magnesium 2.7 mg/dl (1.8-2.4); Potassium 6.4 mmol/L (3.5-5.1); Troponin I 0.032 ng/ml (0-0.045)
[2020-01-16 19:18] LABS: Appearance Urine Cloudy (Clear); Bacteria Urine Automated Negative (Negative); Bilirubin Urine Negative (Negative); Blood Urine 2+ (Negative); Color Urine Dark Yellow; Epithelial Cell Urine Auto >30 /lpf (0-5); Glucose Urine UA Negative (Negative); Ketones Urine Trace (Negative); Leukocyte Esterase Urine Negative (Negative); Nitrite Urine Negative (Negative); Protein Urine 2+ (Negative); Specific Gravity Urine 1.026 (1.000-1.030); Urobilinogen Urine Negative (Negative)
--- NOTE | 2020-01-16 19:32 | CT Scan Report ---
CT head/brain wo con CLINICAL HISTORY: 84 years-old Male with altered. Acutely altered mental status TECHNIQUE: Multiple axial CT images of the head were obtained without contrast. A dose lowering tech nique was utilized adhering to the principles of ALARA. CT DOSE: 614.27 mGy.cm COMPARISON: None. FINDINGS: No acute intracranial hemorrhage, midline shift, intracranial mass, hydrocephalus, territorial ischem ia or abnormal extra-axial collection. Cerebral vascular calcifications. Age-related involutional juanita nges with patchy white matter hypodensities suggestive of chronic microvascular ischemic disease. 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 The calvarium is intact. Mild mucosal thickening of the ethmoid air cells and nasal terminates. Righ tward bowing and spurring of the nasal septum. Mastoid air cells are clear. Soft tissues and orbits a re unremarkable. Prior bilateral lens replacement. IMPRESSION: No acute intracranial abnormality. ACT 112: Negative or not required by law. The above report was generated using voice recognition software. It may contain grammatical, syntax o r spelling errors. Electronically signed by: Philip Guzman M.D. 01/16/2020 7:31 PM
[2020-01-16 19:35] LABS: Cast Urine Automated >30 /lpf (0-5)
[2020-01-16] MEDS ORDERED: DEXTROSE 50% 50 ML SYRINGE IV ONE (19:49)
[2020-01-16] MEDS ORDERED: CALCIUM GLUCONATE 10% 10 ML VIAL IV STA (19:49)
[2020-01-16] MEDS ORDERED: NovoLIN-R INSULIN PER UNIT CHARGE IV STA (19:49)
--- NOTE | 2020-01-16 19:54 | Emergency Department Note ---
Impression & Plan Respiratory failure, COPD (chronic obstructive pulmonary disease), Pulmonary edema, Acute hyperkalemia, Acute respiratory acidosis, Acute alteration in mental status ED Provider Note NAME: CLAUDIA CORDOVA III AGE: 84 SEX: M : 1935 ARRIVES VIA: Ambulance INFORMANT: The patient's significant other, the prehospital personnel and the patient's past medical charting ED PROVIDER(S): Renato Buckner DO CHIEF COMPLAINT: Altered mental status HPI: The patient is an 84-year-old male who presented to the emergency department for an evaluation of altered mental status. The patient was obtunded upon arrival to the emergency department and was unable to give any history. Review of systems was unobtainable as well but was obtained from the prehospital personnel as well as the patient's significant other. The patient has a history of COPD. He normally wears oxygen at night. According to his significant other he was difficult to wake up this morning. He started wearing more oxygen especially at night. He has been going from his normal 2 to 3 L to 5 L. The patient awoke this morning but was having difficulty ambulating. He did have something to eat and was meeting with his brother at approximately 09 30. His significant other left the house at approximately noon and when she returned at 4 PM she found to be very obtunded. She states that he has not been complaining of any chest pain or headache. He has had no recent falls. He has had a cough but it is nonproductive. He has been experiencing lower extremity edema which is greater than usual for him. The patient was admitted to our facility with si milar symptoms in the spring of this year. The patient has not been seen by his primary care physician recently. Otherwise she states he has been compliant with his other medications. ROS: See above HPI for pertinent positives & negatives. A total of 10 systems reviewed and were otherwise negative. Review of systems was obtained from the significant other. The patient was unable to give a review of systems secondary to obtundation. PAST MEDICAL HISTORY: See Below PAST SURGICAL HISTORY: See Below FAMILY HISTORY: See Below SOCIAL HISTORY: See Below HOME MEDICATIONS: See Below ALLERGIES: See Below VITALS: See Below PHYSICAL EXAMINATION: GENERAL: The patient is obtunded and does not respond to questioning. He does not appear to respond to painful or loud verbal stimuli. EYES: The conjunctivae are clear. The pupils are round and reactive. EARS, NOSE, MOUTH AND THROAT: The nose is without any evidence of any deformity. Mucous membranes are dry. NECK: The neck is nontender and supple. JVD was noted RESPIRATORY: Shallow and ineffective respirations were noted. There were rales noted throughout. Poor air movement was noted. CARDIOVASCULAR: Regular rate and rhythm was noted to auscultation. No definite murmur was noted. GASTROINTESTINAL: The abdomen is soft. Abdomen is nontender. MUSCULOSKELETAL/EXTREMITIES: There is no evidence of gross deformity full range of motion is noted in the hips and shoulders. SKIN: Pedal edema was noted bilaterally. Skin was warm and dry. NEUROLOGIC: Patient is obtunded. He does not follow commands or answer quest ions. Patient is moving his extremities bilaterally. MEDICAL DECISION MAKING: The patient is an 84-year-old male who presented to the emergency department for an evaluation of altered mental status. The patient was intubated immediately upon arrival to the emergency department because of altered mental status as well as falling oxygen saturation. The patient was found to have signs of pulmonary edema on chest x-ray but also may have significant COPD with CO2 retention based on his venous blood gas. The patient was treated with IV fluids and IV antibiotics. He was reevaluated multiple times. He was placed on IV medications for sedation for comfort. I discussed the patient's laboratory and radiographic studies with his significant other. I also discussed his case with the on-call [facility] hospitalist group. They have agreed to evaluate the patient in the emergency department for further management and disposition. The patient's hyperkalemia was also treated with IV dextrose IV insulin and IV calcium. Triage Nursing notes reviewed. Prior medical records reviewed Vital Signs: reviewed and remarkable for hypoxia as well as hypotension. Differential diagnosis: Infection, hypoglycemia, electrolyte abnormalities, overdose, toxicologic, car diac sources, intracerebral event, neurologic, trauma, as well as other pathologies. ER treatment provided: See below Diagnostics interpreted by me: ECG: EKG was obtained in the emergency department. Dual-chamber pacemaker was noted at 83 bpm. There were no [place] beats noted. Some ventricular Bob beats were noted. This was compared to a tracing from August 23, 2019. No significant changes were noted. Cardiac Monitoring: An order was placed for continuous cardiac monitoring. The monitor shows a rate of 80 with paced rhythm. Laboratory studies: As stated above and show below. Imaging studies: See below Consultation(s): 1930: I discussed this case with Karla who is on-call for the [facility] group. They have agreed to evaluate the patient in the emergency department for further management and disposition. ED COURSE: Procedures: Endotracheal Intubation Indication respiratory failure. The patient was on 100% oxygen via NRB prior to the procedure. Suction, airway equipment, RSI drugs, respiratory equipment, and appropriate personnel were prepared prior to the initiation of the procedure. A time out was taken. Induction was performed with etomidate. After observing the clinical benefit of the medications, the airway was easily visualized utilizing a glide scope. A 7.5 size ETT tube was placed atraumatically to 26 at the lip cm using standard technique. The cuff inflated without signs of malfunction. There were bilateral breath sounds, positive colormetric change, no gastric sounds, a good capnography waveform, and post procedure pulse oximetry was 95%. Post intubation sedation and paralysis was administered using propofol. There were no complications. PDMP:reviewed and no issues Critical Care: I have personally spent greater than 85 minutes of critical care time in the direct management of this patient. This includes bedside care, interpretation of diagnostic studies, and testing, discussion with consultants, patient, and family members, and other required patient management activities. This 85 minutes is in excess of all separately billable procedures. Past Med/Surg History Medical History Ascending aortic aneurysm (Chronic) BPH (benign prostatic hyperplasia) (Chronic) Bronchiectasis (Chronic) CAD (coronary artery disease) (Chronic) Chronic diastolic HF (heart failure) Chronic systolic CHF (congestive heart failure), NYHA class 3 COPD (chronic obstructive pulmonary disease) Glaucoma bilt eyes Hyperlipidemia (Chronic) Hypertension (Chronic) ICD (implantable cardioverter-defibrillator) battery depletion pt for biv icd generator change; rediscussed the procedure and potential risks consent obtained Ischemic cardiomyopathy (Chronic) On home oxygen therapy 2L N/C hs and prn Spinal stenosis Ventricular tachyarrhythmia (Chronic) Surgical History Biventricular ICD (implantable cardioverter-defibrillator) in place 2005 @ [facility]/ kee replaced @ 07/04/18 [facility] History of bilateral cataract extraction History of cardiac cath 2001 [place] [facility] [place] History of colonoscopy History of left inguinal hernia repair x2 History of prostate biopsy x2--benign History of tonsillectomy Hx of CABG 2001 @ [facility] [place] S[place]P AVR 2001 @ [facility] [place] Family History Father Family hx colonic polyps Other Hypertension No family history of adverse response to anesthesia Stroke Social History Smoking Status: Unknown if ever smoked Second Hand Exposure: No; Hx Alcohol Use: No Hx Substance Use: No Preferred Language: Chinese Communication Ability: Effective Radio Adjuster Required: No Beliefs That Will Affect Care: None marital status: Current Living Situation: Spouse Feels Safe at Home: Yes Allergies Allergies Allergy/AdvReac Type Severity Reaction Status Date / Time No Known Allergies Allergy Verified 12/17/19 08:52 Home Meds Home Medications Medication Instructions Recorded Confirmed Alphagan P 0.1 % OPHTHALMIC (EYE) DAILY 07/04/18 08/23/19 albuterol sulfate [ProAir HFA] 2 puff INHALATION QID PRN 07/04/18 08/23/19 amoxicillin 2,000 mg PO UD PRN 07/04/18 08/23/19 furosemide [Lasix] 20 mg PO 07/04/18 08/23/19 latanoprost [Xalatan] 1 drp OPR 07/04/18 08/23/19 Breo Ellipta 1 inh INHALATION QA 06/27/19 08/23/19 azithromycin [Zithromax Z-Thom] 250 mg PO UD PRN 06/27/19 08/23/19 cetirizine [Zyrtec] 10 mg PO DAILY PRN 06/27/19 08/23/19 cholecalciferol (vitamin D3) 1,000 unit PO QAM 06/27/19 08/23/19 [Vitamin D3] finasteride 5 mg PO 06/27/19 08/23/19 fluticasone propionate [Flonase 2 spray INTRANASAL BID 06/27/19 08/23/19 Allergy Relief] metoprolol succinate 25 mg PO QAM 06/27/19 08/23/19 multivitamin with minerals 1 tab PO QAM 06/27/19 08/23/19 prednisone 10 mg PO UD PRN 06/27/19 08/23/19 simvastatin 40 mg PO PM 06/27/19 08/23/19 terazosin 5 mg PO QPM 06/27/19 08/23/19 Incruse Ellipta 1 inh INHALATION DAILY 08/23/19 08/23/19 Mucinex 1,200 mg PO BID 08/23/19 08/23/19 aspirin [Aspirin Childrens] 81 mg PO DAILY 08/23/19 08/23/19 dorzolamide-timolol 1 drp OPB HS 08/23/19 08/23/19 Previous Rx's Medication Instructions Recorded ipratropium-albuterol 3 ml NEB QIDR PRN #90 ml 07/26/19 ceftaroline fosamil 400 mg IV Q12H #73 ea 08/30/19 Results & Data (ED) Vital Signs Vital Signs - 24 hr 01/16/20 18:20 01/16/20 18:23 01/16/20 18:24 Temperature Source Rectal Pulse Rate 84 86 85 Pulse Rate from SpO2 Sensor 86 84 Pulse Rhythm Regular Pulse Strength Normal Respiratory Rate 4 L Respiratory Effort / Characteristics Spontaneous Accessory Muscle Use Respiratory Depth Retractive Respiratory Pattern Apnea Blood Pressure 122/47 L 122/47 L Blood Pressure Mean 72 74 Blood Pressure Position Lying Pulse Oximetry 81 L 80 L 83 L Oxygen Delivery Method Non-rebreather Non-rebreather Non-rebreather Oxygen Flow Rate 15 15 15 Fraction of Inspired Oxygen Sepsis Recent Fever Within 48 Hours No Sepsis New/Unexplained Change in Mental Status No Sepsis Action Taken by Nursing No Action Required End-Tidal CO2 01/16/20 18:25 01/16/20 18:30 01/16/20 18:32 Temperature Source Pulse Rate 84 82 85 Pulse Rate from SpO2 Sensor 84 82 85 Pulse Rhythm Regular Pulse Strength Respiratory Rate 4 L Respiratory Effort / Characteristics Respiratory Depth Respiratory Pattern Blood Pressure 104/55 L Blood Pressure Mean 81 Blood Pressure Position Pulse Oximetry 84 L 77 L 94 Oxygen Delivery Method Non-rebreather Non-rebreather Oxygen Flow Rate 15 15 Fraction of Inspired Oxygen Sepsis Recent Fever Within 48 Hours Sepsis New/Unexplained Change in Mental Status Sepsis Action Taken by Nursing End-Tidal CO2 01/16/20 18:35 01/16/20 18:36 01/16/20 18:40 Temperature Source Pulse Rate 82 79 79 Pulse Rate from SpO2 Sensor 83 79 79 Pulse Rhythm Pulse Strength Respiratory Rate 22 Respiratory Effort / Characteristics Respiratory Depth Respiratory Pattern Blood Pressure 105/69 Blood Pressure Mean 99 Blood Pressure Position Pulse Oximetry 100 99 88 L Oxygen Delivery Method Mechanical Vent Mechanical Vent Oxygen Flow Rate Fraction of Inspired Oxygen 50 50 Sepsis Recent Fever Within 48 Hours Sepsis New/Unexplained Change in Mental Status Sepsis Action Taken by Nursing End-Tidal CO2 01/16/20 18:45 01/16/20 18:50 01/16/20 18:55 Temperature Source Pulse Rate 78 76 75 Pulse Rate from SpO2 Sensor 79 76 75 Pulse Rhythm Pulse Strength Respiratory Rate Respiratory Effort / Characteristics Respiratory Depth Respiratory Pattern Blood Pressure 117/48 L 126/59 L 141/59 H Blood Pressure Mean 73 81 68 Blood Pressure Position Pulse Oximetry 95 93 92 Oxygen Delivery Method Mechanical Vent Mechanical Vent Mechanical Vent Oxygen Flow Rate Fraction of Inspired Oxygen 50 50 50 Sepsis Recent Fever Within 48 Hours Sepsis New/Unexplained Change in Mental Status Sepsis Action Taken by Nursing End-Tidal CO2 79 85 71 01/16/20 19:01 01/16/20 19:06 01/16/20 19:10 Temperature Source Pulse Rate 75 75 75 Pulse Rate from SpO2 Sensor 76 75 75 Pulse Rhythm Pulse Strength Respiratory Rate Respiratory Effort / Characteristics Respiratory Depth Respiratory Pattern Blood Pressure 131/68 126/59 L 130/50 L Blood Pressure Mean 87 99 70 Blood Pressure Position Pulse Oximetry 91 88 L 90 Oxygen Delivery Method Mechanical Vent Mechanical Vent Mechanical Vent Oxygen Flow Rate Fraction of Inspired Oxygen 50 50 50 Sepsis Recent Fever Within 48 Hours Sepsis New/Unexplained Change in Mental Status Sepsis Action Taken by Nursing End-Tidal CO2 70 70 72 01/16/20 19:28 01/16/20 19:31 01/16/20 19:35 Temperature Source Pulse Rate 75 75 75 Pulse Rate from SpO2 Sensor 75 75 75 Pulse Rhythm Pulse Strength Respiratory Rate Respiratory Effort / Characteristics Respiratory Depth Respiratory Pattern Blood Pressure 113/52 L 125/37 L 120/50 L Blood Pressure Mean 69 87 78 Blood Pressure Position Pulse Oximetry 97 94 93 Oxygen Delivery Method Mechanical Vent Mechanical Vent Mechanical Vent Oxygen Flow Rate Fraction of Inspired Oxygen 50 50 50 Sepsis Recent Fever Within 48 Hours Sepsis New/Unexplained Change in Mental Status Sepsis Action Taken by Nursing End-Tidal CO2 71 96 81 Home Medications Current Medication List: was personally reviewed by me Laboratory Data Attestation: I reviewed the patient's lab results. Result diagrams: 01/16/20 18:30 01/16/20 18:30 Lab Results 01/16/20 01/16/20 01/16/20 Range/Units 18:30 18:30 18:30 WBC 15.62 H (4.8-10.8) K/uL RBC 2.90 L (4.7-6.1) M/uL Hgb 9.8 L (14.0-18.0) g/dL Hct 32.9 L (42-52) % MCV 113.4 H (80-100) fL MCH 33.8 (25-34) pg MCHC 29.8 L (32-36) g/dL RDW Std Deviation 70.2 H (36.4-46.3) fL RDW Coeff of Kole 17.0 H (11.5-14.5) % Plt Count 228 (130-400) K/uL MPV 11.8 H (7.4-10.4) fL Immature Gran % (Auto) 4.7 % Neut % (Auto) 67.3 % Lymph % (Auto) 13.3 % [place] % (Auto) 14.1 % Eos % (Auto) 0.3 % Baso % (Auto) 0.3 % Neut # (Auto) 10.49 H (1.4-6.5) K/uL Lymph # (Auto) 2.08 (1.2-3.4) K/uL [place] # (Auto) 2.21 H (0.11-0.59) K/uL Eos # (Auto) 0.05 (0-0.5) K/uL Baso # (Auto) 0.05 (0-0.2) K/uL Immature Gran # (Auto) 0.74 H (0.00-0.02) K/uL Absolute Nucleated RBC 0.09 H (0-0) K/uL Nucleated RBC % (auto) 0.6 % Basophilic Stippling 1+ Microcytosis Present Stomatocytes 1+ PT 11.8 (9.0-12.0) Seconds INR 1.1 (0.9-1.1) APTT 27.4 (21.0-31.0) Seconds PTT Ratio 1.0 VBG pH (7.36-7.41) VBG pCO2 (38-50) mmHg VBG pO2 mmHg VBG HCO3 mmol/L VBG O2 Saturation % VBG Base Excess mEq/L Barometric Pressure mm/Hg Sodium 136 (136-145) mmol/L Potassium 6.4 H* (3.5-5.1) mmol/L Chloride 95 L (98-107) mmol/L Carbon Dioxide 43 H* (21-32) mmol/L Anion Gap -3.0 L (3-11) BUN 41 H (7-18) mg/dl Creatinine 1.45 H (0.6-1.4) mg/dl Est Cr Clr Drug Dosing 40.9 ml/min Est GFR ( Amer) 50.5 Est GFR (Non-Af Amer) 43.6 BUN/Creatinine Ratio 28.1 H (10-20) Glucose 194 H (70-99) mg/dl Lactate (0.4-2.0) mmol/L Calcium 8.6 (8.5-10.1) mg/dl Magnesium 2.7 H (1.8-2.4) mg/dl Total Bilirubin 0.7 (0.2-1) mg/dl AST 35 (15-37) U/L ALT 38 (12-78) U/L Alkaline Phosphatase 91 (45-117) U/L Ammonia (11-32) umol/L Troponin I 0.032 (0-0.045) ng/ml NT-Pro-B Natriuret Pep 35982 H (0-1800) pg/ml Total Protein 7.0 (6.4-8.2) gm/dl Albumin 3.4 (3.4-5.0) gm/dl Globulin 3.6 (2.5-4.0) gm/dl Albumin/Globulin Ratio 0.9 (0.9-2) Procalcitonin (0-0.5) ng/ml Urine Color Urine Appearance (Clear) Urine pH (4.5-7.5) Ur Specific [place] (1.000-1.030) Urine Protein (Negative) Urine Glucose (UA) (Negative) Urine Ketones (Negative) Urine Blood (Negative) Urine Nitrite (Negative) Urine Bilirubin (Negative) Urine Urobilinogen (Negative) Ur Leukocyte Esterase (Negative) Urine WBC (Auto) (0-5) /hpf Urine RBC (Auto) (0-4) /hpf U Hyaline Cast (Auto) (0-5) /lpf U Epithel Cells (Auto) (0-5) /lpf Urine Bacteria (Auto) (Negative) 01/16/20 01/16/20 01/16/20 Range/Units 18:30 18:30 18:30 WBC (4.8-10.8) K/uL RBC (4.7-6.1) M/uL Hgb (14.0-18.0) g/dL Hct (42-52) % MCV (80-100) fL MCH (25-34) pg MCHC (32-36) g/dL RDW Std Deviation (36.4-46.3) fL RDW Coeff of Kole (11.5-14.5) % Plt Count (130-400) K/uL MPV (7.4-10.4) fL Immature Gran % (Auto) % Neut % (Auto) % Lymph % (Auto) % [place] % (Auto) % Eos % (Auto) % Baso % (Auto) % Neut # (Auto) (1.4-6.5) K/uL Lymph # (Auto) (1.2-3.4) K/uL [place] # (Auto) (0.11-0.59) K/uL Eos # (Auto) (0-0.5) K/uL Baso # (Auto) (0-0.2) K/uL Immature Gran # (Auto) (0.00-0.02) K/uL Absolute Nucleated RBC (0-0) K/uL Nucleated RBC % (auto) % Basophilic Stippling Microcytosis Stomatocytes PT (9.0-12.0) Seconds INR (0.9-1.1) APTT (21.0-31.0) Seconds PTT Ratio VBG pH (7.36-7.41) VBG pCO2 (38-50) mmHg VBG pO2 mmHg VBG HCO3 mmol/L VBG O2 Saturation % VBG Base Excess mEq/L Barometric Pressure mm/Hg Sodium (136-145) mmol/L Potassium (3.5-5.1) mmol/L Chloride (98-107) mmol/L Carbon Dioxide (21-32) mmol/L Anion Gap (3-11) BUN (7-18) mg/dl Creatinine (0.6-1.4) mg/dl Est Cr Clr Drug Dosing ml/min Est GFR ( Amer) Est GFR (Non-Af Amer) BUN/Creatinine Ratio (10-20) Glucose (70-99) mg/dl Lactate 0.9 (0.4-2.0) mmol/L Calcium (8.5-10.1) mg/dl Magnesium (1.8-2.4) mg/dl Total Bilirubin (0.2-1) mg/dl AST (15-37) U/L ALT (12-78) U/L Alkaline Phosphatase (45-117) U/L Ammonia 74.5 H (11-32) umol/L Troponin I (0-0.045) ng/ml NT-Pro-B Natriuret Pep (0-1800) pg/ml Total Protein (6.4-8.2) gm/dl Albumin (3.4-5.0) gm/dl Globulin (2.5-4.0) gm/dl Albumin/Globulin Ratio (0.9-2) Procalcitonin 0.07 (0-0.5) ng/ml Urine Color Urine Appearance (Clear) Urine pH (4.5-7.5) Ur Specific [place] (1.000-1.030) Urine Protein (Negative) Urine Glucose (UA) (Negative) Urine Ketones (Negative) Urine Blood (Negative) Urine Nitrite (Negative) Urine Bilirubin (Negative) Urine Urobilinogen (Negative) Ur Leukocyte Esterase (Negative) Urine WBC (Auto) (0-5) /hpf Urine RBC (Auto) (0-4) /hpf U Hyaline Cast (Auto) (0-5) /lpf U Epithel Cells (Auto) (0-5) /lpf Urine Bacteria (Auto) (Negative) 01/16/20 01/16/20 Range/Units 18:30 18:38 WBC (4.8-10.8) K/uL RBC (4.7-6.1) M/uL Hgb (14.0-18.0) g/dL Hct (42-52) % MCV (80-100) fL MCH (25-34) pg MCHC (32-36) g/dL RDW Std Deviation (36.4-46.3) fL RDW Coeff of Kole (11.5-14.5) % Plt Count (130-400) K/uL MPV (7.4-10.4) fL Immature Gran % (Auto) % Neut % (Auto) % Lymph % (Auto) % [place] % (Auto) % Eos % (Auto) % Baso % (Auto) % Neut # (Auto) (1.4-6.5) K/uL Lymph # (Auto) (1.2-3.4) K/uL [place] # (Auto) (0.11-0.59) K/uL Eos # (Auto) (0-0.5) K/uL Baso # (Auto) (0-0.2) K/uL Immature Gran # (Auto) (0.00-0.02) K/uL Absolute Nucleated RBC (0-0) K/uL Nucleated RBC % (auto) % Basophilic Stippling Microcytosis Stomatocytes PT (9.0-12.0) Seconds INR (0.9-1.1) APTT (21.0-31.0) Seconds PTT Ratio VBG pH 7.00 L (7.36-7.41) VBG pCO2 198 H (38-50) mmHg VBG pO2 55 mmHg VBG HCO3 48 mmol/L VBG O2 Saturation 72.8 % VBG Base Excess 12.1 mEq/L Barometric Pressure 732.6 mm/Hg Sodium (136-145) mmol/L Potassium (3.5-5.1) mmol/L Chloride (98-107) mmol/L Carbon Dioxide (21-32) mmol/L Anion Gap (3-11) BUN (7-18) mg/dl Creatinine (0.6-1.4) mg/dl Est Cr Clr Drug Dosing ml/min Est GFR ( Amer) Est GFR (Non-Af Amer) BUN/Creatinine Ratio (10-20) Glucose (70-99) mg/dl Lactate (0.4-2.0) mmol/L Calcium (8.5-10.1) mg/dl Magnesium (1.8-2.4) mg/dl Total Bilirubin (0.2-1) mg/dl AST (15-37) U/L ALT (12-78) U/L Alkaline Phosphatase (45-117) U/L Ammonia (11-32) umol/L Troponin I (0-0.045) ng/ml NT-Pro-B Natriuret Pep (0-1800) pg/ml Total Protein (6.4-8.2) gm/dl Albumin (3.4-5.0) gm/dl Globulin (2.5-4.0) gm/dl Albumin/Globulin Ratio (0.9-2) Procalcitonin (0-0.5) ng/ml Urine Color Dark Yellow Urine Appearance Cloudy A (Clear) Urine pH 5.0 (4.5-7.5) Ur Specific [place] 1.026 (1.000-1.030) Urine Protein 2+ H (Negative) Urine Glucose (UA) Negative (Negative) Urine Ketones Trace H (Negative) Urine Blood 2+ H (Negative) Urine Nitrite Negative (Negative) Urine Bilirubin Negative (Negative) Urine Urobilinogen Negative (Negative) Ur Leukocyte Esterase Negative (Negative) Urine WBC (Auto) 1-5 (0-5) /hpf Urine RBC (Auto) 10-30 H (0-4) /hpf U Hyaline Cast (Auto) >30 H (0-5) /lpf U Epithel Cells (Auto) >30 H (0-5) /lpf Urine Bacteria (Auto) Negative (Negative) Administered Medications Propofol (Diprivan) 1,000 mg in 100 mls @ 4.938 mls/hr IV .[id number] [facility]; Protocol Stop: 01/19/20 18:59 Last Titration: 01/16/20 19:54 Dose: 15 mcg/kg/min, 7.4 mls/hr Documented by: [id number] Admin: 01/16/20 19:00 Dose: 10 mcg/kg/min, 4.9 mls/hr Documented by: [id number] Cosigned by: [id number] Vancomycin HCl 1,750 mg/ (Sodium Chloride) 535 mls @ 200 mls/hr IV NOW ONE Stop: 01/16/20 21:51 Last Admin: 01/16/20 19:50 Dose: 200 mls/hr Documented by: [id number] Discontinued Medications Cefepime HCl (Maxipime) Confirm Administered Dose 2,000 mg .ROUTE .STK-MED ONE Stop: 01/16/20 19:14 Last Admin: 01/16/20 19:35 Dose: Not Given Documented by: [id number] Sodium Chloride (Nss 1000ml) 500 mls @ 999 mls/hr IV .Q31M ONE Stop: 01/16/20 19:13 Last Infusion: 01/16/20 19:35 Dose: 0 mls/hr Documented by: [id number] Admin: 01/16/20 19:01 Dose: 999 mls/hr Documented by: [id number] Cefepime HCl (Maxipime) 2,000 mg in 20 mls @ 5 mls/min IV NOW STA; Protocol Stop: 01/16/20 19:14 Last Admin: 01/16/20 19:35 Dose: 5 mls/min Documented by: [id number] Miscellaneous () Confirm Administered Dose 1 ea .ROUTE .STK-MED ONE Stop: 01/16/20 18:23 Last Admin: 01/16/20 18:30 Dose: 1 ea Documented by: [id number] Propofol (Diprivan) Confirm Administered Dose 1,000 mg IV .STK-MED ONE Stop: 01/16/20 18:51 Last Admin: 01/16/20 19:01 Dose: Not Given Documented by: [id number] Imaging Data Radiologist's Impression: CT head/brain wo con CLINICAL HISTORY: 84 years-old Male with altered. Acutely altered mental status TECHNIQUE: Multiple axial CT images of the head were obtained without contrast. A dose lowering technique was utilized adhering to the principles of ALARA. CT DOSE: 614.27 mGy.cm COMPARISON: None. FINDINGS: No acute intracranial hemorrhage, midline shift, intracranial mass, hydrocephalus, territorial ischemia or abnormal extra-axial collection. Cerebral vascular calcifications. Age-related involutional changes with patchy white matter hypodensities suggestive of chronic microvascular ischemic disease. 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 The calvarium is intact. Mild mucosal thickening of the ethmoid air cells and nasal terminates. Rightward bowing and spurring of the nasal septum. Mastoid air cells are clear. Soft tissues and orbits are unremarkable. Prior bilateral lens replacement. IMPRESSION: No acute intracranial abnormality. ACT 112: Negative or not required by law. The above report was generated using voice recognition software. It may contain grammatical, syntax or spelling errors. Electronically signed by: Philip Guzman M.D. 01/16/2020 7:31 PM Dictated: 01/16/201922 Transcribed: 01/16/201922 XR chest 1V portable HISTORY: 84 years-old Male SEPSIS acute sepsis COMPARISON: Chest radiograph 09/01/2019 TECHNIQUE: Supine portable AP view of the chest FINDINGS: Status post post placement of an endotracheal tube, distal tip terminating approximately 11 mm superior to the boogie. Left subclavian pacer/AICD. Cardiac megaly with cardiac valvular prosthesis. Right greater than left pleural effusions. Pulmonary vascular congestion with interstitial coarsening. Bibasilar opacities. No pneumothorax. 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 Degenerative changes of the shoulders and spine. IMPRESSION: 1. Status post placement of an endotracheal tube, distal tip terminating 11 mm superior to the boogie. 2. Cardiomegaly with pulmonary edema. 3. Right greater than left pleural effusions with bibasilar consolidative opacities. ACT 112: Negative or not required by law. The above report was generated using voice recognition software. It may contain grammatical, syntax or spelling errors. Electronically signed by: Philip Guzman M.D. 01/16/2020 6:50 PM Dictated: 01/16/201845 Transcribed: 01/16/201845 Blood Pressure Blood Pressure Findings: Low blood pressure Discharge Plan Visit Data Chief Complaint: Unresponsive Stated Complaint: UNRESPONSIVE ED Provider: Renato Buckner Discharge Problem: Respiratory failure, COPD (chronic obstructive pulmonary disease), Pulmonary edema, Acute hyperkalemia, Acute respiratory acidosis, Acute alteration in mental status Patient Disposition: Being Evaluated by Hospitalist Condition: Critical Forms Stand Alone Forms: [facility] Prescriptions Prescriptions: No Action terazosin 5 mg Capsule 5 mg PO QPM RF: 0 cetirizine [Zyrtec] 10 mg Tablet 10 mg PO DAILY PRN (Reason: Allergy Symptoms) RF: 0 azithromycin [Zithromax Z-Thom] 250 mg Tablet 250 mg PO UD PRN (Reason: copd rescue kit) RF: 0 simvastatin 40 mg Tablet 40 mg PO PM RF: 0 prednisone 10 mg Tablets,Dose Pack 10 mg PO UD PRN (Reason: copd rescue kit) RF: 0 metoprolol succinate 25 mg Tablet Extended Release 24 Hr 25 mg PO QAM RF: 0 multivitamin with minerals Tablet 1 tab PO QAM RF: 0 fluticasone propionate [Flonase Allergy Relief] 50 mcg/actuation Sp ray,Suspension 2 spray INTRANASAL BID RF: 0 finasteride 5 mg Tablet 5 mg PO HS RF: 0 cholecalciferol (vitamin D3) [Vitamin D3] 25 mcg (1,000 unit) Tablet 1,000 unit PO QAM RF: 0 Breo Ellipta 100-25 mcg/dose Blister With Device 1 inh INHALATION QAM RF: 0 Incruse Ellipta 62.5 mcg/actuation blister with device 1 inh INHALATION DAILY RF: 0 dorzolamide-timolol 22.3-6.8 mg/mL drops 1 drp OPB HS RF: 0 aspirin [Aspirin Childrens] 81 mg Tablet,Chewable 81 mg PO DAILY RF: 0 Mucinex 1,200 mg Tablet Extended Release 12hr 1,200 mg PO BID RF: 0 ceftaroline fosamil 400 mg recon soln 400 mg IV Q12H Qty: 73 RF: 0 amoxicillin 500 mg Capsule 2,000 mg PO UD PRN (Reason: prior to dental procedures) RF: 0 latanoprost [Xalatan] 0.005 % Drops 1 drp OPR HS RF: 0 furosemide [Lasix] 20 mg Tablet 20 mg PO HS RF: 0 albuterol sulfate [ProAir HFA] 90 mcg/actuation Hfa Aerosol Inhaler 2 puff Inhalation QID PRN (Reason: Shortness Of Breath) RF: 0 Alphagan P 0.1 % Drops 0.1 % ophthalmic (eye) DAILY RF: 0 ipratropium-albuterol 0.5 mg-3 mg(2.5 mg base)/3 mL Solution For Nebulization 3 ml NEB QIDR PRN (Reason: Wheezing/SOB) Qty: 90 RF: 0 Referrals Referrals: An Simon DO [Primary Care Provider] - Discharge Problem: Respiratory failure Qualifiers: Chronicity: acute on chronic Respiratory failure complication: hypoxia and hypercapnia Qualified Code(s): J96.21 - Acute and chronic respiratory failure with hypoxia COPD (chronic obstructive pulmonary disease) Qualifiers: COPD type: COPD with acute exacerbation Qualified Code(s): J44.1 - Chronic obstructive pulmonary disease with (acute) exacerbation Pulmonary edema Qualifiers: Chronicity: acute Qualified Code(s): J81.0 - Acute pulmonary edema
[2020-01-16 20:08] LABS: Amphetamines+Metham, Urine Neg (Neg); Barbiturates, Urine Neg (Neg); Benzodiazepine, Urine Neg (Neg); Cocaine, Urine Neg (Neg); MDMA (Ecstacy), Urine Neg (Neg); Methadone, Urine Neg (Neg); Opiate, Urine Neg (Neg); Phencyclidine, Urine Neg (Neg)
[2020-01-16] MEDS ORDERED: ALBUT/IPRATROP 3MG/0.5MG NEB 3 ML VIAL INH PRN (22:09)
[2020-01-16] MEDS ORDERED: ICU PROTOCOL FOR HYPERGLYCEMIA PRN (22:09)
[2020-01-16] MEDS ORDERED: METOPROLOL TARTRATE 1 MG/ML VIAL IV PRN (22:09)
[2020-01-16] MEDS ORDERED: CEFEPIME CONSULT ACTIVE PRN (22:31)
[2020-01-17 00:01] LABS: BUN Creatinine Ratio 31.8 (10-20); Calcium 8.7 mg/dl (8.5-10.1); Creatinine Clr Calc Pharmacy 42.6 ml/min; Est GFR (African American) 53.2; Est GFR (Non-African American) 45.9; Magnesium 2.2 mg/dl (1.8-2.4); Phosphorus 2.5 mg/dl (2.5-4.9)
--- NOTE | 2020-01-17 00:02 | Critical Care Consultation ---
Date of Consultation January 17, 2020 Assessment & Plan (1) Admitted to intensive care unit: Reason Critically Ill: 84-year-old male with acute respiratory failure with hypoxia and hypercapnia requiring endotracheal intubation for airway protection. Concerns for COPD exacerbation versus CO2 narcosis alone versus developing pneumonia versus worsening pulmonary edema. NEURO - * CAM ICU: Unable to assess secondary to sedation * Sedation: Propofol * Altered mental status: * Multifactorial in the setting of CO2 narcosis, sepsis, hyperammonemia. * Correct underlying contributing conditions with hope for improvement of mental status. * CT head unremarkable. CARDIAC/VASCULAR - * Substantial past history including coronary artery disease, hypertension, hyperlipidemia, CHF, ischemic cardiomyopathy, V. tach status post AICD pacer, aortic valve repair, ascending aortic aneurysm. * Will continue with home medications as soon as reasonably tolerated. * Of note, there was concern for possible endocarditis during recent admission. Patient was found to have MRSA bacteremia and was treated on a several week course of IV vancomycin at home. * EKG: Paced rhythm at [address] or T wave changes. QTc 423 ms. * Monitor on telemetry. RESPIRATORY - * Acute respiratory failure with hypoxia and hypercapnia: * Multifactorial in the COPD patient with x-ray findings concerning for worsening pulmonary edema versus developing pneumonia. * Requiring endotracheal intubation. * Continue to wean settings as tolerated with hopes for early extubation. * Does appear to have persistent RIGHT greater than left pleural effusion which is likely associated with patient's paralyzed RIGHT hemidiaphragm. Consider additional imaging versus thoracentesis if concerns for possible source of sepsis. * Continue with antibiotics. * Breathing treatments as needed. * Consider addition of pulse dose steroids. GI/NUTRITION - * Hyperammonemia: * Likely in the setting of sepsis alone. * Will consider addition of lactulose as the patient is appearing constipated per evaluation and per conversation with . * Prophylaxis: Famotidine RENAL/LYTES - * Hyperkalemia: * Received calcium, insulin, glucose in the emergency department. * Will treat with scheduled IV Lasix. - * Arreola in place - Strict I&Os. ENDO - * No history of diabetes or thyroid disease. * BSGs per unit protocol. ISS --> gtt per unit policy. HEME - * Chronic anemia with recent diagnosis of MDS * May very well require transfusion with critical illness and likely worsening bone marrow suppression. ID - * Sepsis secondary to pneumonia: * Patient noted to have what appeared to be gastric secretions in the inline suction. * Will broaden coverage with Zosyn. * Continue with vancomycin with recent history of MRSA bacteremia. * Check lactate. * COVID negative. LINES/IV ACCESS - * PIVs x3 * Arreola * ET tube * OG DVT PROPHYLAXIS - * Heparin SQ * SCDs I have personally spent 65 minutes of critical care time in the direct management of this patient. This is a life/limb threatening event. This includes time spent evaluating patient, direct bedside care, chart review, placing orders, interpretation of diagnostic studies, discussion with consultants, patient, and family members, as well as other required patient management activities. This time is exclusive of all separately billable procedures, and teaching time and separate from and in addition to any other critical care service time. Thank you for allowing us to participate in the care of this patient. Please refer to my attending physician's documentation for any further recommendations. (2) Respiratory failure: (3) Acute respiratory acidosis: (4) Acute alteration in mental status: (5) Acute hyperkalemia: (6) Pulmonary edema: (7) COPD (chronic obstructive pulmonary disease): (8) COPD (chronic obstructive pulmonary disease): (9) Anemia: (10) Pneumonia: (11) Chronic diastolic HF (heart failure): Supervising Physician Co-Signing Physician Notes I have personally evaluated and examined this patient. I agree with assessment and plan of Laya Cummings PA-C. Please refer to progress note for further details. History of Present Illness Attending Physician: Brandon Newsome DO History of Present Illness Patient is an 84-year-old male with a significant past medical history of coronary artery disease, ischemic cardiomyopathy, V. tach status post AICD pacer placement, hypertension, hyperlipidemia, CHF, COPD, asthma, and recent diagnosis of MDS via bone marrow biopsy on 01/01. Patient is dependent on home oxygen at baseline. reports that upon returning home from running errands, the patient was found minimally responsive. On evaluation in the emergency [facility], the patient was found to be in respiratory distress and required high levels of oxygen. He was subsequently intubated with findings consistent with acute respiratory acidosis per VBG. Concerns for possible developing pneumonia noted as well. CT the head was found to be unremarkable. Upon arrival in the ICU, the patient is intubated and sedated. He is unable to provide history of present illness information. provided above-mentioned information. She does report that the patient has had a significant decline in his quality of life over the last few months since recent admission to this facility. Allergies Allergy/AdvReac Type Severity Reaction Status Date / Time No Known Allergies Allergy Verified 12/17/19 08:52 Home Medications Home Medications Medication Instructions Recorded Confirmed Type Alphagan P 0.1 % OPHTHALMIC (EYE) DAILY 07/04/18 01/16/20 History albuterol sulfate [ProAir HFA] 2 puff INHALATION QID PRN 07/04/18 01/16/20 History amoxicillin 2,000 mg PO UD PRN 07/04/18 01/16/20 History furosemide [Lasix] 20 mg PO HS 07/04/18 01/16/20 History latanoprost [Xalatan] 1 drp OPR HS 07/04/18 01/16/20 History Breo Ellipta 1 inh INHALATION QAM 06/27/19 01/16/20 History azithromycin [Zithromax Z-Thom] 250 mg PO UD PRN 06/27/19 01/16/20 History cetirizine [Zyrtec] 10 mg PO DAILY PRN 06/27/19 01/16/20 History cholecalciferol (vitamin D3) 1,000 unit PO QAM 06/27/19 01/16/20 History [Vitamin D3] finasteride 5 mg PO HS 06/27/19 01/16/20 History fluticasone propionate [Flonase 2 spray INTRANASAL BID 06/27/19 01/16/20 History Allergy Relief] multivitamin with minerals 1 tab PO QAM 06/27/19 01/16/20 History prednisone 10 mg PO UD PRN 06/27/19 01/16/20 History simvastatin 40 mg PO PM 06/27/19 01/16/20 History terazosin 5 mg PO QPM 06/27/19 01/16/20 History Mucinex 1,200 mg PO BID 08/23/19 01/16/20 History aspirin [Aspirin Childrens] 81 mg PO DAILY 08/23/19 01/16/20 History dorzolamide-timolol [Cosopt] 1 drp OPB BID 01/16/20 01/16/20 History fluticasone furoate-vilanterol 1 ea INHALATION DAILY 01/16/20 01/16/20 History [Breo Ellipta] ipratropium-albuterol 3 ml INHALATION QID PRN 01/16/20 01/16/20 History metoprolol succinate 25 mg PO DAILY 01/16/20 01/16/20 History vit C,L-Gh-ztiav-lutein-zeaxan 1 tab PO BID 01/16/20 01/16/20 History [PreserVision AREDS-2] Patient History Medical History Ascending aortic aneurysm (Chronic) BPH (benign prostatic hyperplasia) (Chronic) Bronchiectasis (Chronic) CAD (coronary artery disease) (Chronic) Chronic diastolic HF (heart failure) Chronic systolic CHF (congestive heart failure), NYHA class 3 COPD (chronic obstructive pulmonary disease) Glaucoma bilt eyes Hyperlipidemia (Chronic) Hypertension (Chronic) ICD (implantable cardioverter-defibrillator) battery depletion pt for biv icd generator change; rediscussed the procedure and potential risks consent obtained Ischemic cardiomyopathy (Chronic) On home oxygen therapy 2L N/C hs and prn Spinal stenosis Ventricular tachyarrhythmia (Chronic) Surgical History Biventricular ICD (implantable cardioverter-defibrillator) in place 2005 @ [place]/ recently replaced @ 07/04/18 [facility] History of bilateral cataract extraction History of cardiac [place] 2001 [place] [facility] [place] History of colonoscopy History of left inguinal hernia repair x2 History of prostate biopsy x2--benign History of tonsillectomy Hx of [place]G 2001 [place] [facility] [place] [facility] [place] Family History Father Family hx colonic polyps Other Hypertension No family history of adverse response to anesthesia Stroke Social History Smoking Status: Never smoker Second Hand Exposure: No; Hx Alcohol Use: No Hx Substance Use: No Preferred Language: Polish Communication Ability: Unable Case Resource Manager Required: No Beliefs That Will Affect Care: None marital status: Current Living Situation: Spouse Feels Safe at Home: Yes Review of Systems Review of Systems: Unobtainable due to endotracheal tube and Unobtainable due to reduced consciousness Physical Exam Physical Exam: VITAL SIGNS - Vital signs and nursing notes were reviewed. GENERAL - 84-year-old male appearing his stated age who is in no acute distress. Intubated and sedated. SKIN - Without rashes. HEAD - NC/AT. EYES - PERRL with EOMI bilaterally. EARS - No deformities of external structures noted on gross examination bilaterally. NOSE - Midline and without cyanosis. No epistaxis or purulent drainage noted. MOUTH/OROPHARYNX - ET Tube in place. Without perioral cyanosis. NECK - Supple to palpation. No lymphadenopathy noted. No nuchal rigidity. LUNGS - Chest wall symmetric without accessory muscle use, intercostals retractions, or central cyanosis. Coarse breath sounds appreciated to the bilateral bases with diminished breath sounds to the RIGHT lower lobe. CARDIAC - RRR with S1/S2. No murmur, rubs, or gallops appreciated. ABDOMEN - Abdominal contour flat without pulsations or visible masses. BS normoactive all four quadrants. No tenderness, palpable masses, hepatosplenomegaly, or ascites noted. EXTREMITIES - No clubbing or peripheral cyanosis. Moderate bilateral pretibial edema present. +3/5 radial and dorsalis pedis pulses palpated throughout. NEUROLOGIC - No focal neurological deficits. Unable to fully assess secondary to level of sedation. Results & Data Results & Data ([facility]) Vital Signs (Past 12 Hours) Vital Signs Pulse Resp BP Pulse Ox 01/16/20 22:02 75 100/58 L 94 01/16/20 21:53 75 110/47 L 94 01/16/20 21:41 75 100/50 L 93 01/16/20 21:30 75 105/55 L 96 01/16/20 21:21 83 115/40 L 95 01/16/20 21:16 82 99/47 L 95 01/16/20 21:00 81 99/47 L 96 01/16/20 20:51 82 121/49 L 96 01/16/20 20:41 99 H 156/133 H 94 01/16/20 20:31 75 111/51 L 96 01/16/20 20:25 75 94 01/16/20 20:23 75 91/58 L 93 01/16/20 20:14 75 22 94 01/16/20 20:10 75 96/47 L 96 01/16/20 20:05 75 122/86 96 01/16/20 20:01 75 110/48 L 93 01/16/20 19:57 75 126/42 L 95 01/16/20 19:50 75 114/48 L 94 01/16/20 19:45 75 130/39 L 94 01/16/20 19:40 75 119/50 L 94 01/16/20 19:35 75 120/50 L 93 01/16/20 19:31 75 125/37 L 94 01/16/20 19:28 75 113/52 L 97 01/16/20 19:10 75 130/50 L 90 01/16/20 19:06 75 126/59 L 88 L 01/16/20 19:01 75 131/68 91 01/16/20 18:55 75 141/59 H 92 01/16/20 18:50 76 126/59 L 93 01/16/20 18:45 78 117/48 L 95 01/16/20 18:40 79 22 88 L 01/16/20 18:36 79 99 01/16/20 18:35 82 105/69 100 01/16/20 18:32 85 104/55 L 94 01/16/20 18:30 82 4 L 77 L 01/16/20 18:25 84 84 L 01/16/20 18:24 85 83 L 01/16/20 18:23 86 122/47 L 80 L 01/16/20 18:20 84 4 L 122/47 L 81 L Coding Level of Care Code Critical Care 1st 30-74 mins Diagnoses Admitted to intensive care unit Z78.9 Respiratory failure J96.21; J96.22 Chronicity: acute on chronic Respiratory failure complication: hypoxia and hypercapnia Acute respiratory acidosis E87.2 Acute alteration in mental status R41.82 Acute hyperkalemia E87.5 Pulmonary edema J81.0 Chronicity: acute COPD (chronic obstructive pulmonary disease) J44.1 COPD type: COPD with acute exacerbation COPD (chronic obstructive pulmonary disease) J44.9 Anemia D64.9 Pneumonia J18.9 Pneumonia type: due to unspecified organism Chronic diastolic HF (heart failure) I50.32 Time Spent (min) 65 (1) Pulmonary edema Chronicity: acute Qualified Code(s): J81.0 - Acute pulmonary edema (2) Respiratory failure Chronicity: acute on chronic Respiratory failure complication: hypoxia and hypercapnia Qualified Code(s): J96.21 - Acute and chronic respiratory failure with hypoxia; J96.22 - Acute and chronic respiratory failure with hypercapnia (3) COPD (chronic obstructive pulmonary disease) COPD type: COPD with acute exacerbation Qualified Code(s): J44.1 - Chronic obstructive pulmonary disease with (acute) exacerbation (4) Pneumonia Pneumonia type: due to unspecified organism
[2020-01-17] MEDS ORDERED: PIPERACILL/TAZOBAC CONSULT ACTIVE PRN (00:05)
[2020-01-17] MEDS ORDERED: PIPERACILLIN/TAZOBACTAM 4.5 GM in DEXTROSE 5% 100 ML IV ONE (00:05)
[2020-01-17 00:36] LABS: iSTAT Allen Test Pass; iSTAT Art Bld Gas pCO2 Correct 43 mmHg (35-46); iSTAT Art Bld Gas pH Corrected 7.553 (7.35-7.45); iSTAT Arterial Blood Gas HCO3 38 meg/L (19-24); iSTAT Arterial Blood Gas pCO2 41 mmHg (35-46); iSTAT Arterial Blood Gas pH 7.57 (7.35-7.45); iSTAT Arterial Blood Gas pO2 60 mmHg (80-95); iSTAT Arterial Blood Gas pO2 C 66; iSTAT Carbon Dioxide 39 mmol/L (24-31); iSTAT FiO2 50 %; iSTAT Hematocrit 25 % (42-52); iSTAT Hemoglobin 8.5 g/dl (14.0-18.0); iSTAT Potassium 4.9 mmol/L (3.3-5.0); iSTAT Site R Radial; iSTAT Sodium 138 mmol/L (135-144)
[2020-01-17] MEDS: propofoL 1,000 MG/100 ML VIAL IV SCH ×2 (02:00→07:54)
[2020-01-17] MEDS: ACETAMINOPHEN 1,000 MG/100 ML VIAL IV PRN ×2 (02:01→09:14)
[2020-01-17] MEDS: LATANOPROST 0.005% OP SOLN 2.5 ML BTL OPR SCH (02:01)
[2020-01-17] MEDS ORDERED: FUROSEMIDE 20 MG in SYRINGE 0 ML IV ONE (02:08)
--- NOTE | 2020-01-17 02:16 | History and Physical Report ---
DATE OF ADMISSION: 01/16/2020 CHIEF COMPLAINT: Unresponsiveness and respiratory failure. HISTORY OF PRESENT ILLNESS: This is an 84-year-old male with past medical history significant for acute respiratory failure with hypoxemia, hyperlipidemia, asthma moderate persistent, bronchiectasis, history of aspiration pneumonia with both the lungs, COPD, history of right hemidiaphragm paralysis, history of paroxysmal ventricular tachycardia status post ICD, aortic regurgitation status post bioprosthetic aortic valve replacement, CAD status post CABG, transthoracic aortic aneurysm, chronic kidney disease stage III, baseline creatinine around 1.3, history of tobacco abuse. The patient lives with his , son, and daughter. The patient was here in the hospital in July with aspiration pneumonitis requiring BiPAP. Sputum cultures were negative and bronchoscopy was not indicated and he also had sepsis, treated empirically with antibiotics.And again he was admitted on 08/23/2019 and discharge 09/03/2019. At that time, he was admitted for septic shock requiring pressor support. Blood culture grew MRSA. His transthoracic echocardiogram did not show any valvular vegetation because of his bioprosthetic valve treated for 6 weeks with IV antibiotics and was discharged on IV ceftaroline, completed antibiotics as per the . At that time, 2 step was done, 2 liters oxygen at night and with exercise recommended. As per the , the patient is using oxygen in the nighttime.Lately he is getting short of breath with minimal exertion and he was found to have anemia and he was status post bone marrow biopsy on 01/02/2020 and was diagnosed with low-grade myelodysplastic syndrome. The patient was apparently doing okay until today morning. In the morning, he was somewhat difficult to wake up and he was able to eat breakfast, talk to his , and his brother came and he was able to talk to his brother. Then had appointment, but his son and daughter were in the house and later he became somewhat drowsy, somnolent, and they had to increase his oxygen, but he was saturating 90%. When the came back at 4:00pm, the patient was somewhat unresponsive and called his PCP and advised to come to the hospital. In the ER, his venous blood gases were venous pH was 7 and pCO2 was 198. He was status post intubation and mechanical ventilation. His white count was 15.6, hemoglobin 9.8, platelets 228. His potassium was 6.4, creatinine was 1.45, lactate was 0.9, ammonia was 74, BNP was 16,000. Procalcitonin was 0.07. Urinalysis was okay. Urine drug screen was negative. COVID-19 PCR is negative. Chest x-ray, cardiomegaly with pulmonary edema, bibasilar consolidative opacities. CT of the head, no acute findings. is in the room. As per the , no recent fever, chills. Has some cough, no phlegm. No complaints of headache. No neck pain, no chest pain or abdominal pain. Because of his aspiration pneumonitis, currently his food is made into small pieces and he is doing okay with that. No more aspiration episodes. Normal bowel and bladder movements. He is ambulating with a walker, but minimal exertion is making him short of breath. Could not get complete review of symptoms currently. ALLERGIES: No known drug allergies. PAST MEDICAL HISTORY: As mentioned above. PAST SURGICAL HISTORY: Left heart catheterization, colonoscopy, CABG, pacemaker, biventricular ICD insertion, tonsillectomy, adenoidectomy, repair of inguinal hernia, bilateral bioprosthetic aortic valve replacement. MEDICATIONS: The patient is on Flonase 2 sprays into each nostril b.i.d., Lasix 20 mg p.o. daily, simvastatin 40 mg p.o. daily, vitamin D 5000 units p.o. daily, multivitamins with minerals 1 tablet daily, prednisone rescue kit, Mucinex 1200 mg p.o. b.i.d., Toprol-XL 25 mg p.o. daily, Hytrin 5 mg p.o. at bedtime, DuoNebs q.i.d. p.r.n., Breo Ellipta 200/25 mcg 1 puff daily, Proscar 5 mg p.o. daily, aspirin 81 mg p.o. daily, Amoxil 2 grams 1 hour prior to procedure, Alphagan 0.1 ophthalmic solution daily, Cosopt 1 drop in both eyes at bedtime, albuterol 2 puffs q. 4 times daily p.r.n., latanoprost 0.005% one drop into right eye at bedtime, cetirizine 10 mg p.o. daily p.r.n. for allergies. FAMILY HISTORY: Significant for father had skin cancer, CAD; brother has hypertension; father had hypertension; mother had hypertension; uncle and aunt have stroke. SOCIAL HISTORY: and lives with his , son and daughter. Former smoker, quit in 1959, smoked half pack a day for 10 years, quit in 1959. No alcohol use, no drug use. REVIEW OF SYSTEMS: Could not obtain at this time. PHYSICAL EXAMINATION: GENERAL: The patient is status post intubation and sedated, moves extremities. VITAL SIGNS: Temperature afebrile, pulse 75, respiratory rate 22, blood pressure 100/58, oxygen 94% on mechanical vent, 50% FIO2. HEENT: Atraumatic. Pupils pinpoint and sluggish to react. No pallor, no icterus. NECK: Status post right IJ line. No JVD seen. CARDIOVASCULAR: S1, S2 heard, regular rate and rhythm, no murmur, no gallop. RESPIRATORY SYSTEM: Normal AP diameter. No accessory muscle use. Mild bibasilar crackles. No wheezing. ABDOMEN: Soft, bowel sounds present. No distention. CENTRAL NERVOUS SYSTEM: Status post intubation and sedated. Moves extremities on touch stimuli. EXTREMITIES: Bilateral lower extremity edema present, no erythema seen. LABORATORY DATA: WBC 15.6, hemoglobin 9.8, hematocrit 32.9, platelets 228. PT 11.8, INR 1.1, APTT 27.4. Venous blood gas, pH of 7, pCO2 of 198, pO2 of 55. Sodium 136, potassium 6.4, chloride 95, bicarbonate 43, BUN 41, creatinine 1.45, serum glucose 194. Lactate 0.9, calcium is 8.6, magnesium 2.7, total bilirubin 0.7, AST 35, ALT 38, alkaline phosphatase 91. Ammonia 74.5. Troponin I of 0.03. BNP 16,000. Total protein 7. Procalcitonin 0.07. Urinalysis negative. Urine drug screen negative. IMAGING DATA: Chest x-ray, pulmonary edema, bibasilar consolidative opacities. CT of the head, no acute intracranial findings. EKG: Atrial sensed ventricular paced rhythm with prolonged AV conduction at a rate of 83. ASSESSMENT AND PLAN: This is an 84-year-old male who presents with unresponsive episode and acute hypoxemic and hypercarbic respiratory failure. 1. Unresponsiveness and acute hypoxemic and hypercarbic respiratory failure, possibly secondary to [id number] diastolic congestive heart failure, questionable possible pneumonia. The patient has history of recent MRSA bacteremia. In the ER empirically started on IV vancomycin and cefepime, which we will continue. Follow the cultures. Currently, status post intubation, vent management as per critical care. Follow the cultures and closely monitor in the ICU. 2. [id number] diastolic congestive heart failure. The patient's blood pressure is somewhat on the lower side currently. Currently status post intubation. Diuretics as per critical care. Closely monitor. 3. History of chronic obstructive pulmonary disease, history of bronchiectasis, history of asthma moderate persistent, currently status post intubation. Nebs as needed. No wheezing appreciated. 4.History of aspiration pneumonia in both lower lobes. As per the , he is currently only eating small chopped food. Needs speech evaluation once when stable. 4. History of aortic regurgitation, status post bioprosthetic aortic valve replacement. Getting echo for congestive heart failure. We will follow the results. 5. History of thoracic aortic aneurysm, needs followup. 6. History of paroxysmal ventricular tachycardia status post AICD. Holding the p.o. medications. We will place on IV Lopressor p.r.n. 7. Acute kidney injury on chronic kidney disease stage III, baseline creatinine 1.3, currently with creatinine of 1.45. We will follow the labs in the a.m. 8. Low-grade myelodysplastic syndrome, recent diagnosis. Hemoglobin baseline around 8, currently 9.8. We will follow the labs. 9. Coronary artery disease status post coronary artery bypass graft. Will continue the aspirin. Holding his p.o. medications. We will place on IV Lopressor p.r.n. Currently, his troponin is negative. 10. Hyperammonemia at 74. We will follow the repeat labs. May need lactulose. 11. Hyperkalemia. Received calcium gluconate and insulin and dextrose in ER. We will follow the repeat labs. 12. Deep venous thrombosis prophylaxis, sequential compression devices for now. 13. Disposition: Closely monitor in the ICU. Level 1 full code. MTDD
[2020-01-17] MEDS: ALPHAGAN~ORDER AWAITING ACTION SCH ×3 (03:03→07:40)
[2020-01-17 04:39] LABS: Basophils # (auto) 0.02 K/uL (0-0.2); Basophils % (auto) 0.2 %; Eosinophils # (auto) 0.03 K/uL (0-0.5); Eosinophils % (auto) 0.3 %; Hematocrit (blood only) 26.1 % (42-52); Hemoglobin 8.4 g/dL (14.0-18.0); Immature Granulocytes # (auto) 0.08 K/uL (0.00-0.02); Immature Granulocytes % (auto) 0.8 %; Lymphocytes # (auto) 1.31 K/uL (1.2-3.4); Lymphocytes % (auto) 12.7 %; Mean Corpuscular Hemoglobin 34.7 pg (25-34); Mean Corpuscular Hgb Conc 32.2 g/dL (32-36); Mean Corpuscular Volume 107.9 fL (80-100); Mean Platelet Volume 10.8 fL (7.4-10.4); Monocytes # (auto) 1.39 K/uL (0.11-0.59); Monocytes % (auto) 13.5 %; Neutrophils # (auto) 7.49 K/uL (1.4-6.5); Neutrophils % (auto) 72.5 %; Nucleated RBC # (auto) 0.03 K/uL (0-0); Nucleated RBC % (auto) 0.2 %; Platelet Count 146 K/uL (130-400); RDW Coefficient of Variation 16.7 % (11.5-14.5); RDW Standard Deviation 66.2 fL (36.4-46.3); Red Blood Count 2.42 M/uL (4.7-6.1); White Blood Count 10.32 K/uL (4.8-10.8)
[2020-01-17 04:57] LABS: Albumin Level 2.7 gm/dl (3.4-5.0); BUN Creatinine Ratio 29.9 (10-20); Bilirubin Direct 0.5 mg/dl (0-0.2); Calcium 8.7 mg/dl (8.5-10.1); Creatinine Clr Calc Pharmacy 40.3 ml/min; Est GFR (African American) 49.7; Est GFR (Non-African American) 42.9; Potassium 4.6 mmol/L (3.5-5.1)
[2020-01-17] MEDS: HYDROCORTISONE SOD 50 MG in SYRINGE 0 ML IV SCH ×2 (05:07→08:21)
[2020-01-17 05:40] LABS: iSTAT Allen Test Pass; iSTAT Art Bld Gas pCO2 Correct 34 mmHg (35-46); iSTAT Art Bld Gas pH Corrected 7.677 (7.35-7.45); iSTAT Arterial Blood Gas HCO3 39 meg/L (19-24); iSTAT Arterial Blood Gas pCO2 31 mmHg (35-46); iSTAT Arterial Blood Gas pH 7.71 (7.35-7.45); iSTAT Arterial Blood Gas pO2 70 mmHg (80-95); iSTAT Arterial Blood Gas pO2 C 79; iSTAT Carbon Dioxide > 40 mmol/L (24-31); iSTAT FiO2 50 %; iSTAT Hematocrit 24 % (42-52); iSTAT Hemoglobin 8.2 g/dl (14.0-18.0); iSTAT Potassium 4.4 mmol/L (3.3-5.0); iSTAT Site R Radial; iSTAT Sodium 138 mmol/L (135-144)
[2020-01-17 05:56] LABS: Bilirubin,Total 1.2 mg/dl (0.2-1); Phosphorus 0.7 mg/dl (2.5-4.9); Total Protein 5.3 gm/dl (6.4-8.2)
[2020-01-17] MEDS ORDERED: PIPERACILLIN/TAZOBACTAM 3.375 GM in DEXTROSE 5% 100 ML IV SCH (06:00)
--- NOTE | 2020-01-17 06:10 | Hospitalist Progress Note ---
Date of Service January 17, 2020 Assessment & Plan (1) Respiratory failure: (2) COPD (chronic obstructive pulmonary disease): (3) Pulmonary edema: (4) Acute hyperkalemia: (5) Acute respiratory acidosis: (6) Acute alteration in mental status: (7) BPH (benign prostatic hyperplasia): (8) CAD (coronary artery disease): (9) Hypertension: (10) Hyperlipidemia: (11) Ischemic cardiomyopathy: (12) Aspiration pneumonia: (13) Sepsis: (14) Altered mental status: ASSESSMENT AND PLAN: This is an 84-year-old male who presents with unresponsive episode and acute hypoxemic and hypercarbic respiratory failure. 1. Unresponsiveness and acute hypoxemic and hypercarbic respiratory failure, po ssibly secondary to [id number] diastolic congestive heart failure, Aspiration Pneumonia. The patient has history of recent MRSA bacteremia. In the ER empirically started on IV vancomycin and cefepime, which we continued. Follow the cultures. Currently intubationed, vent management as per critical care. Follow the cultures and closely monitor in the ICU. 2. Stvhy-ld-cfsiorc diastolic congestive heart failure. BP was high, now on low side. 3. History of chronic obstructive pulmonary disease, history of bronchiectasis, history of asthma, moderate persistent. Nebs. History of aspiration pneumonia in both lower lobes. As per the , he is currently only eating small chopped food. Needs speech evaluation once more stable. 4. History of aortic regurgitation, status post bioprosthetic aortic valve replacement. Getting echo for congestive heart failure. 5. History of thoracic aortic aneurysm, needs followup. 6. History of paroxysmal ventricular tachycardia status post AICD. IV Lopressor p.r.n. 7. Acute kidney injury on chronic kidney disease stage III, baseline creatinine 1.3, currently with creatinine of 1.45. 8. Low-grade myelodysplastic syndrome, recent diagnosis. 9. Coronary artery disease status post coronary artery bypass graft. Will continue the aspirin. Holding his p.o. medications. We will place on IV Lopressor p.r.n. Troponin is negative. 10. Hyperammonemia at 74. 11. Hyperkalemia. Received calcium gluconate 12. Deep venous thrombosis prophylaxis, sequential compression devices for now. 13. Disposition: Closely monitor in the ICU. Level 1 full code. Labs checked D/W RN, family there last PM and said give him the night and reassess continuing care v [employer] ROS-Offers no history, on vent Physical Exam Gen-NAD, febrile Head-NCAT, EOMI, PERRLA, Anicteric Sclera Neck-Supple, No JVD, No Thyromegaly, No Masses, No LAD, No Bruits Lungs- Mild Coarse Bilaterally, No Crepitus Chest-No S4, +S1, +S2, No S3, No Murmurs, No Rubs, No Gallops, No Ectopy Abdomen-Soft, Bowel Sounds Present, Non Distended, No Hepatomegaly, No Splenomegaly, No Palpable Masses, No Rebound, No Rigidity, No Guarding Musculoskeletal-NA Extremities-No Cyanosis, No Clubbing, + Bilateral Pitting Edema Nuero-Non Focal Psych-Vented Admission and Anticipated Discharge Date Admission Date: January 16, 2020 Results & Data Results & Data ([facility]) Vital Signs (Past 12 Hours) Vital Signs Temp Pulse Pulse Resp BP BP Pulse Ox 01/17/20 05:28 75 14 97 01/17/20 03:15 75 98 01/17/20 03:00 39.0 C H 75 98 01/17/20 02:00 39.2 C H 75 96 01/17/20 01:38 75 19 96 01/17/20 01:00 75 96 01/17/20 00:50 75 96/40 L 97 01/17/20 00:43 18 01/17/20 00:00 75 97 01/16/20 23:53 75 85/39 L 96 01/16/20 23:00 75 95 01/16/20 22:47 75 209/169 H 100 01/16/20 22:45 77 129/111 H 97 01/16/20 22:30 77 22 96 01/16/20 22:09 38.5 C H 75 18 209/169 H 97 01/16/20 22:02 75 100/58 L 94 01/16/20 21:53 75 110/47 L 94 01/16/20 21:41 75 100/50 L 93 01/16/20 21:30 75 105/55 L 96 01/16/20 21:21 83 115/40 L 95 01/16/20 21:16 82 99/47 L 95 01/16/20 21:00 81 99/47 L 96 01/16/20 20:51 82 121/49 L 96 01/16/20 20:41 99 H 156/133 H 94 01/16/20 20:31 75 111/51 L 96 01/16/20 20:25 75 94 01/16/20 20:23 75 91/58 L 93 01/16/20 20:14 75 22 94 01/16/20 20:10 75 96/47 L 96 01/16/20 20:05 75 122/86 96 01/16/20 20:01 75 110/48 L 93 01/16/20 19:57 75 126/42 L 95 01/16/20 19:50 75 114/48 L 94 01/16/20 19:45 75 130/39 L 94 01/16/20 19:40 75 119/50 L 94 01/16/20 19:35 75 120/50 L 93 01/16/20 19:31 75 125/37 L 94 01/16/20 19:28 75 113/52 L 97 01/16/20 19:10 75 130/50 L 90 01/16/20 19:06 75 126/59 L 88 L 01/16/20 19:01 75 131/68 91 01/16/20 18:55 75 141/59 H 92 01/16/20 18:50 76 126/59 L 93 01/16/20 18:45 78 117/48 L 95 01/16/20 18:40 79 22 88 L 01/16/20 18:36 79 99 01/16/20 18:35 82 105/69 100 01/16/20 18:32 85 104/55 L 94 01/16/20 18:30 82 4 L 77 L 01/16/20 18:25 84 84 L 01/16/20 18:24 85 83 L 01/16/20 18:23 86 122/47 L 80 L 01/16/20 18:20 84 4 L 122/47 L 81 L (1) Respiratory failure Chronicity: acute on chronic Respiratory failure complication: hypoxia and hypercapnia Qualified Code(s): J96.21 - Acute and chronic respiratory failure with hypoxia; J96.22 - Acute and chronic respiratory failure with hypercapnia (2) COPD (chronic obstructive pulmonary disease) COPD type: COPD with acute exacerbation Qualified Code(s): J44.1 - Chronic obstructive pulmonary disease with (acute) exacerbation (3) Pulmonary edema Chronicity: acute Qualified Code(s): J81.0 - Acute pulmonary edema
[2020-01-17] MEDS ORDERED: ICU ELECTROLYTE REPLACEMENT PROTOCOL PRN (06:56)
--- NOTE | 2020-01-17 07:32 | XRay Report ---
XR chest 1V portable HISTORY: Intubation. Shortness of breath. Follow-up. COMPARISON: Chest 01/16/2020. FINDINGS: The endotracheal tube terminates 3.7 cm from the boogie. Nasogastric tube is below the diap hragm. The tip is not of fluid on this study. Left-sided pacemaker/defibrillator is again noted. No p neumothorax. Slight improvement in the bilateral pleural effusions, pulmonary edema, and bibasilar de nsities. The heart remains enlarged. IMPRESSION: 1. Satisfactory support line placement. 2. Slight improvement in the pulmonary edema, small bilateral pleural effusions, and bibasilar densit ies. ACT 112: Negative or not required by law. Electronically signed by: Vitaly Osorio M.D. 01/17/2020 7:31 AM
[2020-01-17] MEDS ORDERED: SODIUM PHOSPHATE 3 MMOL/1 ML 5 ML VIAL IV STA (07:46)
[2020-01-17] MEDS ORDERED: SODIUM PHOSPHATE 30 MMOL in SODIUM CHLORIDE 0.9% 500 ML IV ONE (08:00)
[2020-01-17] MEDS ORDERED: CEFEPIME 2,000 MG in SYRINGE 7.5 ML IV SCH (08:00)
[2020-01-17] MEDS: DORZOLAMIDE/TIMOLOL 22.3/6.8MG/ML 10 ML BTL OPB SCH ×2 (08:09→21:16)
[2020-01-17] MEDS: ASPIRIN 81 MG CHEW PO SCH (08:09)
[2020-01-17] MEDS: FAMOTIDINE 20 MG in SYRINGE 3 ML IV SCH (08:09)
[2020-01-17] MEDS: HEPARIN SOD 5,000 UNIT/0.5 ML VIAL SQ SCH ×2 (08:10→21:15)
--- NOTE | 2020-01-17 08:26 | Critical Care Progress Note ---
Date of Service January 17, 2020 Assessment & Plan (1) Respiratory failure: Reason Critically Ill: 84-year-old male here with a PMHx significant for COPD, acute hypoxic respitaroty failure with hypoxemia, HLD, asthma, hx aspiration PNA, Hx R hemidiaphragm paralysis, hx Paroxysmal VTach s/p ICD, aortic regurgitation s/p bioprosthetic balve replacement, CAD s/p CABG, transthoracic aoritc aneurysm, CKD stage 3 who presented with worsening mental status and lethargy, found to have a pH of 7.0 in the ED and who was admitted for Acute hypercarbic hypoxic respiratory failure. Neuro - [facility] ICU: Not applicable Sedation: versed pushes 2m gQ2H Analgesia: fentanyl * Acute Mental Status change secondary to hypercarbic respiratory failure and hyperammonemia * Ammonia 74.5 -> 17 * Hypercarbia resolving with mechanical ventilation * Sedated while ventilated, will try vent and sedation weaning as appropriate Cardiac - extensive cardiac hx significant for CAD s/p CABG, transthoracic aortic aneurysm, aortic regurgitation s/p bioprosthetic valve replacement, hx paroxysmal VTach s/p ICD placement * No acute issues * Hypotensive to 96/40, secondary to propofol sedation * Levophed on standby if hypotension returns Respiratory - * Acute hypoxic hypercarbic respiratory failure * intubated, mechanically ventilated. AC RR18, TV 500, FIO2 50, PEEP 5 * last ABG 7.71/31/70/39 * rebound chronic metabolic alkalosis that was compensating for previous respiratory acidosis * respiratory rate reduced to allow for hypercapnia to balance acid and alkalosis * family considering withdrawal of tube/comfort care in the future as he did not want to be ventilated for a long period of time. discussed with family members that removal of ETT at this time would not allow for him to optimally perform on his own given respiratory decrease required to compensate for alkalosis. will re-evaluate in ABG in afternoon and tomorrow for progression in care. GI - Prophylaxis with Famotidine; NPO - Total and direct bilirubin mildly elevated to 1.2 and 0.5 respectively. Will trend and monitor. other LFTs WNL. - Hyperammonemia resolved. RENAL/LYTES - * MANISH on CKD * Cr normally 1.3, 1.47 this AM and 1.66 at noon. * continuing to make urine * Electrolyte Derangements * hypophosphatemia of 0.7 on admission: repleted per protocol, follow up in AM * Hyperkalemia of 6.4 on admission: down to 4.6, 4.8 on repeat at 11 am 01/16. monitoring for worsening status given high fluctuation of acid/base status * Replace lytes as needed. - No concerns at this time. ENDO - No concerns at this time HEME - Anemia: chronic, stable at 8.4 ID - * Septic shock * Zosyn switched back to Cefepime given low likelihood of intrapulmonary growth of anaerobic bacteria * pressor support with levophed * blood cultures pending * IV tylenol for fevers Monitor fever curve. INTEGUMENTARY - No acute concerns LINES/IV ACCESS - PIVs intact x3 Art line and central line placement later today DVT PROPHYLAXIS - heparin SQ 5,000 BID Thank you for allowing us to be part of this patient's care. Please refer to Dr. Babcock's documentation for any further recommendations. (2) Admitted to intensive care unit: (3) COPD (chronic obstructive pulmonary disease): (4) Pulmonary edema: (5) Acute hyperkalemia: (6) Acute respiratory acidosis: (7) Acute alteration in mental status: (8) Arm edema: (9) Anemia: (10) Hypotension: (11) Hypoxia: (12) Chronic diastolic HF (heart failure): (13) Hyperlipidemia: (14) Hypertension: (15) CAD (coronary artery disease): (16) BPH (benign prostatic hyperplasia): (17) Aortic valve replaced: (18) Chronic respiratory acidosis: (19) Metabolic alkalosis: Admission and Anticipated Discharge Date Admission Date: January 16, 2020 Supervising Physician Co-Signing Physician Notes Dr. Owusu was resident physician during care of patient. I separately evaluated patient for aragon portions of the history and the exam. I was present during the critical portion of medical decision making, and I discussed the case with the resident. I generally agree with the findings and plan. Continue mechanical ventilation to optimize for eventual liberation, this will likely be a terminal extubation. Patient critically ill. Subjective Pt sedated and intubated, opened eyes spontaneously when propofol off between bottles, reflexively grimaces to pain. Review of Systems Review of Systems: Unobtainable due to cognitive status and Unobtainable due to endotracheal tube Physical Exam Physical Exam: Const: sleeping comfortably, in no acute distress Cardiac: regular rate and rhythm, 2/6 systolic murmur heard at left lower sternal border, pulm: intubated, mechanically ventilated, coarse breath sounds throughout bilateral lung oneill Gi: soft, nontender, nondistended, normal bowel sounds Extremities: no edema, poor peripheral pulses, sluggish cap refill Results & Data Results & Data ([facility]) Vital Signs (Past 12 Hours) Vital Signs Temp Pulse Pulse Resp BP BP Pulse Ox 01/17/20 07:12 78 14 98 01/17/20 05:28 75 14 97 01/17/20 03:15 75 98 01/17/20 03:00 39.0 C H 75 98 01/17/20 02:00 39.2 C H 75 96 01/17/20 01:38 75 19 96 01/17/20 01:00 75 96 01/17/20 00:50 75 96/40 L 97 01/17/20 00:43 18 01/17/20 00:00 75 97 01/16/20 23:53 75 85/39 L 96 01/16/20 23:00 75 95 01/16/20 22:47 75 209/169 H 100 01/16/20 22:45 77 129/111 H 97 01/16/20 22:30 77 22 96 01/16/20 22:09 38.5 C H 75 18 209/169 H 97 01/16/20 22:02 75 100/58 L 94 01/16/20 21:53 75 110/47 L 94 01/16/20 21:41 75 100/50 L 93 01/16/20 21:30 75 105/55 L 96 01/16/20 21:21 83 115/40 L 95 01/16/20 21:16 82 99/47 L 95 01/16/20 21:00 81 99/47 L 96 01/16/20 20:51 82 121/49 L 96 01/16/20 20:41 99 H 156/133 H 94 01/16/20 20:31 75 111/51 L 96 01/16/20 20:25 75 94 01/16/20 20:23 75 91/58 L 93 Laboratory Results WBC 10.32 K/uL (4.8-10.8) 01/17/20 04:20 RBC 2.42 M/uL (4.7-6.1) L 01/17/20 04:20 Hgb 8.4 g/dL (14.0-18.0) L 01/17/20 04:20 POC Hgb 8.2 g/dl (14.0-18.0) L 01/17/20 05:27 Hct 26.1 % (42-52) L 01/17/20 04:20 POC Hct 24 % (42-52) L 01/17/20 05:27 MCV 107.9 fL (80-100) H 01/17/20 04:20 MCH 34.7 pg (25-34) H 01/17/20 04:20 MCHC 32.2 g/dL (32-36) 01/17/20 04:20 RDW Std Deviation 66.2 fL (36.4-46.3) H 01/17/20 04:20 RDW Coeff of Kole 16.7 % (11.5-14.5) H 01/17/20 04:20 Plt Count 146 K/uL (130-400) 01/17/20 04:20 MPV 10.8 fL (7.4-10.4) H 01/17/20 04:20 Immature Gran % (Auto) 0.8 % 01/17/20 04:20 Neut % (Auto) 72.5 % 01/17/20 04:20 Lymph % (Auto) 12.7 % 01/17/20 04:20 [place] % (Auto) 13.5 % 01/17/20 04:20 Eos % (Auto) 0.3 % 01/17/20 04:20 Baso % (Auto) 0.2 % 01/17/20 04:20 Neut # (Auto) 7.49 K/uL (1.4-6.5) H 01/17/20 04:20 Lymph # (Auto) 1.31 K/uL (1.2-3.4) 01/17/20 04:20 [place] # (Auto) 1.39 K/uL (0.11-0.59) H 01/17/20 04:20 Eos # (Auto) 0.03 K/uL (0-0.5) 01/17/20 04:20 Baso # (Auto) 0.02 K/uL (0-0.2) 01/17/20 04:20 Immature Gran # (Auto) 0.08 K/uL (0.00-0.02) H 01/17/20 04:20 Absolute Nucleated RBC 0.03 K/uL (0-0) H 01/17/20 04:20 Nucleated RBC % (auto) 0.2 % 01/17/20 04:20 Basophilic Stippling 1+ 01/16/20 18:30 Microcytosis Present 01/16/20 18:30 Stomatocytes 1+ 01/16/20 18:30 PT 11.8 Seconds (9.0-12.0) 01/16/20 18:30 INR 1.1 (0.9-1.1) 01/16/20 18:30 APTT 27.4 Seconds (21.0-31.0) 01/16/20 18:30 PTT Ratio 1.0 01/16/20 18:30 Sample Site R Radial 01/17/20 05:27 POC pH 7.71 (7.35-7.45) H* 01/17/20 05:27 POC pCO2 31 mmHg (35-46) L 01/17/20 05:27 POC pO2 70 mmHg (80-95) L 01/17/20 05:27 POC HCO3 39 елена/L (19-24) H 01/17/20 05:27 POC Total CO2 > 40 mmol/L (24-31) H* 01/17/20 05:27 POC Base Excess 19.0 елена/L (-9-1.8) H 01/17/20 05:27 ABG pH (Temp Correct) 7.677 (7.35-7.45) H* 01/17/20 05:27 ABG pCO2 (Temp Corrct 34 mmHg (35-46) L 01/17/20 05:27 POC ABG pO2 at Pt Temp 79 01/17/20 05:27 POC ABG O2 Sat 97.0 % (90-95) H 01/17/20 05:27 Ramirez Test Pass 01/17/20 05:27 VBG pH 7.00 (7.36-7.41) L 01/16/20 18:30 VBG pCO2 198 mmHg (38-50) H 01/16/20 18:30 VBG pO2 55 mmHg 01/16/20 18:30 VBG HCO3 48 mmol/L 01/16/20 18:30 VBG O2 Saturation 72.8 % 01/16/20 18:30 VBG Base Excess 12.1 mEq/L 01/16/20 18:30 Barometric Pressure 732.6 mm/Hg 01/16/20 18:30 O2 Delivery Device Ventilator 01/17/20 05:27 POC O2 Rate 18 01/17/20 05:27 Minute Ventilation 6.7 01/17/20 05:27 POC FiO2 50 % 01/17/20 05:27 Tidal Volume 500 01/17/20 05:27 PEEP 5 01/17/20 05:27 POC Sodium 138 mmol/L (135-144) 01/17/20 05:27 Sodium 142 mmol/L (136-145) 01/17/20 04:20 POC Potassium 4.4 mmol/L (3.3-5.0) 01/17/20 05:27 Potassium 4.6 mmol/L (3.5-5.1) 01/17/20 04:20 Chloride 101 mmol/L (98-107) 01/17/20 04:20 Carbon Dioxide 36 mmol/L (21-32) H 01/17/20 04:20 Anion Gap 5.0 (3-11) 01/17/20 04:20 BUN 44 mg/dl (7-18) H 01/17/20 04:20 Creatinine 1.47 mg/dl (0.6-1.4) H 01/17/20 04:20 Est Cr Clr Drug Dosing 40.3 ml/min 01/17/20 04:20 Est GFR ( Amer) 49.7 01/17/20 04:20 Est GFR (Non-Af Amer) 42.9 01/17/20 04:20 BUN/Creatinine Ratio 29.9 (10-20) H 01/17/20 04:20 Glucose 87 mg/dl (70-99) 01/17/20 04:20 POC Glucose 212 mg/dl (70-99) H 01/16/20 21:36 Lactate 2.3 mmol/L (0.4-2.0) H* 01/17/20 04:20 Calcium 8.7 mg/dl (8.5-10.1) 01/17/20 04:20 Phosphorus 0.7 mg/dl (2.5-4.9) L* D 01/17/20 04:20 Magnesium 2.0 mg/dl (1.8-2.4) 01/17/20 04:20 Total Bilirubin 1.2 mg/dl (0.2-1) H D 01/17/20 04:20 Direct Bilirubin 0.5 mg/dl (0-0.2) H 01/17/20 04:20 AST 29 U/L (15-37) 01/17/20 04:20 ALT 28 U/L (12-78) 01/17/20 04:20 Alkaline Phosphatase 69 U/L (45-117) 01/17/20 04:20 Ammonia 17.0 umol/L (11-32) 01/17/20 04:20 Troponin I 0.032 ng/ml (0-0.045) 01/16/20 18:30 NT-Pro-B Natriuret Pep 40212 pg/ml (0-1800) H 01/16/20 18:30 Total Protein 5.3 gm/dl (6.4-8.2) L D 01/17/20 04:20 Albumin 2.7 gm/dl (3.4-5.0) L 01/17/20 04:20 Globulin 3.6 gm/dl (2.5-4.0) 01/16/20 18:30 Albumin/Globulin Ratio 0.9 (0.9-2) 01/16/20 18:30 Procalcitonin 0.48 ng/ml (0-0.5) 01/17/20 04:20 Random Cortisol 22.46 mcg/dl 01/16/20 23:35 Urine Color Dark Yellow 01/16/20 18:38 Urine Appearance Cloudy (Clear) A 01/16/20 18:38 Urine pH 5.0 (4.5-7.5) 01/16/20 18:38 Ur Specific [place] 1.026 (1.000-1.030) 01/16/20 18:38 Urine Protein 2+ (Negative) H 01/16/20 18:38 Urine Glucose (UA) Negative (Negative) 01/16/20 18:38 Urine Ketones Trace (Negative) H 01/16/20 18:38 Urine Blood 2+ (Negative) H 01/16/20 18:38 Urine Nitrite Negative (Negative) 01/16/20 18:38 Urine Bilirubin Negative (Negative) 01/16/20 18:38 Urine Urobilinogen Negative (Negative) 01/16/20 18:38 Ur Leukocyte Esterase Negative (Negative) 01/16/20 18:38 Urine WBC (Auto) 1-5 /hpf (0-5) 01/16/20 18:38 Urine RBC (Auto) 10-30 /hpf (0-4) H 01/16/20 18:38 U Hyaline Cast (Auto) >30 /lpf (0-5) H 01/16/20 18:38 U Epithel Cells (Auto) >30 /lpf (0-5) H 01/16/20 18:38 Urine Bacteria (Auto) Negative (Negative) 01/16/20 18:38 Nasal Screen MRSA (PCR) Positive (Negative) A 01/16/20 23:00 Urine Opiates Screen Neg (Neg) 01/16/20 18:38 Ur Methadone, Qual Neg (Neg) 01/16/20 18:38 Urine Barbiturates Neg (Neg) 01/16/20 18:38 Ur Phencyclidine (PCP) Neg (Neg) 01/16/20 18:38 U Amphetamin/Meth Scrn Neg (Neg) 01/16/20 18:38 MDMA (Ecstasy) Screen Neg (Neg) 01/16/20 18:38 U Benzodiazepines Scrn Neg (Neg) 01/16/20 18:38 Ur Cocaine Metabolite Neg (Neg) 01/16/20 18:38 U Marijuana (THC) Screen Neg (Neg) 01/16/20 18:38 COVID-19 PCR NEGATIVE (Negative) 01/16/20 19:55 Resident Activity Tracking Resident Involvement: Resident Care Provided Care Provided: Adult Hospital Medicine (1) Pulmonary edema Chronicity: acute Qualified Code(s): J81.0 - Acute pulmonary edema (2) Respiratory failure Chronicity: acute on chronic Respiratory failure complication: hypoxia and hypercapnia Qualified Code(s): J96.21 - Acute and chronic respiratory failure with hypoxia; J96.22 - Acute and chronic respiratory failure with hypercapnia (3) COPD (chronic obstructive pulmonary disease) COPD type: COPD with acute exacerbation Qualified Code(s): J44.1 - Chronic obstructive pulmonary disease with (acute) exacerbation
[2020-01-17] MEDS ORDERED: fentaNYL 25 MCG/HR TDSY TD SCH ×2 (10:00)
[2020-01-17] MEDS ORDERED: STAT IV Infusion **Titration per Protocol STA (10:24)
[2020-01-17] MEDS ORDERED: fentaNYL citrate 100 MCG/2 ML VIAL IV PRN (10:34)
[2020-01-17 11:22] LABS: iSTAT Allen Test Pass; iSTAT Art Bld Gas pCO2 Correct 52 mmHg (35-46); iSTAT Art Bld Gas pH Corrected 7.481 (7.35-7.45); iSTAT Arterial Blood Gas HCO3 39 meg/L (19-24); iSTAT Arterial Blood Gas pCO2 51 mmHg (35-46); iSTAT Arterial Blood Gas pH 7.49 (7.35-7.45); iSTAT Arterial Blood Gas pO2 130 mmHg (80-95); iSTAT Arterial Blood Gas pO2 C 134; iSTAT Carbon Dioxide > 40 mmol/L (24-31); iSTAT FiO2 40 %; iSTAT Hematocrit 26 % (42-52); iSTAT Hemoglobin 8.8 g/dl (14.0-18.0); iSTAT Potassium 4.8 mmol/L (3.3-5.0); iSTAT Site R Radial; iSTAT Sodium 138 mmol/L (135-144)
[2020-01-17] MEDS: NOREPINEPHRINE BIT INJ 8 MG in DEXTROSE 5% 500 ML IV SCH ×2 (11:33→14:15)
[2020-01-17] MEDS: fentaNYL citrate 100 MCG/2 ML VIAL IV PRN ×4 (11:33→17:37)
--- NOTE | 2020-01-17 11:46 | Pharmacy Report ---
Pharmacy Abx Initial Consult - Date of Service January 17, 2020 - Pharmacy Dosing Scope Date of Consult: 01/15 Consultation requested by: Dr. Mcgrath Pharmacy is consulted to initiate vancomycin IV dosing therapy, order appropriate labs and adjust drug dose/frequency. - Subjective The patient is a 84 year old M admitted on 01/16/20 21:44. - Objective Height: 6 ft Weight: 80.4 kg Vital Signs (Past 12hrs): Vital Signs Temp Pulse Resp BP Pulse Ox 01/17/20 11:12 75 9 L 98 01/17/20 10:44 37.7 C H 75 105/39 L 100 01/17/20 10:32 37.6 C H 75 104/39 L 99 01/17/20 10:13 37.7 C H 75 88/35 L 98 01/17/20 09:43 38.0 C H 75 80/32 L 98 01/17/20 09:13 38.3 C H 75 96/32 L 100 01/17/20 08:43 38.4 C H 75 99/41 L 100 01/17/20 08:13 38.5 C H 75 100/41 L 98 01/17/20 08:00 38.5 C H 77 97 01/17/20 07:43 38.5 C H 75 102/49 L 99 01/17/20 07:13 38.5 C H 75 98/42 L 98 01/17/20 07:12 78 14 98 01/17/20 07:00 38.5 C H 75 97 01/17/20 05:28 75 14 97 01/17/20 03:15 75 98 01/17/20 03:00 39.0 C H 75 98 01/17/20 02:00 39.2 C H 75 96 01/17/20 01:38 75 19 96 01/17/20 01:00 75 96 01/17/20 00:50 75 96/40 L 97 01/17/20 00:43 18 01/17/20 00:00 75 97 01/16/20 23:53 75 85/39 L 96 Lab Results (24hrs): Laboratory Tests (24 Hours) 01/17/20 01/17/20 01/17/20 04:20 04:20 04:20 WBC 10.32 Neut # (Auto) 7.49 H Creatinine 1.47 H Est Cr Clr Drug Dosing 40.3 Procalcitonin 0.48 01/16/20 01/16/20 01/16/20 23:35 18:30 18:30 WBC Neut # (Auto) Creatinine 1.39 1.45 H Est Cr Clr Drug Dosing 42.6 40.9 Procalcitonin 0.07 01/16/20 18:30 WBC 15.62 H Neut # (Auto) 10.49 H Creatinine Est Cr Clr Drug Dosing Procalcitonin Micro Results: 01/16/20 18:30 Aerobic Blood Culture - Pending Blood Anaerobic Blood Culture - Pending 01/16/20 18:30 Aerobic Blood Culture - Pending Blood Anaerobic Blood Culture - Pending - Risk Factors for Resistance * History of infection with a multidrug-resistant organism: MRSA, bactermia/endocarditis? - Assessment & Plan Assessment 84 year old M admitted after becoming somnolent/unresponsive, patient is currently intubated, white count initially elevated at 15, down to 10 today, continued to be persistently febrile overnight, trending down after dose of tylenol this morning. Patient completed 6 week course of antibiotics in August/September for MRSA bacteremia/ suspected valvular source although no vegetation seen on study. This MRSA had a vanc UNRULY of 2,resistant to clindamy ralph/tetracycline. Blood cultures currently pending and cannot rule out possible lung source at this time- therefore will continue vancomycin for now, consider switch to daptomycin if lung source ruled out due to previous MRSA with vanomcyin UNRULY of 2. Plan Vancomycin IV * Estimated PK Parameters: Vd 0.7L/kg, Bulmaro 0.0378hr-1, t1/2 18.3 hr * Loading dose: 1750 mg (21.7 mg/kg) * Maintenance dose: 1250 mg IV (15.5 mg/kg) every 18 hours * Will monitor, more aggressive dosing d/t history of MRSA bacteremia, SCr increased this afternoon, appears to be trending up * Goal trough level 17-20 mcg/mL * Trough level not currently ordered will reassess with renal function in AM Piperacillin/tazobactam * 4.5 g bolus administered over 30 minutes, then 4.5 g IV extended infusion every 8 hours for CrCl greater than 20 mL/min * Aggressive dosing selected due to critically ill status Pharmacy will continue to follow and will adjust
[2020-01-17 12:22] LABS: BUN Creatinine Ratio 27.4 (10-20); Calcium 8.5 mg/dl (8.5-10.1); Creatinine Clr Calc Pharmacy 35.7 ml/min; Est GFR (African American) 42.9; Potassium 4.8 mmol/L (3.5-5.1)
[2020-01-17] MEDS ORDERED: PIPERACILLIN/TAZOBACTAM 4.5 GM in DEXTROSE 5% 100 ML IV SCH (14:00)
[2020-01-17] MEDS ORDERED: VANCOMYCIN HCL 1,250 MG in SODIUM CHLORIDE 0.9% 250 ML IV SCH (14:00)
[2020-01-17] MEDS: CEFEPIME 2,000 MG in SYRINGE 7.5 ML IV SCH (14:28)
--- NOTE | 2020-01-17 15:53 | Electrocardiogram Report ---
Test Reason : Blood Pressure : / mmHG Vent. Rate : 083 BPM Atrial Rate : 083 BPM P-R Int : 216 ms QRS Dur : 108 ms QT Int : 360 ms P-R-T Axes : 021 060 075 degrees QTc Int : 423 ms Atrial-sensed ventricular-paced rhythm with prolonged AV conduction Biventricular pacemaker detected Abnormal ECG When compared with ECG of 23-AUG-2019 05:07, Vent. rate has decreased BY 27 BPM Confirmed by Renato Gardiner ([id number]) on 01/17/2020 3:52:49 PM Referred By: REFERRED SELF Confirmed By:Renato Gardiner
[2020-01-17] MEDS ORDERED: CHECK FENTANYL PATCH PLACEMENT SCH (16:00)
[2020-01-17] MEDS: MIDAZOLAM HCL 1 MG/ML 2ML VIAL IV PRN ×3 (16:31→21:14)
[2020-01-17 18:00] LABS: iSTAT Allen Test Pass; iSTAT Arterial Blood Gas HCO3 38 meg/L (19-24); iSTAT Arterial Blood Gas pCO2 57 mmHg (35-46); iSTAT Arterial Blood Gas pH 7.43 (7.35-7.45); iSTAT Arterial Blood Gas pO2 91 mmHg (80-95); iSTAT Carbon Dioxide 39 mmol/L (24-31); iSTAT FiO2 30 %; iSTAT Site L Radial
[2020-01-17] MEDS ORDERED: ETOMIDATE 2 MG/ML 20 ML VIAL IV ONE (18:30)
--- NOTE | 2020-01-17 19:38 | Procedure Note ---
Procedure Note Date of Service January 17, 2020 Procedure Note Procedure Name:Arterial line placement Procedure time out: Right radial artery site verified, patient verified Consent obtained: written by POA Performed by: myself, under direct supervision by Dr. Babcock Indications: management of hypotensive blood pressures Contraindications: none Description: The patient was placed in supine position, right radial A-line placement visualized under ultrasound guidance, and then under strict sterile field, the skin was prepped with chlorhexidine, using ultrasound guidance, one attempt made, using Seldinger technique, the line was placed and secured with statlock, covered with tegaderm dressing, patient tolerated the procedure very well, no immediate complication. Complications: none Patient tolerated procedure: well Supervising Physician Co-Signing Physician Notes I was physically present and assisted with the entire procedure. Coding Resident Activity Tracking Resident Involvement: Resident Care Provided Care Provided: Adult [facility] Medicine
[2020-01-18] MEDS: MIDAZOLAM HCL 1 MG/ML 2ML VIAL IV PRN ×3 (00:39→05:11)
[2020-01-18] MEDS: fentaNYL citrate 100 MCG/2 ML VIAL IV PRN ×3 (00:39→05:11)
[2020-01-18] MEDS: ALPHAGAN~ORDER AWAITING ACTION SCH ×4 (01:50→23:24)
[2020-01-18] MEDS: CEFEPIME 2,000 MG in SYRINGE 7.5 ML IV SCH ×2 (02:56→14:30)
[2020-01-18 04:25] LABS: Albumin Level 2.2 gm/dl (3.4-5.0); BUN Creatinine Ratio 30.8 (10-20); Bilirubin Direct 0.4 mg/dl (0-0.2); Creatinine Clr Calc Pharmacy 36.8 ml/min; Est GFR (African American) 44.5; Est GFR (Non-African American) 38.4; Magnesium 2.2 mg/dl (1.8-2.4); Potassium 4.6 mmol/L (3.5-5.1)
[2020-01-18 04:29] LABS: Bilirubin,Total 0.8 mg/dl (0.2-1); Total Protein 5.1 gm/dl (6.4-8.2)
[2020-01-18 04:41] LABS: Hematocrit (blood only) 23.2 % (42-52); Hemoglobin 7.9 g/dL (14.0-18.0); Mean Corpuscular Hemoglobin 34.5 pg (25-34); Mean Corpuscular Hgb Conc 34.1 g/dL (32-36); Mean Corpuscular Volume 101.3 fL (80-100); Mean Platelet Volume 11.9 fL (7.4-10.4); Platelet Count 164 K/uL (130-400); RDW Coefficient of Variation 17.5 % (11.5-14.5); RDW Standard Deviation 65.4 fL (36.4-46.3); Red Blood Count 2.29 M/uL (4.7-6.1); White Blood Count 9.36 K/uL (4.8-10.8)
[2020-01-18 04:42] LABS: Anisocytosis Present; Basophils # (auto) 0.01 K/uL (0-0.2); Basophils % (auto) 0.1 %; Eosinophils # (auto) 0.01 K/uL (0-0.5); Eosinophils % (auto) 0.1 %; Immature Granulocytes # (auto) 0.06 K/uL (0.00-0.02); Immature Granulocytes % (auto) 0.6 %; Lymphocytes % (auto) 9.6 %; Monocytes # (auto) 1.22 K/uL (0.11-0.59); Neutrophils # (auto) 7.16 K/uL (1.4-6.5); Neutrophils % (auto) 76.6 %
[2020-01-18 05:44] LABS: iSTAT Art Bld Gas pCO2 Correct 56 mmHg (35-46); iSTAT Art Bld Gas pH Corrected 7.437 (7.35-7.45); iSTAT Arterial Blood Gas HCO3 38 meg/L (19-24); iSTAT Arterial Blood Gas pCO2 59 mmHg (35-46); iSTAT Arterial Blood Gas pH 7.42 (7.35-7.45); iSTAT Arterial Blood Gas pO2 93 mmHg (80-95); iSTAT Arterial Blood Gas pO2 C 87; iSTAT Carbon Dioxide > 40 mmol/L (24-31); iSTAT FiO2 30 %; iSTAT Hematocrit 24 % (42-52); iSTAT Hemoglobin 8.2 g/dl (14.0-18.0); iSTAT Potassium 4.4 mmol/L (3.3-5.0); iSTAT Site Art Line; iSTAT Sodium 138 mmol/L (135-144)
--- NOTE | 2020-01-18 06:31 | Hospitalist Progress Note ---
Date of Service January 18, 2020 Assessment & Plan (1) Respiratory failure: (2) COPD (chronic obstructive pulmonary disease): (3) Pulmonary edema: (4) Acute hyperkalemia: (5) Acute respiratory acidosis: (6) Acute alteration in mental status: (7) BPH (benign prostatic hyperplasia): (8) CAD (coronary artery disease): (9) Hypertension: (10) Hyperlipidemia: (11) Ischemic cardiomyopathy: (12) Aspiration pneumonia: (13) Sepsis: (14) Altered mental status: ASSESSMENT AND PLAN: This is an 84-year-old male who presented with an unresponsive episode and acute hypoxemic and hypercarbic respiratory failure. 1. Unresponsiveness and acute hypoxemic and hypercarbic respiratory failure, possibly secondary to [id number] diastolic congestive heart failure, Aspiration Pneumonia. The patient has history of recent MRSA bacteremia. In the ER empirically started on IV vancomycin and cefepime, which we continued. Follow the cultures. Currently intubated, vent management as per critical care. 2. Bvwgr-ph-cvgmzbi diastolic congestive heart failure. BP was high, now stable. 3. History of chronic obstructive pulmonary disease, history of bronchiectasis, history of asthma, moderate persistent. Nebs. History of aspiration pneumonia in both lower lobes. As per the , he was only eating small chopped food. 4. History of aortic regurgitation, status post bioprosthetic aortic valve replacement. Getting echo for congestive heart failure. 5. History of thoracic aortic aneurysm, needs followup. 6. History of paroxysmal ventricular tachycardia status post AICD. IV Lopressor p.r.n. 7. Acute kidney injury on chronic kidney disease stage III 8. Low-grade myelodysplastic syndrome, recent diagnosis. 9. Coronary artery disease status post coronary artery bypass graft. Will continue the aspirin. Holding his p.o. medications. We will place on IV Lopressor p.r.n. Troponin is negative. 10. Hyperammonemia at 74. 11. Hyperkalemia. Received calcium gluconate 12. Deep venous thrombosis prophylaxis, sequential compression devices for now. 13. Disposition: Closely monitor in the ICU. Level 1 full code. Labs checked D/W RN, family here again last PM and said will decide continuing care v [employer] ROS-Offers no history, on vent Physical Exam Gen-NAD, febrile Head-NCAT, EOMI, PERRLA, Anicteric Sclera Neck-Supple, No JVD, No Thyromegaly, No Masses, No LAD, No Bruits Lungs- Mild Coarse Bilaterally, No Crepitus Chest-No S4, +S1, +S2, No S3, No Murmurs, No Rubs, No Gallops, No Ectopy Abdomen-Soft, Bowel Sounds Present, Non Distended, No Hepatomegaly, No Splenomegaly, No Palpable Masses, No Rebound, No Rigidity, No Guarding Musculoskeletal-NA Extremities-No Cyanosis, No Clubbing, + Bilateral Pitting Edema Nuero-Non Focal Psych-Vented Admission and Anticipated Discharge Date Admission Date: January 16, 2020 Results & Data Results & Data ([facility]) Vital Signs (Past 12 Hours) Vital Signs Temp Pulse Resp BP Pulse Ox 01/18/20 05:25 76 8 L 98 01/18/20 03:00 36.3 C L 75 99 01/18/20 02:32 36.3 C L 75 125/48 L 98 01/18/20 02:02 36.3 C L 75 137/58 L 97 01/18/20 02:00 36.3 C L 75 97 01/18/20 01:57 75 11 L 99 01/18/20 01:33 36.3 C L 75 124/56 L 98 01/18/20 01:02 36.3 C L 75 101/44 L 97 01/18/20 01:00 36.4 C L 75 96 01/18/20 00:32 36.4 C L 75 105/44 L 95 01/18/20 00:25 36.4 C L 75 97/53 L 95 01/18/20 00:00 36.3 C L 75 93 01/17/20 23:33 36.2 C L 75 149/62 H 98 01/17/20 23:02 36.2 C L 75 146/57 H 99 01/17/20 23:00 36.2 C L 75 99 01/17/20 22:35 75 8 L 99 01/17/20 22:32 36.3 C L 75 129/54 L 100 01/17/20 22:02 36.3 C L 75 88/42 L 97 01/17/20 22:00 36.3 C L 75 97 01/17/20 21:32 36.3 C L 75 84/39 L 97 01/17/20 21:02 36.4 C L 75 102/43 L 98 01/17/20 21:00 36.4 C L 75 97 01/17/20 20:45 36.4 C L 75 90/76 L 100 01/17/20 20:32 36.4 C L 75 88/41 L 96 01/17/20 20:02 36.5 C 75 88/39 L 97 01/17/20 20:00 36.5 C 75 97 01/17/20 19:34 75 9 L 98 01/17/20 19:32 36.6 C 75 98/39 L 97 01/17/20 19:29 36.6 C 75 91/41 L 98 01/17/20 19:23 36.6 C 75 88/40 L 98 01/17/20 19:07 36.6 C 75 95/41 L 95 01/17/20 19:03 36.5 C 75 60/43 L 99 01/17/20 19:00 36.6 C 75 7 L 98/39 L 97 01/17/20 18:32 36.7 C 75 127/51 L 97 (1) Respiratory failure Chronicity: acute on chronic Respiratory failure complication: hypoxia and hypercapnia Qualified Code(s): J96.21 - Acute and chronic respiratory failure with hypoxia; J96.22 - Acute and chronic respiratory failure with hypercapnia (2) COPD (chronic obstructive pulmonary disease) COPD type: COPD with acute exacerbation Qualified Code(s): J44.1 - Chronic obstructive pulmonary disease with (acute) exacerbation (3) Pulmonary edema Chronicity: acute Qualified Code(s): J81.0 - Acute pulmonary edema
--- NOTE | 2020-01-18 07:28 | XRay Report ---
XR chest 1V portable HISTORY: 84 years-old Male f/u acute respiratory failure. COMPARISON: Chest radiograph 01/17/2020 TECHNIQUE: Portable semierect AP view of the chest FINDINGS: Endotracheal tube overlies the midline, 3.8 cm superior to the boogie. Enteric tube courses below the diaphragm into the gastric lumen, distal tip outside the [id number]. Left subclavian pacer/AICD. Multiple telemetry leads overlie the chest. Prior median sternotomy with cardiac valvular prosthesis. Pulmonary vascular congestion with interstitial coarsening. Right greater than left pleural effusion s with midlung and right greater than left bibasilar consolidative opacities. No significant change f rom comparison. No pneumothorax. Degenerative changes of the shoulders and spine. IMPRESSION: 1. Satisfactory positioning of the endotracheal and enteric tubes. 2. Cardiomegaly with unchanged pulmonary edema, pleural effusions and bibasilar predominant consolida tion. ACT 112: Negative or not required by law. The above report was generated using voice recognition software. It may contain grammatical, syntax o r spelling errors. Electronically signed by: Philip Guzman M.D. 01/18/2020 7:26 AM
[2020-01-18] MEDS: HEPARIN SOD 5,000 UNIT/0.5 ML VIAL SQ SCH ×2 (08:20→21:09)
[2020-01-18] MEDS: DORZOLAMIDE/TIMOLOL 22.3/6.8MG/ML 10 ML BTL OPB SCH ×2 (08:20→21:09)
[2020-01-18] MEDS: ASPIRIN 81 MG CHEW PO SCH (08:20)
[2020-01-18] MEDS: FAMOTIDINE 20 MG in SYRINGE 3 ML IV SCH (08:21)
--- NOTE | 2020-01-18 10:25 | Critical Care Progress Note ---
Date of Service January 18, 2020 Assessment & Plan (1) Respiratory failure: Reason Critically Ill: 84-year-old male here with a PMHx significant for COPD, acute hypoxic respitaroty failure with hypoxemia, HLD, asthma, hx aspiration PNA, Hx R hemidiaphragm paralysis, hx Paroxysmal VTach s/p ICD, aortic regurgitation s/p bioprosthetic balve replacement, CAD s/p CABG, transthoracic aoritc aneurysm, CKD stage 3 who presented with worsening mental status and lethargy, found to have a pH of 7.0 in the ED and who was admitted for Acute hypercarbic hypoxic respiratory failure. Neuro - acute delirium after extubation CAM ICU: CAM positive Sedation: none Analgesia: fentanyl * Acute Delirium s/p extubation * aware of names of family members, self, location, unsure of year. will continue to monitor neurological progress Cardiac - extensive cardiac hx significant for CAD s/p CABG, transthoracic aortic aneurysm, aortic regurgitation s/p bioprosthetic valve replacement, hx paroxysmal VTach s/p ICD placement * No acute issues; supporting BP well off pressors Respiratory - * Acute hypoxic hypercarbic respiratory failure on chronic metabolic alkalosis with respiratory compensation * extubated at 10:45 AM as patient was waking up and pulling at ETT * most recent ABG normal pH, still with CO2 and HCO3 alterations, likely closer to where he chronically "lives" * breathing comfortably on Nasal Cannula * will consider de-escalation from ICU if continues to be stable GI - Prophylaxis with Famotidine; NPO - speech consult RENAL/LYTES - * MANISH on CKD * Cr normally 1.3, 1.61 * continuing to make urine * Electrolyte Derangements * Replace lytes as needed. - No concerns at this time. ENDO - No concerns at this time HEME - Anemia: chronic, stable at 8.4 ID - * Septic shock * Cefepime given low likelihood of intrapulmonary growth of anaerobic bacteria * blood cultures grew non-staph aureus G+cocci in 1/4 bottles * IV tylenol for fevers Monitor fever curve. INTEGUMENTARY - No acute concerns LINES/IV ACCESS - PIVs intact x3 R Art line DVT PROPHYLAXIS - heparin SQ 5,000 BID Goals of care: discussed with daughter and at length options of care going forward regarding potential to decompensate again and code status. They will find patient's living will and bring it to the hospital/call with information. Will de-escalate patient to PCU later today if continues to be stable. Thank you for allowing us to be part of this patient's care. Please refer to Dr. Babcock's documentation for any further recommendations. (2) Admitted to intensive care unit: (3) COPD (chronic obstructive pulmonary disease): (4) Pulmonary edema: (5) Acute hyperkalemia: (6) Acute respiratory acidosis: (7) Acute alteration in mental status: (8) Arm edema: (9) Anemia: (10) Hypotension: (11) Hypoxia: (12) Chronic diastolic HF (heart failure): (13) Hyperlipidemia: (14) Hypertension: (15) CAD (coronary artery disease): (16) BPH (benign prostatic hyperplasia): (17) Aortic valve replaced: (18) Chronic respiratory acidosis: (19) Metabolic alkalosis: Admission and Anticipated Discharge Date Admission Date: January 16, 2020 Supervising Physician Co-Signing Physician Notes Dr. Lucas was resident physician during care of patient. I separately evaluated patient for aragon portions of the history and the exam. I was present during the critical portion of medical decision making, and I discussed the case with the resident. I generally agree with the findings and plan. Patient self extubated and was subsequently stable enough to preclude reintubation. Continue to optimize to remain liberated from ventilator Subjective opening eyes intermittently, occasionally shaking on left arm or twitching feet. Review of Systems Review of Systems: Unobtainable due to endotracheal tube Physical Exam Physical Exam: Const: sleeping comfortably, in no acute distress Cardiac: regular rate and rhythm, 2/6 systolic murmur heard at left lower s ternal border, pulm: intubated, mechanically ventilated, coarse breath sounds throughout bilateral lung oneill Gi: soft, nontender, nondistended, normal bowel sounds Extremities: no edema, poor peripheral pulses, sluggish cap refill Results & Data Results & Data ([facility]) Vital Signs (Past 12 Hours) Vital Signs Temp Pulse Resp BP Pulse Ox 01/18/20 10:11 36.3 C L 75 114/38 L 98 01/18/20 10:02 36.3 C L 77 98 01/18/20 10:00 36.3 C L 75 96 01/18/20 09:32 36.2 C L 75 105/45 L 96 01/18/20 09:03 36.0 C L 75 114/43 L 94 01/18/20 08:02 35.8 C L 75 98/62 L 98 01/18/20 08:00 75 01/18/20 07:40 75 8 L 96 01/18/20 07:02 35.8 C L 75 101/47 L 97 01/18/20 05:25 76 8 L 98 01/18/20 03:00 36.3 C L 75 99 01/18/20 02:32 36.3 C L 75 125/48 L 98 01/18/20 02:02 36.3 C L 75 137/58 L 97 01/18/20 02:00 36.3 C L 75 97 01/18/20 01:57 75 11 L 99 01/18/20 01:33 36.3 C L 75 124/56 L 98 01/18/20 01:02 36.3 C L 75 101/44 L 97 01/18/20 01:00 36.4 C L 75 96 01/18/20 00:32 36.4 C L 75 105/44 L 95 01/18/20 00:25 36.4 C L 75 97/53 L 95 01/18/20 00:00 36.3 C L 75 93 01/17/20 23:33 36.2 C L 75 149/62 H 98 01/17/20 23:02 36.2 C L 75 146/57 H 99 01/17/20 23:00 36.2 C L 75 99 01/17/20 22:35 75 8 L 99 01/17/20 22:32 36.3 C L 75 129/54 L 100 Laboratory Results WBC 9.36 K/uL (4.8-10.8) 01/18/20 03:45 RBC 2.29 M/uL (4.7-6.1) L 01/18/20 03:45 Hgb 7.9 g/dL (14.0-18.0) L 01/18/20 03:45 POC Hgb 8.2 g/dl (14.0-18.0) L 01/18/20 05:29 Hct 23.2 % (42-52) L 01/18/20 03:45 POC Hct 24 % (42-52) L 01/18/20 05:29 MCV 101.3 fL (80-100) H D 01/18/20 03:45 MCH 34.5 pg (25-34) H 01/18/20 03:45 MCHC 34.1 g/dL (32-36) 01/18/20 03:45 RDW Std Deviation 65.4 fL (36.4-46.3) H 01/18/20 03:45 RDW Coeff of K[place] 17.5 % (11.5-14.5) H 01/18/20 03:45 Plt Count 164 K/uL (130-400) 01/18/20 03:45 MPV 11.9 fL (7.4-10.4) H 01/18/20 03:45 Immature Gran % (Auto) 0.6 % 01/18/20 03:45 Neut % (Auto) 76.6 % 01/18/20 03:45 Lymph % (Auto) 9.6 % 01/18/20 03:45 [place] % (Auto) 13.0 % 01/18/20 03:45 Eos % (Auto) 0.1 % 01/18/20 03:45 Baso % (Auto) 0.1 % 01/18/20 03:45 Neut # (Auto) 7.16 K/uL (1.4-6.5) H 01/18/20 03:45 Lymph # (Auto) 0.90 K/uL (1.2-3.4) L 01/18/20 03:45 [place] # (Auto) 1.22 K/uL (0.11-0.59) H 01/18/20 03:45 Eos # (Auto) 0.01 K/uL (0-0.5) 01/18/20 03:45 Baso # (Auto) 0.01 K/uL (0-0.2) 01/18/20 03:45 Immature Gran # (Auto) 0.06 K/uL (0.00-0.02) H 01/18/20 03:45 Absolute Nucleated RBC 0.03 K/uL (0-0) H 01/17/20 04:20 Nucleated RBC % (auto) 0.2 % 01/17/20 04:20 Basophilic Stippling 1+ 01/16/20 18:30 Anisocytosis Present 01/18/20 03:45 Microcytosis Present 01/16/20 18:30 Stomatocytes 1+ 01/16/20 18:30 PT 11.8 Seconds (9.0-12.0) 01/16/20 18:30 INR 1.1 (0.9-1.1) 01/16/20 18:30 APTT 27.4 Seconds (21.0-31.0) 01/16/20 18:30 PTT Ratio 1.0 01/16/20 18:30 Sample Site Art Line 01/18/20 05:29 POC pH 7.42 (7.35-7.45) 01/18/20 05:29 POC pCO2 59 mmHg (35-46) H 01/18/20 05:29 POC pO2 93 mmHg (80-95) 01/18/20 05:29 POC HCO3 38 елена/L (19-24) H 01/18/20 05:29 POC Total CO2 > 40 mmol/L (24-31) H* 01/18/20 05:29 POC Base Excess 14.0 елена/L (-9-1.8) H 01/18/20 05:29 ABG pH (Temp Correct) 7.437 (7.35-7.45) 01/18/20 05:29 ABG pCO2 (Temp Corrct 56 mmHg (35-46) H 01/18/20 05:29 POC ABG pO2 at Pt Temp 87 01/18/20 05:29 POC ABG O2 Sat 97.0 % (90-95) H 01/18/20 05:29 Ramirez Test NA 01/18/20 05:29 VBG pH 7.00 (7.36-7.41) L 01/16/20 18:30 VBG pCO2 198 mmHg (38-50) H 01/16/20 18:30 VBG pO2 55 mmHg 01/16/20 18:30 VBG HCO3 48 mmol/L 01/16/20 18:30 VBG O2 Saturation 72.8 % 01/16/20 18:30 VBG Base Excess 12.1 mEq/L 01/16/20 18:30 Barometric Pressure 732.6 mm/Hg 01/16/20 18:30 O2 Delivery Device Ventilator 01/18/20 05:29 POC O2 Rate 8 01/18/20 05:29 Minute Ventilation 4 01/18/20 05:29 POC FiO2 30 % 01/18/20 05:29 Tidal Volume 500 01/18/20 05:29 PEEP 5 01/18/20 05:29 POC Sodium 138 mmol/L (135-144) 01/18/20 05:29 Sodium 144 mmol/L (136-145) 01/18/20 03:45 POC Potassium 4.4 mmol/L (3.3-5.0) 01/18/20 05:29 Potassium 4.6 mmol/L (3.5-5.1) 01/18/20 03:45 Chloride 103 mmol/L (98-107) 01/18/20 03:45 Carbon Dioxide 36 mmol/L (21-32) H 01/18/20 03:45 Anion Gap 5.0 (3-11) 01/18/20 03:45 BUN 50 mg/dl (7-18) H 01/18/20 03:45 Creatinine 1.61 mg/dl (0.6-1.4) H 01/18/20 03:45 Est Cr Clr Drug Dosing 36.8 ml/min 01/18/20 03:45 Est GFR ( Amer) 44.5 01/18/20 03:45 Est GFR (Non-Af Amer) 38.4 01/18/20 03:45 BUN/Creatinine Ratio 30.8 (10-20) H 01/18/20 03:45 Glucose 111 mg/dl (70-99) H 01/18/20 03:45 POC Glucose 134 mg/dl (70-99) H 01/17/20 17:44 Lactate 2.3 mmol/L (0.4-2.0) H* 01/17/20 04:20 Calcium 8.0 mg/dl (8.5-10.1) L 01/18/20 03:45 Phosphorus 5.0 mg/dl (2.5-4.9) H D 01/18/20 03:45 Magnesium 2.2 mg/dl (1.8-2.4) 01/18/20 03:45 Total Bilirubin 0.8 mg/dl (0.2-1) 01/18/20 03:45 Direct Bilirubin 0.4 mg/dl (0-0.2) H 01/18/20 03:45 AST 25 U/L (15-37) 01/18/20 03:45 ALT 23 U/L (12-78) 01/18/20 03:45 Alkaline Phosphatase 59 U/L (45-117) 01/18/20 03:45 Ammonia 17.0 umol/L (11-32) 01/17/20 04:20 Troponin I 0.032 ng/ml (0-0.045) 01/16/20 18:30 NT-Pro-B Natriuret Pep 34995 pg/ml (0-1800) H 01/16/20 18:30 Total Protein 5.1 gm/dl (6.4-8.2) L 01/18/20 03:45 Albumin 2.2 gm/dl (3.4-5.0) L 01/18/20 03:45 Globulin 3.6 gm/dl (2.5-4.0) 01/16/20 18:30 Albumin/Globulin Ratio 0.9 (0.9-2) 01/16/20 18:30 Procalcitonin 0.48 ng/ml (0-0.5) 01/17/20 04:20 Random Cortisol 22.46 mcg/dl 01/16/20 23:35 Urine Color Dark Yellow 01/16/20 18:38 Urine Appearance Cloudy (Clear) A 01/16/20 18:38 Urine pH 5.0 (4.5-7.5) 01/16/20 18:38 Ur Specific [place] 1.026 (1.000-1.030) 01/16/20 18:38 Urine Protein 2+ (Negative) H 01/16/20 18:38 Urine Glucose (UA) Negative (Negative) 01/16/20 18:38 Urine Ketones Trace (Negative) H 01/16/20 18:38 Urine Blood 2+ (Negative) H 01/16/20 18:38 Urine Nitrite Negative (Negative) 01/16/20 18:38 Urine Bilirubin Negative (Negative) 01/16/20 18:38 Urine Urobilinogen Negative (Negative) 01/16/20 18:38 Ur Leukocyte Esterase Negative (Negative) 01/16/20 18:38 Urine WBC (Auto) 1-5 /hpf (0-5) 01/16/20 18:38 Urine RBC (Auto) 10-30 /hpf (0-4) H 01/16/20 18:38 U Hyaline Cast (Auto) >30 /lpf (0-5) H 01/16/20 18:38 U Epithel Cells (Auto) >30 /lpf (0-5) H 01/16/20 18:38 Urine Bacteria (Auto) Negative (Negative) 01/16/20 18:38 Nasal Screen MRSA (PCR) Positive (Negative) A 01/16/20 23:00 Urine Opiates Screen Neg (Neg) 01/16/20 18:38 Ur Methadone, Qual Neg (Neg) 01/16/20 18:38 Urine Barbiturates Neg (Neg) 01/16/20 18:38 Ur Phencyclidine (PCP) Neg (Neg) 01/16/20 18:38 U Amphetamin/Meth Scrn Neg (Neg) 01/16/20 18:38 MDMA (Ecstasy) Screen Neg (Neg) 01/16/20 18:38 U Benzodiazepines Scrn Neg (Neg) 01/16/20 18:38 Ur Cocaine Metabolite Neg (Neg) 01/16/20 18:38 U Marijuana (THC) Screen Neg (Neg) 01/16/20 18:38 COVID-19 PCR NEGATIVE (Negative) 01/16/20 19:55 Bld Cult Staph aureus PCR Negative (Negative) 01/16/20 18:30 Blood Culture MRSA PCR Negative (Negative) 01/16/20 18:30 Resident Activity Tracking Resident Involvement: Resident Care Provided Care Provided: Adult Hospital Medicine (1) Pulmonary edema Chronicity: acute Qualified Code(s): J81.0 - Acute pulmonary edema (2) Respiratory failure Chronicity: acute on chronic Respiratory failure complication: hypoxia and hypercapnia Qualified Code(s): J96.21 - Acute and chronic respiratory failure with hypoxia; J96.22 - Acute and chronic respiratory failure with hypercapnia (3) COPD (chronic obstructive pulmonary disease) COPD type: COPD with acute exacerbation Qualified Code(s): J44.1 - Chronic obstructive pulmonary disease with (acute) exacerbation
[2020-01-18] MEDS: VANCOMYCIN HCL 1,250 MG in SODIUM CHLORIDE 0.9% 250 ML IV SCH (13:58)
--- NOTE | 2020-01-18 16:16 | Communication Note ---
Date of Service: January 18, 2020 At approximately 1515, was approached by nursing staff informed that family was present and wishing to have further conversation regarding resuscitative status. Currently, the patient is a conditional code and currently would be amendable to intubation if respiratory distress were to worsen. I am familiar with family as we became acquainted during admission. During conversation, family including multiple daughters and report that they would not wish for the patient to be reintubated in the event of respiratory failure. Additionally, they do agree that they would wish to focus on goals of comfort and would be amendable to initiation of medications including morphine, Ativan, etc. I did explain to family that if we got to the point where we felt the need to initiate morphine or other medications for comfort, that the patient's level of consciousness would begin to deteriorate and his ability to be communicative with family would become diminished. They did acknowledge this and agreed that if they felt morphine were necessary that they would understand the ramifications. I did have an extensive conversation with the patient at bedside. At this point, he is awake, alert, and oriented. He reports that he has no discomfort at this time. Despite this, explained to the patient that I am concerned with his respiratory status and possible need for reintubation if his status were to continue to decline. After conversation, the patient reports that he would not wish to be reintubated. I did reiterate this with the patient as well as the daughter at bedside. They confirmed that the patient wishes to be DNR/DNI in the event of worsening respiratory distress. Patient confirms that he would not wish to have the breathing tube replaced and would rather pass away peacefully with focus of care on comfort. Changes made in orders. Patient is now DNR/DNI. At this point, with the patient being awake, alert, and oriented, I do not feel that there needs to be initiation of comfort measures at this time. Family is in agreement with continuing current care, with the understanding that if the patient's status were to continue to deteriorate, we will transition to comfort measures and focus on peaceful passing. Patient and family are all in agreement with this plan. All questions were answered. Offered support to patient and family. I have personally spent 34 minutes of critical care time in the direct management of this patient. This is a life/limb threatening event. This includes time spent evaluating patient, direct bedside care, chart review, placing orders, interpretation of diagnostic studies, discussion with consultants, patient, and family members, as well as other required patient management activi ties. This time is exclusive of all separately billable procedures, and teaching time and separate from and in addition to any other critical care service time. I was advised of the developments via telephone. Agree with the assessment and plan. Coding Level of Care Code Critical Care iram addt'l 30 min Time Spent (min) 34
[2020-01-18] MEDS: LATANOPROST 0.005% OP SOLN 2.5 ML BTL OPR SCH (21:10)
[2020-01-19] MEDS: CEFEPIME 2,000 MG in SYRINGE 7.5 ML IV SCH ×2 (04:20→14:55)
[2020-01-19 06:06] LABS: Basophils # (auto) 0.02 K/uL (0-0.2); Basophils % (auto) 0.2 %; Eosinophils # (auto) 0.26 K/uL (0-0.5); Eosinophils % (auto) 3.2 %; Hematocrit (blood only) 26.1 % (42-52); Hemoglobin 8.4 g/dL (14.0-18.0); Immature Granulocytes # (auto) 0.03 K/uL (0.00-0.02); Immature Granulocytes % (auto) 0.4 %; Lymphocytes # (auto) 1.13 K/uL (1.2-3.4); Mean Corpuscular Hemoglobin 33.9 pg (25-34); Mean Corpuscular Hgb Conc 32.2 g/dL (32-36); Mean Corpuscular Volume 105.2 fL (80-100); Monocytes # (auto) 1.14 K/uL (0.11-0.59); Monocytes % (auto) 14.2 %; Neutrophils # (auto) 5.47 K/uL (1.4-6.5); Platelet Count 153 K/uL (130-400); RDW Coefficient of Variation 17.9 % (11.5-14.5); RDW Standard Deviation 68.3 fL (36.4-46.3); Red Blood Count 2.48 M/uL (4.7-6.1); White Blood Count 8.05 K/uL (4.8-10.8)
[2020-01-19 06:42] LABS: Albumin Level 2.5 gm/dl (3.4-5.0); BUN Creatinine Ratio 36.2 (10-20); Bilirubin Direct 0.2 mg/dl (0-0.2); Bilirubin,Total 0.8 mg/dl (0.2-1); Calcium 8.8 mg/dl (8.5-10.1); Creatinine Clr Calc Pharmacy 44.6 ml/min; Est GFR (African American) 56.1; Est GFR (Non-African American) 48.4; Magnesium 2.4 mg/dl (1.8-2.4); Phosphorus 4.1 mg/dl (2.5-4.9); Potassium 4.4 mmol/L (3.5-5.1); Total Protein 5.9 gm/dl (6.4-8.2)
--- NOTE | 2020-01-19 07:05 | Critical Care Progress Note ---
Date of Service January 19, 2020 Assessment & Plan (1) Respiratory failure: Reason Critically Ill: 84-year-old male here with a PMHx significant for COPD, acute hypoxic respitaroty failure with hypoxemia, HLD, asthma, hx aspiration PNA, Hx R hemidiaphragm paralysis, hx Paroxysmal VTach s/p ICD, aortic regurgitation s/p bioprosthetic balve replacement, CAD s/p CABG, transthoracic aoritc aneurysm, CKD stage 3 who presented with worsening mental status and lethargy, found to have a pH of 7.0 in the ED and who was admitted for Acute hypercarbic hypoxic respiratory failure. Neuro - CAM ICU: CAM negative Sedation: none Analgesia: fentanyl * no acute issues Cardiac - extensive cardiac hx significant for CAD s/p CABG, transthoracic aortic aneurysm, aortic regurgitation s/p bioprosthetic valve replacement, hx paroxysmal VTach s/p ICD placement * No acute issues; supporting BP well off pressors Respiratory - * Acute hypoxic hypercarbic respiratory failure on chronic metabolic alkalosis with respiratory compensation * extubated at 10:45 AM as patient was waking up and pulling at ETT * most recent ABG normal pH, still with CO2 and HCO3 alterations, likely closer to where he chronically "lives" * breathing comfortably on Nasal Cannula GI - Prophylaxis with Famotidine; NPO - speech consult -- thick liquids, minced and moist food RENAL/LYTES - * MANISH on CKD: improving * Cr normally 1.3, 1.61 * continuing to make urine * Electrolyte Derangements * Replace lytes as needed. - No concerns at this time. ENDO - No concerns at this time HEME - Anemia: chronic, stable at 8.4 ID - * Septic shock * Cefepime given low likelihood of intrapulmonary growth of anaerobic bacteria * blood cultures grew non-staph aureus G+cocci in 1/4 bottles, likely contaminant * IV tylenol for fevers Monitor fever curve. INTEGUMENTARY - No acute concerns LINES/IV ACCESS - PIVs intact x3 Stable for downgrade DVT PROPHYLAXIS - heparin SQ 5,000 BID Thank you for allowing us to be part of this patient's care. Please refer to Dr. Babcock's documentation for any further recommendations. (2) Admitted to intensive care unit: (3) COPD (chronic obstructive pulmonary disease): (4) Pulmonary edema: (5) Acute hyperkalemia: (6) Acute respiratory acidosis: (7) Acute alteration in mental status: (8) Arm edema: (9) Anemia: (10) Hypotension: (11) Hypoxia: (12) Chronic diastolic HF (heart failure): (13) Hyperlipidemia: (14) Hypertension: (15) CAD (coronary artery disease): (16) BPH (benign prostatic hyperplasia): (17) Aortic valve replaced: (18) Chronic respiratory acidosis: (19) Metabolic alkalosis: Admission and Anticipated Discharge Date Admission Date: January 16, 2020 Supervising Physician Co-Signing Physician Notes Dr. Lucas was resident physician during care of patient. I separately evaluated patient for aragon portions of the history and the exam. I was present during the critical portion of medical decision making, and I discussed the case with the resident. I generally agree with the findings and plan. Patient's respiratory status has marginally improved, stable for downgrade out of ICU. Subjective no acute complaints this am. doing well. Review of Systems Constitutional: no fever, no chills, no body aches and no fatigue Respiratory: no cough and no dyspnea Cardiovascular: no chest pain, no dyspnea and no edema Gastrointestinal: no abdominal pain, no nausea, no vomiting, no constipation and no diarrhea/loose stools Physical Exam Physical Exam: VITAL SIGNS - Vital signs and nursing notes were reviewed. GENERAL - 84 yo M appearing stated age. NAD SKIN - Without rashes. HEAD - NC/AT. EYES - PERRL. Sclera anicteric. Palpebral conjunctiva pink and moist with no injection noted. EARS - No deformities of external structures noted on gross examination bilaterally. NOSE - Midline and without cyanosis. No epistaxis or purulent drainage noted. MOUTH/OROPHARYNX - ET Tube in place. Without perioral cyanosis. NECK - Supple to palpation. No nuchal rigidity. LUNGS - Coarse breath sounds noted throughout all lung oneill. CARDIAC -regular rate and rhythm with S1/S2. No murmur, rubs, or gallops appreciated. ABDOMEN - no distension, no tenderness, normal bowel sounds, EXTREMITIES - No clubbing or peripheral cyanosis. No pretibial edema present. NEUROLOGIC - No focal neurological deficits noted on exam. Results & Data Results & Data ([facility]) Vital Signs (Past 12 Hours) Vital Signs Temp Pulse Resp BP Pulse Ox 01/19/20 06:11 36.7 C 80 19 122/51 L 96 01/19/20 05:11 36.8 C 77 19 113/51 L 97 01/19/20 04:11 36.8 C 78 18 115/51 L 98 01/19/20 03:11 36.8 C 76 100/46 L 98 01/19/20 02:11 36.7 C 76 20 107/49 L 99 01/19/20 01:11 36.7 C 77 107/46 L 98 01/19/20 00:11 36.6 C 79 20 108/52 L 97 01/18/20 23:11 36.6 C 76 16 100/47 L 97 Laboratory Results WBC 8.05 K/uL (4.8-10.8) 01/19/20 05:58 RBC 2.48 M/uL (4.7-6.1) L 01/19/20 05:58 Hgb 8.4 g/dL (14.0-18.0) L 01/19/20 05:58 POC Hgb 8.2 g/dl (14.0-18.0) L 01/18/20 05:29 Hct 26.1 % (42-52) L 01/19/20 05:58 POC Hct 24 % (42-52) L 01/18/20 05:29 MCV 105.2 fL (80-100) H 01/19/20 05:58 MCH 33.9 pg (25-34) 01/19/20 05:58 MCHC 32.2 g/dL (32-36) 01/19/20 05:58 RDW Std Deviation 68.3 fL (36.4-46.3) H 01/19/20 05:58 RDW Coeff of Kole 17.9 % (11.5-14.5) H 01/19/20 05:58 Plt Count 153 K/uL (130-400) 01/19/20 05:58 MPV 11.0 fL (7.4-10.4) H 01/19/20 05:58 Immature Gran % (Auto) 0.4 % 01/19/20 05:58 Neut % (Auto) 68.0 % 01/19/20 05:58 Lymph % (Auto) 14.0 % 01/19/20 05:58 Guadalupe % (Auto) 14.2 % 01/19/20 05:58 Eos % (Auto) 3.2 % 01/19/20 05:58 Baso % (Auto) 0.2 % 01/19/20 05:58 Neut # (Auto) 5.47 K/uL (1.4-6.5) 01/19/20 05:58 Lymph # (Auto) 1.13 K/uL (1.2-3.4) L 01/19/20 05:58 Guadalupe # (Auto) 1.14 K/uL (0.11-0.59) H 01/19/20 05:58 Eos # (Auto) 0.26 K/uL (0-0.5) 01/19/20 05:58 Baso # (Auto) 0.02 K/uL (0-0.2) 01/19/20 05:58 Immature Gran # (Auto) 0.03 K/uL (0.00-0.02) H 01/19/20 05:58 Absolute Nucleated RBC 0.03 K/uL (0-0) H 01/17/20 04:20 Nucleated RBC % (auto) 0.2 % 01/17/20 04:20 Basophilic Stippling 1+ 01/16/20 18:30 Anisocytosis Present 01/18/20 03:45 Microcytosis Present 01/16/20 18:30 Stomatocytes 1+ 01/16/20 18:30 PT 11.8 Seconds (9.0-12.0) 01/16/20 18:30 INR 1.1 (0.9-1.1) 01/16/20 18:30 APTT 27.4 Seconds (21.0-31.0) 01/16/20 18:30 PTT Ratio 1.0 01/16/20 18:30 Sample Site Art Line 01/18/20 05:29 POC pH 7.42 (7.35-7.45) 01/18/20 05:29 POC pCO2 59 mmHg (35-46) H 01/18/20 05:29 POC pO2 93 mmHg (80-95) 01/18/20 05:29 POC HCO3 38 елена/L (19-24) H 01/18/20 05:29 POC Total CO2 > 40 mmol/L (24-31) H* 01/18/20 05:29 POC Base Excess 14.0 елена/L (-9-1.8) H 01/18/20 05:29 ABG pH (Temp Correct) 7.437 (7.35-7.45) 01/18/20 05:29 ABG pCO2 (Temp Corrct 56 mmHg (35-46) H 01/18/20 05:29 POC ABG pO2 at Pt Temp 87 01/18/20 05:29 POC ABG O2 Sat 97.0 % (90-95) H 01/18/20 05:29 Ramirez Test NA 01/18/20 05:29 VBG pH 7.00 (7.36-7.41) L 01/16/20 18:30 VBG pCO2 198 mmHg (38-50) H 01/16/20 18:30 VBG pO2 55 mmHg 01/16/20 18:30 VBG HCO3 48 mmol/L 01/16/20 18:30 VBG O2 Saturation 72.8 % 01/16/20 18:30 VBG Base Excess 12.1 mEq/L 01/16/20 18:30 Barometric Pressure 732.6 mm/Hg 01/16/20 18:30 O2 Delivery Device Ventilator 01/18/20 05:29 POC O2 Rate 8 01/18/20 05:29 Minute Ventilation 4 01/18/20 05:29 POC FiO2 30 % 01/18/20 05:29 Tidal Volume 500 01/18/20 05:29 PEEP 5 01/18/20 05:29 POC Sodium 138 mmol/L (135-144) 01/18/20 05:29 Sodium 142 mmol/L (136-145) 01/19/20 05:57 POC Potassium 4.4 mmol/L (3.3-5.0) 01/18/20 05:29 Potassium 4.4 mmol/L (3.5-5.1) 01/19/20 05:57 Chloride 103 mmol/L (98-107) 01/19/20 05:57 Carbon Dioxide 37 mmol/L (21-32) H 01/19/20 05:57 Anion Gap 2.0 (3-11) L 01/19/20 05:57 BUN 48 mg/dl (7-18) H 01/19/20 05:57 Creatinine 1.33 mg/dl (0.6-1.4) 01/19/20 05:57 Est Cr Clr Drug Dosing 44.6 ml/min 01/19/20 05:57 Est GFR ( Amer) 56.1 01/19/20 05:57 Est GFR (Non-Af Amer) 48.4 01/19/20 05:57 BUN/Creatinine Ratio 36.2 (10-20) H 01/19/20 05:57 Glucose 84 mg/dl (70-99) 01/19/20 05:57 POC Glucose 108 mg/dl (70-99) H 01/18/20 17:57 Lactate 2.3 mmol/L (0.4-2.0) H* 01/17/20 04:20 Calcium 8.8 mg/dl (8.5-10.1) 01/19/20 05:57 Phosphorus 4.1 mg/dl (2.5-4.9) 01/19/20 05:57 Magnesium 2.4 mg/dl (1.8-2.4) 01/19/20 05:57 Total Bilirubin 0.8 mg/dl (0.2-1) 01/19/20 05:57 Direct Bilirubin 0.2 mg/dl (0-0.2) 01/19/20 05:57 AST 20 U/L (15-37) 01/19/20 05:57 ALT 22 U/L (12-78) 01/19/20 05:57 Alkaline Phosphatase 62 U/L (45-117) 01/19/20 05:57 Ammonia 17.0 umol/L (11-32) 01/17/20 04:20 Troponin I 0.032 ng/ml (0-0.045) 01/16/20 18:30 NT-Pro-B Natriuret Pep 48491 pg/ml (0-1800) H 01/16/20 18:30 Total Protein 5.9 gm/dl (6.4-8.2) L 01/19/20 05:57 Albumin 2.5 gm/dl (3.4-5.0) L 01/19/20 05:57 Globulin 3.6 gm/dl (2.5-4.0) 01/16/20 18:30 Albumin/Globulin Ratio 0.9 (0.9-2) 01/16/20 18:30 Procalcitonin 0.48 ng/ml (0-0.5) 01/17/20 04:20 Random Cortisol 22.46 mcg/dl 01/16/20 23:35 Urine Color Dark Yellow 01/16/20 18:38 Urine Appearance Cloudy (Clear) A 01/16/20 18:38 Urine pH 5.0 (4.5-7.5) 01/16/20 18:38 Ur Specific [place] 1.026 (1.000-1.030) 01/16/20 18:38 Urine Protein 2+ (Negative) H 01/16/20 18:38 Urine Glucose (UA) Negative (Negative) 01/16/20 18:38 Urine Ketones Trace (Negative) H 01/16/20 18:38 Urine Blood 2+ (Negative) H 01/16/20 18:38 Urine Nitrite Negative (Negative) 01/16/20 18:38 Urine Bilirubin Negative (Negative) 01/16/20 18:38 Urine Urobilinogen Negative (Negative) 01/16/20 18:38 Ur Leukocyte Esterase Negative (Negative) 01/16/20 18:38 Urine WBC (Auto) 1-5 /hpf (0-5) 01/16/20 18:38 Urine RBC (Auto) 10-30 /hpf (0-4) H 01/16/20 18:38 U Hyaline Cast (Auto) >30 /lpf (0-5) H 01/16/20 18:38 U Epithel Cells (Auto) >30 /lpf (0-5) H 01/16/20 18:38 Urine Bacteria (Auto) Negative (Negative) 01/16/20 18:38 Nasal Screen MRSA (PCR) Positive (Negative) A 01/16/20 23:00 Urine Opiates Screen Neg (Neg) 01/16/20 18:38 Ur Methadone, Qual Neg (Neg) 01/16/20 18:38 Urine Barbiturates Neg (Neg) 01/16/20 18:38 Ur Phencyclidine (PCP) Neg (Neg) 01/16/20 18:38 U Amphetamin/Meth Scrn Neg (Neg) 01/16/20 18:38 MDMA (Ecstasy) Screen Neg (Neg) 01/16/20 18:38 U Benzodiazepines Scrn Neg (Neg) 01/16/20 18:38 Ur Cocaine Metabolite Neg (Neg) 01/16/20 18:38 U Marijuana (THC) Screen Neg (Neg) 01/16/20 18:38 COVID-19 PCR NEGATIVE (Negative) 01/16/20 19:55 Bld Cult Staph aureus PCR Negative (Negative) 01/16/20 18:30 Blood Culture MRSA PCR Negative (Negative) 01/16/20 18:30 Resident Activity Tracking Resident Involvement: Resident Care Provided Care Provided: Adult Hospital Medicine (1) Pulmonary edema Chronicity: acute Qualified Code(s): J81.0 - Acute pulmonary edema (2) Respiratory failure Chronicity: acute on chronic Respiratory failure complication: hypoxia and hy percapnia Qualified Code(s): J96.21 - Acute and chronic respiratory failure with hypoxia; J96.22 - Acute and chronic respiratory failure with hypercapnia (3) COPD (chronic obstructive pulmonary disease) COPD type: COPD with acute exacerbation Qualified Code(s): J44.1 - Chronic obstructive pulmonary disease with (acute) exacerbation
[2020-01-19] MEDS: ALPHAGAN~ORDER AWAITING ACTION SCH ×2 (07:07→15:58)
--- NOTE | 2020-01-19 08:30 | XRay Report ---
XR chest 1V portable HISTORY: 84 years-old Male f/u follow-up study in a patient with respiratory failure COMPARISON: Chest radiograph 01/18/2020 TECHNIQUE: Portable AP view of the chest FINDINGS: Cardiac silhouette is enlarged. Cardiac valvular prosthesis with prior median sternotomy. Left subcla vian pacer/AICD. Interval extubation with removal of the enteric tube. Pulmonary vascular congestion with interstitial coarsening has mildly progressed. Moderate small left pleural effusions. Right pleu ral effusion has mildly increased in size. Band Scroll Saw Operator midlung and bibasilar consolidation. Degenerativ e changes of the shoulders and spine. IMPRESSION: 1. Interval extubation with removal of the enteric tube. 2. Cardiomegaly with pulmonary vascular congestion and progressive interstitial coarsening suggestive of pulmonary edema. 3. Bilateral pleural effusions, increased in size on the right. 4. Persistent bibasilar consolidation. ACT 112: Negative or not required by law. The above report was generated using voice recognition software. It may contain grammatical, syntax o r spelling errors. Electronically signed by: Philip Guzman M.D. 01/19/2020 8:29 AM
[2020-01-19] MEDS: HEPARIN SOD 5,000 UNIT/0.5 ML VIAL SQ SCH ×2 (09:05→20:13)
[2020-01-19] MEDS: FAMOTIDINE 20 MG in SYRINGE 3 ML IV SCH (09:07)
[2020-01-19] MEDS: DORZOLAMIDE/TIMOLOL 22.3/6.8MG/ML 10 ML BTL OPB SCH ×2 (09:07→20:05)
[2020-01-19] MEDS: ASPIRIN 81 MG CHEW PO SCH (09:07)
[2020-01-19] MEDS ORDERED: VANCOMYCIN TROUGH ONE (13:30)
[2020-01-19] MEDS: VANCOMYCIN HCL 1,250 MG in SODIUM CHLORIDE 0.9% 250 ML IV SCH (14:22)
--- NOTE | 2020-01-19 15:38 | Pharmacy Report ---
Pharmacy Abx Dose Short Note - Date of Service January 19, 2020 - Assessment & Plan Assessment 84 year old M receiving vanc + Zosyn for pulm indication Plan Vancomycin * Trough level of 18.5 mcg/mL is therapeutic * Continue dose of 1250 mg IV every 24 hours * Goal trough level: 17 to 20mcg/mL * Will order repeat trough appropriately if vanc is continued Piperacillin/tazobactam * 4.5 g bolus administered over 30 minutes, then 4.5 g IV extended infusion every 8 hours for CrCl greater than 20 mL/min * Aggressive dosing selected due to critically ill status Pharmacy will continue to follow and will adjust dose/frequency as necessary. Thank you.
[2020-01-19] MEDS ORDERED: FUROSEMIDE 40 MG in SYRINGE 0 ML IV ONE (18:45)
--- NOTE | 2020-01-19 19:25 | Hospitalist Progress Note ---
Date of Service January 19, 2020 Assessment & Plan (1) Metabolic encephalopathy: multifactorial etiology including hypoxia and underlying infection. (2) Respiratory failure: septic shock 2/2 pneumonia s/p resuscitation and self extubation yesterday. He is still in respiratory distress with a fluid overload picture. Lasix 40m IV now. With clarified instructions from patient and family regarding no reintubation, will move him to the floor for continued treatment. Cont abx at this time. Low threshold to transfer to comfort care measures overnight. This was communicated with the plaster helper. (3) Aspiration pneumonia: Cont broad spectrum abx for now. (4) Pulmonary edema: Lasix 40 IV now. (5) COPD (chronic obstructive pulmonary disease): Nebulizer therapy PRN, no wheezing. Appears that hypoxia is 2/2 fluid overload in setting of pneumonia. (6) CAD (coronary artery disease): holding many PO medications pending respiratory status. Cont aspirin (7) Hypertension: low normal range. Cont to monitor. (8) Ischemic cardiomyopathy: (9) Sepsis: resuscitated (10) Anemia: multifactorial. No need for transfusion at this time. (11) DVT prophylaxis: heparin DNR Dispo-low threshold to transition to comfort care measures. May not be able to transfer out of the hospital. Sylwia Gregory DO [facility]ist Admission and Anticipated Discharge Date Admission Date: January 16, 2020 Subjective Evaluated patient in the ICU, self-extubated 24 hours ago. Still with significant hypoxia and CXR revealing increased volume overload. slight increased respiratory effort, however patient doesn't feel short of breath. He is intermittently confused and continues to repeat some of his story. His oxygen was just titrated down and his oxygen saturation was in the low 80s temporarily. We spoke about the conversation with his family regarding no further attempts at intubation or resuscitation and he is in agreement with this. Arreola in place. Eating well and good urine output per nurse. I went back to reassess him on the floor and spoke with his and son at bedside. Decided on Lasix and to continue the efforts for treatment for now to see if we can reverse some of the respiratory distress. Review of Systems Review of Systems: All systems reviewed & are unremarkable except as noted in Subjective Physical Exam Physical Exam: CONSTITUTIONAL: WNWD, vitals as above, generally well- appearing EYES: normal conjunctivae, no scleral icterus ENT: external ear and nose normal, oropharynx clear, MMM RESPIRATORY: diminished breath sounds with coarse crackles at the bases. No rales or wheezes, incresaed respiratory effort CARDIOVASCULAR: regular rate and rhythm, S1 and 2 heard without murmurs, gallops or rubs, no JVD, no peripheral edema GASTROINTESTINAL: soft, nontender, nondistended MUSCULOSKELETAL: strength 5/5 throughout, head is normocephalic and atraumatic SKIN: warm and dry NEUROLOGIC: CN 2-12 grossly intact, normal cognition, normal speech, no tremor, ? confusion PSYCHIATRIC: alert and cooperative. Results & Data Results & Data ([facility]) Vital Signs (Past 12 Hours) Vital Signs Temp Pulse Pulse Resp BP BP Pulse Ox 01/19/20 18:26 36.9 C 76 17 123/55 L 97 01/19/20 15:30 75 01/19/20 13:11 75 25 H 105/48 L 100 01/19/20 12:13 36.6 C 75 25 H 117/52 L 98 01/19/20 11:11 75 17 109/48 L 93 01/19/20 10:11 76 21 100/43 L 88 L 01/19/20 09:11 36.6 C 81 15 107/45 L 89 L Laboratory Results Short CBC 01/19/20 Range/Units 05:58 WBC 8.05 (4.8-10.8) K/uL Hgb 8.4 L (14.0-18.0) g/dL Hct 26.1 L (42-52) % Plt Count 153 (130-400) K/uL BMP 01/19/20 05:57 Sodium 142 Potassium 4.4 Chloride 103 Carbon Dioxide 37 H BUN 48 H Creatinine 1.33 Glucose 84 Calcium 8.8 Liver Function 01/19/20 Range/Units 05:57 Total Bilirubin 0.8 (0.2-1) mg/dl Direct Bilirubin 0.2 (0-0.2) mg/dl AST 20 (15-37) U/L ALT 22 (12-78) U/L Alkaline Phosphatase 62 (45-117) U/L Albumin 2.5 L (3.4-5.0) gm/dl Diagnostic Findings XR chest 1V portable HISTORY: 84 years-old Male f/u follow-up study in a patient with respiratory failure COMPARISON: Chest radiograph 01/18/2020 FINDINGS: Cardiac silhouette is enlarged. Cardiac valvular prosthesis with prior median sternotomy. Left subclavian pacer/AICD. Interval extubation with removal of the enteric tube. Pulmonary vascular congestion with interstitial coarsening has mildly progressed. Moderate small left pleural effusions. Right pleural effusion has mildly increased in size. Charge Accounts Audit Clerk midlung and bibasilar consolidation. Degenerative changes of the shoulders and spine. IMPRESSION: 1. Interval extubation with removal of the enteric tube. 2. Cardiomegaly with pulmonary vascular congestion and progressive interstitial coarsening suggestive of pulmonary edema. 3. Bilateral pleural effusions, increased in size on the right. 4. Persistent bibasilar consolidation. Medications Administered Current Inpatient Medications Albuterol (Duoneb) 3 ml INH QID PRN PRN Reason: Shortness Of Breath Or Wheezing Stop: 02/15/20 22:08 Aspirin (Aspirin Chew) 81 mg PO DAILY [facility] Stop: 02/16/20 08:59 Last Admin: 01/19/20 09:07 Dose: 81 mg Documented by: Dorzolamide/Timolol (Cosopt) 1 drops OPB BID [facility] Stop: 02/16/20 08:59 Last Admin: 01/19/20 09:07 Dose: 1 drops Documented by: Heparin Sodium (Porcine) (Heparin Sodium (Porcine)) 5,000 units SQ Q12 [facility]STIAN Stop: 02/16/20 08:59 Last Admin: 01/19/20 09:05 Dose: 5,000 units Documented by: Acetaminophen (Ofirmev) 1,000 mg in 100 mls @ 400 mls/hr IV Q8H PRN PRN Reason: Fever Stop: 01/20/20 00:44 Last Infusion: 01/17/20 09:32 Dose: Infused Documented by: Cefepime HCl 2,000 mg/ Syringe 20 mls @ 5.5 mls/min IV Q12H CHRISTIAN; Protocol Stop: 01/24/20 14:59 Last Admin: 01/19/20 14:55 Dose: 5.5 mls/min Documented by: Vancomycin HCl 1,250 mg/ (Sodium Chloride) 275 mls @ 125 mls/hr IV Q24H CHRISTIAN Stop: 01/24/20 13:59 Last Infusion: 01/19/20 16:44 Dose: Infused Documented by: Latanoprost (Xalatan Oph) 1 drops OPR HS CHRISTIAN Stop: 02/16/20 20:59 Last Admin: 01/18/20 21:10 Dose: 1 drops Documented by: Miscellaneous (Order Awaiting Action) 1 ea N/A QS [facility]STIAN Stop: 02/16/20 00:00 Last Admin: 01/19/20 15:58 Dose: Not Given Documented by: Miscellaneous Information (Consult) 1 ea N/A UD PRN PRN Reason: Consult Stop: 02/15/20 19:10 (1) Pulmonary edema Chronicity: acute Qualified Code(s): J81.0 - Acute pulmonary edema (2) Respiratory failure Chronicity: acute on chronic Respiratory failure complication: hypoxia and hypercapnia Qualified Code(s): J96.21 - Acute and chronic respiratory failure with hypoxia; J96.22 - Acute and chronic respiratory failure with hypercapnia (3) COPD (chronic obstructive pulmonary disease) COPD type: COPD with acute exacerbation Qualified Code(s): J44.1 - Chronic obstructive pulmonary disease with (acute) exacerbation
[2020-01-19] MEDS: LATANOPROST 0.005% OP SOLN 2.5 ML BTL OPR SCH (20:05)
[2020-01-20] MEDS: ALPHAGAN~ORDER AWAITING ACTION SCH ×2 (00:36→11:47)
[2020-01-20] MEDS: CEFEPIME 2,000 MG in SYRINGE 7.5 ML IV SCH (04:39)
[2020-01-20] MEDS: DORZOLAMIDE/TIMOLOL 22.3/6.8MG/ML 10 ML BTL OPB SCH (08:26)
[2020-01-20] MEDS: ASPIRIN 81 MG CHEW PO SCH (08:26)
[2020-01-20] MEDS: HEPARIN SOD 5,000 UNIT/0.5 ML VIAL SQ SCH (08:26)
[2020-01-20] MEDS ORDERED: MoRPHine SULFATE 2 MG/ML CARP IV STA (10:06)
[2020-01-20] MEDS ORDERED: LORazepam 0.5 MG/1 ML VIAL IV PRN (10:10)
[2020-01-20] MEDS ORDERED: ONDANSETRON 4 MG OD TAB SL PRN (10:10)
[2020-01-20] MEDS ORDERED: ATROPINE SULFATE 1% OP SOLN 2 ML BTL SL PRN (10:10)
[2020-01-20] MEDS ORDERED: ONDANSETRON INJ 2 MG/ML 2 ML VIAL IV PRN (10:10)
--- NOTE | 2020-01-20 10:19 | Hospitalist Progress Note ---
Date of Service January 20, 2020 Assessment & Plan (1) Comfort measures only status: Stopping antibiotic therapy, morphine/ativan/atropine and antiemetics as needed. Oxygen for comfort. Leave issa in place for comfort. Family is happy with the transition plan. Goal is decreasing dyspnea and pain. (2) Respiratory failure: (3) COPD (chronic obstructive pulmonary disease): (4) Pulmonary edema: (5) CAD (coronary artery disease): (6) Hypertension: (7) Ischemic cardiomyopathy: (8) Aspiration pneumonia: (9) Sepsis: (10) Anemia: (11) Metabolic encephalopathy: (12) DVT prophylaxis: Admission and Anticipated Discharge Date Admission Date: January 16, 2020 Subjective persistent hypoxia and confusion overnight family is on board with palliative measures and requesting morphine had conversation with and eldest daughter at bedside regarding the transition plan to comfort measures only they verbalized understanding and agreement with the current plan patient is awake and tolerating food. he denies any pain Review of Systems Review of Systems: Other (limited ROS 2/2 fatigue) Physical Exam Physical Exam: CONSTITUTIONAL: fatigue, vitals as above, generally well- appearing EYES: normal conjunctivae, no scleral icterus ENT: external ear and nose normal, oropharynx clear, MMM RESPIRATORY: diminished breath sounds with coarse crackles throughout. No rales or wheezes, increased respiratory effort CARDIOVASCULAR: regular rate and rhythm, S1 and 2 heard without murmurs, gallops or rubs, no JVD, no peripheral edema GASTROINTESTINAL: soft, nontender, nondistended MUSCULOSKELETAL: strength 5/5 throughout, head is normocephalic and atraumatic SKIN: warm and dry NEUROLOGIC: CN 2-12 grossly intact, normal cognition, normal speech, no tremor, ? confusion PSYCHIATRIC: alert and cooperative. Results & Data Results & Data ([facility]) Vital Signs (Past 12 Hours) Vital Signs Temp Pulse Pulse Resp BP Pulse Ox 01/20/20 07:33 36.7 C 76 20 117/51 L 90 01/20/20 04:25 36.4 C L 75 18 114/49 L 97 01/19/20 23:58 36.6 C 75 18 130/50 L 97 01/19/20 22:57 75 Medications Administered Current Inpatient Medications Albuterol (Duoneb) 3 ml INH QID PRN PRN Reason: Shortness Of Breath Or Wheezing Stop: 02/15/20 22:08 Atropine Sulfate (Atropine Sulfate 1% Oph Soln) 4 drops SL Q1H PRN PRN Reason: Secretions or Pulm Congestion Stop: 02/19/20 10:09 Lorazepam (Ativan) 0.5 mg in 1 mls @ 1 mls/min IV Q4H PRN PRN Reason: Anxiety/Agitation Stop: 02/19/20 10:09 Morphine Sulfate (Morphine Sulfate) 2 mg IV Q4H PRN PRN Reason: Pain or Respiratory Distress Stop: 02/03/20 10:09 Ondansetron HCl (Zofran) 4 mg IV Q4H PRN PRN Reason: Nausea And Vomiting Stop: 02/19/20 10:09 Ondansetron HCl (Zofran Odt) 4 mg SL Q4H PRN PRN Reason: Nausea And Vomiting Stop: 02/19/20 10:09 (1) Respiratory failure Chronicity: acute on chronic Respiratory failure complication: hypoxia and hypercapnia Qualified Code(s): J96.21 - Acute and chronic respiratory failure with hypoxia; J96.22 - Acute and chronic respiratory failure with hypercapnia (2) COPD (chronic obstructive pulmonary disease) COPD type: COPD with acute exacerbation Qualified Code(s): J44.1 - Chronic obstructive pulmonary disease with (acute) exacerbation (3) Pulmonary edema Chronicity: acute Qualified Code(s): J81.0 - Acute pulmonary edema
--- NOTE | 2020-01-20 14:09 | Palliative Care Consultation ---
Date of Consultation January 20, 2020 Assessment & Plan (1) Comfort measures only status: Patient is an 84-year-old gentleman with a past medical history significant for O2 dependent COPD-on O2 at 2 L at home, chronic diastolic CHF, ICM O-status post AICD, status post AVR, CAD who was brought to the emergency room on 01/15 for altered mental status-patient was obtunded and intubated for airway protection. Family reports patient was having more shortness of breath, did increase his O2 to 3 L and then up to 5 L. Patient also had evidence of fluid overload via chest x-ray. Altered mental status was likely a combination of CO2 narcosis, possible aspiration and pulmonary edema. Patient self extubated on 01/17-was somewhat oriented after extubation-recognized family. Family reports patient was wanting aggressive measures. Over the past 24 to 48 hours patient has stated he does not want any more invasive procedures including blood sticks or IVs, he feels he is nearing end-of-life and just wants to be comfortable. He was transitioned to comfort care. Patient is currently on O2 at 6 L nasal cannula with O2 sats of 90%, patient is more confused when seen this afternoon-may be seeing early CO2 narcosis. -Patient seen and examined in room 256, patient's , son and daughter at bedside. There are 5 children that live locally as well as 9 grandchildren and 2 great-grandchildren. -On exam-patient did not recognize his , able to respond, not always making sense. -Discussed end-of-life issues at length with family at bedside. Encourage self- care of and family members. -Family reports patient did have some restlessness earlier today-he kept doing something with his hands which family now recognizes that he was tying flies to go fishing. He did receive 1 PRN IV morphine at 2 mg with good response. -Did mention briefly to patient's son and daughter that if patient remains stable we could arrange for him to return home where family can visit more freely. -Will continue to follow and provide emotional support to family. (2) Metabolic encephalopathy: Increased confusion-partially due to CO2 narcosis (3) COPD (chronic obstructive pulmonary disease): Hypoxia and CO2 retention-continue O2 at 6 L for comfort (4) Chronic diastolic HF (heart failure): No further diuresis planned (5) Ischemic cardiomyopathy: AICD in place-would recommend deactivating as patient declines History of Present Illness Reason for Consultation: Patient transition to comfort care Requesting Physician: Dr. Gregory Attending Physician: Sylwia Gregory, History of Present Illness Patient is an 84-year-old gentleman with a past medical history significant for O2 dependent COPD-on O2 at 2 L at home, chronic diastolic CHF, ICM O-status post AICD, status post AVR, CAD who was brought to the emergency room on 01/15 for altered mental status-patient was obtunded and intubated for airway protection. Family reports patient was having more shortness of breath, did increase his O2 to 3 L and then up to 5 L. Patient also had evidence of fluid overload via chest x-ray. Altered mental status was likely a combination of CO2 narcosis, possible aspiration and pulmonary edema. Patient self extubated on 01/17-was somewhat oriented after extubation-recognized family. Family reports patient was wanting aggressive measures. Over the past 24 to 48 hours patient has stated he does not want any more invasive procedures including blood sticks or IVs, he feels he is nearing end-of-life and just wants to be comfortable. He was transitioned to comfort care. Patient is currently on O2 at 6 L nasal cannula with O2 sats of 90%, patient is more confused when seen this afternoon- may be seeing early CO2 narcosis. -Patient seen and examined in room 256, patient's , son and daughter at bedside. There are 5 children that live locally as well as 9 grandchildren and 2 great-grandchildren. -On exam-patient did not recognize his , able to respond, not always making sense. -Discussed end-of-life issues at length with family at bedside. Encourage self- care of and family members. -Family reports patient did have some restlessness earlier today-he kept doing something with his hands which family now recognizes that he was tying flies to go fishing. He did receive 1 PRN IV morphine at 2 mg with good response. -Did mention briefly to patient's son and daughter that if patient remains stable we could arrange for him to return home where family can visit more freely. -Will continue to follow and provide emotional support to family. Allergies Allergy/AdvReac Type Severity Reaction Status Date / Time No Known Allergies Allergy Verified 12/17/19 08:52 Home Medications Home Medications Medication Instructions Recorded Confirmed Type Alphagan P 0.1 % OPHTHALMIC (EYE) DAILY 07/04/18 01/16/20 History albuterol sulfate [ProAir HFA] 2 puff INHALATION QID PRN 07/04/18 01/16/20 History amoxicillin 2,000 mg PO UD PRN 07/04/18 01/16/20 History furosemide [Lasix] 20 mg PO HS 07/04/18 01/16/20 History latanoprost [Xalatan] 1 drp OPR HS 07/04/18 01/16/20 History Breo Ellipta 1 inh INHALATION QAM 06/27/19 01/16/20 History azithromycin [Zithromax Z-Thom] 250 mg PO UD PRN 06/27/19 01/16/20 History cetirizine [Zyrtec] 10 mg PO DAILY PRN 06/27/19 01/16/20 History cholecalciferol (vitamin D3) 1,000 unit PO QAM 06/27/19 01/16/20 History [Vitamin D3] finasteride 5 mg PO HS 06/27/19 01/16/20 History fluticasone propionate [Flonase 2 spray INTRANASAL BID 06/27/19 01/16/20 History Allergy Relief] multivitamin with minerals 1 tab PO QAM 06/27/19 01/16/20 History prednisone 10 mg PO UD PRN 06/27/19 01/16/20 History simvastatin 40 mg PO PM 06/27/19 01/16/20 History terazosin 5 mg PO QPM 06/27/19 01/16/20 History Mucinex 1,200 mg PO BID 08/23/19 01/16/20 History aspirin [Aspirin Childrens] 81 mg PO DAILY 08/23/19 01/16/20 History dorzolamide-timolol [Cosopt] 1 drp OPB BID 01/16/20 01/16/20 History fluticasone furoate-vilanterol 1 ea INHALATION DAILY 01/16/20 01/16/20 History [Breo Ellipta] ipratropium-albuterol 3 ml INHALATION QID PRN 01/16/20 01/16/20 History metoprolol succinate 25 mg PO DAILY 01/16/20 01/16/20 History vit C,N-Zm-ihdap-lutein-zeaxan 1 tab PO BID 01/16/20 01/16/20 History [PreserVision AREDS-2] Patient History Medical History Ascending aortic aneurysm (Chronic) BPH (benign prostatic hyperplasia) (Chronic) Bronchiectasis (Chronic) CAD (coronary artery disease) (Chronic) Chronic diastolic HF (heart failure) Chronic systolic CHF (congestive heart failure), NYHA class 3 COPD (chronic obstructive pulmonary disease) Glaucoma bilt eyes Hyperlipidemia (Chronic) Hypertension (Chronic) ICD (implantable cardioverter-defibrillator) battery depletion pt for biv icd generator change; rediscussed the procedure and potential risks consent obtained Ischemic cardiomyopathy (Chronic) On home oxygen therapy 2L N/C hs and prn Spinal stenosis Ventricular tachyarrhythmia (Chronic) Surgical History Biventricular ICD (implantable cardioverter-defibrillator) in place 2006 @ [place]/ recently replaced @ 07/04/18 [facility] History of bilateral cataract extraction History of cardiac cath 2001 [place] [facility] [place] History of colonoscopy History of left inguinal hernia repair x2 History of prostate biopsy x2--benign History of tonsillectomy Hx of CABG 2001 @ [facility] [place]R [place] @ [facility] [place] Family History Father Family hx colonic polyps Other Hypertension No family history of adverse response to anesthesia Stroke Social History Smoking Status: Never smoker Second Hand Exposure: No; Do You Dip or Chew Tobacco: No; Tobacco Cessation Education Requested by Patient: No Hx Alcohol Use: No Hx Substance Use: No Preferred Language: Wolof Communication Ability: Unable Culturist Required: No Beliefs That Will Affect Care: None marital status: Current Living Situation: Spouse Other Information That Helps Us Care for You: No Feels Safe at Home: Yes Safety Concerns: Feels Safe At This Time Review of Systems Review of Systems: Unable to obtain due to confusion, AMS Physical Exam Physical Exam: PE: Patient sitting upright in bed with , son and daughter at bedside. Patient appears comfortable HEENT: EOMI, mild [place] Respirations: Unlabored, diminished at bases. On O2 at 6 L nasal cannula CV: Regular rate, positive upper extremity and lower extremity edema Abdomen: Soft, nontender Neuro: Confused, did not recognize , not oriented to place or time Results & Data Vital Signs (Past 12 Hours) Vital Signs Temp Pulse Resp BP Pulse Ox 01/20/20 07:33 98.1 F 76 20 117/51 L 90 01/20/20 04:25 97.5 F L 75 18 114/49 L 97 PG Care Time/CCT Total # of Minutes Spent Total Time Spent with Patient: Total time spent 70 minutes with greater than 50% of the time spent at bedside discussing patient's current comfort level as well as end-of-life issues with family at bedside. Collaborated with attending physician Coding Level of Care Code 08596 Inpt Consult Level 3 Diagnoses Comfort measures only status Z51.5 Metabolic encephalopathy G93.41 COPD (chronic obstructive pulmonary disease) J44.9 Chronic diastolic HF (heart failure) I50.32 Ischemic cardiomyopathy I25.5 Time Spent (min) 70
[2020-01-20] MEDS: MoRPHine SULFATE 2 MG/ML CARP IV PRN ×2 (14:13→18:15)
--- NOTE | 2020-01-21 10:04 | Discharge Summary ---
Date of Service January 21, 2020 Admission HPI Per Admitting Provider HISTORY OF PRESENT ILLNESS: This is an 84-year-old male with past medical history significant for acute respiratory failure with hypoxemia, hyperlipidemia, asthma moderate persistent, bronchiectasis, history of aspiration pneumonia with both the lungs, COPD, history of right hemidiaphragm paralysis, history of paroxysmal ventricular tachycardia status post ICD, aortic regurgitation status post bioprosthetic aortic valve replacement, CAD status post CABG, transthoracic aortic aneurysm, chronic kidney disease stage III, baseline creatinine around 1.3, history of tobacco abuse. The patient lives with his , son, and daughter. The patient was here in the hospital in July with aspiration pneumonitis requiring BiPAP. Sputum cultures were negative and bronchoscopy was not indicated and he also had sepsis, treated empirically with antibiotics.And again he was admitted on 08/23/2019 and discharge 09/03/2019. At that time, he was admitted for septic shock requiring pressor support. Blood culture grew MRSA. His transthoracic echocardiogram did not show any valvular vegetation because of his bioprosthetic valve treated for 6 weeks with IV antibiotics and was discharged on IV ceftaroline, completed antibiotics as per the . At that time, 2 step was done, 2 liters oxygen at night and with exercise recommended. As per the , the patient is using oxygen in the nighttime.Lately he is getting short of breath with minimal exertion and he was found to have anemia and he was status post bone marrow biopsy on 01/02/2020 and was diagnosed with low-grade myelodysplastic syndrome. The patient was apparently doing okay until today morning. In the morning, he was somewhat difficult to wake up and he was able to eat breakfast, talk to his , and his brother came and he was able to talk to his brother. Then had appointment, but his son and daughter were in the house and later he became somewhat drowsy, somnolent, and they had to increase his oxygen, but he was saturating 90%. When the came back at 4:00pm, the patient was somewhat unresponsive and called his PCP and advised to come to the hospital. In the ER, his venous blood gases were venous pH was 7 and pCO2 was 198. He was status post intubation and mechanical ventilation. His white count was 15.6, hemoglobin 9.8, platelets 228. His potassium was 6.4, creatinine was 1.45, lactate was 0.9, ammonia was 74, BNP was 16,000. Procalcitonin was 0.07. Urinalysis was okay. Urine drug screen was negative. COVID-19 PCR is negative. Chest x-ray, cardiomegaly with pulmonary edema, bibasilar consolidative opacities. CT of the head, no acute findings. is in the room. As per the , no recent fever, chills. Has some cough, no phlegm. No complaints of headache. No neck pain, no chest pain or abdominal pain. Because of his aspiration pneumonitis, currently his food is made into small pieces and he is doing okay with that. No more aspiration episodes. Normal bowel and bladder movements. He is ambulating with a walker, but minimal exertion is making him short of breath. Could not get complete review of symptoms currently. Admission Exam Per Admitting Provider PHYSICAL EXAMINATION: GENERAL: The patient is status post intubation and sedated, moves extremities. VITAL SIGNS: Temperature afebrile, pulse 75, respiratory rate 22, blood pressure 100/58, oxygen 94% on mechanical vent, 50% FIO2. HEENT: Atraumatic. Pupils pinpoint and sluggish to react. No pallor, no icterus. NECK: Status post right IJ line. No JVD seen. CARDIOVASCULAR: S1, S2 heard, regular rate and rhythm, no murmur, no gallop. RESPIRATORY SYSTEM: Normal AP diameter. No accessory muscle use. Mild bibasilar crackles. No wheezing. ABDOMEN: Soft, bowel sounds present. No distention. CENTRAL NERVOUS SYSTEM: Status post intubation and sedated. Moves extremities on touch stimuli. EXTREMITIES: Bilateral lower extremity edema present, no erythema seen. Principal Diagnosis Acute respiratory failure Pulmonary edema Ischemic cardiomyopathy Aspiration pneumonia Sepsis Metabolic encephalopathy COPD Discharge Exam CONSTITUTIONAL: fatigue, vitals as above, generally ill-appearing EYES: normal conjunctivae, no scleral icterus ENT: external ear and nose normal, oropharynx clear, MMM RESPIRATORY: diminished breath sounds with coarse crackles throughout. No rales or wheezes, increased respiratory effort CARDIOVASCULAR: regular rate and rhythm, S1 and 2 heard without murmurs, gallops or rubs, no JVD, no peripheral edema GASTROINTESTINAL: soft, nontender, nondistended MUSCULOSKELETAL: strength 5/5 throughout, head is normocephalic and atraumatic SKIN: warm and dry NEUROLOGIC: CN 2-12 grossly intact, normal cognition, normal speech, no tremor, ? confusion PSYCHIATRIC: alert and cooperative. Discharge Data Allergies Allergy/AdvReac Type Severity Reaction Status Date / Time No Known Allergies Allergy Verified 12/17/19 08:52 Consultations 01/16/20 19:35 ED Decision to Admit Stat 01/16/20 22:09 Consult Case Management - Discharge Planning Routine Consult Drug Abuse Resistance Education Officer Routine 01/19/20 19:26 Consult Palliative Care Routine 01/20/20 10:11 Consult Case Management - Discharge Planning Routine Ordered Studies 01/16/20 18:24 CT head/brain wo con Stat 01/17/20 16:30 US point of care ultrasound Routine Hospital Course (1) Respiratory failure: (2) Aspiration pneumonia: (3) Pulmonary edema: (4) COPD (chronic obstructive pulmonary disease): (5) CAD (coronary artery disease): (6) Ischemic cardiomyopathy: (7) Sepsis: (8) Metabolic encephalopathy: 84-year-old man presented to the emergency department with confusion, obtunded on arrival and unable to give any history. Family provided history that he had been increasing is oxygen supplementation in recent days. He was intubated immediately upon arrival to the emergency department with a falling oxygen saturation. Chest x-ray revealed evidence of pulmonary edema and elevated CO2 was seen on his blood gas. He was treated with IV fluids and IV antibiotics. Hyperkalemia was noted and treated with IV dextrose insulin and IV calcium. He was admitted to the ICU. With recent MRSA bacteremia and questionable CHF an echocardiogram was performed revealing an EF of 55 to 60% and no regional wall motion abnormality. Grade 1 diastolic dysfunction was noted with moderately calcified trileaflet aortic valve with reduced systolic excursion and moderate aortic stenosis. The following day he self extubated around 11 AM and was initially groomed comfortably on nasal cannula. Around 3:00 that day the family met with critical care staff and discussed a conversion to DO NOT RESUSCITATE DO NOT INTUBATE. He stayed in the ICU that day and was continued on cefepime for presumed aspiration pneumonia. He was transferred out of the ICU on 01/18 with persistent metabolic encephalopathy and respiratory failure secondary pneumonia status post resuscitation and evidence of pulmonary edema on chest x-ray. He was started on Lasix and continued on antibiotics. The following day he met with the palliative care physician was transition to comfort measures only status with increased work of breathing. He remained comfortable for another day on the floor and on 01/20. Family expressed their gratitude with the palliative transition. Total Time Total Time Spent Total Time Spent (In Minutes): 60 Total Time Includes: Examination of the Patient, Discharge Planning, Medication Reconciliation and Communication With Other Providers Discharge Plan Discharge Items Patient Disposition: Reason For Visit: UNRESPONSIVE Discharge Diagnosis: Acute respiratory failure Pulmonary edema Ischemic cardiomyopathy Aspiration pneumonia Sepsis Metabolic encephalopathy COPD Condition on Discharge: Critical Follow-up/Referrals: An iSmon DO [Primary Care Provider] - Addtl Attending Provider Instructions: n/a, patient in the hospital Admission Data Admit Date/Time: 01/16/20 21:44 Other DC Date/Time DO NOT enter until pt leaves facility: 01/20/20 21:25
--- NOTE | 2020-01-21 10:04 | Communication Note ---
Date of Service: January 20, 2020 7:00pm Note: Contacted by nursing staff that the patient had passed. Arrived to the room and both daughters were present at the bedside. One expressed her happiness at how peacefully he passed. The patient was not moving and was unresponsive. Lung auscultation revealed no audible breath sounds, Cardiac auscultation revealed no heart beat. He did not respond to verbal or physical stimuli. Pupils were fixed and round. He was pronounced at 19:[address] PM[address] was on her way into the hospital so daughters could give her the news themselves. Colt, DO
--- NOTE | 2020-01-27 12:43 | Billing Data ---
Date of Service January 17, 2020 Coding Level of Care Code Critical Care 1st 30-74 mins Time Spent (min) 35 Comment I have personally spent 35 minutes of critical care time in the direct management of this patient. This is a life/limb threatening event. This includes time spent evaluating patient, direct bedside care, chart review, placing orders, interpretation of diagnostic studies, discussion with consultants, patient, and/or family members regarding treatment decisions, as well as other required patient management activities. This time is exclusive of all separately billable procedures, and teaching time and separate from and in addition to any other critical care service time.
--- NOTE | 2020-01-27 12:46 | Billing Data ---
Date of Service January 17, 2020 Coding Level of Care Code [address]2931 [place] Same Date Disch Comment This note is for procedure radial artery cannulation.
--- NOTE | 2020-01-27 12:49 | Billing Data ---
Date of Service December Coding Level of Care Code 75858 Subseq Hosp Care Lvl 3
--- NOTE | 2020-01-27 12:52 | Billing Data ---
Date of Service January 19, 2020 Coding Level of Care Code 35620 Subseq Hosp Care Lvl 2
== END 2020-01-20 21:25 | disposition expired | DRG 871 ==
LOC: ED 18:19 → 1E 21:44 → SUATTDRO 21:44 → 1E 22:07 → 2W 01-19 13:41